=== PATIENT | male | born 1945 | race Caucasian/White ===

== ENCOUNTER 2017-08-15 12:22 | Outpatient (CLI) | payer MEDICARE ==
[2017-08-15 14:12] LABS: #Eosinphils 0.1 thou/uL (0.0-0.7); #Lymphocytes 1.6 thou/uL (1.20-3.40); #Monocytes 0.6 thou/uL (0.11-0.59); #Neutrophils 5.7 thou/uL (1.40-6.50); %Basophils 0.4 % (0.0-1.0); %Lymphocytes 20.3 % (21.0-51.0); %Monocytes 7.2 % (0.0-10.0); %Neutrophils 71.1 % (42.0-75.0); Hemoglobin 13.8 g/dL (14.0-18.0); Mean Corpuscular HGB CONC 31.8 g/dL (32.0-36.0); Mean Corpuscular Hemoglobin 32.2 pg (27.0-31.0); Mean Platelet Volume 7.4 fL (7.4-10.4); Platelet Count 266 thou/uL (130-400); RBC Distribution Width 14.3 % (11.5-14.5)
[2017-08-15 14:18] LABS: INR-International Normal Ratio 3.7; Prothrombin Time 38.3 SEC (12.0-14.7)
[2017-08-15 14:19] LABS: PTT 56.1 SEC (22.9-36.1)
[2017-08-15 14:36] LABS: Anion Gap 12 mmol/L (10-20); BUN (Urea Nitrogen) 24 mg/dL (8.4-25.7); Calc. Creatinine Clearance 0 mL/min (70-130); Calcium 9.6 mg/dL (7.8-10.44); Carbon Dioxide 29 mmol/L (23-31); Chloride 99 mmol/L (98-107); Estimated GFR-MDRD 49; Glucose 83 mg/dL (83-110); Sodium 136 mmol/L (136-145)
== END 2017-08-15 12:23 | disposition home or self-care (01) ==
LOC: LABBT 12:22
PROVIDERS: ATTEND Orthopaedic Surgery
DX: Z01.810 Encounter for preprocedural cardiovascular examination (principal); M16.11 Unilateral primary osteoarthritis, right hip
CPT/HCPCS: 80048; 85025; 85610; 85730; 86850; 86900; 86901

== ENCOUNTER 2017-08-15 14:00 | Inpatient (IN) | payer MEDICARE ==
[2017-08-15 12:57] VITALS: BMI 24.3
[2017-08-22] MEDS ORDERED: Midazolam HCl 2 mg/2 ml Vial ONE (06:30)
[2017-08-22] MEDS ORDERED: Morphine 4 MG/ML VIAL ONE ×2 (06:32→10:40)
[2017-08-22 06:34] LABS: INR-International Normal Ratio 1.1; PTT 31.3 SEC (22.9-36.1); Prothrombin Time 14.2 SEC (12.0-14.7)
[2017-08-22] MEDS ORDERED: CEFAZOLIN/Water 2 GM/20 ML SYRINGE ONE (06:37)
[2017-08-22] MEDS ORDERED: Lidocaine 1% (PF) 30 ML VIAL ONE (06:44)
[2017-08-22] MEDS ORDERED: Fentanyl 100 MCG/2 ML VIAL ONE (07:16)
[2017-08-22] MEDS ORDERED: Bupivacaine/Epinephrine 0.25% 30 ML VIAL ONE (07:29)
[2017-08-22] MEDS ORDERED: Ondansetron HCl/PF 4 MG/2 ML Vial IVP PRN ×2 (07:30→09:32)
[2017-08-22] MEDS ORDERED: diphenhydrAMINE 50 MG/ML VIAL IVP PRN (07:30)
[2017-08-22] MEDS ORDERED: Hydrocerin (Eucerin) Cream 120 gm Jar TOP PRN (07:30)
[2017-08-22] MEDS ORDERED: diphenhydrAMINE 25 MG CAP PO PRN (07:30)
[2017-08-22] MEDS ORDERED: diphenhydrAMINE 50 MG/ML VIAL IM PRN (07:30)
[2017-08-22] MEDS ORDERED: Naloxone HCl 0.4 mg/ml Vial IVP PRN (07:30)
[2017-08-22] MEDS ORDERED: Naloxone HCl 0.4 mg/ml Vial IV PRN (07:30)
[2017-08-22] MEDS ORDERED: Promethazine HCl 25 MG SUPP PR PRN (07:30)
[2017-08-22] MEDS ORDERED: Promethazine HCl 25 MG/ML VIAL IM PRN ×2 (07:30→09:32)
[2017-08-22] MEDS ORDERED: Bupivacaine 0.25% 10 ML VIAL EPIDURAL PRN (07:30)
[2017-08-22] MEDS ORDERED: fentaNYL Citrate/PF 1,250 MCG, Bupivacaine 25 ML in Sodium Chloride 0.9% 250 ML 200 ML EPIDURAL SCH (07:30)
[2017-08-22] MEDS ORDERED: HYDROcodone/Acetaminophen 5/325 mg Tablet PO PRN (07:30)
[2017-08-22] MEDS ORDERED: Ketorolac Tromethamine 30 MG/ML VIAL IVP PRN (07:30)
[2017-08-22] MEDS ORDERED: traMADol HCl 50 MG TAB PO PRN ×2 (07:30→10:37)
[2017-08-22 07:34] LABS: Bilirubin Negative (Negative); Blood, Urine Negative (Negative); Clarity CLOUDY (Clear); Glucose, Urine (Dipstick) Negative (Negative); Leukocyte Negative (Negative); Nitrite Negative (Negative); Protein, Urine (Dipstick) Negative (Neg-Trace); Specific Gravity, Urine 1.015 (1.002-1.036); Urobilinogen 0.2 mg/dL (0.2-1.0)
[2017-08-22 07:38] LABS: Bacteria/HPF None Seen HPF (None Seen); Hyaline Casts/LPF 0-3 HYALINE CAST LPF (0-3 Hyaline); RBC/HPF 0-3 HPF (0-3); Squamous Epithelial None Seen HPF (0-3); WBC/HPF None Seen HPF (0-3)
--- NOTE | 2017-08-22 07:47 | HP ---
CHIEF COMPLAINT: Right hip pain. HISTORY OF PRESENT ILLNESS: Mr. Navarrete presented with 5 years of right hip pain. The patient has a history of a TIA stroke called by Cardiology with atrial fibrillation and cardiomyopathy. PAST MEDICAL HISTORY: TIA, stroke, atrial fibrillation, hypertension, cardiomyopathy, gout, anxiety, sleep disorder, chronic kidney disease. Past radiology. Gastroesophageal reflux disease. PAST SURGICAL HISTORY: None per report. MEDICATIONS: Allopurinol, citalopram, diltiazem, methocarbamol, quetiapine, ranitidine, Robaxin. SOCIAL HISTORY: The patient is a nondrinker, nonsmoker. 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 The patient is . REVIEW OF SYSTEMS: Noncontributory. PHYSICAL EXAMINATION: VITAL SIGNS: Pulse 111, 127/80, 98% on room. GENERAL: Resting comfortably in bed. The patient is an alert and oriented male in no acute distress. HEENT: Head is normocephalic and atraumatic. Extraocular muscles intact. LUNGS: Symmetric chest rise. GENERAL: The patient is tachycardic, resting comfortably in bed. ABDOMEN: Soft, nontender, nondistended. PELVIS: AP and lateral compression of the right lower extremity shows a 1 cm leg length discrepancy. Neurovascular intact distally, 5/5. Motor, the patient 's external rotation 0, internal rotation of 10. LABORATORY AND X-RAY FINDINGS: Radiographs showed femoral head collapse with severe degenerative changes likely avascular necrosis with severe osteoarthritis. ASSESSMENT AND PLAN: 1. Right osteoarthritis. R right superior avascular necrosis, consultant rn to the OR for a right total hip arthroplasty. 2. Stroke. 3. Atrial fibrillation, cardiomyopathy. 4. Chronic kidney disease. 5. Anxiety. 6. Gout. 7. Hypertension. ASSESSMENT AND PLAN: The patient will be taken for a right total hip arthroplasty, receive pain control by Anesthesia. He understands the risks and benefits of surgery, pain, scar, bleeding, injury to vital structures, decreased range of motion or strength. He understands all of these risks and desires to proceed. SASHA
[2017-08-22] MEDS ORDERED: HYDROmorphone 2 MG/ML VIAL SLOW IVP PRN (09:32)
[2017-08-22] MEDS ORDERED: Promethazine HCl 25 MG/ML VIAL SLOW IVP PRN (09:32)
[2017-08-22] MEDS ORDERED: Fentanyl 250 MCG/5 ML VIAL ONE (09:48)
[2017-08-22] MEDS ORDERED: Acetaminophen 325 MG TAB PO PRN (10:37)
[2017-08-22] MEDS ORDERED: Fentanyl 100 MCG/2 ML VIAL SLOW IVP PRN ×2 (10:37)
[2017-08-22] MEDS ORDERED: HYDROcodone/Acetaminophen 10/325 mg Tablet PO PRN ×2 (10:37)
--- NOTE | 2017-08-22 11:51 | RAD ---
TWO VIEWS RIGHT HIP: HISTORY: Postoperative exam. COMPARISON: 06/29/2017 FINDINGS: Right hip arthroplasty with expected postoperative changes. Alignment is near anatomic. IMPRESSION: Findings compatible with right hip arthroplasty. POS: [facility]
[2017-08-22] MEDS ORDERED: Methocarbamol 500 MG TAB PO PRN (11:58)
[2017-08-22] MEDS ORDERED: Famotidine 20 MG TAB PO PRN (11:59)
[2017-08-22] MEDS: Sodium Chloride 0.9% 1,000 ML IV SCH ×2 (12:18→21:01)
--- NOTE | 2017-08-22 12:40 | OP ---
DATE OF PROCEDURE: 08/22/2017 PREOPERATIVE DIAGNOSIS: Right hip avascular necrosis/osteoarthritis. POSTOPERATIVE DIAGNOSIS: Right hip avascular necrosis/osteoarthritis. PROCEDURE PERFORMED: Right total hip arthroplasty. STAFF: Arron Ham M.D. MEDICAL INSURANCE CLAIMS SPECIALIST: BRENNA Jackson and BRENNA Lambert. ANESTHESIA: Dr. Martin. The patient received a general with epidural. ESTIMATED BLOOD LOSS: 150 mL. TOURNIQUET TIME: None. IMPLANTS: A Nevin size 3 Accolade, 39 degree neck angle stem with a 52 Tritanium hemispherical cluster shell, a Trident 0 degree poly, 36 mm liner and a 36 x -5 femoral head. ANTIBIOTICS: Two grams Ancef, vancomycin 1 gram, TXA 1 gram. COMPLICATIONS: None. HISTORY OF PRESENT ILLNESS: Mr. Navarrete is a 72-year-old male with history of multiple medical problems to include CKD, cardiomyopathy, cerebral infarction. The patient's pain is 6-7/10, has pain that can constantly give him issues. The patient had decreased function and primary pain that would keep him awake. I discussed with patient the risks and benefits of a right total hip arthroplasty to include pain, scar, bleeding, infection, damage to vital structures, decreased range of motion, strength, failure of procedure, continued pain despite surgical intervention, damage to vital structures, loss of life or limb. The patient understood the risk of blood clot, loss of life or limb. The patient understood the risks and benefits and elected to proceed. PROCEDURE IN DETAIL: Timeout was performed designating the patient's right lower extremity as the operative site based on sight, consents, markings. The patient was placed in lateral position with all bony prominences well padded. The patient was prepped and draped in sterile fashion. A lateral incision was made down through skin, down to the IT band. We then took the gluteus medius and minimus off and tenotomy to expose the capsule T'd and excised the capsule, dislocated the hip, cut short femoral neck, cut and removed the head, excised the labrum. We placed the retractors and exposed the acetabulum. We medialized our reamers starting at a 46, moving up to a 51 and put in a size 52 cup. The patient got 4 mm poly with 0 degree liner. After I placed implants, they were nice and firmly stable in the acetabulum, removed the femur. We broached up to size 3. We trialed with a size 3 -5 head, 36 mm head, I felt for stability was better given the patient's history and felt he needed one 4 mm given that likely the patient's longevity. The patient's hip was reduced. We then liked the overall alignment. We then removed, placed a final size 3 stem. I placed an 30 degree stem with a 2 degree stem with a -5 36 head, reduced into place sitting position. The patient was pointing directly at the center of his acetabulum cup, had good version internal and external rotation, did not dislocate, had minimal shuck. We then washed, closed the gluteus minimus medius with #2 Vicryl. We then closed the IT band with #2 Vicryl. We closed with #2 Quill, 0 Quill, 2-0 Quill, and glue. The patient will follow [place] protocol, admitted. He will postoperatively start on his Xarelto tomorrow. SASHA
[2017-08-22] MEDS ORDERED: PHENYLEPHRINE-NS 100 MCG/ML 10 ML SYRINGE ONE (14:51)
[2017-08-22] MEDS ORDERED: Ketorolac Tromethamine 30 MG/ML VIAL ONE (14:51)
[2017-08-22] MEDS ORDERED: ePHEDrine/0.9% NaCl/PF SYRINGE 50 mg/10 ml ONE (14:51)
[2017-08-22] MEDS ORDERED: Ondansetron HCl/PF 4 MG/2 ML Vial ONE (14:51)
[2017-08-22] MEDS ORDERED: Glycopyrrolate 0.2 MG/ML 5 ML SYRINGE ONE (14:51)
[2017-08-22] MEDS ORDERED: Lidocaine 1% PF 5 ML VIAL ONE (14:51)
[2017-08-22] MEDS ORDERED: Dexamethasone 20 MG/5 ML VIAL ONE (14:51)
[2017-08-22] MEDS ORDERED: Propofol 200 MG/20 ML VIAL ONE (14:51)
[2017-08-22] MEDS ORDERED: Sodium Chloride 0.9% 500 ML IV SCH (16:00)
[2017-08-22] MEDS: CEFAZOLIN/Water 2 GM/20 ML SYRINGE SLOW IVP SCH ×2 (16:26→23:28)
--- NOTE | 2017-08-22 16:30 | CON ---
DATE OF CONSULTATION: 08/22/2017 REASON FOR CONSULTATION: Medical management of hypertension and paroxysmal atrial fibrillation. HISTORY OF PRESENT ILLNESS: Mr. Cedric Navarrete is a 72-year-old male with a past medical history of hypertension, gout, paroxysmal atrial fibrillation, and history of CVA a year ago, who presented to the hospital for right hip arthroplasty, which was done this morning. He currently has no complaints. He denies chest pain, shortness of breath, nausea, vomiting, diarrhea. His pain is well controlled. He has no abdominal or urinary symptoms. He reports being compliant with his medications. PAST MEDICAL HISTORY: Hypertension, gout, atrial fibrillation, history of CVA. PAST SURGICAL HISTORY: No previous surgeries before his current right-sided hip arthroplasty. FAMILY HISTORY: Reviewed and noncontributory. SOCIAL HISTORY: Denies smoking cigarettes, drinking alcohol, or use of illicit drugs. ALLERGIES: None. REVIEW OF SYSTEMS: Ten-point review of systems was done, negative. PHYSICAL EXAMINATION: VITAL SIGNS: Temperature 97.4 degree Fahrenheit, pulse rate 77, respiratory rate 18, oxygen saturation 94% on room air, blood pressure 96/52. GENERAL: Not in acute distress, lying comfortably in bed. HEENT: Dry mucous membranes, not pale. Anicteric. Normocephalic, atraumatic. PERRLA. EOMI. RESPIRATORY: Vesicular breath sounds bilaterally with no wheezes, rales, or rhonchi. CARDIOVASCULAR: S1 and S2 only with regular rate and rhythm. No murmurs, rubs , or gallops. ABDOMEN: Soft, nontender, nondistended. No hepatosplenomegaly. Bowel sounds positive. MUSCULOSKELETAL: Limited movement of the right hip status post surgery. SKIN: Warm, dry, well perfused. No rashes or lesions. NEUROLOGIC: Alert and well oriented to time, place, and person. No focal deficits. PSYCHIATRIC: Normal mood and affect. IMAGING: PT 14.2, INR 1.1. Hip x-ray: Findings compatible with right hip arthroplasty. ASSESSMENT AND PLAN: 1. Hypertension. The patient is currently borderline hypotensive, but asymptomatic. He takes diltiazem on an outpatient basis. We will hold blood pressure medications for now. Give him 500 mL of normal saline bolus and monitor blood pressure closely. I agree with continuing with parenteral hydration, as the patient has dry mucous membranes on examination. We will monitor closely. 2. Paroxysmal atrial fibrillation. He is currently rate controlled. On an outpatient basis, he takes diltiazem and rivaroxaban. We will continue these medications and monitor the patient closely. 3. Gout, not an acute flare. The patient will be continued on his allopurinol once we check his serum chemistry. Thank you for the interesting consult. Do not hesitate to contact me if you have any questions. CHRISTIANOD
[2017-08-22] MEDS ORDERED: Vancomycin HCl 1 GM in Premix Bag 1 BAG IVPB SCH (19:00)
[2017-08-23 04:24] LABS: Hemoglobin 10.7 g/dL (14.0-18.0); Mean Corpuscular HGB CONC 32.9 g/dL (32.0-36.0); Mean Corpuscular Hemoglobin 32.6 pg (27.0-31.0); Mean Platelet Volume 7.4 fL (7.4-10.4); Platelet Count 175 thou/uL (130-400); RBC Distribution Width 13.9 % (11.5-14.5); Red Blood Cell (RBC) Count 3.27 mill/uL (4.70-6.10); White Blood Cell (WBC) Count 10.6 thou/uL (4.8-10.8)
[2017-08-23] MEDS: Sodium Chloride 0.9% 1,000 ML IV SCH ×2 (06:08→18:19)
[2017-08-23] MEDS: Multivitamin W/ Minerals 1 TAB PO SCH (08:22)
[2017-08-23] MEDS: Senokot S 8.6-50 MG TAB PO SCH ×2 (08:23→20:35)
[2017-08-23] MEDS: Citalopram 20 MG TAB PO SCH (08:23)
[2017-08-23] MEDS: Allopurinol 300 MG TAB PO SCH (08:23)
[2017-08-23] MEDS: Ferrous Gluconate 324 MG TAB PO SCH ×2 (08:24→20:36)
[2017-08-23] MEDS ORDERED: Famotidine 20 MG TAB PO SCH (11:15)
[2017-08-23] MEDS ORDERED: Enoxaparin Sodium 30 MG/0.3 ML SYRINGE SC SCH (18:00)
[2017-08-23] MEDS: Zolpidem Tartrate 5 MG TAB PO PRN (20:36)
[2017-08-23] MEDS: Famotidine 20 MG TAB PO SCH (20:36)
[2017-08-24] MEDS: Sodium Chloride 0.9% 1,000 ML IV SCH ×3 (03:58→22:45)
[2017-08-24 05:06] LABS: Mean Corpuscular HGB CONC 33.3 g/dL (32.0-36.0); Mean Corpuscular Hemoglobin 32.7 pg (27.0-31.0); Mean Corpuscular Volume 98.2 fl (80.0-94.0); Mean Platelet Volume 7.2 fL (7.4-10.4); Platelet Count 147 thou/uL (130-400); Red Blood Cell (RBC) Count 3.06 mill/uL (4.70-6.10); White Blood Cell (WBC) Count 7.6 thou/uL (4.8-10.8)
[2017-08-24] MEDS: Famotidine 20 MG TAB PO SCH ×2 (08:59→21:09)
[2017-08-24] MEDS: Ferrous Gluconate 324 MG TAB PO SCH ×2 (08:59→21:10)
[2017-08-24] MEDS: Senokot S 8.6-50 MG TAB PO SCH ×2 (08:59→21:10)
[2017-08-24] MEDS: Allopurinol 300 MG TAB PO SCH (08:59)
[2017-08-24] MEDS: Citalopram 20 MG TAB PO SCH (09:00)
[2017-08-24] MEDS: Multivitamin W/ Minerals 1 TAB PO SCH (09:07)
[2017-08-24] MEDS: HYDROcodone/Acetaminophen 5/325 mg Tablet PO PRN (12:44)
[2017-08-24] MEDS ORDERED: Non-Formulary Item 1 EACH (Rivaroxaban [Xarelto] 20 MG) PO SCH (14:45)
[2017-08-25] MEDS: HYDROcodone/Acetaminophen 5/325 mg Tablet PO PRN (04:19)
[2017-08-25 04:27] LABS: Hemoglobin 10.6 g/dL (14.0-18.0); Mean Corpuscular HGB CONC 33.6 g/dL (32.0-36.0); Mean Corpuscular Hemoglobin 32.7 pg (27.0-31.0); Mean Corpuscular Volume 97.3 fl (80.0-94.0); Mean Platelet Volume 7.1 fL (7.4-10.4); Platelet Count 163 thou/uL (130-400); RBC Distribution Width 13.7 % (11.5-14.5); Red Blood Cell (RBC) Count 3.24 mill/uL (4.70-6.10); White Blood Cell (WBC) Count 7.9 thou/uL (4.8-10.8)
[2017-08-25] MEDS ORDERED: Fentanyl 100 MCG/2 ML VIAL SLOW IVP PRN (07:59)
[2017-08-25] MEDS ORDERED: HYDROcodone/Acetaminophen 10/325 mg Tablet PO PRN (08:00)
[2017-08-25] MEDS ORDERED: Ketorolac Tromethamine 30 MG/ML VIAL IVP PRN (08:01)
[2017-08-25] MEDS: traMADol HCl 50 MG TAB PO PRN (08:09)
[2017-08-25] MEDS: Rivaroxaban 10 MG TAB PO SCH (08:14)
[2017-08-25] MEDS: Citalopram 20 MG TAB PO SCH (08:14)
[2017-08-25] MEDS: Famotidine 20 MG TAB PO SCH ×2 (08:15→21:33)
[2017-08-25] MEDS: Senokot S 8.6-50 MG TAB PO SCH ×2 (08:15→21:33)
[2017-08-25] MEDS: Multivitamin W/ Minerals 1 TAB PO SCH (08:15)
[2017-08-25] MEDS: Allopurinol 300 MG TAB PO SCH (08:15)
[2017-08-25] MEDS: Ferrous Gluconate 324 MG TAB PO SCH ×2 (08:15→21:33)
[2017-08-25] MEDS: HYDROcodone/Acetaminophen 10/325 mg Tablet PO PRN ×2 (10:39→18:24)
[2017-08-25] MEDS: Sodium Chloride 0.9% 1,000 ML IV SCH ×2 (11:01→19:42)
[2017-08-25] MEDS: Zolpidem Tartrate 5 MG TAB PO PRN (21:33)
[2017-08-26] MEDS: HYDROcodone/Acetaminophen 10/325 mg Tablet PO PRN ×2 (02:18→21:01)
[2017-08-26 05:01] LABS: Hemoglobin 11.5 g/dL (14.0-18.0); Mean Corpuscular HGB CONC 33.1 g/dL (32.0-36.0); Mean Corpuscular Hemoglobin 33.4 pg (27.0-31.0); Mean Platelet Volume 7.3 fL (7.4-10.4); Platelet Count 175 thou/uL (130-400); RBC Distribution Width 13.6 % (11.5-14.5); Red Blood Cell (RBC) Count 3.45 mill/uL (4.70-6.10)
[2017-08-26] MEDS: Sodium Chloride 0.9% 1,000 ML IV SCH ×2 (05:28→08:09)
[2017-08-26] MEDS: Rivaroxaban 10 MG TAB PO SCH (08:06)
[2017-08-26] MEDS: Senokot S 8.6-50 MG TAB PO SCH ×2 (08:07→20:59)
[2017-08-26] MEDS: Citalopram 20 MG TAB PO SCH (08:07)
[2017-08-26] MEDS: Ferrous Gluconate 324 MG TAB PO SCH ×2 (08:07→20:58)
[2017-08-26] MEDS: Multivitamin W/ Minerals 1 TAB PO SCH (08:07)
[2017-08-26] MEDS: Famotidine 20 MG TAB PO SCH ×2 (08:07→20:58)
[2017-08-26] MEDS: Allopurinol 300 MG TAB PO SCH (08:07)
[2017-08-26] MEDS: traMADol HCl 50 MG TAB PO PRN (12:49)
[2017-08-26] MEDS: Zolpidem Tartrate 5 MG TAB PO PRN (20:59)
[2017-08-27] MEDS: Sodium Chloride 0.9% 1,000 ML IV SCH ×2 (00:53→10:52)
[2017-08-27 05:14] LABS: Hemoglobin 10.6 g/dL (14.0-18.0); Mean Corpuscular HGB CONC 33.3 g/dL (32.0-36.0); Mean Corpuscular Hemoglobin 32.4 pg (27.0-31.0); Mean Corpuscular Volume 97.4 fl (80.0-94.0); Mean Platelet Volume 6.9 fL (7.4-10.4); Platelet Count 203 thou/uL (130-400); RBC Distribution Width 13.6 % (11.5-14.5); Red Blood Cell (RBC) Count 3.28 mill/uL (4.70-6.10); White Blood Cell (WBC) Count 5.2 thou/uL (4.8-10.8)
[2017-08-27] MEDS: HYDROcodone/Acetaminophen 10/325 mg Tablet PO PRN ×2 (08:53→13:16)
[2017-08-27] MEDS: Citalopram 20 MG TAB PO SCH (08:53)
[2017-08-27] MEDS: Rivaroxaban 10 MG TAB PO SCH (08:53)
[2017-08-27] MEDS: Famotidine 20 MG TAB PO SCH (08:53)
[2017-08-27] MEDS: Ferrous Gluconate 324 MG TAB PO SCH (08:53)
[2017-08-27] MEDS: Senokot S 8.6-50 MG TAB PO SCH (08:55)
[2017-08-27] MEDS: Allopurinol 300 MG TAB PO SCH (08:56)
[2017-08-27] MEDS: Multivitamin W/ Minerals 1 TAB PO SCH (08:56)
[2017-08-27 11:58] VITALS: BP 111/73; TEMP 98.5
--- NOTE | 2017-08-28 15:00 | DIS ---
DATE OF ADMISSION: 08/22/2017 DATE OF DISCHARGE: 08/27/2017 DISCHARGE DISPOSITION: To [facility] facility. ADMISSION DIAGNOSIS: End-stage bicompartmental osteoarthritis, right hip. DISCHARGE DIAGNOSIS: End-stage bicompartmental osteoarthritis, right hip. OPERATIVE PROCEDURE: Right total hip arthroplasty. CONSULTANTS: [facility] for acute postop pain management. BRIEF CLINICAL HISTORY: Cedric is a 72-year-old white male who was admitted to [facility]. He underwent the above elective procedure on date of admission without intra, gildrado, o r postop complication. His hospital course was unremarkable with the exception of being slow at prog ressing towards independence and regular activity of daily living milestones. Therefore, it was elec efrain to consult and send for usp placement. At the time of transfer, the patient is afebr ile. He is ambulatory with assist of one, tolerating a regular diet without difficulty. His incisio n is clean and closed. He is neurovascularly intact in the involved extremity. DISCHARGE MEDICATIONS: Please see medication reconciliation form. We will be happy to see the patient on an as needed basis between now and his next scheduled appointm ent. CONDITION ON TRANSFER: Stable. PROGNOSIS: Good.
== END 2017-08-27 15:33 | DRG 470 ==
LOC: SURG A 08-22 05:27 → SJJU 08-22 10:53 → EDSTATUS 08-22 14:00
PROVIDERS: ADMIT Orthopaedic Surgery; ATTEND Orthopaedic Surgery
PROC: 0SR90JZ Replacement of Right Hip Joint with Synthetic Substitute, Open Approach (ICD-10-PCS; principal; 2017-08-22)
DX: M16.11 Unilateral primary osteoarthritis, right hip (principal); I42.9 Cardiomyopathy, unspecified; I48.0 Paroxysmal atrial fibrillation; M87.851 Other osteonecrosis, right femur; Z86.73 Personal history of transient ischemic attack (TIA), and cerebral infarction without residual deficits; F41.9 Anxiety disorder, unspecified; M10.9 Gout, unspecified; I12.9 Hypertensive chronic kidney disease with stage 1 through stage 4 chronic kidney disease, or unspecified chronic kidney disease; N18.9 Chronic kidney disease, unspecified
CPT/HCPCS: 36415; 81001; 85027; 85610; 85730; C1776; G8978-GP-CM; G8979-GP-CI; G8987-GO-CK; G8988-GO-CI; J0131; J1100; J1650; J1885; J2001; J2250; J2270; J2405; J2704; J3010; J3370; J3490; J7050

== ENCOUNTER 2017-09-01 13:23 | Inpatient (IN) | payer MEDICARE ==
[2017-09-01] MEDS ORDERED: Pantoprazole 40 MG VIAL ONE (14:06)
[2017-09-01] MEDS ORDERED: PHENYLEPHRINE-NS 100 MCG/ML 10 ML SYRINGE ONE (14:55)
[2017-09-01] MEDS ORDERED: Metoprolol Tartrate 5 MG/5 ML VIAL ONE (14:55)
[2017-09-01] MEDS ORDERED: Esmolol 100 MG/10 ML VIAL ONE (14:55)
[2017-09-01] MEDS ORDERED: Calcium Chloride 1 GM/10 ML Abboject SYRINGE ONE (14:55)
[2017-09-01] MEDS ORDERED: Lidocaine 1% PF 5 ML VIAL ONE (14:55)
[2017-09-01] MEDS ORDERED: PROPOFOL 200 MG/20 ML VIAL ONE (14:55)
[2017-09-01] MEDS ORDERED: Succinylcholine Chloride 20 MG/ML 10 ml SYRINGE FS ONE (14:55)
[2017-09-01 15:20] LABS: #Lymphocytes 1.3 thou/uL (1.20-3.40); #Monocytes 0.4 thou/uL (0.11-0.59); #Neutrophils 9.3 thou/uL (1.40-6.50); %Basophils 0.4 % (0.0-1.0); %Eosinophils 0.4 % (0.0-10.0); %Monocytes 3.1 % (0.0-10.0); %Neutrophils 84.1 % (42.0-75.0); Hemoglobin 7.1 g/dL (14.0-18.0); Mean Corpuscular HGB CONC 34.1 g/dL (32.0-36.0); Mean Corpuscular Hemoglobin 32.8 pg (27.0-31.0); Mean Corpuscular Volume 96.3 fl (80.0-94.0); Mean Platelet Volume 6.9 fL (7.4-10.4); Platelet Count 260 thou/uL (130-400); Red Blood Cell (RBC) Count 2.15 mill/uL (4.70-6.10); White Blood Cell (WBC) Count 11.1 thou/uL (4.8-10.8)
[2017-09-01] MEDS ORDERED: Ondansetron HCl/PF 4 MG/2 ML Vial IVP PRN (15:27)
[2017-09-01] MEDS ORDERED: Zolpidem Tartrate 5 MG TAB PO PRN (15:27)
[2017-09-01] MEDS ORDERED: Sodium Chloride 0.9% 1,000 ML IV SCH (15:30)
[2017-09-01] MEDS ORDERED: Morphine 4 MG/ML VIAL SLOW IVP PRN ×2 (16:00→19:15)
[2017-09-01] MEDS ORDERED: Diltiazem HCl 125 MG, Admixture Fee 1 EACH in Sodium Chloride 0.9% 100 ML IVPB SCH (17:30)
--- NOTE | 2017-09-01 17:38 | CON ---
TIME: 30 minutes HISTORY OF PRESENT ILLNESS: The patient is a 72-year-old gentleman with a history of a cerebrovascular accident and atrial fibrillation who presented with hematemesis. The patient suffered a stroke approximately a year ago, and he was found to be apparently in atrial fibrillation. He was started on Xarelto. The patient recently had hip surgery. He was in rehab when he vomited blood and was noted to have dark stool. The patient does not have any chest pain or palpitations. PAST MEDICAL HISTORY: 1. Atrial fibrillation. 2. Hypertension. 3. Gout. 4. Anxiety. PAST SURGICAL HISTORY: Hip surgery. SOCIAL HISTORY: Nonsmoker. ALLERGIES: None. MEDICATIONS: Xarelto 20 daily, Zantac 150 daily, Seroquel 50 daily, diltiazem 480 daily, allopurinol 300 daily, and citalopram 20 daily. FAMILY HISTORY: No strong family history of heart disease. REVIEW OF SYSTEMS: The 10 point system otherwise unremarkable. PHYSICAL EXAMINATION: GENERAL: This is a thin gentleman who is pale and anxious with a blood pressure of 120/77, heart rate is 130. NECK: Showed no jugular venous distention. LUNGS: Clear to auscultation. HEART: Irregular rate and rhythm, normal S1, S2, no murmurs. ABDOMEN: Nondistended. EXTREMITIES: Showed no edema. VASCULAR: Radial pulses are 2+. LABORATORY DATA: White blood count 11.1, hemoglobin 7.1, hematocrit 20.7 and platelets 260. EKG is pending. IMPRESSION: 1. Gastrointestinal hemorrhage. 2. Atrial fibrillation. 3. History of hypertension. 4. Anxiety. 5. Gout. This gentleman has suffered a GI hemorrhage after undergoing hip surgery. The patient's Xarelto has been held. We will try to control the patient's heart rate with IV Cardizem. The patient is undergoing endoscopy. We will follow this patient with you through his hospitalization. Critical care time 30 minutes. [facility]
[2017-09-01 17:53] LABS: Hemoglobin 8.2 g/dL (14.0-18.0)
[2017-09-01 18:00] LABS: INR-International Normal Ratio 1.5; Prothrombin Time 18.9 SEC (12.0-14.7)
[2017-09-01] MEDS ORDERED: cefTRIAXone\\ROCEPHIN 2 GM in Sodium Chloride 0.9% 100 ML IVPB SCH (18:00)
[2017-09-01 18:16] LABS: Bilirubin Negative (Negative); Blood, Urine Negative (Negative); Clarity CLEAR (Clear); Glucose, Urine (Dipstick) Negative (Negative); Leukocyte Negative (Negative); Nitrite Negative (Negative); Protein, Urine (Dipstick) Negative (Neg-Trace); Specific Gravity, Urine 1.022 (1.002-1.036); Urobilinogen 0.2 mg/dL (0.2-1.0)
[2017-09-01 18:18] LABS: Bacteria/HPF None Seen HPF (None Seen); Hyaline Casts/LPF 0-3 HYALINE CAST LPF (0-3 Hyaline); RBC/HPF 0-3 HPF (0-3); Squamous Epithelial None Seen HPF (0-3); WBC/HPF None Seen HPF (0-3)
[2017-09-01 18:20] LABS: ALT (SGPT) 19 U/L (8-55); AST (SGOT) 27 U/L (5-34); Albumin 2.3 g/dL (3.4-4.8); Alkaline Phosphatase 40 U/L (40-150); Anion Gap 10 mmol/L (10-20); BUN (Urea Nitrogen) 84 mg/dL (8.4-25.7); Bilirubin, Total 0.7 mg/dL (0.2-1.2); Calc. Creatinine Clearance 0 mL/min (70-130); Calcium 6.9 mg/dL (7.8-10.44); Carbon Dioxide 22 mmol/L (23-31); Chloride 111 mmol/L (98-107); Estimated GFR-MDRD 84; Globulin 1.1 g/dL (2.4-3.5); Glucose 132 mg/dL (83-110); Potassium 3.7 mmol/L (3.5-5.1); Protein, Total 3.4 g/dL (5.8-8.1); Sodium 139 mmol/L (136-145)
[2017-09-01 18:29] LABS: Actual Bicarbonate (HCO3a) 21.1 mEq/L (22-26); Base Excess (BEa) -2.7 mEq/L (0 (+/-) 2.5); CO2 Tension 32.3 mmHg (35.0-45.0); O2 Tension (PaO2) 82.8 mmHg (80.0-100.0); pH, Arterial 7.43 (7.35-7.45)
[2017-09-01 18:30] LABS: ALV-art Gradient 26.555 (0-20); Hemoglobin (Hb) 7.7 g/dL (14.0-18.0); Puncture Site ALINE
[2017-09-01] MEDS ORDERED: PROTHROMBIN COMPLEX CONCENTRATE IV ONE ×2 (18:30)
[2017-09-01] MEDS ORDERED: Furosemide 20 MG/2 ML VIAL ONE (18:33)
[2017-09-01] MEDS ORDERED: Propofol 1,000 MG/100 ML VIAL IV ONE (18:56)
[2017-09-01] MEDS ORDERED: CCU Electrolyte Replacement 1 EACH IVPB ONE (19:07)
[2017-09-01] MEDS ORDERED: Sedation Protocol FS ONE (19:07)
[2017-09-01] MEDS ORDERED: Lacri-Lube Opth Oint 3.5 GM TUBE EA EYE PRN (19:07)
[2017-09-01 19:12] LABS: Actual Bicarbonate (HCO3a) 20.8 mEq/L (22-26); CO2 Tension 31.9 mmHg (35.0-45.0); Hematocrit-ABG 25.7 % (42.0-52.0); Hemoglobin (Hb) 8.9 g/dL (14.0-18.0); O2 Tension (PaO2) 57.2 mmHg (80.0-100.0); pH, Arterial 7.43 (7.35-7.45)
[2017-09-01] MEDS ORDERED: Propofol 1,000 MG/100 ML VIAL IV PRN (19:12)
[2017-09-01] MEDS ORDERED: Fentanyl BOLUS 250 ML IVPB PRN (19:12)
[2017-09-01] MEDS ORDERED: fentaNYL Citrate/PF 2,000 MCG in Sodium Chloride 0.9% 60 ML IV SCH (19:12)
[2017-09-01] MEDS ORDERED: Lorazepam 2 MG/ML VIAL SLOW IVP PRN (19:12)
[2017-09-01] MEDS ORDERED: Morphine 2 MG/ML SYRINGE SLOW IVP PRN (19:12)
[2017-09-01] MEDS ORDERED: DISCONTINUE PREVIOUS NARCOTIC PAIN MEDICATIONS AND BENZODIAZEPINES FS SCH (19:12)
[2017-09-01 19:13] LABS: ALV-art Gradient 52.655 (0-20); Calcium, Ionized 1.1 mmol/L (1.12-1.30); Puncture Site ALINE
[2017-09-01 19:14] LABS: Hemoglobin 9.3 g/dL (14.0-18.0)
[2017-09-01] MEDS ORDERED: Amiodarone In Dextrose 200 ML IVPB SCH (19:15)
[2017-09-01] MEDS ORDERED: Potassium Phosphate 9 MMOL in Sodium Chloride 0.9% 100 ML IVPB PRN (19:16)
[2017-09-01] MEDS ORDERED: Potassium Chloride 40 MEQ in Sodium Chloride 0.9% 250 ML 250 ML IVPB PRN (19:16)
[2017-09-01] MEDS ORDERED: CCU ELECTROLYTE REPLACEMENT PROTOCOL FS PRN (19:16)
[2017-09-01] MEDS ORDERED: Magnesium Oxide 400 MG TAB PO PRN ×2 (19:16)
[2017-09-01] MEDS ORDERED: Potassium Phosphate 15 MMOL in Sodium Chloride 0.9% 250 ML 250 ML IV PRN (19:16)
[2017-09-01] MEDS ORDERED: Magnesium 2 GM/NS 0.9% 100 ML 2 GM in Premix Bag 1 BAG IVPB PRN (19:16)
[2017-09-01] MEDS ORDERED: Potassium Phosphate 12 MMOL in Sodium Chloride 0.9% 250 ML 250 ML IV PRN (19:16)
[2017-09-01] MEDS ORDERED: Potassium Chloride 20 MEQ TAB PO PRN (19:16)
[2017-09-01] MEDS ORDERED: Potassium Chloride 40 MEQ in Premix Bag 1 BAG IVPB PRN (19:16)
[2017-09-01] MEDS: Amiodarone HCl 450 MG, Admixture Fee 1 EACH in Dextrose 5% in Water 250 ML IVPB SCH ×3 (19:30)
[2017-09-01] MEDS: Ondansetron HCl/PF 4 MG/2 ML Vial IVP PRN (19:44)
[2017-09-01] MEDS: Dextrose 5 % And 0.9 % NaCl 1,000 ML IV SCH (19:55)
[2017-09-01] MEDS: cefTRIAXone\\ROCEPHIN 2 GM in Sodium Chloride 0.9% 100 ML IVPB SCH (19:55)
--- NOTE | 2017-09-01 20:01 | RAD ---
AP VIEW OF THE CHEST: 09/01/17 INDICATION: Ventilator patient. COMPARISON: None. FINDINGS: There is moderate cardiomegaly with mild pulmonary vascular congestion. There is a linear opacity wit hin the retrocardiac left lower lobe which may reflect subsegmental volume loss. No definite pleural effusion or pneumothorax is evident. ET tube tip is seen at the expected level of the thoracic inlet. No acute osseous abnormality is evident. IMPRESSION: 1. Cardiomegaly with mild pulmonary vascular congestion. 2. Suspected subsegmental volume loss in the left lower lobe. 3. ET tube. POS: [facility]
--- NOTE | 2017-09-01 20:27 | CON ---
DATE OF SERVICE: 09/01/2017 SERVICE: Pulmonary Medicine. REASON FOR CONSULTATION: ICU patient. HISTORY OF PRESENT ILLNESS: The patient is a 72-year-old white male with past medical history significant for atrial fibrillation. He is on anticoagulation chronically. Recently, he sustained a fall and injured his right hip. He had a total hemiarthroplasty. He was subsequently in the rehab facility when he started having dark bowel movements, roughly 2 days ago. He had increasing tachycardia and shortness of breath. He got lightheaded on standing up. Ultimately, he presented to the Emergency Department and was discovered to have anemia. He was given a unit of blood at the outside facility. He is getting 2 more units of blood here in the ICU. He currently denies any shortness of breath or chest discomfort. Otherwise, he is in his usual state of health. We are making preparations to get him down for EGD. PAST MEDICAL HISTORY: 1. History of stroke. 2. Atrial fibrillation. 3. Hypertension. 4. Dyslipidemia. 5. Cardiomyopathy. 6. Gout. 7. Anxiety disorder. 8. Chronic kidney disease. 9. Gastroesophageal reflux disease. PAST SURGICAL HISTORY: Right hemiarthroplasty of the hip. SOCIAL HISTORY: Noncontributory. He is currently residing in a rehabilitation center. FAMILY HISTORY: Noncontributory. REVIEW OF SYSTEMS: General, head, ears, eyes, nose, throat, cardiovascular, respiratory, GI, , musculoskeletal, neurologic and skin is negative except as mentioned in the HPI. ALLERGIES: No known drug allergies. MEDICATIONS: List of his inpatient medications were reviewed. I have added an antibiotic. PHYSICAL EXAMINATION: VITAL SIGNS: Afebrile, pulse 119, blood pressure 120/77, respirations 16, saturation 100% on room air. GENERAL: Patient is awake, alert, no apparent distress. LUNGS: Excellent air entry. There is no prolonged expiratory phase. HEART: Tachycardic. Irregular. ABDOMEN: Soft, nontender, nondistended. Bowel sounds are positive. MUSCULOSKELETAL: No cyanosis or clubbing. There is 1+ in the left lower extremity. There is 2+ in the right lower extremity. GENITOURINARY: No Marin. NEUROLOGIC: Grossly nonfocal. LABORATORY DATA: Hemoglobin 5.7, there is an acute drop compared to 2 days ago at which point he was at 10.1. WBC 11.1, platelets 260,000. INR 1.1. Basic metabolic profile, liver function studies are unremarkable. Troponin negative. BNP is unremarkable. Urinalysis is unremarkable. Occult blood is positive. ASSESSMENT: 1. Acute blood loss anemia. 2. Hemorrhagic shock. 3. Chronic anticoagulation. 4. Atrial fibrillation with demand tachyarrhythmia. PLAN: The patient is getting 2 more units of blood right now. Once he is stabilized, he moved down for EGD. Pulmonary Critical Care will continue to follow while the patient remains in this location. Hopefully, we will be able to establish source control. At this point, we will continue to follow him very closely in the ICU setting. 70 minutes have been devoted to this patient in various activities. I personally reviewed all imaging studies and laboratory data noted within this document. For fifty percent of this time, I was interacting with the patient at the bedside or coordinating care with the care team. For the remainder of the time I was immediately available to the patient in the hospital unit. SASHA
[2017-09-01] MEDS: Pantoprazole 80 MG in Sodium Chloride 0.9% 100 ML IVP SCH (22:00)
[2017-09-01] MEDS ORDERED: Acetaminophen 1,000 MG in Premix Bag 1 BAG IVPB PRN (22:00)
[2017-09-01] MEDS ORDERED: Digoxin 0.5 MG/2 ML AMP SLOW IVP SCH (22:00)
[2017-09-01 22:51] LABS: Troponin I 0.048 ng/mL (< 0.028)
--- NOTE | 2017-09-02 00:58 | CON ---
DATE OF CONSULTATION: 09/01/2017 GI CONSULTATION REASON FOR CONSULTATION: GI bleed. HISTORY OF PRESENT ILLNESS: Mr. Navarrete is a 72-year-old gentleman who was transferred to this hospit al from [place] where he developed a GI bleed yesterday or this morning. He was here recently w ith a hip replacement on the right hip that was done for arthritis on 08/22/2017. He was discharged on 08/27/2017 to [facility] in [place], his hospital stay here was apparently uneventful. He was on Xarelto for history of atrial fibrillation and this was restarted after his surgery. He wa s on ulcer prophylaxis with an H2 maine while here. In talking with his , it seems yesterday mercedes chester was noted to have some black stools. His hemoglobin on discharge from this facility was 10.6. Pre operatively, it had been 13.8. He received no transfusions during that admission. Yesterday, the pa pallavidakota's notes that she commented on the patient's black stools and the nurses there, they felt i t was probably related to his taking iron. He had a couple of black stools last night and one this m orning and then had an episode of small amount of hematemesis. He has had no further bowel movements or bleeding since then. His hemoglobin; however, for this morning was 5.7. He was transfused a uni t of blood and transferred here. His INR on 08/22/2017 was 1.1. His BUN and creatinine were 24 and 1.42 on 08/15/2017. This morning, his BUN was 86 and his creatinine was 1.13. Liver function tests are normal. Troponins were negative. On arrival to the ICU, patient's notes he just looks very pale to her, his heart rates in the 130s and it seems that during his last admission, he was around 73-74, blood pressures in the high 80s to low 90s and with transfusions coming up to the 120s/70s. T he patient did develop the chest tightness. He has had no further bleeding here. In the ICU, brittnee chester started resuscitation and does not appear to be satting to this point with 2 units of blood. MEDICATIONS: At home tramadol; Xarelto, his last dose was 20 mg yesterday; ranitidine 150 mg daily f or reflux; Seroquel; methocarbamol; hydrocodone; diltiazem; Celexa; and allopurinol. PRESENT MEDICATIONS: In the ICU, morphine, Zofran, Protonix drip started in the ER, normal saline 10 0 an hour. He was given 1 liter bolus in the ER, Clemencia. PAST SURGICAL HISTORY: Right-sided hip replacement. PAST MEDICAL HISTORY: Gout, hypertension, atrial fibrillation, history of CVA, small in the past. No prior history of bleeding. Anxiety, chronic reflux. ALLERGIES: None. REVIEW OF SYSTEMS: Negative for shortness of breath or dyspnea. PHYSICAL EXAMINATION: VITAL SIGNS: Pulse 120s to 130s. Blood pressure high 80s to low 100s over 60s to 40s, irregular rat e and rhythm. GENERAL: The patient is pale, little bit anxious. HEENT: Conjunctivae pale. Sclerae are clear. Oropharynx is pale. CARDIOVASCULAR: He has atrial fibrillation with tachycardia. LUNGS: Clear. ABDOMEN: Soft and nontender. There is no rebound or guarding. RECTAL: Rectal exam is deferred. EXTREMITIES: No clubbing, cyanosis, or edema. His nailbeds are pale. LABORATORY DATA: On 09/01/2017 at 4 a.m. as per HPI, hemoglobin at 1500 hours was 7.1 with white cou nt of 11.1 and platelet count of 260. INR has not been done. CK-MB was 1.4 at 4 a.m. BNP was 46 at 4 a.m. ASSESSMENT: This is a 72-year-old gentleman with acute gastrointestinal bleed, likely upper with yenifer vated BUN and melena for 2 days and hematemesis this morning. He has been given 1 unit of blood at [facility] for transfer here once this was recognized. Here in the emergency room, it seemed he got a liter of fluid with a heart rate of 130 and pressures in the 80s-90s. It is not clear that he was typed and screened here at that time. He was started on a Protonix drip. At present, my assessment that he is bordering on hypovolemic shock from GI hemorrhage. Fortunately, he has not passed any bl ood or had any emesis since early this morning. He is going to need more resuscitation before we can intervene endoscopically. He is on chronic anticoagulation. His last dose was over 24 hours ago, so hopefully we are starting to see the Xarelto wear off. He has been started appropriately on a Protonix drip. Most likely, we are dealing with a duodenal or gastric ulcer. PLAN: Transfusion of 2 units with a blood warmer now. The patient has two good large-bore IV's. We will continue Protonix drip. I discussed the need for urgent endoscopy with the patient and his wif e after he was resuscitated. I have asked the nurses to inform the blood bank which they have to janki p 1 unit ahead at all times on blood. At this time, I do not think that he needs Kcentra to reverse the Xarelto as it has been over 36 hours since he has had a dose and he has adequate renal function s hould this be wearing off. I have made Anesthesia in the OR aware and we will go as soon as resuscit ation is complete.
--- NOTE | 2017-09-02 01:02 | OP ---
PROCEDURE: Emergent EGD with control of hemorrhage. PREPROCEDURE DIAGNOSES: 1. Gastrointestinal hemorrhage. 2. Resuscitation with 4 units of blood over about an hour in the ICU, prior to bringing to endoscopy . 3. Hemoglobin at the conclusion of the procedure was 8.6. POSTPROCEDURE DIAGNOSES: Large 1 x 2 cm ulcer on the lesser curve with large amount of clot and visi ble vessel. Hemoclip x2 applied, injection of 12 mL of 1:10,000 epinephrine to control bleeding. ANESTHESIA: General endotracheal anesthesia, anesthesia involved in the critical care resuscitation, placement of art lines going to endoscopy. RECOMMENDATIONS: 1. Continue Protonix drip. 2. Continue intubation, no NG tube placement. 3. Transfuse only for active hemorrhage and hypotension or hemoglobin below 7. 4. Critical Care, Cardiology and surgical staff aware of patient. 5. We will give Kcentra to reverse the Xarelto in light of the large nature of this clot and ongoing oozing at the time of endoscopy. PROCEDURE IN DETAIL: After the patient was informed of the risks, benefits, and possible complicatio ns of endoscopy including perforation, bleeding, reactions to medication and aspiration, informed con sent was obtained. The patient was brought to endoscopy suite where he was intubated for airway prot ection. The endoscope was advanced through the esophagus and the stomach with large amount of fresh red blood was encountered. This was suctioned away after about 30 minutes we got down to a basic old clot and just a little bit of oozing fresh clot, most of this was removed. The duodenum and stomach was then able to be evaluated with the remainder of the stomach appearing normal, no evidence of ayanna ices. The GE junction be evaluated, there is no evidence of [place] tear or varices and the du odenum was entered via the third portion, which was normal with only clear yellow bile. Attention wa s turned to the clot, the proximal stomach and about 2 cm above the incisura on the lesser curve. A large 1 x 2 cm ulcer with raised margins proximally was noted with a large amount of clot in this wit h what appeared to be a visible vessel at the distal aspect of it closer to the incisura. We injecte d 1:10,000 epinephrine 12 mL around the ulcer and control of bleeding. Most of the bleeding stopped at this time, there was never any pulsatile bleeding. Some of the clot was removed. We will get clara n to the two large clots at the distal aspect of the ulcer in relationship to the orientation of the stomach. There was significant clot left that it was pulsatile, and with the patient's recent use of Xarelto, was felt to be unwise to dislodge this as I cannot measures coagulation status. At this po int, has opted to place two resolution Hemoclips, at the base of the ulcer, pinching the edges togeth er and gathering of the submucosa, hopefully, pinching off any feeding vessels. There was no bleedin g with maneuver. This area was watched for 10 minutes, but the patient remains stable and got word b ack that his hemoglobin is 8.7. We decided to move him back to the ICU. He will remain intubated ov ernight. He has a Marin catheter in place. He will have 4 units packed red blood cells available at all times. Surgery is on standby, if he would have acute recurrent hemorrhage, we would attempt to get endoscopic control, but he would need then go to the operating room if that was unsuccessful. The rationale for using Kcentra based on the fact that he has had massive amount of bleeding. He has had anginal pain with a hemoglobin down to 5 for some of the day today, has atrial fibrillation with rapid ventricular response alternating bradycardia is difficult to control. He has a very high risk for mortality. He has to go to the operating room for rebleeding and therefore we are going to proc eed with the Kcentra.
[2017-09-02 02:38] LABS: Hemoglobin 8.4 g/dL (14.0-18.0)
[2017-09-02] MEDS: Amiodarone HCl 450 MG, Admixture Fee 1 EACH in Dextrose 5% in Water 250 ML IVPB SCH ×3 (03:00)
[2017-09-02 03:04] LABS: Anion Gap 8 mmol/L (10-20); BUN (Urea Nitrogen) 67 mg/dL (8.4-25.7); Calc. Creatinine Clearance 68 mL/min (70-130); Calcium 6.9 mg/dL (7.8-10.44); Carbon Dioxide 21 mmol/L (23-31); Chloride 114 mmol/L (98-107); Estimated GFR-MDRD 71; Glucose 147 mg/dL (83-110); Magnesium 1.5 mg/dL (1.6-2.6); Phosphorus 3.7 mg/dL (2.3-4.7); Potassium 3.4 mmol/L (3.5-5.1); Sodium 140 mmol/L (136-145)
[2017-09-02 03:06] LABS: ALT (SGPT) 23 U/L (8-55); AST (SGOT) 32 U/L (5-34); Albumin 2.1 g/dL (3.4-4.8); Alkaline Phosphatase 34 U/L (40-150); Bilirubin, Direct 0.5 mg/dL (0.1-0.3); Bilirubin, Total 0.9 mg/dL (0.2-1.2); Protein, Total 3.3 g/dL (5.8-8.1)
[2017-09-02 05:26] LABS: Band 7 % (5-11); Hemoglobin 8.5 g/dL (14.0-18.0); Lymphocytes 4 % (21-51); MDiff Complete? YES; Mean Corpuscular HGB CONC 34.6 g/dL (32.0-36.0); Mean Corpuscular Volume 89.5 fl (80.0-94.0); Mean Platelet Volume 6.4 fL (7.4-10.4); Monocytes 2 % (0-10); Neutrophil 87 % (42-75); Platelet Count 212 thou/uL (130-400); Polychromasia SLIGHT = 2-3 cells (100X) (0-2/hpf); RBC Distribution Width 14.7 % (11.5-14.5); Red Blood Cell (RBC) Count 2.75 mill/uL (4.70-6.10); White Blood Cell (WBC) Count 18.9 thou/uL (4.8-10.8)
[2017-09-02 05:29] LABS: Troponin I 0.051 ng/mL (< 0.028)
[2017-09-02] MEDS ORDERED: ADMIXTURE FEE IVPB SCH (09:00)
[2017-09-02] MEDS ORDERED: [UNRECOGNIZED DRUG - OTHER] IVPB SCH (09:00)
[2017-09-02] MEDS ORDERED: FLU VACC TS2017-18 (>65YR) 0.5 ML SYRINGE IM ONE (09:00)
[2017-09-02] MEDS ORDERED: Prevnar 13-Val Conj/PF 0.5 ML SYRINGE IM ONE (09:00)
[2017-09-02] MEDS ORDERED: MAGNESIUM SULFATE IVPB SCH (09:00)
[2017-09-02] MEDS ORDERED: POTASSIUM CHLORIDE IVPB SCH (09:00)
[2017-09-02] MEDS: Pantoprazole 80 MG in Sodium Chloride 0.9% 100 ML IVP SCH ×2 (09:04→19:30)
[2017-09-02] MEDS: Dextrose 5 % And 0.9 % NaCl 1,000 ML IV SCH (09:07)
--- NOTE | 2017-09-02 09:44 | PDOC.EVN ---
Event Note - Event Note Event Note: H&P DICTATED # [id number]
[2017-09-02] MEDS ORDERED: Esmolol 2,500 MG/250 ML 250 ML IVPB SCH (09:45)
--- NOTE | 2017-09-02 10:03 | HP ---
DATE OF ADMISSION: 09/01/2017 CHIEF COMPLAINT: Nausea, vomiting, hematemesis and GI bleed. HISTORY OF PRESENT ILLNESS: This is a 72-year-old male who states that for the past week or so, he has been having black tarry stools. Apparently this morning , he had a large emesis which was [place] bright blood and has happened for the first time in his life. The patient denies any diarrhea, constipation, fevers or chills, shortness of breath or chest pain, but does admit to some weakness and increase of fatigue. Patient states that otherwise he has a past medical history of atrial fibrillation, hyperlipidemia, hypertension, gout, cardiomegaly and CKD stage 3. States that he has been taking Xarelto 20 mg on a daily basis, has not been to his vp of global marketing for any dose adjustments. The patient states that he has never had any symptoms or issues before. No alleviating or aggravating factors. Denies any other associated symptoms. ALLERGIES: No known drug allergies. PAST MEDICAL HISTORY: Positive for atrial fibrillation, gout, hypertension, dyslipidemia, CKD stage 3. SOCIAL HISTORY: No smoking or drinking. FAMILY HISTORY: Diabetes, hypertension, and hyperlipidemia. REVIEW OF SYSTEMS: Twelve point review of systems performed. Pertinent positives in the HPI, otherwise negative. PHYSICAL EXAMINATION: VITAL SIGNS: Blood pressure 92/45, respiratory rate of 18, heart rate of 113, O2 saturation 100% on nasal cannula, temperature of 98. GENERAL: Patient appears in mild distress and white, not flushed. HEENT: Normocephalic, atraumatic. Pupils are equal, round, react to light and accommodation. Oral cavity moist and pink. Nontender and mobile thyroid. LUNGS: Clear to auscultation bilaterally. CARDIOVASCULAR: Tachycardic heart rate. Irregularly irregular. S1, S2. No murmurs, rubs or gallops are appreciated. ABDOMEN: Positive bowel sounds, soft, nontender, and nondistended. EXTREMITIES: 2+ peripheral pulses. No edema noted. NEUROLOGIC: Cranial nerves II-XII intact. No loss of motor or sensory function. LABORATORY DATA: Hemoglobin is 5.7. Repeat hemoglobin 7.1 after transfusion. BMP within normal limits. ABG within normal limits. Urinalysis negative. ASSESSMENT AND PLAN: 1. Hematemesis. 2. Gastrointestinal bleed. 3. History of atrial fibrillation. 4. Coagulopathy secondary to Xarelto. 5. Gout. 6. Anxiety. 7. Chronic kidney disease stage 3. 8. Gastroesophageal reflux disease. PLAN: At this point in time, we will transfuse the patient 2 units of blood. Admit the patient to ICU. Consult to Cardiology, GI and Pulmonary Critical care as well. We will provide the patient with aggressive fluid resuscitation as well. Hold Xarelto, Protonix drip, p.r.n. medications, likely will get an EGD later today. The patient is seen and examined in the ER. Contact Lens Inspector at his bedside. 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 They understand and agree with this plan. CHRISTIANOD
[2017-09-02] MEDS ORDERED: Furosemide 20 MG/2 ML VIAL SLOW IVP SCH (10:30)
[2017-09-02 10:37] LABS: Hemoglobin 8.2 g/dL (14.0-18.0)
[2017-09-02] MEDS ORDERED: Fleet Enema 133 ML BOT PR SCH ×2 (11:15)
--- NOTE | 2017-09-02 11:49 | PDOC.PN ---
- Subjective Encounter Start Date: 09/02/17 Encounter Start Time: 11:48 Patient seen and examined, s/p EGD and clipping, intubated, no new issues per nursing staff, no family at bedside. - Objective Resuscitation Status: Resuscitation Status FULL:Full Resuscitation Vital Signs & Weight: Vital Signs (12 hours) Temp Pulse Resp BP 09/02/17 11:02 98 107/91 H 09/02/17 10:00 14 09/02/17 07:39 114 H 151/72 H 09/02/17 07:00 99.3 F 09/02/17 06:00 17 09/02/17 04:00 98.9 F 14 09/02/17 02:36 112 H 09/02/17 02:00 15 09/02/17 00:00 99.5 F 16 Weight Weight 171 lb 15.369 oz Most Recent Monitor Data Heart Rate from ECG 98 NIBP 117/85 NIBP BP-Mean 97 Respiration from ECG 17 SpO2 100 I&O: 09/01/17 09/02/17 09/03/17 06:59 06:59 06:59 Intake Total 4818.5 Output Total 1380 1050 Balance 3438.5 -1050 Result Diagrams: 09/02/17 10:28 09/02/17 02:25 Additional Labs: Accuchecks 09/01/17 18:29 POC Glucose 154 H Phys Exam - Physical Examination Constitutional: NAD HEENT: PERRLA, sclera anicteric +ET tube Neck: no nodes, no JVD Respiratory: no wheezing, no rales, no rhonchi Cardiovascular: RRR, no significant murmur, no rub Gastrointestinal: soft, non-tender, no distention Musculoskeletal: pulses present, edema present (trace) sedated Dx/Plan (1) Bleeding gastric ulcer Code(s): K25.4 - CHRONIC OR UNSPECIFIED GASTRIC ULCER WITH HEMORRHAGE Status: Acute (2) Atrial fibrillation Code(s): I48.91 - UNSPECIFIED ATRIAL FIBRILLATION Status: Acute (3) Anemia Code(s): D64.9 - ANEMIA, UNSPECIFIED Status: Acute (4) Hypovolemic shock Code(s): R57.1 - HYPOVOLEMIC SHOCK Status: Acute (5) Respiratory failure Code(s): J96.90 - RESPIRATORY FAILURE, UNSP, UNSP W HYPOXIA OR HYPERCAPNIA Status: Acute - Plan * S/P EGD and clipping, hgb stable * intubated for now, SBT and extubation per pulmonary * cardio also following for anticoagulation, Xa inhibitor on hold for now given recent bleeding episode * BP stable * continue curernt plan of care * no family at bedside
[2017-09-02] MEDS ORDERED: Dextrose 5 % And 0.9 % NaCl 1,000 ML IV SCH (14:18)
--- NOTE | 2017-09-02 14:33 | PRG ---
DATE OF SERVICE: 09/02/2017 SERVICE: Pulmonary Medicine. INTERVAL HISTORY: The patient did fantastic overnight. His hemoglobins have remained stable. He denies any chest pain, nausea, vomiting or diarrhea. He is on a sedation holiday this morning. He is moving all 4 extremities comfortably. PHYSICAL EXAMINATION: VITAL SIGNS: Afebrile with a T-max of 101.5 overnight, pulse 100, blood pressure 111/71, respirations 14, saturation 100% on 27% FiO2 and a PEEP of 5. GENERAL: The patient is awake and alert, in no apparent distress. LUNGS: Decent air entry with no prolonged expiratory phase. Dependent crackles are present. HEART: Normal rate and regular. ABDOMEN: Soft, nontender and nondistended. Bowel sounds are positive. MUSCULOSKELETAL: No cyanosis or clubbing. No pitting in the bilateral lower extremities. NEUROLOGIC: Grossly nonfocal. LABORATORY DATA: Hemoglobin 8.2 and roughly stable. WBC 18.9. Basic metabolic profile is otherwise unremarkable. Band count is 7%. Potassium 3.4, which has been replaced. BUN 67 and down trending. Creatinine 1.03. Glucose 147. Magnesium 1.5 and phosphorus 3.7. Liver function studies are essentially unremarkable. Troponin is roughly stable. Sputum is growing gram negative destiny. Urine culture and blood culture are negative. IMAGING DATA: Chest x-ray demonstrates cardiomegaly with mild pulmonary vascular congestion. Likely atelectasis is present. Endotracheal tube remains in good position. ASSESSMENT: 1. Acute blood loss anemia, hemorrhagic. 3. Acute hypoxic respiratory failure, improving. 4. Hemorrhagic shock, resolved. 5. Chronic anticoagulation. 6. Atrial fibrillation with rapid ventricular response. PLAN: The patient is doing fantastic from a respiratory standpoint. His hemoglobin seems to be stable. As such, we will proceed with a spontaneous breathing trial. If he meets criteria at the end of this thing, extubation will be considered. Pulmonary Critical Care will continue to follow while the patient remains in the ICU. We will repeat a hemoglobin this afternoon and tomorrow morning. If he remains stable, he can be transitioned to the floor. CRITICAL CARE TIME: 30 minutes. SASHA
--- NOTE | 2017-09-02 15:27 | PRG ---
DATE OF SERVICE: 09/02/2017 SUBJECTIVE: Mr. Navarrete is intubated. He has had no bleeding overnight. He is awake. I talked with the nurses medical assistants phlebotomists; they want to extubate him if possible. MEDICATIONS: Rocephin, esmolol, fentanyl, Lasix, Tylenol, Ativan p.r.n., Zofran p.r.n., Protonix dri p. PHYSICAL EXAMINATION: VITAL SIGNS: T-max 101.5 on 09/01 at 2100, 99.3 at 3:33, pulse 101, blood pressure 108/64. Urine ou tput 350 last night. In's and out's were 4818 and 1380. LUNGS: Clear, slight rhonchi. HEART: Has an irregular rate and rhythm, atrial fibrillation. ABDOMEN: Soft and nontender. RECTAL: Reveals moderate sized fecal impaction disimpacted best of our ability digitally. LABORATORY STUDIES: Sodium 140, potassium 3.4, chloride 114, bicarbonate 21, anion gap 8, BUN 67, cr eatinine 1.03, glucose 147, phosphorus 3.7, and magnesium 1.5. Liver function test 20. AST and ALT are 32 and 23, alkaline phosphatase 34. Troponin 0.051, total protein 3.3, albumin 2.1. ASSESSMENT AND PLAN: 1. Gastrointestinal hemorrhage secondary to gastric ulcer just proximal to the incisura on the lesse r curve, it is a 2 x 1 cm ulcer. There was no active bleeding by the time we performed his endoscopy . There was a large clot in visible vessel and this was removed. Injected with 12 mL of 1:10,000 ep inephrine and removed and then Hemoclips were placed over the vessel. He was kept intubated overnigh t and was felt to be high risk for rebleed. He has not had any further bleeding, is alert, and Pulmo nathan wants to extubate him today which is acceptable. 2. Fever with leukocytosis. He may have aspirated when he was intubated for his endoscopy, he did h ave a lot of blood in his stomach. He has not been started on antibiotics, which I think it is appro priate. 3. Fecal impaction. We will give him an enema before any attempt to extubate to see if was can get that moving. 4. Atrial fibrillation, mild cardiomegaly. Cardiology following. They are going to hold off on Car dizem drip and decided to use esmolol for rate control. 5. Nutrition. He has been n.p.o. for 2 days now. If he gets extubated, we will start him on clear liquids later this afternoon. 6. Probably consider a followup endoscopy in few days to reevaluate the ulcer. If he has signs of r ecurrent bleeding, he will need to repeat endoscopy and possibly surgery and this have been discussed with the patient's last night after his initial endoscopy. 7. He should stay in the ICU for another 24 hours.
[2017-09-02 18:31] LABS: Hemoglobin 7.9 g/dL (14.0-18.0)
[2017-09-02 18:46] LABS: Potassium 3.6 mmol/L (3.5-5.1)
[2017-09-02] MEDS: cefTRIAXone\\ROCEPHIN 2 GM in Sodium Chloride 0.9% 100 ML IVPB SCH (20:56)
[2017-09-02] MEDS: Ondansetron HCl/PF 4 MG/2 ML Vial IVP PRN (20:56)
[2017-09-02] MEDS: Acetaminophen 325 MG TAB PO PRN (20:59)
[2017-09-02 22:21] LABS: Hemoglobin 6.8 g/dL (14.0-18.0)
[2017-09-03 02:19] LABS: #Eosinphils 0.1 thou/uL (0.0-0.7); #Lymphocytes 1.3 thou/uL (1.20-3.40); #Monocytes 0.3 thou/uL (0.11-0.59); #Neutrophils 6.6 thou/uL (1.40-6.50); %Basophils 0.3 % (0.0-1.0); %Eosinophils 1.7 % (0.0-10.0); %Lymphocytes 15.2 % (21.0-51.0); %Monocytes 3.9 % (0.0-10.0); Hemoglobin 7.8 g/dL (14.0-18.0); Mean Corpuscular HGB CONC 35.5 g/dL (32.0-36.0); Mean Corpuscular Hemoglobin 32.8 pg (27.0-31.0); Mean Corpuscular Volume 92.4 fl (80.0-94.0); Mean Platelet Volume 6.7 fL (7.4-10.4); Platelet Count 163 thou/uL (130-400); RBC Distribution Width 15.1 % (11.5-14.5); Red Blood Cell (RBC) Count 2.37 mill/uL (4.70-6.10); White Blood Cell (WBC) Count 8.4 thou/uL (4.8-10.8)
[2017-09-03 02:30] LABS: Anion Gap 6 mmol/L (10-20); BUN (Urea Nitrogen) 33 mg/dL (8.4-25.7); Calc. Creatinine Clearance 89 mL/min (70-130); Calcium 7.2 mg/dL (7.8-10.44); Carbon Dioxide 25 mmol/L (23-31); Chloride 115 mmol/L (98-107); Estimated GFR-MDRD Greater than 90; Glucose 98 mg/dL (83-110); Potassium 3.5 mmol/L (3.5-5.1); Sodium 142 mmol/L (136-145)
[2017-09-03] MEDS: Pantoprazole 80 MG in Sodium Chloride 0.9% 100 ML IVP SCH ×2 (06:01→16:00)
[2017-09-03] MEDS ORDERED: Potassium Chloride 40 MEQ in Sodium Chloride 0.9% 250 ML 250 ML IVPB PRN (07:33)
[2017-09-03] MEDS ORDERED: ADMIXTURE FEE IVPB SCH (07:45)
[2017-09-03] MEDS ORDERED: POTASSIUM CHLORIDE IVPB SCH (07:45)
[2017-09-03] MEDS ORDERED: MAGNESIUM SULFATE IVPB SCH (07:45)
[2017-09-03] MEDS ORDERED: [UNRECOGNIZED DRUG - OTHER] IVPB SCH (07:45)
[2017-09-03] MEDS: Citalopram 20 MG TAB PO SCH (08:11)
[2017-09-03] MEDS: Acetaminophen 325 MG TAB PO PRN ×2 (08:11→20:42)
--- NOTE | 2017-09-03 10:37 | PDOC.PN ---
- Subjective Encounter Start Date: 09/03/17 Encounter Start Time: 10:35 Patient seen and examined, extubated, family-friend at bedside, no new issues, all questions answered. - Objective Resuscitation Status: Resuscitation Status FULL:Full Resuscitation Vital Signs & Weight: Vital Signs (12 hours) Temp Pulse Resp Pulse Ox 09/03/17 08:00 99.3 F 77 20 100 09/03/17 07:32 94 L 09/03/17 04:00 98.0 F 09/03/17 00:00 98.6 F Weight Admit Weight 171 lb Weight 173 lb 4.533 oz Most Recent Monitor Data Heart Rate from ECG 92 NIBP 101/60 NIBP BP-Mean 69 Respiration from ECG 25 SpO2 98 I&O: 09/02/17 09/03/17 09/04/17 06:59 06:59 06:59 Intake Total 4818.5 2171.3 170 Output Total 1380 3755 300 Balance 3438.5 -1583.7 -130 Result Diagrams: 09/03/17 02:05 09/03/17 02:05 Phys Exam - Physical Examination Constitutional: NAD HEENT: PERRLA, moist MMs, sclera anicteric Respiratory: no wheezing, no rales, no rhonchi, clear to auscultation bilateral Cardiovascular: RRR, no significant murmur, no rub Gastrointestinal: soft, non-tender, no distention Musculoskeletal: no edema, pulses present Neurological: non-focal, normal sensation Psychiatric: normal affect, A&O x 3 Skin: no rash, normal turgor Dx/Plan (1) Bleeding gastric ulcer Code(s): K25.4 - CHRONIC OR UNSPECIFIED GASTRIC ULCER WITH HEMORRHAGE Status: Acute (2) Atrial fibrillation Code(s): I48.91 - UNSPECIFIED ATRIAL FIBRILLATION Status: Acute (3) Anemia Code(s): D64.9 - ANEMIA, UNSPECIFIED Status: Acute (4) Hypovolemic shock Code(s): R57.1 - HYPOVOLEMIC SHOCK Status: Acute (5) Respiratory failure Code(s): J96.90 - RESPIRATORY FAILURE, UNSP, UNSP W HYPOXIA OR HYPERCAPNIA Status: Acute - Plan * Hgb stable, BP low, possible re-scope if deemed appropriate by GI * continue in ICU for now * continue PPI drip * monitor Hgb * no other changes for now * case and plan d/w patient and family friend at length, they understand and agree with this plan
[2017-09-03] MEDS ORDERED: Furosemide 40 MG/4 ML VIAL SLOW IVP SCH (12:00)
--- NOTE | 2017-09-03 12:15 | PRG ---
DATE OF SERVICE: 09/03/2017 SERVICE: Pulmonary Medicine. INTERVAL HISTORY: He tolerated extubation quite well yesterday. Later in the afternoon, his hemoglobin trickled down a little bit. He got 1 unit of blood. Overnight, there were no events. He feels improved. He is able to get out of bed into a chair today and he did not have any lightheadedness or chest pain. PHYSICAL EXAMINATION: VITAL SIGNS: Afebrile, pulse 92, blood pressure 107/58, respiration 12, saturation 94% on 2 liters nasal cannula. GENERAL: The patient is awake and alert, in no apparent distress. LUNGS: Excellent air entry with no prolonged expiratory phase or wheezing. Crackles are present HEART: Normal rate and regular. ABDOMEN: Soft, nontender, nondistended. Bowel sounds are positive. MUSCULOSKELETAL: No cyanosis or clubbing. There is diffuse pitting throughout. GENITOURINARY: Marin catheter in place. NEUROLOGIC: Grossly nonfocal. LABORATORY DATA: WBC 8.4, hemoglobin 7.8, and platelets 163,000. INR 1.5. Chloride 115, sodium 142. BUN 33 and drastically improving, creatinine 0.83. Calcium 7.2, phosphorus 2.0. Urinalysis remains unremarkable. Sputum culture is growing E. coli which is sensitive to fluoroquinolones, but resistant to Rocephin. ASSESSMENT: 1. Acute blood loss anemia. 2. Hemorrhagic shock, resolved. 3. Acute hypoxic respiratory failure, improving. 4. Chronic anticoagulation. 5. Atrial fibrillation with rapid ventricular response. 6. Community-acquired pneumonia secondary to Escherichia coli. DISCUSSION AND PLAN: The patient really continues to do quite well. He got a lot of blood products and does not surprise me that it is trickling down a touch. His BUN is going down. My suspicion is that his upper GI bleed hopefully has resolved. We will continue to follow his hemoglobins through time. I will provide him with a couple doses of Lasix starting today. We also give him free water to prevent his sodium from going up too terribly high. He will remain in the ICU for the next 24 hours. EGD is being planned for tomorrow. We will tune him up a touch more before he goes for that procedure. [facility]
[2017-09-03] MEDS: Dextrose 5% in Water 1,000 ML IV SCH (12:44)
[2017-09-03 14:59] LABS: Hemoglobin 8.7 g/dL (14.0-18.0)
--- NOTE | 2017-09-03 15:46 | PRG ---
DATE OF SERVICE: 09/03/2017 SUBJECTIVE: Mr. Navarerte is doing well. Last night, he had some drop in blood pressure into the 60s a nd 70s around 10 or 11 last night. He had no overt bleeding. His heart rate was in the 80s-90s. Hi s esmolol drip was stopped. He did have a slight drop in hemoglobin to 6.8 from 7.9. He was given a unit of blood although he had no overt bleeding. This morning his hemoglobin was up to 7.8 and this afternoon at 14:31 it was 8.7. He feels well without pain. PHYSICAL EXAMINATION: VITAL SIGNS: Blood pressure 114/70, heart rate 89, temperature 99.5, T-max on 30 was 101.5. Ins a nd outs 2171 and 3755 yesterday, this is mostly in the form of urine. LUNGS: Clear. Slight crackles present. ABDOMEN: Soft and nontender. Bowel sounds positive. There is no rebound, no guarding. LABORATORY: Today, hemoglobin 8.7, white count 8.4, platelet count 163. INR 1.5. Sodium 152, potas sium 3.5, BUN and creatinine are 33 and 0.83. Microbiology: Sputum grew out E. coli. ASSESSMENT: 1. Hemorrhagic shock from bleeding ulcer requiring ICU stay. 2. Large ulcer in the proximal stomach, high risk for rebleeding, so far at 48 hours, there has been no rebleeding. We will plan for percutaneous endoscopic gastrostomy tomorrow to reevaluate. Hemocl ips were put in place. If we see some improvement in appearance, we will plan for moving him to the floor after that and then he will need repeat esophagogastroduodenoscopy in 8 weeks to document heali ng. We will immediately stop the Protonix drip at that time as well. 3. Transient hypotension last night. It does not really seem that was bleeding. His hemoglobin is actually higher than it was yesterday morning. After a unit of blood, it is appropriate, went from 7 .9 to 8.7. Also, the patient's BUN is dropping. His BUN was one time as high as 84, which was likel y secondary to absorption of protein from the GI tract bleeding. PLAN: 1. Reiterated and continue IV PPI. 2. Continue observation in ICU. 3. EGD second look tomorrow. Risks, benefits, and possible complications and indications discussed with the patient's family. I suspect he will not need to be intubated for that procedure. I also ex plained to family that he is still in a risky position with the risk of recurrent bleeding. At this time, we will keep in the ICU overnight one more time and on liquid diet.
[2017-09-04] MEDS: Pantoprazole 80 MG in Sodium Chloride 0.9% 100 ML IVP SCH (03:00)
[2017-09-04 05:13] LABS: #Eosinphils 0.2 thou/uL (0.0-0.7); #Lymphocytes 1.3 thou/uL (1.20-3.40); #Monocytes 0.5 thou/uL (0.11-0.59); #Neutrophils 6.2 thou/uL (1.40-6.50); %Basophils 0.3 % (0.0-1.0); %Eosinophils 2.2 % (0.0-10.0); %Lymphocytes 16.3 % (21.0-51.0); %Monocytes 5.6 % (0.0-10.0); %Neutrophils 75.6 % (42.0-75.0); Hemoglobin 8.9 g/dL (14.0-18.0); Mean Corpuscular HGB CONC 34.4 g/dL (32.0-36.0); Mean Corpuscular Hemoglobin 32.8 pg (27.0-31.0); Mean Corpuscular Volume 95.3 fl (80.0-94.0); Mean Platelet Volume 6.9 fL (7.4-10.4); Platelet Count 213 thou/uL (130-400); RBC Distribution Width 15.2 % (11.5-14.5); White Blood Cell (WBC) Count 8.1 thou/uL (4.8-10.8)
[2017-09-04 05:23] LABS: Anion Gap 8 mmol/L (10-20); BUN (Urea Nitrogen) 15 mg/dL (8.4-25.7); Calc. Creatinine Clearance 89 mL/min (70-130); Calcium 7.7 mg/dL (7.8-10.44); Carbon Dioxide 26 mmol/L (23-31); Chloride 107 mmol/L (98-107); Estimated GFR-MDRD Greater than 90; Glucose 96 mg/dL (83-110); Potassium 3.2 mmol/L (3.5-5.1); Sodium 138 mmol/L (136-145)
[2017-09-04] MEDS: Furosemide 40 MG/4 ML VIAL SLOW IVP SCH ×2 (06:38→10:21)
[2017-09-04] MEDS: Dextrose 5% in Water 1,000 ML IV SCH (06:43)
[2017-09-04] MEDS ORDERED: Potassium Chloride 40 MEQ in Premix Bag 1 BAG IVPB SCH (09:30)
[2017-09-04] MEDS ORDERED: Potassium Chloride 20 MEQ TAB PO SCH (09:30)
[2017-09-04] MEDS ORDERED: Pantoprazole 40 MG VIAL IVP SCH ×2 (09:30→21:00)
--- NOTE | 2017-09-04 09:47 | PRG ---
DATE OF SERVICE: 09/04/2017 SERVICE: Pulmonary Medicine INTERVAL HISTORY: The patient is doing fine from a respiratory standpoint. He denies any chest disc omfort, nausea, vomiting or shortness of breath. He reports no nausea or vomiting. He is going down for a repeat EGD this morning. PHYSICAL EXAMINATION: VITAL SIGNS: Afebrile, pulse 118, blood pressure 128/81, respirations 32, saturation 98% on room air . GENERAL: The patient is awake, alert, in no apparent distress. LUNGS: Excellent air entry. Minimal dependent crackles are present. HEART: Normal rate, regular. ABDOMEN: Soft, nontender, nondistended. Bowel sounds are positive. MUSCULOSKELETAL: No cyanosis or clubbing. There is trace pitting in the bilateral lower extremities . NEUROLOGIC: Grossly nonfocal. LABORATORY DATA: Hemoglobin 8.9 and rising. Platelets 213,000. WBC is 8.1. Neutrophil count is se ttling down. Potassium 3.2, calcium 7.7. Sputum is growing E. coli which is sensitive to the fluoro quinolones. Blood cultures x2 and urine culture unremarkable. ASSESSMENT: 1. Acute blood loss anemia. 2. Hemorrhagic shock, resolved. 3. Acute hypoxic respiratory failure, resolved. 4. Chronic anticoagulation. 5. Atrial fibrillation with rapid ventricular response. 6. Community-acquired pneumonia secondary to Escherichia coli. PLAN: The patient is doing excellent. We will repeat a hemoglobin and electrolytes tomorrow morning . The patient's potassium will be replaced. He is going down for an EGD once again. If the lesion looks like it is healing nicely, he can be transitioned to the telemetry unit this afternoon.
[2017-09-04] MEDS ORDERED: Potassium Chloride 40 MEQ in Sodium Chloride 0.9% 250 ML 250 ML IVPB SCH (10:15)
[2017-09-04] MEDS ORDERED: PROPOFOL 200 MG/20 ML VIAL ONE (10:53)
[2017-09-04] MEDS ORDERED: Lidocaine 1% PF 5 ML VIAL ONE (10:53)
[2017-09-04] MEDS ORDERED: Ondansetron HCl/PF 4 MG/2 ML Vial IVP PRN (11:37)
[2017-09-04] MEDS ORDERED: Promethazine HCl 25 MG/ML VIAL SLOW IVP PRN (11:37)
[2017-09-04] MEDS: Citalopram 20 MG TAB PO SCH (12:41)
[2017-09-04] MEDS: Acetaminophen 325 MG TAB PO PRN ×2 (12:41→18:04)
--- NOTE | 2017-09-04 15:32 | OP ---
PREPROCEDURE DIAGNOSIS: History of large gastric ulcer with massive gastrointestinal hemorrhage on p resentation, previous endoscopy on 09/01/2017. This is a followup endoscopy to stratify risk for fur ther intervention, advancing diet, moving out of ICU. POSTPROCEDURE DIAGNOSES: Large ulcer in the lesser curve above the proximal incisura. There is jenni kyley improved visible vessel that was ablated. The ulcer is white-based and bland and starting to he al. Recurrent bleeding risk is minimal at this time. RECOMMENDATIONS: 1. Stop Protonix drip and change to IV Protonix q.12 hours. 2. He can move out of the ICU. 3. Advance diet as tolerated. 4. I would not start his Xarelto back for at least one week. 5. He will need to follow up EGD in 8 weeks to document healing. ANESTHESIA: TIVA. PROCEDURE IN DETAIL: After the patient was informed of the risks, benefits, possible complications of endoscopy including perforation, bleeding, reactions to medication and aspiration, informed consen t was obtained. The patient was brought to the endoscopy suite where he was sedated in gradual fashi on. Once he was comfortable, a bite block was placed in incisural orifice. The endoscope was advanc ed through the esophagus, stomach and second and third portion of duodenum and slowly removed. There was good visualization of mucosa. There was no blood in the stomach. The clot at the ulcer site wa s gone. There was still about 1.5 x 1.5 cm ulcer. The Hemoclips were still in place and the visible vessels were ablated. The ulcer is white-based. Otherwise, there were no visible vessels. Risk of rebleeding is very low. Duodenum was normal. The esophagus was normal. The scope was removed.
--- NOTE | 2017-09-04 21:52 | PDOC.PN ---
- Subjective Encounter Start Date: 09/04/17 Encounter Start Time: 18:00 Subjective: f/u for GI bleed secondary to gastric ulcer s/p 4u PRBC's with repeat -: EGD showing stable gastric ulcer without recurrent bleed. Feels -: better overall. States ready to go home. - Objective Resuscitation Status: Resuscitation Status FULL:Full Resuscitation MAR Reviewed: Yes Vital Signs & Weight: Vital Signs (12 hours) Temp Pulse Resp Pulse Ox 09/04/17 20:00 99.2 F 09/04/17 16:00 98.9 F 89 24 H 95 09/04/17 15:00 98.9 F 09/04/17 12:13 98.9 F Weight Admit Weight 171 lb Weight 166 lb 10.711 oz Most Recent Monitor Data Heart Rate from ECG 107 NIBP 125/73 NIBP BP-Mean 104 Respiration from ECG 26 SpO2 94 I&O: 09/03/17 09/04/17 09/05/17 06:59 06:59 06:59 Intake Total 2171.3 1877 1295 Output Total 3755 4100 2928 Balance -1583.7 -2223 -1633 Result Diagrams: 09/04/17 04:40 09/04/17 04:40 Additional Labs: Laboratory Tests 09/02/17 09/02/17 09/02/17 02:25 18:15 18:15 Hgb 7.9 L Potassium 3.6 Chloride BUN 67 H 09/02/17 09/03/17 09/03/17 22:13 02:05 02:05 Hgb 6.8 L 7.8 L Potassium 3.5 Chloride 115 H BUN 33 H 09/03/17 14:31 Hgb 8.7 L Potassium Chloride BUN Radiology Reviewed by me: Yes (EGD - stable gastric ulcer without re-bleed) EKG Reviewed by me: Yes (Tele - A-fib) Phys Exam - Physical Examination Constitutional: NAD HEENT: PERRLA, oral pharynx no lesions Neck: no JVD, supple Respiratory: no wheezing, clear to auscultation bilateral Cardiovascular: irregular Gastrointestinal: soft, non-tender, no distention, positive bowel sounds Musculoskeletal: no edema, pulses present Neurological: normal sensation, moves all 4 limbs Psychiatric: A&O x 3 Skin: normal turgor, cap refill <2 seconds Dx/Plan (1) GI bleed Code(s): K92.2 - GASTROINTESTINAL HEMORRHAGE, UNSPECIFIED Status: Acute Qualifiers: GI bleed type/associated pathology: gastric ulcer Qualified Code(s): K25.4 - Chronic or unspecified gastric ulcer with hemorrhage Comment: Stable on repeat EGD, Protonix 40mg BID, avoid NSAIDs (2) Gastric ulcer Code(s): K25.9 - GASTRIC ULCER, UNSP ACUTE OR CHRONIC, W/O HEMOR OR PERF Status: Acute Comment: See above, PPI, repeat EGD in 8 weeks (3) Acute blood loss anemia Code(s): D62 - ACUTE POSTHEMORRHAGIC ANEMIA Status: Acute Comment: s/p 4u PRBC's, H/H stable (4) Atrial fibrillation Code(s): I48.91 - UNSPECIFIED ATRIAL FIBRILLATION Status: Chronic Comment: continue rate-control measures, anticoagulation held for 1 week (5) Hypovolemic shock Code(s): R57.1 - HYPOVOLEMIC SHOCK Status: Acute Comment: Resolved (6) Respiratory failure Code(s): J96.90 - RESPIRATORY FAILURE, UNSP, UNSP W HYPOXIA OR HYPERCAPNIA Status: Acute Qualifiers: Chronicity: acute Comment: s/p intubation and mech ventilation, stable - Plan plan discussed w/ family, PT/OT, social sciences chair, out of bed/ambulate, DVT proph w/SCDs Stable currently -: Continue Protonix 40mg IV q12h transitioning to po in am -: Saline lock IVF's -: Hold all anticoagulation x 1 week -: AM lab: BMP, CBC * .
[2017-09-05 05:53] LABS: #Eosinphils 0.1 thou/uL (0.0-0.7); #Lymphocytes 1.1 thou/uL (1.20-3.40); #Monocytes 0.6 thou/uL (0.11-0.59); #Neutrophils 7.4 thou/uL (1.40-6.50); %Basophils 0.2 % (0.0-1.0); %Eosinophils 1.1 % (0.0-10.0); %Lymphocytes 12.3 % (21.0-51.0); %Monocytes 6.3 % (0.0-10.0); %Neutrophils 80.2 % (42.0-75.0); Hemoglobin 9.3 g/dL (14.0-18.0); Mean Corpuscular HGB CONC 32.8 g/dL (32.0-36.0); Mean Corpuscular Hemoglobin 30.9 pg (27.0-31.0); Mean Corpuscular Volume 94.4 fl (80.0-94.0); Mean Platelet Volume 6.7 fL (7.4-10.4); Platelet Count 245 thou/uL (130-400); RBC Distribution Width 15.3 % (11.5-14.5); White Blood Cell (WBC) Count 9.2 thou/uL (4.8-10.8)
[2017-09-05 06:15] LABS: Anion Gap 10 mmol/L (10-20); BUN (Urea Nitrogen) 12 mg/dL (8.4-25.7); Calc. Creatinine Clearance 83 mL/min (70-130); Calcium 8.1 mg/dL (7.8-10.44); Carbon Dioxide 27 mmol/L (23-31); Chloride 103 mmol/L (98-107); Estimated GFR-MDRD Greater than 90; Glucose 85 mg/dL (83-110); Potassium 3.4 mmol/L (3.5-5.1); Sodium 137 mmol/L (136-145)
[2017-09-05] MEDS ORDERED: Digoxin 0.5 MG/2 ML AMP SLOW IVP SCH (09:00)
--- NOTE | 2017-09-05 09:08 | PRG ---
DATE OF SERVICE: 09/05/2017 SERVICE: Pulmonary Medicine INTERVAL HISTORY: The patient is doing fine from a respiratory standpoint. He had an EGD yesterday and is not actively bleeding. He is at low risk for rebleed. He denies any chest pain, nausea, vomi ting, fevers or chills. Otherwise, he is returning to usual state of health. He is extraordinarily anxious. He also in atrial fibrillation with RVR a couple of minutes ago. PHYSICAL EXAMINATION: VITAL SIGNS: Afebrile, pulse 139, blood pressure 127/91, respirations 17, saturation 94% on room air . GENERAL: The patient is awake, alert, no apparent distress. LUNGS: Decent air entry. There is no prolonged expiratory phase. Crackles are present dependently. No wheezing or rhonchi are present. HEART: Normal rate, regular. ABDOMEN: Soft, nontender, nondistended. Bowel sounds are positive. MUSCULOSKELETAL: No cyanosis or clubbing. There is no pitting in the bilateral lower extremities. NEUROLOGIC: Grossly nonfocal. LABORATORY DATA: Hemoglobin 9.3. Platelets 245,000. Basic metabolic profile is essentially unremar kable except for potassium of 3.4. Urinalysis is unremarkable. Sputum culture is growing E. coli wh ich is sensitive to fluoroquinolones. ASSESSMENT: 1. Acute blood loss anemia, resolved. 2. Peptic ulcer disease. 3. Hemorrhagic shock, resolved. 4. Acute hypoxic respiratory failure, resolved. 5. Atrial fibrillation with rapid ventricular response. 6. Community-acquired pneumonia secondary to Escherichia coli. 7. Need for restarting anticoagulation on 09/12/2017. PLAN: The patient is doing fantastic from a respiratory standpoint. Hemodynamically, he is stable. That being said, he went into atrial fibrillation with RVR. We will work on controlling his rate. Once this is under control, we can resume some of his home medications. The patient can be transitio nkechi to the telemetry unit. Pulmonary will continue to follow for the time being.
[2017-09-05] MEDS: Lorazepam 2 MG/ML VIAL SLOW IVP PRN ×2 (09:26→21:17)
[2017-09-05] MEDS: Citalopram 20 MG TAB PO SCH (09:26)
[2017-09-05] MEDS: Potassium Chloride 20 MEQ TAB PO SCH ×2 (09:29→18:05)
[2017-09-05] MEDS: Acetaminophen 325 MG TAB PO PRN ×2 (09:32→18:06)
[2017-09-05 12:38] VITALS: BMI 25.9
--- NOTE | 2017-09-05 13:33 | PDOC.PN ---
- Subjective Encounter Start Date: 09/05/17 Encounter Start Time: 13:30 Subjective: f/u for GI bleed s/p 4u PRBC's and stable gastric ulcer on repeat EGD. -: Nsg noted recurrence of A-fib RVR today requiring Cardizem IV, Digoxin -: and Cardizem po. Remains off anticoagulation likely 1 week. - Objective Resuscitation Status: Resuscitation Status FULL:Full Resuscitation MAR Reviewed: Yes Vital Signs & Weight: Vital Signs (12 hours) Temp Pulse BP 09/05/17 12:00 98.1 F 09/05/17 09:31 108 H 09/05/17 09:30 105 H 125/70 09/05/17 09:25 108 H 09/05/17 08:00 98.9 F 09/05/17 04:00 98.6 F Weight Admit Weight 171 lb Weight 160 lb 7.936 oz Most Recent Monitor Data Heart Rate from ECG 84 NIBP 101/75 NIBP BP-Mean 83 Respiration from ECG 39 SpO2 94 I&O: 09/04/17 09/05/17 09/06/17 06:59 06:59 06:59 Intake Total 1877 1535 300 Output Total 4100 2929 1 Balance -9763 -1394 299 Result Diagrams: 09/05/17 05:33 09/05/17 05:33 Additional Labs: Laboratory Tests 09/02/17 09/02/17 09/02/17 02:25 18:15 18:15 Hgb 7.9 L Potassium 3.6 Chloride BUN 67 H 09/02/17 09/03/17 09/03/17 22:13 02:05 02:05 Hgb 6.8 L 7.8 L Potassium 3.5 Chloride 115 H BUN 33 H 09/03/17 09/04/17 09/04/17 14:31 04:40 04:40 Hgb 8.7 L 8.9 L Potassium 3.2 L Chloride BUN EKG Reviewed by me: Yes (Tele - A-fib rvr, now rate controlled) Phys Exam - Physical Examination Constitutional: NAD HEENT: PERRLA, oral pharynx no lesions Neck: no JVD, supple Respiratory: no wheezing, clear to auscultation bilateral Cardiovascular: irregular Gastrointestinal: soft, non-tender, no distention, positive bowel sounds Musculoskeletal: no edema, pulses present Neurological: normal sensation, moves all 4 limbs Psychiatric: A&O x 3 Skin: normal turgor, cap refill <2 seconds Dx/Plan (1) GI bleed Code(s): K92.2 - GASTROINTESTINAL HEMORRHAGE, UNSPECIFIED Status: Acute Qualifiers: GI bleed type/associated pathology: gastric ulcer Qualified Code(s): K25.4 - Chronic or unspecified gastric ulcer with hemorrhage Comment: Stable on repeat EGD, Protonix 40mg BID, avoid NSAIDs (2) Gastric ulcer Code(s): K25.9 - GASTRIC ULCER, UNSP ACUTE OR CHRONIC, W/O HEMOR OR PERF Status: Acute Comment: See above, PPI, repeat EGD in 8 weeks (3) Acute blood loss anemia Code(s): D62 - ACUTE POSTHEMORRHAGIC ANEMIA Status: Acute Comment: s/p 4u PRBC's, H/H stable (4) Atrial fibrillation Code(s): I48.91 - UNSPECIFIED ATRIAL FIBRILLATION Status: Chronic Comment: RVR noted earlier now rate-controlled, anticoagulation held for 1 week (5) Hypovolemic shock Code(s): R57.1 - HYPOVOLEMIC SHOCK Status: Acute Comment: Resolved (6) Respiratory failure Code(s): J96.90 - RESPIRATORY FAILURE, UNSP, UNSP W HYPOXIA OR HYPERCAPNIA Status: Acute Qualifiers: Chronicity: acute Comment: s/p intubation and mech ventilation, stable - Plan plan discussed w/ family, continue antibiotics, PT/OT, manager social, out of bed/ambulate, DVT proph w/SCDs Continue rate-control measures with Digoxin, Cardizem -: Hold anticoagulation x 1 week -: Continue Protonix 40mg BID -: Continue Levaquin 750mg daily -: KCL replacement * Am lab: BMP, H/H * Likely transition to [facility] in 24h
--- NOTE | 2017-09-05 18:18 | CON ---
DATE OF CONSULTATION: 09/05/2017 REFERRING PHYSICIAN: Noel Velazquez D.O. REASON FOR CONSULTATION: Atrial fibrillation and GI bleed, on anticoagulation. HISTORY OF PRESENT ILLNESS: Mr. Navarrete is a 72-year-old male who originally presented to the emergen cy room reporting in a large black tarry stools that have been occurring for approximately 1 week as well as one large [place] bright red blood emesis. He has never had this happened before. He has been on Xarelto for over a year just a 20 mg daily. He is in [place] at a rehab center to regain so me strength and is eager to get back there. Currently, he denies any heart racing, palpitations, nancy st pain, pressure, stroke, or stroke-like symptoms. He does endorse weakness, fatigue as well as a s ignificant lower back pain. He denies any heart failure symptoms including swelling of the extremiti es, progressive shortness of breath, dyspnea on exertion or persistent cough. PAST MEDICAL HISTORY: Atrial fibrillation, hypertension, dyslipidemia, gout, and chronic kidney dise ase stage 3. CURRENT MEDICATIONS: Tylenol as needed, Celexa 20 mg daily, Cardizem-CD 240 mg daily, Levaquin 750 m g p.o. daily x4 days, Ativan 0.5 mg p.o., Zofran 4 mg IV q.6 hours p.r.n., Seroquel 50 mg p.o. at bed time. ALLERGIES: No known drug allergies. SOCIAL HISTORY: Negative for tobacco habituation or alcohol consumption. FAMILY HISTORY: Positive for diabetes, hypertension, and hyperlipidemia. Negative for sudden cardia c or arrhythmias. REVIEW OF SYSTEMS: Twelve point review of systems was conducted and is negative except that listed i n the HPI above. PHYSICAL EXAMINATION: VITAL SIGNS: Most recent vital signs: Temperature 98.1, heart rate 84, blood pressure 101/75, respi rations 24. GENERAL: This is a well-nourished, well-groomed, male in no acute distress. He is pale, a ppears to be in a small moderate amount of discomfort. It sits in a chair during examination. He ap pears somewhat chronically ill. HEENT: He is normocephalic and atraumatic. Pupils are equal, round, reactive and accommodating. Hi s sclerae are anicteric. Oral mucosa is moist and pink. He has adequate dentition. NECK: Supple without jugular venous distention. His thyroid is nonpalpable. LUNGS: Clear to auscultation bilaterally without wheezes, crackles or rhonchi. Respirations are marimar n and unlabored. CARDIAC: Heart rate is irregularly irregular without significant murmur, rub or gallop. EXTREMITIES: Warm and dry to touch without clubbing, cyanosis or edema. ABDOMEN: Soft and nontender with positive and bowel sounds noted throughout. NEUROLOGIC: Grossly intact. Exam is nonfocal. Gait was not assessed. DATABASE: Patient has received total of 4 units PRBC transfused during this hospitalization. Endosc opy on 09/01/2017 revealed a large 1 x 2 cm ulcer in the stomach which was repaired on 09/04/2017 and he is to have a followup EGD in 8 weeks. He is recommended to hold anticoagulation for at least 1 w agdaagux and the patient was given Kcentra. Laboratory data on 09/05/2017, WBC is 9.2, hemoglobin 9.3, he matocrit 28.3, platelet count 245. Chemistry: Sodium 137, potassium 3.4, chloride 103, carbon dioxi de 27, BUN is 12, creatinine is 0.83. Review of telemetry and EKGs revealed atrial fibrillation with variable response, rate currently rates ranging in the 110-120 beat per minute range. ASSESSMENT AND PLAN: 1. Recent gastrointestinal bleed requiring multiple units of blood transfused secondary to a bleedin g gastric ulcer which was repaired on 09/04/2017. The recommendation was to hold oral anticoagulatio n for at least 1 week. 2. Atrial fibrillation with rapid ventricular response. 3. CHADS-VASc score of 4, on the basis of age, hypertension, and prior transient ischemic attack. RECOMMENDATIONS: We agree with the recommendation to hold oral anticoagulation for 1-2 weeks. At th at time, we would recommend initiating patient back on Eliquis 5 mg b.i.d. He does have some chronic kidney disease; however, does not qualify for the lower dose of Eliquis given his weight over 133 po unds in each less than 80. Long-term, we will follow with the patient as an outpatient in clinic and discuss left atrial appendage closure with a Watchman in the future. This may be sometime down the road. As the patient will likely discharge to rehabilitation, but we would like to see him back in [facility] in 4-6 weeks. Right now, rate controlled for the atrial fibrillation is needed. He is current ly on diltiazem 240 mg p.o. daily and may need an alternative agent or increased dose. We will young gama to follow the patient through his hospitalization and have discussed atrial fibrillation as well as anticoagulation at length with the patient and his significant other. All questions were answered . Thank you for allowing us to participate in the care of this patient.
--- NOTE | 2017-09-05 19:13 | PRG ---
DATE OF SERVICE: 09/05/2017 SUBJECTIVE: Mr. Navarrete has had no bleeding. He is tolerating a diet. He is on IV Protonix q.12 wilma rs. OBJECTIVE: VITAL SIGNS: Blood pressure 150/78, afebrile with temperature 98.1, pulse 108. ABDOMEN: Nontender. LABORATORY STUDIES: Hemoglobin 9.3, white count 9.2, platelet count 245. BUN and creatinine have dr opped to 12 and 0.83. ASSESSMENT AND PLAN: Gastrointestinal hemorrhage from gastric ulcer. Risk of bleeding has dropped. Could resume anticoagulation in 3-5 days depending on how he does. He can advance diet to regular d iet and his EGD in 8 weeks.
[2017-09-06 05:32] LABS: Hemoglobin 9.1 g/dL (14.0-18.0)
[2017-09-06 05:41] LABS: Anion Gap 10 mmol/L (10-20); BUN (Urea Nitrogen) 16 mg/dL (8.4-25.7); Calc. Creatinine Clearance 71 mL/min (70-130); Carbon Dioxide 26 mmol/L (23-31); Chloride 104 mmol/L (98-107); Estimated GFR-MDRD 76; Glucose 101 mg/dL (83-110); Magnesium 1.8 mg/dL (1.6-2.6); Potassium 3.9 mmol/L (3.5-5.1); Sodium 136 mmol/L (136-145)
[2017-09-06] MEDS: Citalopram 20 MG TAB PO SCH (08:20)
[2017-09-06] MEDS ORDERED: Digoxin 0.25 MG TAB PO SCH ×2 (09:30→10:30)
--- NOTE | 2017-09-06 09:46 | PRG ---
DATE OF SERVICE: 09/06/2017 SERVICE: Pulmonary Medicine. INTERVAL HISTORY: The patient is doing fine from a respiratory standpoint. He is breathing comforta jason. He is on room air and has no complaints of chest discomfort, nausea, vomiting or diarrhea. PHYSICAL EXAMINATION: VITAL SIGNS: Afebrile, pulse 108, blood pressure 131/70, respirations 30, and saturation 95% on room air. GENERAL: The patient is awake, alert, no apparent distress. LUNGS: Decent air entry. There is no prolonged expiratory phase, wheezing, rhonchi, or crackles pre sent. HEART: Tachycardic. Irregular. ABDOMEN: Soft, nontender, nondistended. Bowel sounds are positive. MUSCULOSKELETAL: No cyanosis or clubbing. There is no pitting in the bilateral lower extremities. NEUROLOGIC: Grossly nonfocal. LABORATORY DATA: Hemoglobin 9.1 and stable. Basic metabolic profile and magnesium are all unremarka ble. Sputum is growing E. coli sensitive to fluoroquinolones. ASSESSMENT: 1. Acute blood loss anemia, stable. 2. Peptic ulcer disease. 3. Hemorrhagic shock, resolved. 4. Acute hypoxic respiratory failure, resolved. 5. Community-acquired pneumonia secondary to Escherichia coli. 6. Atrial fibrillation with rapid ventricular response. 7. Need for restarting anticoagulation on 09/12/2017, DISCUSSION AND PLAN: The patient is doing fantastic from a respiratory standpoint. He can be transi tioned to the telemetry unit. Cardiology is titrating some of his rate control medications. Pulmona ry or Critical Care will continue to follow.
[2017-09-06] MEDS ORDERED: Pantoprazole 40 MG VIAL IVP SCH ×2 (11:15→21:00)
[2017-09-06 11:53] VITALS: BP 111/70
[2017-09-06] MEDS: Acetaminophen 325 MG TAB PO PRN (12:46)
--- NOTE | 2017-09-06 12:59 | PRG ---
DATE OF SERVICE: 09/06/2017 SUBJECTIVE: Mr. Navarrete just complains of being cold in the room. He is eating soft diet. OBJECTIVE: VITAL SIGNS: Pulse is 101, blood pressure 131/70. ABDOMEN: Soft, nontender. LABORATORY STUDIES: Hemoglobin is 9.1. ASSESSMENT: Large gastric ulcer. For some reason, the patient's Protonix has been stopped. They go t 9 yesterday, I am going to go and give him one more day of IV today and then we can switch him to p .o. tomorrow. He can go home on p.o. Protonix or omeprazole 40 mg b.i.d. and follow up in the outpat ient in a month. We will set up for an EGD to document healing in 8 weeks.
--- NOTE | 2017-09-06 13:08 | PRG ---
DATE OF SERVICE: 09/06/2017 SUBJECTIVE: Cedric Navarrete seems to be doing fair overnight. No further bleeding issues noted. OBJECTIVE: VITAL SIGNS: Blood pressure 151/78, heart rate 108, respiration is 33, O2 sats 95% on room air, and temperature 98.2 degrees Fahrenheit. GENERAL: Alert and oriented man, in no apparent distress. NECK: Supple. Jugular veins not distended. CHEST: Coarse without crackles. CARDIOVASCULAR: Heart sounds are irregularly irregular. S1 is variable. No murmur or gallop. ABDOMEN: Benign. Bowel sounds positive. EXTREMITIES: Lower extremities without edema, clubbing or cyanosis. DATABASE: The telemetry strips reviewed and reveals atrial fibrillation with moderate ventricular ra te control, stable overnight, but this morning, heart rates increased again to the 110s. LABORATORY DATA: Hemoglobin is 9.3 yesterday, today is 9.1. Today, has been stable. ASSESSMENT AND PLAN: Mr. Navarrete is pleasant 72-year-old man with a prior history of chronic atrial f ibrillation, prior history of stroke, hypertension, who is here with gastrointestinal bleed. He has a got CHADSVASC score of 4 due to age, hypertension, and TIA. In the past, he was found to have a ga stric ulcer which was cauterized. GI is agreeable to resuming anticoagulation in 5 days. Our plan, as discussed when consulted yesterday is to plan for a Watchman procedure long-term, but re initiated the oral anticoagulation possibly Eliquis prior to discharge. Based on his renal function, he likely will need full 5 mg twice a day dose. Follow up in the office requested in 4-6 weeks.
[2017-09-06 16:27] VITALS: TEMP 98.9
--- NOTE | 2017-09-06 20:10 | DIS ---
DATE OF ADMISSION: 09/01/2017 DATE OF DISCHARGE: 09/06/2017 DISCHARGE DIAGNOSES: 1. Status post acute upper gastrointestinal bleed secondary to gastric ulcer. 2. Gastric ulcer with acute bleed. 3. Acute blood loss anemia, status post 4 units of packed red blood cells. 4. Chronic atrial fibrillation with variable rate control, anticoagulation held x1 week. 5. Hypovolemic shock secondarily to #1, resolved. 6. Acute hypoxic hypercapnic respiratory failure, requiring mechanical ventilation, resolved. CONSULTATIONS: Dr. Gordon with GI Service. Dr. Wilder with Cardiology Service. Dr. Back with Critical Care Service. Dr. Reyes with Electrophysiology Service. PERTINENT LABORATORY AND X-RAY FINDINGS: Potassium ranged between 3.2-3.9, magnesium level ranged be tween 1.5-2.0, troponin I ranged between 0.048-0.051. CBC showed hemoglobin ranging between 6.8-9.3, MCV 95. PT 18.9, INR 1.5, PTT 33. Blood culture x2 from 09/01/2017 showed no growth at 48 hours. Urine culture dated 09/01/2017 showed no growth at 36 hours. Respiratory culture dated 09/01/2017 sh owed moderate E. coli. HOSPITAL COURSE: The patient initially presented with hematemesis, nausea and upper GI bleed in the context of chronic Xarelto use with chronic atrial fibrillation. The patient was initially evaluated with hemoglobin of 5.7, receiving 1 unit of packed red blood cells, increasing to 7.1. The patient was evaluated by the GI Service, undergoing EGD on 09/01/2017 showing 1 x 2 cm ulcer of the lesser cu rvature with clot and visible vessel. Hemoclip x2 applied with injection of epinephrine for hemostas is. The patient continued on mechanical ventilation postprocedure and received a total of 4 units of packed red blood cells. Serial H&H monitoring revealed stable values and the patient was continued on octreotide and Protonix. The patient was discontinued on all aspirin and anticoagulation with rep eat EGD evaluation, 09/04/2017, showing gastric ulcer of the lesser curvature, status post ablation w ith white-based ulcer. No specific bleeding or recurrence of bleeding noted during this exam. The p atient did develop atrial fibrillation with rapid ventricular response, necessitating adjustment of h is chronic rate control measures with the addition of digoxin 0.125 mg daily. The patient continued on diltiazem 360 mg daily with overall stabilization of rate. Current recommendations are to hold an ticoagulation for approximately 1 week on discharge and to initiate Eliquis when anticoagulation resu mes. Overall, the patient remained clinically stable and deemed an appropriate candidate to return t [facility] for further evaluation, physical therapy, and H&H monitoring. I have examin ed the patient on the date of discharge, reviewing laboratory testing, followup instructions, and dis position planning. The patient verbalizes understanding and agreement and ready for discharge on 09/2017. DISCHARGE MEDICATIONS: 1. Allopurinol 300 mg one tab p.o. daily. 2. Eliquis 5 mg 1 tablet p.o. daily, start on 09/13/2017. 3. Enteric-coated aspirin 81 mg p.o. daily. 4. Celexa 20 mg p.o. daily. 5. Digoxin 0.125 mg p.o. daily. 6. Cardizem CD 360 mg p.o. daily. 7. [place] 10/325 mg 1-2 tabs p.o. q.4-6 hours p.r.n. 8. Levaquin 750 mg p.o. daily x6 days. 9. Methocarbamol 500 mg p.o. daily. 10. Protonix 40 mg p.o. b.i.d. 11. Seroquel 50 mg p.o. at bedtime. 12. Tramadol 50 mg 1-2 tabs p.o. q.6 hours p.r.n. pain. FOLLOWUP: The patient to follow up with his primary care provider, Dr. Maria R Frankel, after dischar ge from [facility]. CONDITION ON DISCHARGE: Stable. ACTIVITY: Ad-anamika, rolling walker with standby assistance. DIET: Heart healthy. CODE STATUS: FULL. DISPOSITION: Discharged to [facility], 09/06/2017. Total time preparing and coordinating discharge 39 minutes.
[2017-09-07] MEDS ORDERED: Digoxin 0.125 MG TAB PO SCH (09:00)
[2017-09-12 09:52] LABS: Actual Bicarbonate (HCO3a) 20.9 mEq/L (22-26); Analyzer IN Cardio OR; Base Excess (BEa) -3.5 mEq/L (0 (+/-) 2.5); CO2 Tension 35.1 mmHg (35.0-45.0); Calcium, Ionized 1.1 mmol/L (1.12-1.30); Hematocrit-ABG 24.3 % (42.0-52.0); Hemoglobin (Hb) 8.7 g/dL (14.0-18.0); O2 Tension (PaO2) 303.7 mmHg (80.0-100.0); Puncture Site ALINE; pH, Arterial 7.39 (7.35-7.45)
[2017-09-13] MEDS ORDERED: Apixaban 5 MG TAB PO SCH (09:00)
--- NOTE | 2017-09-13 22:59 | EKG ---
Test Reason : Blood Pressure : / mmHG Vent. Rate : 121 BPM Atrial Rate : 120 BPM P-R Int : 000 ms QRS Dur : 084 ms QT Int : 354 ms P-R-T Axes : 000 063 057 degrees QTc Int : 502 ms Atrial fibrillation with rapid ventricular response Nonspecific T wave abnormality Abnormal ECG When compared with ECG of 01-SEP-2017 17:27, (Unconfirmed) No significant change was found Confirmed by Mell BENNETT ([id number]) on 09/13/2017 10:59:08 PM Referred By: SHANTE Confirmed By:Mell BENNETT
== END 2017-09-06 16:46 | disposition swing bed (61) | DRG 377 ==
LOC: ERS 13:23 → CCU 13:59
PROVIDERS: ADMIT Internal Medicine; ATTEND Internal Medicine
PROC: 0W3P8ZZ Control Bleeding in Gastrointestinal Tract, Via Natural or Artificial Opening Endoscopic (ICD-10-PCS; 2017-09-01)
PROC: 3E0G8GC Introduction of Other Therapeutic Substance into Upper GI, Via Natural or Artificial Opening Endoscopic (ICD-10-PCS; 2017-09-01)
PROC: 30233N1 Transfusion of Nonautologous Red Blood Cells into Peripheral Vein, Percutaneous Approach (ICD-10-PCS; 2017-09-02)
PROC: 0D568ZZ Destruction of Stomach, Via Natural or Artificial Opening Endoscopic (ICD-10-PCS; principal; 2017-09-04)
DX: K25.4 Chronic or unspecified gastric ulcer with hemorrhage; I42.9 Cardiomyopathy, unspecified; D62 Acute posthemorrhagic anemia; Z86.73 Personal history of transient ischemic attack (TIA), and cerebral infarction without residual deficits; J96.01 Acute respiratory failure with hypoxia; Z96.641 Presence of right artificial hip joint; R57.8 Other shock; R00.1 Bradycardia, unspecified; I95.9 Hypotension, unspecified; Z79.01 Long term (current) use of anticoagulants; M10.9 Gout, unspecified; K56.41 Fecal impaction; I48.2 Chronic atrial fibrillation; I12.9 Hypertensive chronic kidney disease with stage 1 through stage 4 chronic kidney disease, or unspecified chronic kidney disease; K21.9 Gastro-esophageal reflux disease without esophagitis; J15.5 Pneumonia due to Escherichia coli; F41.9 Anxiety disorder, unspecified; N18.3 Chronic kidney disease, stage 3 (moderate); E78.5 Hyperlipidemia, unspecified
CPT/HCPCS: 36415; 36416; 36430; 71045; 80048; 80076; 81001; 82805; 83735; 84100; 84484; 85014; 85018; 85025; 86850; 86900; 86901; 87040; 87070; 87077; 87086; 87186; 87205; 93005; 93010; 94002; 94003; 96365; 96366; C9113; G8978-GP-CN; G8979-GP-CK; J0131; J0282; J0696; J1160; J1642; J1940; J1956; J2001; J2060; J2270; J2405; J2704; J3010; J3475; J3480; J7050; J7070; J9132; P9016

== ENCOUNTER 2019-04-26 07:13 | Outpatient (CLI) | payer MEDICARE ==
[2019-04-26 13:17] LABS: #Eosinphils 0.1 thou/uL (0.0-0.7); #Lymphocytes 1.7 thou/uL (1.20-3.40); #Monocytes 0.6 thou/uL (0.11-0.59); #Neutrophils 4.1 thou/uL (1.40-6.50); %Basophils 0.5 % (0.0-1.0); %Eosinophils 1.3 % (0.0-10.0); %Lymphocytes 26.4 % (21.0-51.0); %Monocytes 8.8 % (0.0-10.0); Hemoglobin 13.6 g/dL (14.0-18.0); Mean Corpuscular HGB CONC 32.2 g/dL (32.0-36.0); Mean Corpuscular Hemoglobin 32.1 pg (27.0-31.0); Mean Corpuscular Volume 99.8 fL (78.0-98.0); Platelet Count 192 thou/uL (130-400); Red Blood Cell (RBC) Count 4.23 mill/uL (4.70-6.10); White Blood Cell (WBC) Count 6.5 thou/uL (4.8-10.8)
--- NOTE | 2019-04-26 13:19 | RAD ---
EXAM: Chest PA and lateral: HISTORY: Preoperative exam. COMPARISON: 10/05/2017 FINDINGS: No placement of a single lead left-sided transvenous pacemaker, lead positioned in the right ventricl e. Heart: Cardiomegaly Aorta: Atherosclerosis of the aortic knob. Pulmonary vessels: Normal Costophrenic angles: Costophrenic angles are clear. Lungs: No consolidation or masses. Pneumothorax: No pneumothorax Osseous structures: No osseous abnormalities IMPRESSION: No acute cardiopulmonary process. Atherosclerosis.
[2019-04-26 13:40] LABS: Anion Gap 9 mmol/L (10-20); BUN (Urea Nitrogen) 19 mg/dL (8.4-25.7); Calc. Creatinine Clearance 0 mL/min (70-130); Calcium 9.5 mg/dL (7.8-10.44); Carbon Dioxide 32 mmol/L (23-31); Chloride 101 mmol/L (98-107); Estimated GFR-MDRD 63; Glucose 82 mg/dL (83-110); Potassium 3.7 mmol/L (3.5-5.1); Sodium 138 mmol/L (136-145)
--- NOTE | 2019-04-28 14:30 | EKG ---
Test Reason : Blood Pressure : / mmHG Vent. Rate : 065 BPM Atrial Rate : 156 BPM P-R Int : 000 ms QRS Dur : 182 ms QT Int : 486 ms P-R-T Axes : 000 -78 107 degrees QTc Int : 505 ms Electronic ventricular pacemaker When compared with ECG of 01-SEP-2017 17:30, Electronic ventricular pacemaker has replaced Atrial fibrillation Vent. rate has decreased BY 56 BPM Confirmed by DAVY EDGE (2) on 04/28/2019 2:29:46 PM Referred By: MILTON Confirmed By:DAVY EDGE
== END 2019-04-26 07:14 | disposition home or self-care (01) ==
LOC: LABBT 07:13
PROVIDERS: ATTEND Specialist
DX: Z01.818 Encounter for other preprocedural examination (principal); K40.90 Unilateral inguinal hernia, without obstruction or gangrene, not specified as recurrent; I70.90 Unspecified atherosclerosis
CPT/HCPCS: 71046; 80048; 85025; 93005; 93010

== ENCOUNTER 2019-04-30 08:11 | Day surgery (SDC) | payer MEDICARE ==
[2019-04-26 12:16] VITALS: BMI 24.8
[2019-04-30] MEDS ORDERED: Ketorolac Tromethamine 30 MG/ML VIAL ONE (09:03)
[2019-04-30] MEDS ORDERED: Lidocaine 1% w/Epinephrine 1:100K 20 ML VIAL ONE (09:04)
[2019-04-30] MEDS ORDERED: Bupivacaine 0.25% HCL 30 ML VIAL ONE (09:04)
[2019-04-30] MEDS ORDERED: Fentanyl 100 MCG/2 ML VIAL ONE ×2 (09:05→12:15)
[2019-04-30] MEDS ORDERED: Ondansetron PF 4 MG/2 ML Vial ONE (09:55)
[2019-04-30] MEDS ORDERED: Glycopyrrolate 0.2 MG/ML 5 ML SYRINGE ONE (09:55)
[2019-04-30] MEDS ORDERED: Rocuronium Bromide 10 MG/ML (10ML VIAL) ONE (09:55)
[2019-04-30] MEDS ORDERED: Lidocaine 1% PF 5 ML VIAL ONE (09:55)
[2019-04-30] MEDS ORDERED: PROPOFOL 200 MG/20 ML VIAL ONE (09:55)
[2019-04-30] MEDS ORDERED: traMADol HCl 50 MG TAB ONE (12:49)
--- NOTE | 2019-04-30 13:38 | OP ---
DATE OF PROCEDURE: 04/30/2019 PREOPERATIVE DIAGNOSIS: Right inguinal hernia with right groin pain. POSTOPERATIVE DIAGNOSIS: Indirect right inguinal hernia, right femoral hernia. OPERATION PERFORMED: Robotic right inguinal hernia repair with large 3DMax mesh patch. ANESTHESIA: General endotracheal. INDICATIONS: The patient is a 74-year-old white male. He had presented with a "burning" right groin pain. He had been unaware of a hernia. On examination, he had an easily palpable right inguinal hernia and he is taken to the operating room at this time for repair of this and hopes that it will alleviate his discomfort. DESCRIPTION OF OPERATION: Informed consent was obtained. The patient was taken to the operating room, where general endotracheal anesthesia was obtained with the patient in supine position. Abdomen was prepped with ChloraPrep. Marin catheter was placed. Drapes were placed in the usual sterile fashion. Local anesthetic was infiltrated using a mixture of lidocaine with epinephrine and Marcaine. An 11-mm supraumbilical incision was created through which a Veress needle was passed in the peritoneal cavity and pneumoperitoneum was established using carbon dioxide up to pressure of 15 mmHg. An 11-mm trocar port was passed in the abdominal cavity and robotic camera was passed this port. Under direct vision, I placed 2 additional 8 mm robotic ports on either side of midline at the supraumbilical level. Examination of the right groin revealed an easily visible right inguinal hernia. There was no evidence of left inguinal hernia. A large 3DMax mesh patch was placed within the abdomen as well as the Vicryl and Stratafix sutures. The robot was docked to the ports and instruments and operation was continued from the console. Examination of the right inguinal area revealed anatomic irregularity. There was bulging areas of weakness in the groin that were atypical. There was an easily visible inguinal hernias at the medial aspect. I made a transverse incision in the peritoneum several centimeters superior to the hernia. Preperitoneal dissection was carried inferiorly. At the medial aspect, we identified the pubic tubercle and Shivam's ligament. Laterally, there was some inflammatory tissue that made it difficult to dissect the preperitoneal fat away from the peritoneum. There was more oozing in this area than was typical. There was also muscular regularity in this area. It was uncertain whether this was to something perhaps related to his prior joint replacement surgery or if this was a chronic muscular injury. There was no acute inflammatory process at this location. In the center portion of the dissection, I dissected the peritoneum away from the obvious indirect hernia defect and off the cord structures. To the medial aspect of the epigastric vessels, there was noted to be a second somewhat smaller hernia. This was inferior to the shelving edge of the inguinal ligament and was found to be a femoral hernia. Contents were reduced from this and it was dissected as well. The peritoneum was widely mobilized posteriorly off the vas deferens medially and the cord structures somewhat laterally. A large 3DMax mesh patch was obtained and placed in the preperitoneal space. It was secured in place with 3 interrupted sutures of 2-0 Vicryl. One of these was placed to the pubic tubercle medially to give good coverage over the femoral hernia. Additional sutures were placed medial and lateral to the epigastric vessels to achieve good fixation to the anterior abdominal wall. The remainder was smooth nicely in the preperitoneal space with good posterior coverage. The peritoneum was then closed with a running suture of 3-0 Stratafix. There were couple of defects in the fairly thinned out peritoneum and these were closed with interrupted sutures of 3-0 Vicryl with complete coverage of the mesh. The area was inspected. There was no evidence of any oozing or bleeding. The left side was inspected once again and it was found to be without hernia. There was no other abnormality noted within the abdomen, except the patient had obvious sigmoid colon diverticular disease. The fascial defect at the 11-mm port site was closed with 0 Vicryl suture using a GraNee needle. All ports and instruments were removed under direct vision. Pneumoperitoneum was carefully evacuated. A 0.25% Marcaine with epinephrine was infiltrated into each port sites. Skin edges were approximated with 4-0 Monocryl subcuticular suture. Dermabond was placed externally. 200 mL of saline was instilled in the patient's bladder prior to Marin catheter removal. The patient was taken to recovery room in stable condition. Job ID: [id number]
== END 2019-04-30 13:39 | disposition home or self-care (01) ==
LOC: SDC 08:11
PROVIDERS: ATTEND Specialist
PROC: 0YU74JZ Supplement Right Femoral Region with Synthetic Substitute, Percutaneous Endoscopic Approach (ICD-10-PCS; principal; 2019-04-30)
PROC: 0YU54JZ Supplement Right Inguinal Region with Synthetic Substitute, Percutaneous Endoscopic Approach (ICD-10-PCS; 2019-04-30)
DX: K41.90 Unilateral femoral hernia, without obstruction or gangrene, not specified as recurrent (principal); K40.90 Unilateral inguinal hernia, without obstruction or gangrene, not specified as recurrent; K57.30 Diverticulosis of large intestine without perforation or abscess without bleeding; M10.9 Gout, unspecified; F41.9 Anxiety disorder, unspecified; G47.00 Insomnia, unspecified; I10 Essential (primary) hypertension; I42.9 Cardiomyopathy, unspecified; Z79.01 Long term (current) use of anticoagulants; Z79.899 Other long term (current) drug therapy; Z86.73 Personal history of transient ischemic attack (TIA), and cerebral infarction without residual deficits; Z95.0 Presence of cardiac pacemaker
CPT/HCPCS: J0131; J0690; J1885; J2001; J2405; J2704; J3010; S0020

== ENCOUNTER 2020-03-26 11:23 | Outpatient (CLI) | payer MEDICARE ==
--- NOTE | 2020-03-26 12:30 | MRI ---
LUMBAR SPINE MRI WITHOUT CONTRAST: COMPARISON: 02/16/2017. HISTORY: Spinal stenosis. Lumbar radiculopathy. FINDINGS: Stable intrinsic T1 and T2 hyperintensity at L1, L3, and L4 compatible with osseous hemangiomas. Lum bar spine vertebral body heights are maintained. There is no fracture. No significant STIR hyperint ensity to suggest ligamentous injury or vertebral body edema. Appropriate signal intensity of the visualized paraspinal muscles and solid organs. No retroperitone al mass, lymphadenopathy, or hematoma. Conus medullaris terminates at the inferior aspect of L1. T12-L1: No significant central canal stenosis or significant neural foraminal narrowing. L1-L2: No significant central canal stenosis or significant neural foraminal narrowing. L2-L3: Severe loss of disk space height. Broad-based disk-osteophyte complex. Narrowing of both botello barticular zones with partial obscuration of bilateral traversing L3 nerve roots. Moderate central c anal stenosis. Moderate bilateral neural foraminal narrowing. There is 3.2 mm of retrolisthesis of L2 upon L3. L3-L4: Disk desiccation with mild loss of disk space height. Broad-based disk bulge, ligamentum fla vum thickening, and facet hypertrophy. Moderate central canal stenosis. Obscuration of bilateral tr aversing L4 nerve roots. Moderate right and moderate to severe left neural foraminal narrowing. L4-L5: Disk desiccation without significant loss of disk space height. Broad-based disk bulge, liga mentum flavum, thickening, and facet hypertrophy. There is trace fluid in the right facet joint. Se tina central canal stenosis. Mild to moderate bilateral neural foraminal narrowing. L5-S1: Minimal disk desiccation without significant loss of disk space height. Broad-based disk bul ge abuts the thecal sac. There is narrowing of the left subarticular zone secondary to disk material as well as ligamentum flavum thickening. Partial obscuration of the traversing left S1 nerve root. No significant stenosis of the thecal sac. Right neural foramen is patent. Mild left foraminal katia rowing. Trace amount of fluid in both hypertrophic facet joints. IMPRESSION: Degenerative changes of the lumbar spine as detailed above. POS: MARGARITA
== END 2020-03-26 11:24 | disposition home or self-care (01) ==
LOC: MRI 11:23
PROVIDERS: ATTEND Specialist
DX: M48.062 Spinal stenosis, lumbar region with neurogenic claudication (principal); M47.26 Other spondylosis with radiculopathy, lumbar region
CPT/HCPCS: 72148

== ENCOUNTER 2020-04-22 06:40 | Outpatient (CLI) | payer MEDICARE ==
[2020-04-22 10:18] LABS: Hemoglobin 14.3 g/dL (14.0-18.0); Mean Corpuscular HGB CONC 32.1 G/DL (32.0-36.0); Mean Corpuscular Hemoglobin 31.4 PG (27.0-33.0); Mean Platelet Volume 9.7 fl (7.4-10.4); Platelet Count 215 10x3/uL (130-400); RBC Distribution Width 15.2 % (11.5-14.5); Red Blood Cell (RBC) Count 4.55 10x6/uL (4.40-5.80); White Blood Cell (WBC) Count 8.2 10x3/uL (4.5-11.0)
[2020-04-22 10:19] LABS: Anion Gap 15 mmol/L (10-20); BUN (Urea Nitrogen) 21 mg/dL (8.4-25.7); Calc. Creatinine Clearance 0 mL/min (70-130); Calcium 9.5 mg/dL (7.8-10.44); Carbon Dioxide 32 mmol/L (23-31); Chloride 97 mmol/L (98-107); Estimated GFR-MDRD 56; Glucose 103 mg/dL (83-110); Potassium 3.6 mmol/L (3.5-5.1); Sodium 140 mmol/L (136-145)
[2020-04-22 19:10] LABS: SARS-CoV-2 MS2 Positive; SARS-CoV-2 N Gene Negative; SARS-CoV-2 S Gene Negative; SARS-CoV-2 by NAA Not Detected (NotDetected); SARS-CoV-2 orf1ab Negative
--- NOTE | 2020-04-24 07:05 | EKG ---
Test Reason : PREOP Blood Pressure : / mmHG Vent. Rate : 067 BPM Atrial Rate : 052 BPM P-R Int : 000 ms QRS Dur : 180 ms QT Int : 496 ms P-R-T Axes : 000 -77 108 degrees QTc Int : 524 ms Ventricular-paced rhythm with occasional Premature ventricular complexes Abnormal ECG Confirmed by DONITA KIRK MD ([id number]) on 04/24/2020 7:05:02 AM Referred By: MAURISIO Confirmed By:DONITA KIRK MD
== END 2020-04-22 06:41 | disposition home or self-care (01) ==
LOC: LABBT 06:40
PROVIDERS: ATTEND Neurological Surgery
DX: Z01.818 Encounter for other preprocedural examination (principal); M48.062 Spinal stenosis, lumbar region with neurogenic claudication; Z20.828 Contact with and (suspected) exposure to other viral communicable diseases
CPT/HCPCS: 80048; 85027; 93005; U0003; 87635; 93010

== ENCOUNTER 2020-04-27 05:30 | Inpatient (IN) | payer MEDICARE ==
[2020-04-24 10:56] VITALS: BMI 25.0
[2020-04-27] MEDS ORDERED: Fentanyl 100 MCG/2 ML VIAL ONE ×3 (07:26→09:35)
--- NOTE | 2020-04-27 09:07 | OP ---
DATE OF PROCEDURE: 04/27/2020 SENIOR MARKETING ANALYST: Franklyn. PROCEDURE PERFORMED: L3 through L5 decompressive laminectomy. DESCRIPTION OF PROCEDURE: The patient was brought to the operating room and intubated. He was rolled in a prone position on gel-filled chest rolls. An incision was made exposing L3 through L5 and the level was confirmed by x-ray. We performed complete L5, complete L4, and inferior L3 laminectomy, completely decompressing the neural elements. The patient had significantly thin dura at the L4-L5 level with several sites of CSF emanation from small holes. We did attempt to suture reinforced this and then used DuraSeal fibrin sealant on top of that. The wound was extensively irrigated. MAC hemostasis was secured. Vancomycin powder was applied and the wound was closed in anatomic layers over a drain. Job ID: [id number]
[2020-04-27] MEDS ORDERED: PACU-Morphine 4MG/ML VIAL SLOW IVP PRN (09:21)
[2020-04-27] MEDS ORDERED: Promethazine HCl 25 MG/ML VIAL SLOW IVP PRN (09:21)
[2020-04-27] MEDS ORDERED: Promethazine HCl 25 MG/ML VIAL IM PRN ×2 (09:21→11:45)
[2020-04-27] MEDS ORDERED: Ondansetron HCl/PF 4 MG/2 ML Vial IVP PRN (09:21)
[2020-04-27] MEDS ORDERED: Promethazine HCl 25 MG/ML VIAL ONE (09:41)
[2020-04-27] MEDS ORDERED: Morphine 4 MG/ML VIAL ONE (10:09)
[2020-04-27] MEDS ORDERED: Morphine 2 MG/ML VIAL ONE (10:33)
[2020-04-27] MEDS ORDERED: Tamsulosin HCl 0.4 MG CAP ONE (10:33)
[2020-04-27] MEDS ORDERED: Lidocaine 1% PF 5 ML VIAL ONE (10:47)
[2020-04-27] MEDS ORDERED: Rocuronium Bromide 10 MG/ML (10ML VIAL) ONE (10:47)
[2020-04-27] MEDS ORDERED: PROPOFOL 200 MG/20 ML VIAL ONE (10:47)
[2020-04-27] MEDS ORDERED: Dexamethasone 20 MG/5 ML VIAL ONE (10:47)
[2020-04-27] MEDS ORDERED: Ondansetron PF 4 MG/2 ML Vial ONE (10:47)
[2020-04-27] MEDS ORDERED: Glycopyrrolate 0.2 MG/ML 5 ML SYRINGE ONE (10:47)
[2020-04-27] MEDS ORDERED: PHENYLEPHRINE-NS 100 MCG/ML 10 ML SYRINGE ONE (10:47)
[2020-04-27] MEDS ORDERED: diphenhydrAMINE 50 MG/ML VIAL IVP PRN (11:45)
[2020-04-27] MEDS ORDERED: Milk Of Magnesia 30 ML UDCUP PO PRN (11:45)
[2020-04-27] MEDS ORDERED: Ondansetron PF 4 MG/2 ML Vial IM PRN (11:45)
[2020-04-27] MEDS ORDERED: Morphine 2 MG/ML VIAL SLOW IVP PRN (11:45)
[2020-04-27] MEDS ORDERED: Promethazine HCl 12.5 MG SUPP PR PRN (11:45)
[2020-04-27] MEDS ORDERED: tiZANidine HCl 4 MG TAB PO PRN (11:45)
[2020-04-27] MEDS ORDERED: HYDROcodone/Acetaminophen 10/325 mg Tablet PO PRN (11:45)
[2020-04-27] MEDS ORDERED: traMADol HCl 50 MG TAB PO PRN (11:45)
[2020-04-27] MEDS ORDERED: Promethazine 25 MG TAB PO PRN (11:45)
[2020-04-27] MEDS ORDERED: diphenhydrAMINE 25 MG CAP PO PRN (11:45)
[2020-04-27] MEDS ORDERED: CEFAZOLIN 2 GM in Premix Bag 1 BAG IVPB SCH (14:00)
[2020-04-27] MEDS: HYDROcodone/Acetaminophen 10/325 mg Tablet PO PRN ×2 (14:23→22:06)
[2020-04-27] MEDS: Sodium Chloride 0.9% 1,000 ML IV SCH (14:26)
[2020-04-27] MEDS: CEFAZOLIN 2 GM in Premix Bag 1 BAG IVPB SCH ×2 (15:34→23:09)
[2020-04-27] MEDS: Mag-Al 1200 mg/1200 mg/30 ML UDCUP PO PRN (18:40)
[2020-04-27] MEDS: Cepastat Lozenges 1 LOZ PO PRN (20:21)
[2020-04-28] MEDS: Sodium Chloride 0.9% 1,000 ML IV SCH ×2 (01:02→17:48)
[2020-04-28] MEDS: Tamsulosin HCl 0.4 MG CAP PO SCH (05:40)
[2020-04-28] MEDS: traMADol HCl 50 MG TAB PO PRN ×2 (06:10→11:59)
[2020-04-28] MEDS: Cepastat Lozenges 1 LOZ PO PRN ×2 (06:11→14:15)
--- NOTE | 2020-04-28 09:48 | PRG ---
DATE OF SERVICE: 04/28/2020 SUBJECTIVE: The patient is postoperative day #1, status post L3-L5 laminectomy. Following the surgery, he was transitioned to the [facility] Surgery floor where his pain has been very minimal. He is up walking without any difficulty. He is voiding appropriately and tolerating a regular diet. He did have a ADELAIDA drain placed intraoperatively and has had significant output of 210 last night. OBJECTIVE: On exam, he is sitting up in his chair comfortably, no acute distress. He has free active range of motion of all extremities. No focal motor weakness. His incision is clean and dry. There is a moderate amount of serosanguineous fluid in the bulb. ASSESSMENT AND PLAN: We will continue to monitor his progress closely. He is not having any symptoms of CSF or hypertension. We will monitor the ADELAIDA output and remove when timing is appropriate. Job ID: [id number]
[2020-04-28] MEDS: CEFAZOLIN 2 GM in Premix Bag 1 BAG IVPB SCH ×2 (09:49→17:44)
[2020-04-28] MEDS ORDERED: Docusate 100 MG CAP PO PRN (20:06)
[2020-04-28] MEDS: Mag-Al 1200 mg/1200 mg/30 ML UDCUP PO PRN (21:04)
[2020-04-28] MEDS: HYDROcodone/Acetaminophen 10/325 mg Tablet PO PRN (21:04)
[2020-04-29] MEDS: CEFAZOLIN 2 GM in Premix Bag 1 BAG IVPB SCH ×2 (00:19→08:25)
[2020-04-29] MEDS: HYDROcodone/Acetaminophen 10/325 mg Tablet PO PRN (03:06)
[2020-04-29] MEDS: Sodium Chloride 0.9% 1,000 ML IV SCH (06:11)
[2020-04-29] MEDS: Tamsulosin HCl 0.4 MG CAP PO SCH (06:13)
--- NOTE | 2020-04-29 09:51 | DIS ---
DATE OF ADMISSION: 04/28/2020 DATE OF DISCHARGE: 04/29/2020 The patient is a 75-year-old male recently seen in our office for progressive back and neurogenic claudication. He was found to have severe stenosis from L3 through L5. He underwent L3 through L5 laminectomy on 04/27/2020. ADELAIDA drain was left intraoperatively as well as a small CSF leak was repaired. Following the surgery, he was transitioned to the Med/Surg floor, where his pain has been well controlled in quite minimal. He is tolerating a regular diet and voiding appropriately. He has been ambulating easily in the halls. He has had quite high output from the ADELAIDA, but this appears more consistent with CSF on postoperative day #2. ADELAIDA drain was removed on postoperative day #2. Incision otherwise remained dry. Mild postural headaches, but nothing severe and the patient is tolerating his diet without any difficulty. We will go ahead and dismiss to home. I have discussed home and care precautions. We will follow up with the patient in 2 weeks. Discussed reasons to reach out to us further. Job ID: [id number]
[2020-04-29 11:16] VITALS: BP 150/83; TEMP 98.3
== END 2020-04-29 13:43 | disposition home or self-care (01) | DRG 519 ==
LOC: SDC 05:30 → SURG B 09:19 → OBSVTOIN 04-28 14:18
PROVIDERS: ADMIT Neurological Surgery; ATTEND Neurological Surgery
PROC: 00UT0KZ Supplement Spinal Meninges with Nonautologous Tissue Substitute, Open Approach (ICD-10-PCS; principal; 2020-04-27)
PROC: 01NB0ZZ Release Lumbar Nerve, Open Approach (ICD-10-PCS; 2020-04-27)
DX: M48.062 Spinal stenosis, lumbar region with neurogenic claudication (principal); G96.09 Other spinal cerebrospinal fluid leak; R51.9 Headache, unspecified; Z96.641 Presence of right artificial hip joint
CPT/HCPCS: 76000; 96374; 96375; 96376; G0378; J0690; J1100; J2270; J2405; J2550; J2704; J3010; J3370; Q0163

== ENCOUNTER 2020-05-25 12:02 | Inpatient (IN) | payer MEDICARE ==
[2020-05-25 13:51] LABS: #Lymphocytes 1.5 thou/uL (1.20-3.40); #Monocytes 0.5 thou/uL (0.11-0.59); #Neutrophils 5.2 thou/uL (1.40-6.50); %Basophils 0.3 % (0.0-1.0); %Eosinophils 0.2 % (0.0-10.0); %Monocytes 6.4 % (0.0-10.0); %Neutrophils 72.1 % (42.0-75.0); Hemoglobin 13.9 g/dL (14.0-18.0); Mean Corpuscular Hemoglobin 31.6 pg (27.0-31.0); Mean Platelet Volume 7.5 fL (7.4-10.4); Platelet Count 308 thou/uL (130-400); Red Blood Cell (RBC) Count 4.39 mill/uL (4.70-6.10); White Blood Cell (WBC) Count 7.3 thou/uL (4.8-10.8)
[2020-05-25] MEDS ORDERED: Morphine 4 MG/ML VIAL ONE (13:51)
[2020-05-25] MEDS ORDERED: Ondansetron PF 4 MG/2 ML Vial ONE (13:51)
[2020-05-25 14:09] LABS: ALT (SGPT) 10 U/L (8-55); AST (SGOT) 23 U/L (5-34); Albumin 4.3 g/dL (3.4-4.8); Alkaline Phosphatase 63 U/L (40-110); Anion Gap 18 mmol/L (10-20); BUN (Urea Nitrogen) 17 mg/dL (8.4-25.7); Bilirubin, Total 2.6 mg/dL (0.2-1.2); CK (CPK) 103 U/L (30-200); Calc. Creatinine Clearance 0 mL/min (70-130); Calcium 9.2 mg/dL (7.8-10.44); Carbon Dioxide 28 mmol/L (23-31); Chloride 98 mmol/L (98-107); Glucose 97 mg/dL (83-110); Potassium 3.6 mmol/L (3.5-5.1); Protein, Total 7.3 g/dL (5.8-8.1); Sodium 140 mmol/L (136-145)
[2020-05-25] MEDS ORDERED: Milk Of Magnesia 30 ML UDCUP PO PRN (15:51)
[2020-05-25] MEDS ORDERED: traMADol HCl 50 MG TAB PO PRN (15:51)
[2020-05-25] MEDS ORDERED: Morphine 2 MG/ML VIAL SLOW IVP PRN (15:51)
[2020-05-25] MEDS ORDERED: Acetaminophen/Codeine 30-300mg Tablet PO PRN (15:51)
[2020-05-25] MEDS ORDERED: tiZANidine HCl 4 MG TAB PO PRN (15:51)
[2020-05-25] MEDS ORDERED: Bisacodyl 10 MG SUPP PR PRN (15:51)
[2020-05-25] MEDS ORDERED: HYDROcodone/Acetaminophen 7.5/325 mg Tablet PO PRN (15:51)
[2020-05-25] MEDS ORDERED: Fleet Enema 133 ML BOT PR PRN (15:51)
[2020-05-25] MEDS ORDERED: Ondansetron PF 4 MG/2 ML Vial IVP PRN (15:51)
--- NOTE | 2020-05-25 16:09 | CT ---
CT Brain WO Con History: Headache. Comparison: None. Findings: No acute hemorrhage or infarct. No midline shift or mass effect. 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 Extensive chronic microvascular ischemic changes. Small partially calcified meningioma along the righ t temporal bone axial image 17 measuring less than 6 mm. Paranasal sinuses and mastoids are relatively clear. Old left medial orbital wall injury posteriorly. Impression: No acute intracranial abnormality.
[2020-05-25 16:21] LABS: PTT 33.7 sec (22.9-36.1); Prothrombin Time 13.5 sec (12.0-14.7)
[2020-05-25] MEDS ORDERED: Diazepam 5 MG TAB PO PRN (16:30)
[2020-05-25] MEDS ORDERED: Dexamethasone 20 MG/5 ML VIAL SLOW IVP SCH (16:45)
[2020-05-25] MEDS ORDERED: Diazepam 5 MG TAB ONE (17:14)
[2020-05-25] MEDS ORDERED: Dexamethasone 4 mg/ml Vial SLOW IVP SCH (19:30)
--- NOTE | 2020-05-25 22:28 | HP ---
CHIEF COMPLAINT: Low back pain and left lower extremity pain. HISTORY OF PRESENT ILLNESS: Mr. Navarrete is a pleasant 75-year-old male with a history of hypertension and arrhythmia, who presents with increased low back pain and left lower extremity pain since last night. He recently underwent L3-L5 decompression [address] Jacobs[address] There was an intraoperative CSF leak. The patient was seen in clinic by Sameera last week, at which time his midline lumbar wound and drain exit site were healing well without any active drainage. His nondissolvable sutures were removed during this visit. Overall, he was doing well until experiencing increased pain last night. He has had difficulty walking secondary to pain. He also endorses significant amount of swelling in his lower back in the area of his wound. He denies any wound drainage since his sutures were removed last week. He reports headache upon immediate elevation of his head of bed, however he denies increased headache with sitting upright in chair or standing. He denies any vision changes. No urinary or bowel symptoms reported, aside from urinary frequency in the ED. He does note tender left inguinal masses. He reports chronic lower extremity swelling "related to the heart." He currently takes 81 mg aspirin, but is not on any other blood thinners. He has a history of pacemaker placement due to arrhythmia. REVIEW OF SYSTEMS: Positive for low back pain, left buttock pain, left anterior leg pain, headache, and chronic leg swelling. 12-point review of systems is otherwise negative. PAST MEDICAL HISTORY: Hypertension, arrhythmia, hernia, anxiety. He denies a history of diabetes. SURGICAL HISTORY: Pacemaker placement, hernia repair, lumbar decompression. SOCIAL HISTORY: Reviewed. ALLERGIES: NO KNOWN DRUG ALLERGIES. PHYSICAL EXAMINATION: GENERAL: The patient is awake, alert, and in no apparent distress. He does appear anxious. HEENT: Head is normocephalic, atraumatic. Cataracts. Pupils are equal, round, and reactive to light. Extraocular movements are intact. NECK: Bilateral paraspinous tenderness in the trapezius region. Range of motion intact. Neck is supple. No nuchal rigidity. RESPIRATORY: Lungs are clear to auscultation bilaterally. No wheezing, no rales, no rhonchi. No increased work of breathing or signs of respiratory distress. CARDIAC: Pacemaker in place. Regular rate and rhythm. ABDOMEN: Soft, nondistended. Left inguinal mass with tenderness to palpation. NEUROLOGIC: A&O x3. Cranial nerves 2 through 12 are grossly intact. The patient speaks clearly and answers all questions appropriately. Good range of motion throughout all extremities. 5/5 strength throughout the bilateral lower extremities, although patient exhibits pain upon strength testing of left iliopsoas. Sensation to light touch is intact throughout. EXTREMITIES: Left greater than right lower leg and pedal edema. No signs of cellulitis. BACK: Midline lumbar incision is healing well without any signs of infection or active drainage, however there is significant edema and fluctuance involving the lower back surrounding the surgical wound concerning for pseudomeningocele. There is mild tenderness to palpation. There is no significant erythema. PSYCHIATRIC: Patient appears anxious. Normal mood. SKIN: Warm, dry, no rashes. Lower back examination as noted above. IMPRESSION/DIAGNOSES: 1. Low back pain and left lower extremity pain. 2. Lumbar radiculopathy. 3. Headache 4. 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 PLAN: The case was discussed and imaging reviewed with Dr. Lopez. Our team recommended a stat MRI of the lumbar spine without contrast to be completed in the emergency department to assess for potential CSF leak. This was unable to be completed given the pain has a pacemaker and a fulfillment representative will need to set the pacemaker to mode compatible with MRI. A noncontrast CT of the brain was completed which demonstrated no chronic subdural hematoma or other acute intracranial abnormalities. The patient will be admitted for pain control and completion of an urgent MRI of the lumbar spine tomorrow. I have started Decadron for radicular pain. Recommend head of bed flat when headache is present. Our team will re-evaluate the patient in the morning. Please call for any neurologic changes or other concerns. This was a 50-minute initial visit, in which greater than 50% of the time was spent in review of records, review of imaging, evaluation, examination, and formulation of a plan. The remaining time was spent in counseling and coordination of care. Job ID: [id number] [facility]
[2020-05-25 23:16] VITALS: BMI 24.9
[2020-05-25] MEDS: Sodium Chloride 0.9% 1,000 ML IV SCH (23:57)
[2020-05-26 01:21] LABS: SARS-CoV-2 MS2 Positive; SARS-CoV-2 N Gene Negative; SARS-CoV-2 S Gene Negative; SARS-CoV-2 by NAA Not Detected (NotDetected); SARS-CoV-2 orf1ab Negative
[2020-05-26] MEDS: Sodium Chloride 0.9% 1,000 ML IV SCH ×2 (05:23→23:26)
[2020-05-26] MEDS: Dexamethasone 4 mg/ml Vial SLOW IVP SCH ×4 (05:23→23:27)
--- NOTE | 2020-05-26 07:52 | PRG ---
DATE OF SERVICE: 05/26/2020 Mr. Navarrete was admitted yesterday for further workup of potential lumbar CSF leak. He remains pending completion of MRI of the lumbar spine that will require setting his pacemaker to MRI compatible mode. He is resting comfortably in bed this morning. He reports overall improvement in his low back and left lower extremity pain with steroids and oral analgesics. His headache is resolved. His lumbar wound continues to remain dry without any active drainage, and there are no signs of infection. We will continue to monitor the patient and plan going forward will be determined based on MRI findings. Call for any neurologic changes or other concerns. Job ID: [id number] [facility]
[2020-05-26] MEDS ORDERED: Tamsulosin HCl 0.4 MG CAP PO SCH (09:00)
[2020-05-26] MEDS ORDERED: FLU VACC QS2020-21(65YR UP)/PF 240 MCG/0.7 ML SYRINGE IM ONE (09:00)
--- NOTE | 2020-05-26 15:06 | MRI ---
MRI LUMBAR SPINE NONCONTRAST: DATE: 05/26/2020 HISTORY: 75-year-old male with fluid drainage from lumbar spine incision site. Rule out CSF leak. COMPARISON: 03/26/2020 FINDINGS: Review of prior chest radiographs and lumbar spine radiographs demonstrate 13 paired ribs. The level bearing the most caudal ribs will be designated as L1, considered to have bilateral accesso ry ribs. The level designated as L5-S1 then has normal, typical lumbosacral morphology, non transitional. Vertebral body heights are maintained. No major bone marrow signal abnormality. Conus medullaris terminates at upper L2. There is a new very large retrospinal fluid collection originating from the laminectomy defects abutt ing the posterior surface of the thecal sac, and then extending posteriorly into the subcutaneous fat posterior to the dorsal lumbar fascia. The component of the fluid collection posterior to the bc eric lumbar fascia is approximately 13 cm craniocaudal spanning L1-2 through S1 levels, and 8 cm transverse the AP dimension of the fluid collection, from posterior edge of thecal sac to the dorsal edge close to the skin surface, is 7 cm. 12-L1:Essentially normal L1-2:Essentially normal L2-3:Severe disc space narrowing. Mild retrolisthesis of L2 on L3 plus broad-based disc-osteophyte co mplex indents the ventral aspect of thecal sac. Mild ligamentum flavum thickening. Mild bilateral degenerative facet changes. Moderate central spinal canal stenosis. Moderate to severe right neural f oraminal stenosis. Moderate left neural foraminal stenosis. L3-4:New midline laminectomy defect and resection of bilateral ligamentum flavum results in improveme nt of the previously demonstrated high-grade central spinal canal stenosis. Degree of stenosis is currently moderate. New finding of fluid collection at the laminectomy defect begins at mid L4 level, and communicates with a huge retrospinal fluid collection. Retrolisthesis of L3 on L4. Mild disc space narrowing. Diffuse disc bulge. Moderate right and moderate to severe left neural foraminal sten osis. L4-5:Disc space maintained. Severe bilateral facet DJD results in minimal grade 1 anterolisthesis of L4 on L5. New midline laminectomy defect. Fluid collection at the laminectomy defect at the L5 level also communicates with the huge retrospinal fluid collection. Interval improvement in the previ ously demonstrated very severe central spinal canal stenosis. Degree of central spinal canal stenosis is currently moderate. Moderate bilateral neural foraminal stenosis. L5-S1:Disc space maintained. Severe bilateral degenerative facet hypertrophy. Left lateral recess radha nosis. Mild central spinal canal stenosis. Mild to moderate right and moderate left neural foraminal stenosis. IMPRESSION: 1) status post midline laminectomies at L3-4 and L4-5, resulting in improvement of the previously dem onstrated high-grade central spinal canal stenoses at those levels. 2) new very large retrospinal fluid collection arising from the laminectomy defects, and spreading ou t along the posterior subcutaneous fat posterior to the dorsal lumbar fascia. This could be a very large postoperative hematoma/seroma or a very large postoperative pseudomeningocele
[2020-05-26] MEDS: Acetaminophen 325 MG TAB PO PRN (17:39)
--- NOTE | 2020-05-26 17:44 | PDOC.HHP ---
Hospitalist HPI - History of Present Illness Back pain History of Present Illness: PCP: Dr. Lundberg Patient is a 75-year-old male with a past medical history significant for lumbar stenosis, hypertension, atrial fibrillation (on aspirin), peptic ulcer disease, TIA, GERD, anxiety that presents to the hospital for the above complaint. The patient developed increasing low back pain along with difficulty ambulating the night prior to arrival in the emergency department. On 04/27/2020, the patient underwent L3-L5 decompression by Dr. Jacobs. Apparently, he had subsequent complication with CSF leakage. He was discharged home with a drain in place. Postop he was doing well. About a week ago, the lumbar drain was removed. He reports soft tissue swelling at the incision site to his low back. He also reports difficulty ambulating, stating it was very painful. He denies any decreased sensation, loss of bowel/bladder function. He denies any postop fall/trauma. Denies any fever/illness. Known sick contacts. Denies any changes to his medications. Apparently, neurosurgery was consulted in the emergency department and wanted an MRI of the lumbar spine, however, it was postponed until the patient's pacemaker could be set to the appropriate settings to tolerate the MRI. CT of the brain was negative for any acute process. Patient was placed on IV steroids and IV fluids. At the time of encounter, patient reports the swelling to his back and has symptoms have improved significantly. We are consulted for medical management of his chronic conditions. ED Course: Vital Signs (12 hours) Temp Pulse Resp BP Pulse Ox 05/26/20 15:01 98.2 F 63 14 141/67 H 92 L 05/26/20 10:45 97.6 F 59 L 16 166/70 H 96 05/26/20 08:00 95 05/26/20 07:30 97.8 F 60 18 144/67 H 95 Weight Weight 154 lb 5.177 oz Hospitalist ROS - Review of Systems Constitutional: denies: fever, chills Eyes: denies: vision change, redness Respiratory: denies: cough, shortness of breath, hemoptysis Cardiovascular: denies: chest pain, palpitations, edema, light headedness Gastrointestinal: denies: nausea, vomiting, abdominal pain, melena, hematochezia Genitourinary: denies: dysuria, incontinence, hematuria Skin: reports: other (Soft tissue swelling to the low back) All other systems reviewed; all pertinent +/- noted in HPI/Subj - Medication Medications: Active Medications Generic Name Dose Route Start Last Admin Trade Name Derickq PRN Reason Stop Dose Admin Acetaminophen/Codeine Phosphate 1 tab 05/25/20 15:51 05/25/20 22:03 Acetaminophen/Codeine 30-300mg Tablet PO 1 tab Q3H PRN Administration Mild-Moderate Pain (1-5) Dexamethasone 4 mg 05/26/20 06:00 05/26/20 12:56 Dexamethasone 4 Mg/Ml Vial SLOW IVP 4 mg Q6H CHIDI Administration Pantoprazole Sodium 40 mg 05/26/20 09:00 05/26/20 09:29 Pantoprazole 40 Mg Tab PO 40 mg DAILY CHIDI Administration Medication Instructions Recorded Confirmed Type Allopurinol 300 mg PO QAM 08/15/17 05/25/20 History Diltiazem HCl [Cartia XT] 1 tab PO QAM 04/26/19 05/25/20 History Aspirin [Aspirin EC] 81 mg PO DAILY 04/24/20 05/25/20 History Allergies No Known Allergies Allergy (Verified 05/25/20 20:53) Hospitalist History - Past Medical History Source: patient, family, RN notes reviewed, old records Cardiac: reports: AFIB (On baby aspirin), HTN Pulmonary: reports: CVA/TIA/stroke (No residual deficit) Gastrointestinal: reports: GERD, GI bleed (PUD while on anticoagulation) Psych: reports: Anxiety Rheumatologic: reports: Gout - Past Surgical History Past Surgical History: reports: Other (Pacemaker, hernia repair, lumbar decompression) - Family History Other Family History: Noncontributory to this case - Social History Smoking Status: Never smoker Alcohol: reports: None Drugs: reports: none Living Situation: With Family Occupation: Retired Activity level: uses cane/walker (Status post lumbar decompression) - Exam General Appearance: NAD, awake alert. negative: ill appearing Eye: PERRL, anicteric sclera ENT: normocephalic atraumatic Neck: supple, symmetric Heart: no gallops, no rubs, normal peripheral pulses, irregular, III/IV Respiratory: CTAB, no wheezes, no rales, no ronchi, normal chest expansion, no tachypnea Gastrointestinal: soft, non-tender, non-distended, normal bowel sounds, no guarding, no rigidity Gastrointestinal - other findings: Negative Rovsing sign, negative Loco sign, no rebound tenderness Extremities: no cyanosis, no edema Skin: negative: no rashes Skin - other findings: Lumbar region soft tissue swelling, no erythema, non TTP, incision C/D/I Neurological: cranial nerve grossly intact, no focal deficits Neurological - other findings: Ambulates with a roller walker, HSNE lumbar spine intact Psychiatric: normal affect, A&O x 3 Hospitalist Results - Labs Result Diagrams: 05/25/20 13:39 05/25/20 13:39 Lab results: WBC 7.3 thou/uL (4.8-10.8) 05/25/20 13:39 Hgb 13.9 g/dL (14.0-18.0) L 05/25/20 13:39 Hct 43.4 % (42.0-52.0) 05/25/20 13:39 MCV 99.0 fL (78.0-98.0) H 05/25/20 13:39 Plt Count 308 thou/uL (130-400) 05/25/20 13:39 Neutrophils % 72.1 % (42.0-75.0) 05/25/20 13:39 ESR Westergren 39 mm/hr (Less than 20) H 05/25/20 13:39 Sodium 140 mmol/L (136-145) 05/25/20 13:39 Potassium 3.6 mmol/L (3.5-5.1) 05/25/20 13:39 Chloride 98 mmol/L (98-107) 05/25/20 13:39 Carbon Dioxide 28 mmol/L (23-31) 05/25/20 13:39 BUN 17 mg/dL (8.4-25.7) 05/25/20 13:39 Creatinine 1.06 mg/dL (0.7-1.3) 05/25/20 13:39 Glucose 97 mg/dL (83-110) 05/25/20 13:39 Calcium 9.2 mg/dL (7.8-10.44) 05/25/20 13:39 Total Bilirubin 2.6 mg/dL (0.2-1.2) H 05/25/20 13:39 AST 23 U/L (5-34) 05/25/20 13:39 ALT 10 U/L (8-55) 05/25/20 13:39 Alkaline Phosphatase 63 U/L (40-110) 05/25/20 13:39 Creatine Kinase 103 U/L (30-200) 05/25/20 13:39 C-Reactive Protein 2.15 mg/dL (= or < 0.5) H 05/25/20 13:39 Serum Total Protein 7.3 g/dL (5.8-8.1) 05/25/20 13:39 Albumin 4.3 g/dL (3.4-4.8) 05/25/20 13:39 - Radiology Interpretation Other Status: report reviewed by me Additional Comment: MRI lumbar spine without contrast: Impression: 1. Status post midline laminectomies at L3-4 and L4-5, resulting in improvement of the previously demonstrated highgrade central spinal canal stenosis at those levels. 2. New very large retrospinal fluid collection arising from the laminectomy defects, and spreading out along the posterior subcutaneous fat posterior to the dorsal lumbar fascia. This could be a very large postoperative hematoma/seroma or a very large postoperative pseudomeningocele. Hospitalist H&P A/P - Problem (1) Atrial fibrillation with controlled ventricular rate Code(s): I48.91 - UNSPECIFIED ATRIAL FIBRILLATION Status: Chronic (2) HTN (hypertension) Code(s): I10 - ESSENTIAL (PRIMARY) HYPERTENSION Status: Chronic (3) Gout Code(s): M10.9 - GOUT, UNSPECIFIED Status: Chronic (4) Spinal stenosis, lumbar Code(s): M48.061 - SPINAL STENOSIS, LUMBAR REGION WITHOUT NEUROGENIC BLAYNE Status: Chronic - Plan Plan: 75/M with PMH A. fib, HTN that is status post lumbar decompression that presents for increasing back pain and difficulty ambulating. Admit to surgical floor, inpatient status. Expected length of stay greater than [address]. Vital signs stable CT brain no acute process. MRI lumbar spine pending d/t PM settings adjustment for compatability. CRP 2.15, ESR 39 #Atrial fibrillation with controlled ventricular rate Chronic, permanent. Takes Cardizem and baby aspirin. Restart Cardizem. We will hold aspirin and defer to neurosurgery given that the patient is postop lumbar decompression surgery. #HTN Presented normotensive. Continue to monitor BP. #Gout Takes allopurinol as needed at home. We will hold allopurinol for now. #Spinal stenosis, lumbar Underwent L3-L5 decompression on 04/27/[address] Jacobs. MRI results as above. Clinical course per neurosurgery. Patient currently on dexamethasone and IV fluids. SCDs for DVT prophylaxis. Protonix for GI prophylaxis. Full code. Discussed the case with Dr. Jaramillo.
[2020-05-26] MEDS ORDERED: traZODone HCl 50 MG TAB PO SCH (20:00)
[2020-05-26] MEDS ORDERED: Calcium Carbonate 500 MG ChewTAB PO PRN (20:19)
[2020-05-26] MEDS ORDERED: Mag-Al 1200 mg/1200 mg/30 ML UDCUP PO PRN (20:20)
[2020-05-26] MEDS ORDERED: Zolpidem Tartrate 5 MG TAB PO SCH (21:00)
[2020-05-27] MEDS: Dexamethasone 4 mg/ml Vial SLOW IVP SCH ×4 (05:12→23:13)
[2020-05-27 05:54] LABS: #Lymphocytes 0.6 thou/uL (1.20-3.40); #Monocytes 0.2 thou/uL (0.11-0.59); #Neutrophils 9.4 thou/uL (1.40-6.50); %Eosinophils 0.1 % (0.0-10.0); %Lymphocytes 5.7 % (21.0-51.0); %Monocytes 1.7 % (0.0-10.0); %Neutrophils 92.6 % (42.0-75.0); Hemoglobin 12.2 g/dL (14.0-18.0); Mean Corpuscular HGB CONC 31.2 g/dL (32.0-36.0); Mean Corpuscular Hemoglobin 30.8 pg (27.0-31.0); Mean Corpuscular Volume 98.8 fL (78.0-98.0); Mean Platelet Volume 7.5 fL (7.4-10.4); Platelet Count 282 thou/uL (130-400); RBC Distribution Width 13.7 % (11.5-14.5); Red Blood Cell (RBC) Count 3.96 mill/uL (4.70-6.10); White Blood Cell (WBC) Count 10.2 thou/uL (4.8-10.8)
[2020-05-27 06:15] LABS: ALT (SGPT) 43 U/L (8-55); AST (SGOT) 49 U/L (5-34); Albumin 3.8 g/dL (3.4-4.8); Alkaline Phosphatase 53 U/L (40-110); Anion Gap 16 mmol/L (10-20); BUN (Urea Nitrogen) 23 mg/dL (8.4-25.7); Bilirubin, Total 2.1 mg/dL (0.2-1.2); Calc. Creatinine Clearance 63 mL/min (70-130); Calcium 8.7 mg/dL (7.8-10.44); Carbon Dioxide 24 mmol/L (23-31); Chloride 100 mmol/L (98-107); Globulin 2.6 g/dL (2.4-3.5); Glucose 141 mg/dL (83-110); Potassium 4.1 mmol/L (3.5-5.1); Protein, Total 6.4 g/dL (5.8-8.1); Sodium 136 mmol/L (136-145)
[2020-05-27] MEDS: Allopurinol 300 MG TAB PO SCH (08:05)
[2020-05-27] MEDS: Tamsulosin HCl 0.4 MG CAP PO SCH (08:06)
--- NOTE | 2020-05-27 12:09 | ULT ---
ULTRASOUND DOPPLER DUPLEX VENOUS BILATERAL LOWER EXTREMITIES: DATE: 05/27/2020 HISTORY: 75-year-old male with immobility. TECHNIQUE: Grayscale, color-flow, and spectral analysis, of major veins of bilateral lower extremities. FINDINGS: There is demonstration of blood flow with normal compressibility, of the bilateral common femoral, pr ofunda femoral, greater saphenous, femoral, popliteal, and posterior tibial, veins. There is thrombus within a dilated left greater saphenous vein causing incomplete compressibility. There is bl ood flow in this vein. Minimal bilateral soft tissue edema. IMPRESSION: 1) positive for superficial venous thrombosis of left near saphenous vein. 2) No deep venous thrombosis of bilateral lower extremities. 3) minimal bilateral lower extremity soft tissue edema.
--- NOTE | 2020-05-27 12:24 | PDOC.HOSPP ---
- Subjective Encounter Date: 05/27/20 Encounter Time: 12:22 Subjective: Mr. Navarrete was seen today in follow-up of L-spine hematoma. He does not have any new complaints, and in fact says he feels fine. - Objective Vital Signs & Weight: Vital Signs (12 hours) Temp Pulse Resp BP BP Pulse Ox 05/27/20 08:05 68 156/89 H 05/27/20 07:36 97.8 F 68 16 156/89 H 92 L 05/27/20 03:38 98.0 F 68 18 165/85 H 93 L Weight Weight 154 lb 5.177 oz I&O: 05/26/20 05/27/20 05/28/20 06:59 06:59 06:59 Intake Total 525 540 Output Total 450 Balance 75 540 Result Diagrams: 05/27/20 05:37 05/27/20 05:37 Hospitalist ROS - Medication Medications: Active Medications Generic Name Dose Route Start Last Admin Trade Name Freq PRN Reason Stop Dose Admin Acetaminophen 650 mg 05/25/20 15:51 05/26/20 17:39 Acetaminophen 325 Mg Tab PO 650 mg Q4H PRN Administration Headache/Fever or Pain Acetaminophen/Codeine Phosphate 1 tab 05/25/20 15:51 05/25/20 22:03 Acetaminophen/Codeine 30-300mg Tablet PO 1 tab Q3H PRN Administration Mild-Moderate Pain (1-5) Allopurinol 300 mg 05/27/20 09:00 05/27/20 08:05 Allopurinol 300 Mg Tab PO 300 mg QAM CHIDI Administration Calcium Carbonate 1,000 mg 05/26/20 20:19 05/26/20 21:30 Calcium Carbonate 500 Mg Chewtab PO 1,000 mg Q4H PRN Administration Heartburn or Indigestion Dexamethasone 2 mg 05/26/20 23:59 05/27/20 12:20 Dexamethasone 4 Mg/Ml Vial SLOW IVP 2 mg Q6HR CHIDI Administration Diltiazem HCl 120 mg 05/27/20 09:00 05/27/20 08:05 Diltiazem Cd 120 Mg Cap PO 120 mg QAM CHIDI Administration Sodium Chloride 1,000 mls @ 50 mls/hr 05/26/20 20:30 05/26/20 23:26 Normal Saline 0.9% IV 1,000 mls .Q20H CHIDI Administration Pantoprazole Sodium 40 mg 05/26/20 09:00 05/27/20 08:06 Pantoprazole 40 Mg Tab PO 40 mg DAILY CHIDI Administration Tamsulosin HCl 0.4 mg 05/27/20 09:00 05/27/20 08:06 Tamsulosin Hcl 0.4 Mg Cap PO 0.4 mg DAILY CHIDI Administration - Exam Eye: PERRL, anicteric sclera Heart: RRR, no murmur, no gallops, no rubs, normal peripheral pulses Respiratory: CTAB, no wheezes, no rales, no ronchi, normal chest expansion, no tachypnea Gastrointestinal: soft, non-tender, non-distended, normal bowel sounds, no palpable masses Extremities: no cyanosis, no edema Hosp A/P (1) Atrial fibrillation with controlled ventricular rate Code(s): I48.91 - UNSPECIFIED ATRIAL FIBRILLATION Status: Chronic (2) HTN (hypertension) Code(s): I10 - ESSENTIAL (PRIMARY) HYPERTENSION Status: Chronic (3) Spinal subdural hematoma Code(s): NPP4365 - Status: Acute (4) Gout Code(s): M10.9 - GOUT, UNSPECIFIED Status: Chronic (5) Spinal stenosis, lumbar Code(s): M48.061 - SPINAL STENOSIS, LUMBAR REGION WITHOUT NEUROGENIC BLAYNE Status: Chronic (6) BPH (benign prostatic hyperplasia) Code(s): N40.0 - BENIGN PROSTATIC HYPERPLASIA WITHOUT LOWER URINRY TRACT SYMP Status: Chronic - Plan * AFIB- his heart rate is stable- no anticoagulation due to Spinal Hematoma * HTN- blood pressure is a bit elevated, but overall stable - continue Cardizem * Gout- stable continue Allopurinol * Spinal Hematoma- management as per Neurosurgery * BPH- continue Flomax
--- NOTE | 2020-05-27 12:52 | PRG ---
DATE OF SERVICE: 05/27/2020 SUBJECTIVE: Mr. Navarrete is a 75-year-old man approximately 1 month out from lumbar laminectomy. There was intraoperative CSF leak. Over-sewing of the wound resulted in resolution of CSF fistula. The patient was previously doing very well up until a few days ago when he had significant postural component of headache and increased low back and leg pain while at home. We asked that he come in. He was found to have a large pseudomeningocele underneath his wound with no evidence of drainage through the wound. Head CT was negative. MRI of the lumbar spine demonstrates a large subcutaneous and deep pseudomeningocele with continuation to this dural tube, but no evidence of concerning stenosis. We initiated the patient on Decadron and except for insomnia at night, he has had resolution in his low back and leg pain. We have kept him flat. I have discussed this morning his symptoms and he states frankly he has no headache laying down nor has he had any headache when he has gotten up to go to the bathroom. He is neurologically intact with no signs of meningismus. IMPRESSION AND PLAN: I will cancel today's planned trip to the operating room for CSF leak repair with fascia melinda graft and placement of lumbar drain given that the patient has had improvement with laying flat and has had no headache when he has gotten up to walk to the bathroom. Given how good he looks and the fact that his pseudomeningocele has gone down in size with recumbency, we will arrange for an abdominal binder to be worn for external pressure and allow the patient to mobilize as tolerated, then eat this evening. Should he have no recurrence of CSF hypotension and be tolerating activity as a normal activity, then we will discharge him home tomorrow with low-dose Decadron for the next few days to assist with radiculitis. DIAGNOSIS: CSF hypotension with pseudomeningocele. Job ID: [id number]
[2020-05-27] MEDS: Sodium Chloride 0.9% 1,000 ML IV SCH (18:17)
[2020-05-27] MEDS: Acetaminophen 325 MG TAB PO PRN (19:37)
[2020-05-28] MEDS: Dexamethasone 4 mg/ml Vial SLOW IVP SCH (05:26)
[2020-05-28] MEDS: Acetaminophen 325 MG TAB PO PRN (06:18)
[2020-05-28] MEDS: Tamsulosin HCl 0.4 MG CAP PO SCH (07:47)
[2020-05-28] MEDS: Allopurinol 300 MG TAB PO SCH (07:47)
--- NOTE | 2020-05-28 09:48 | PRG ---
DATE OF SERVICE: 05/28/2020 Mr. Navarrete, after mobilizing overnight, ambulating, has had minimal headache, requiring only one dose of Tylenol. He states he feels great this morning. He has his corset in place. He is neurologically intact. At this point, we will cancel any pursuance of surgery for pseudomeningocele repair, and we will discharge the patient on low-dose Decadron. He will follow up with Dr. Jacobs. Job ID: [id number]
[2020-05-28 10:53] VITALS: BP 141/85; TEMP 97.5
== END 2020-05-28 11:33 | disposition home or self-care (01) | DRG 92 ==
LOC: ERS 12:02 → SURG B 15:51
PROVIDERS: ADMIT Orthopaedic Surgery; ATTEND Orthopaedic Surgery
DX: G97.82 Other postprocedural complications and disorders of nervous system (principal); I48.21 Permanent atrial fibrillation; G96.198 Other disorders of meninges, not elsewhere classified; Y83.9 Surgical procedure, unspecified as the cause of abnormal reaction of the patient, or of later complication, without mention of misadventure at the time of the procedure; K21.9 Gastro-esophageal reflux disease without esophagitis; I10 Essential (primary) hypertension; I48.91 Unspecified atrial fibrillation; K27.9 Peptic ulcer, site unspecified, unspecified as acute or chronic, without hemorrhage or perforation; N40.0 Benign prostatic hyperplasia without lower urinary tract symptoms; M48.061 Spinal stenosis, lumbar region without neurogenic claudication; I95.89 Other hypotension; M10.9 Gout, unspecified; Z96.641 Presence of right artificial hip joint; F41.9 Anxiety disorder, unspecified; Z20.828 Contact with and (suspected) exposure to other viral communicable diseases; Z86.73 Personal history of transient ischemic attack (TIA), and cerebral infarction without residual deficits; Z98.890 Other specified postprocedural states; Z79.82 Long term (current) use of aspirin; Z79.51 Long term (current) use of inhaled steroids; Z79.899 Other long term (current) drug therapy; Z95.0 Presence of cardiac pacemaker; M54.16 Radiculopathy, lumbar region
CPT/HCPCS: 36415; 70450; 72148; 80053; 82550; 85025; 85610; 85652; 85730; 86140; 87635; 93970; 96374; 96375; J1100; J2270; J2405; U0003

== ENCOUNTER 2020-05-31 15:34 | Inpatient (IN) | payer MEDICARE ==
[~2020-05-31 15:34] MED LIST: Iopamidol-370 76% 500 ML 1 ML ONE; Lidocaine 1% PF 5 ML VIAL ONE; Ondansetron PF 4 MG/2 ML Vial ONE; PROPOFOL 200 MG/20 ML VIAL ONE; Rocuronium Bromide 10 MG/ML (10ML VIAL) ONE; Succinylcholine 200 MG/10 ml SYRINGE FS ONE; diphenhydrAMINE 50 MG/ML VIAL ONE
[2020-05-31] MEDS ORDERED: Ondansetron PF 4 MG/2 ML Vial ONE (16:26)
[2020-05-31 16:28] LABS: Hemoglobin 13.4 g/dL (14.0-18.0); Mean Corpuscular HGB CONC 32.8 g/dL (32.0-36.0); Mean Corpuscular Hemoglobin 32.6 pg (27.0-31.0); Mean Corpuscular Volume 99.1 fL (78.0-98.0); Mean Platelet Volume 7.8 fL (7.4-10.4); Platelet Count 230 thou/uL (130-400); RBC Distribution Width 13.5 % (11.5-14.5); Red Blood Cell (RBC) Count 4.11 mill/uL (4.70-6.10); White Blood Cell (WBC) Count 11.6 thou/uL (4.8-10.8)
[2020-05-31 16:43] LABS: Band 16 % (5-11); Burr Cells SLIGHT = 2-5 cells (100X) (0-1/hpf); Lymphocytes 3 % (21-51); MDiff Complete? YES; Monocytes 1 % (0-10); Neutrophil 80 % (42-75); Ovalocytes SLIGHT = 2-5 cells (100X) (0-1/hpf); Platelet Morphology Comment Appears Adequate; Polychromasia SLIGHT = 2-3 cells (100X) (0-2/hpf)
[2020-05-31 16:48] LABS: ALT (SGPT) 20 U/L (8-55); AST (SGOT) 20 U/L (5-34); Albumin 3.5 g/dL (3.4-4.8); Alkaline Phosphatase 64 U/L (40-110); Anion Gap 16 mmol/L (10-20); BUN (Urea Nitrogen) 27 mg/dL (8.4-25.7); Bilirubin, Total 3.6 mg/dL (0.2-1.2); Calc. Creatinine Clearance 0 mL/min (70-130); Calcium 8.7 mg/dL (7.8-10.44); Carbon Dioxide 24 mmol/L (23-31); Chloride 94 mmol/L (98-107); Globulin 2.8 g/dL (2.4-3.5); Glucose 102 mg/dL (83-110); Lipase 20 U/L (8-78); Potassium 4.6 mmol/L (3.5-5.1); Protein, Total 6.3 g/dL (5.8-8.1); Sodium 129 mmol/L (136-145)
--- NOTE | 2020-05-31 17:26 | CT ---
CT ABDOMEN WITH CONTRAST CT PELVIS WITH CONTRAST: DATE: 05/31/2020 HISTORY: 75-year-old male with low abdominal pain, nausea, and vomiting. At 5:20 PM, power scribe today, Dr. Seth notified nurse practitioner Fuentes Tsang, of the pneumoperit oneum, high-grade small bowel obstruction, and rectus abdominis hematoma. COMPARISON: None TECHNIQUE: IV injection of iodinated contrast media: administered. Oral contrast media:Not administered FINDINGS: High-grade dilation of stomach and jejunal loops with air-fluid levels. Collapse of ileum. Hematoma of left rectus abdominis muscle from mid abdomen to lower abdomen, measuring approximately 5 .5 cm transverse by 3 cm AP by 13 cm craniocaudal. Extensive colonic diverticulosis. Edema throughout the pelvic cavity makes it difficult to evaluate for diverticulitis. No abscess. Flattening of head of left femur. Very severe joint space narrowing of superior aspect of of left hip. Sclerosis, and severe subchondral cyst formation at femoral head side and especially severe at acetab ular side. Total joint replacement hardware in the contralateral right hip. No pleural effusion. Small mild focal infiltrate at lateral aspect of base of right middle lobe. Laminectomy defects at several levels in the lumbar spine. Large fluid collection extending from the laminectomy defects posteriorly into the subcutaneous fat, as described in detail on the recent lumbar spine MRI report. Severe atherosclerosis of iliac arteries and abdominal aorta, without aneurysm. No hydronephrosis. No major pathology of pancreas, adrenals, or spleen. Multiple pockets of free intraperitoneal air in the right upper quadrant, left upper quadrant, and sc attered elsewhere anteriorly, in the peritoneal cavity. Small amount of free fluid around the dome of the liver inferior to the right hemidiaphragm. Low hepatic attenuation may represent fatty liver. No convincing evidence of appendicitis. IMPRESSION: 1) pneumoperitoneum is evidence for perforated viscus 2) high-grade small bowel obstruction. 3) hematoma of left rectus abdominis muscle 4) very severe osteoarthrosis of the left hip. 5) status post total right hip replacement arthroplasty. 6) status post laminectomy at several levels in lumbar spine 7) very large retrospinal postoperative fluid collection extending from the laminectomy defects: Poss ibilities include postoperative hematoma, postoperative seroma, and pseudomeningocele.
[2020-05-31] MEDS ORDERED: Piperacillin/Tazobactam 4.5 GM VIAL ONE (18:10)
--- NOTE | 2020-05-31 18:50 | PDOC.H&P ---
- History & Physical Encounter Time: 05/31/20 Encounter Time: 18:46 CHIEF COMPLAINT: Abdominal pain with nausea and vomiting HISTORY OF PRESENT ILLNESS: 75-year-old male presents with a 2 to 3-day history of progressive abdominal pain associated with nausea and vomiting. The patient underwent laminectomy earlier this month. This was complicated by a pseudomeningocele requiring admission. He was just recently discharged on the . Of note, he had a hip replacement in the past that was complicated by an upper GI bleed that was managed endoscopically. He also endorses a long history of severe heartburn. Computed tomography the abdomen was reviewed and demonstrates pneumoperitoneum. REVIEW OF SYSTEMS: General: Denies recent weight changes, fever, or chills. Eyes: Denies visual changes, pain, or irritation ENT: Denies changes in hearing, nasal discharge, or sore throat Cardiovascular: Denies chest pain, palpitations, shortness of breath, or edema. Respiratory: Denies cough, shortness of breath, or wheezing Gastrointestinal: Positive per HPI Genitourinary: Denies frequent urination or dysuria Musculoskeletal: Denies pain or restricted motion Integumentary: Denies abnormal rashes, sores, or skin lesions Neurological: Denies numbness, tingling, or weakness. 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 ALLERGIES: No known drug allergies PHYSICAL EXAM: Vital Signs: HR 60 BP 137/72 RR 16 General: Alert and oriented, no acute distress ENT: Sclera anicteric, pupils equal and reactive, mucous membranes moist Neck: No jugular venous distention, trachea midline Cardiovascular: Regular rate and rhythm (paced) Pulmonary: Clear to auscultation Abdominal: Soft, mild to moderately distended. General tenderness. No gross peritonitis Genitourinary: Normal anatomy Rectal: Deferred Integument: No abnormal rashes or lesions Musculoskeletal: No gross deformities or edema, normal range of motion LABORATORY: Laboratory analysis reviewed. White blood cell count 11.6, total bilirubin 3.6, sodium 129, chloride 94 IMAGING: Computed tomography the abdomen reviewed as well as radiologist interpretation. Demonstrates a fluid collection around his laminectomy site consistent with his previous pseudomeningocele. There is pneumoperitoneum and free fluid located in the upper abdomen and right upper quadrant. No definitive source identified; however, the duodenum does appear thickened. There is also evidence of a small bowel obstruction and diverticulosis. There is also a left abdominal rectus sheath hematoma of unknown origin. ASSESSMENT: 75-year-old male with pneumoperitoneum. The differential diagnosis includes intestinal ischemia due to obstruction, perforated ulcer, or perforated diverticulitis. Working diagnosis is perforated duodenal ulcer. PLAN: We will plan for emergent diagnostic laparoscopy and all indicated procedures. The relative risks and benefits of this procedure were discussed in detail with the patient and his spouse to include the need to convert to an open procedure with or without resection, bleeding, infection, anastomotic leak in the case of resection, and cardiopulmonary complications. Informed consent was obtained. Hyponatremia: 129. Will resuscitate with normal saline Hypochloremia: 94. Will resuscitate with normal saline Hyperbilirubinemia: Unclear etiology. Baseline 2.5 prior to this admission. May be due to peritoneal absorption of intestinal/gastric contents.
[2020-05-31] MEDS ORDERED: Promethazine HCl 25 MG/ML VIAL SLOW IVP PRN (18:55)
[2020-05-31] MEDS ORDERED: Promethazine HCl 25 MG/ML VIAL IM PRN (18:55)
[2020-05-31] MEDS ORDERED: Meperidine HCl/PF 25 MG/ML VIAL SLOW IVP PRN (18:55)
[2020-05-31] MEDS ORDERED: Ondansetron HCl/PF 4 MG/2 ML Vial IVP PRN (18:55)
[2020-05-31] MEDS ORDERED: HYDROmorphone 2 MG/ML VIAL SLOW IVP PRN (18:55)
[2020-05-31] MEDS ORDERED: Ketorolac Tromethamine 30 MG/ML VIAL IVP PRN (18:55)
[2020-05-31 19:46] LABS: Bacteria/HPF None Seen HPF (None Seen); Bilirubin Negative (Negative); Blood, Urine Negative (Negative); Clarity Clear (Clear); Glucose, Urine (Dipstick) Normal (Negative); Ketone, Urine Negative (Negative); Leukocyte Negative Leu/uL (Negative); Nitrite Negative (Negative); Protein, Urine (Dipstick) 100 mg/dL (Neg-Trace); RBC/HPF 0-3 HPF (0-3); Specific Gravity, Urine 1.043 (1.002-1.036); Squamous Epithelial None Seen HPF (0-3); WBC/HPF 0-3 HPF (0-3); pH, Urine 6.5 (5.0-9.0)
[2020-05-31] MEDS ORDERED: Fentanyl 100 MCG/2 ML VIAL ONE (20:17)
[2020-05-31] MEDS ORDERED: Famotidine/PF 20 mg/2ml Vial ONE (20:17)
[2020-05-31] MEDS ORDERED: SUGAMMADEX SODIUM 200 MG/2 ML VIAL ONE (20:17)
[2020-05-31 20:25] LABS: SARS-CoV-2 NAA Rapid Test Not Detected (NotDetected)
[2020-05-31] MEDS ORDERED: Bupivacaine 0.25% HCL 30 ML VIAL ONE (21:43)
[2020-05-31] MEDS ORDERED: ePHEDrine 50 MG/ML VIAL ONE (21:43)
[2020-05-31] MEDS ORDERED: EPINEPHrine 1 MG/10 ML Abboject SYRINGE ONE (21:44)
[2020-05-31] MEDS ORDERED: EPINEPHrine 1 MG/ML AMP ONE (21:45)
[2020-06-01] MEDS ORDERED: Promethazine HCl 25 MG/ML VIAL IM PRN ×2 (02:24→02:31)
[2020-06-01] MEDS ORDERED: Naloxone HCl 0.4 mg/ml Vial IV PRN (02:24)
[2020-06-01] MEDS ORDERED: Zolpidem Tartrate 5 MG TAB PO PRN (02:24)
[2020-06-01] MEDS ORDERED: fentaNYL Citrate/PF 2,000 MCG in Sodium Chloride 0.9% 60 ML IV PRN (02:24)
[2020-06-01] MEDS ORDERED: Ondansetron PF 4 MG/2 ML Vial IVP PRN (02:24)
[2020-06-01] MEDS ORDERED: diphenhydrAMINE 25 MG CAP PO PRN (02:24)
[2020-06-01] MEDS ORDERED: diphenhydrAMINE 50 MG/ML VIAL IM PRN (02:24)
[2020-06-01] MEDS ORDERED: Communication Order-Pharmacy FS SCH (02:30)
[2020-06-01] MEDS ORDERED: hydrALAZINE 20 MG/ML VIAL SLOW IVP PRN (02:31)
[2020-06-01] MEDS ORDERED: Electrolyte Replacement Protocol 1 EACH IVPB PRN (02:37)
[2020-06-01] MEDS ORDERED: Ventilator Sedation Protocol 1 EACH FS SCH (02:45)
[2020-06-01] MEDS ORDERED: Propofol 1,000 MG/100 ML VIAL IV ONE (02:47)
[2020-06-01] MEDS: Sodium Chloride 0.9% 1,000 ML IV SCH ×3 (02:51→23:01)
[2020-06-01] MEDS ORDERED: fentaNYL Citrate/PF 2,000 MCG in Sodium Chloride 0.9% 60 ML IV SCH (03:00)
[2020-06-01] MEDS ORDERED: DISCONTINUE PREVIOUS NARCOTIC PAIN MEDICATIONS AND BENZODIAZEPINES FS SCH (03:00)
[2020-06-01] MEDS ORDERED: Lorazepam 2 MG/ML VIAL SLOW IVP PRN (03:00)
[2020-06-01] MEDS ORDERED: Fentanyl BOLUS 250 ML IVPB PRN (03:00)
[2020-06-01] MEDS ORDERED: Propofol BOLUS 1,000 MG/100 ML VIAL IV PRN (03:00)
[2020-06-01] MEDS ORDERED: Propofol 1,000 MG/100 ML VIAL IV PRN (03:00)
[2020-06-01 03:15] LABS: Actual Bicarbonate (HCO3a) 22.5 mEq/L (22-28); Base Excess (BEa) 0.7 mEq/L (-2.0 to +3.0); CO2 Tension 28.7 mmHg (35.0-45.0); Carboxyhemoglobin (COHb) 1.2 gm% (0.0-3.0); Hemoglobin (Hb) 14.4 g/dL (14.0-18.0); O2 Tension (PaO2), arterial 195.1 mmHg (> 70.0); Potassium - ABG Lab 3.81 mmol/L (3.70-5.30); pH, Arterial 7.51 (7.35-7.45)
[2020-06-01 03:16] LABS: ALV-art Gradient 125.525 mmHg (0-20); Puncture Site LBA
[2020-06-01] MEDS: Morphine 2 MG/ML VIAL SLOW IVP PRN ×6 (03:18→23:00)
[2020-06-01] MEDS: Famotidine/PF 20 mg/2ml Vial SLOW IVP SCH ×2 (08:28→20:01)
[2020-06-01 08:40] LABS: Actual Bicarbonate (HCO3a) 23.7 mEq/L (22-28); Base Excess (BEa) 0.1 mEq/L (-2.0 to +3.0); CO2 Tension 35.3 mmHg (35.0-45.0); Carboxyhemoglobin (COHb) 1.1 gm% (0.0-3.0); Hemoglobin (Hb) 14.2 g/dL (14.0-18.0); O2 Tension (PaO2), arterial 98.4 mmHg (> 70.0); Potassium - ABG Lab 4.09 mmol/L (3.70-5.30); pH, Arterial 7.44 (7.35-7.45)
[2020-06-01 08:45] LABS: ALV-art Gradient 142.675 mmHg (0-20); Puncture Site RRA
--- NOTE | 2020-06-01 08:59 | RAD ---
Portable frontal chest radiograph: 06/01/2020 COMPARISON: 04/26/2019 HISTORY: Ventilated patient FINDINGS: Endotracheal tube and nasogastric tube present, in proper position. There is nonspecific pa tchy opacity in the right lung base medially. There is prominence of the cardiac silhouette. No pneumothorax. Left lung appears clear. IMPRESSION: Lines and tubes as detailed above. Hazy increased density in the medial right lung base m ay signify volume loss or infiltrate.
--- NOTE | 2020-06-01 09:09 | CON ---
DATE OF CONSULTATION: Cedric Navarrete is a -cevz-trs gentleman status post lap for acute abdomen, apparently underwent a sigmoid colectomy. He is on the vent intubated, sedated. This morning, blood gas shows a pO2 of 98, pCO2 of 35, pH of 7.44, is in 40%, rate of 12. He opens his eyes with verbal communication. History says that he presented with an acute abdomen of several days duration. In fact, he was recently discharged no more than about 3 to 4 weeks ago with a complication following his lumbar spinal surgery with a large CSF leak. He underwent surgical correction. His CT abdomen at the time of his admission showed an acute abdomen. Please review the surgeon's report. PAST MEDICAL HISTORY: Otherwise, the patient's past medical history is pertinent for atrial fibrillation, cardiac arrhythmias, previous pacemaker, hernia surgery, previous laminectomy, previous GI bleed, peptic ulcer disease. Previous pneumonia. HOME MEDICATIONS: Included, 1. Cardizem. 2. Aspirin. 3. Allopurinol. ALLERGIES: NONE. SOCIAL HISTORY: Tobacco, none at this time. REVIEW OF SYSTEMS: Otherwise, 10-point negative. PHYSICAL EXAMINATION: VITAL SIGNS: Temperature 98, pulse 64, blood pressure 120/71, sats 98%. CHEST: No wheezing, no crackles. CARDIAC: Normal S1, S2. X-ray pending. LABORATORY DATA: White count 11,000, H and H 13 and 40, platelet count is normal. His lytes are normal. Sodium 129. IMPRESSION: 1. Status post perforated viscus, status post sigmoid colectomy. 2. Recent laminectomy complicated by CSF drain. We will try to wean and extubate today. Aggressive PT. He needs DVT prophylaxis. 45 minutes critical care time. Job ID: [id number]
--- NOTE | 2020-06-01 09:25 | PDOC.OP ---
Operative Note - Operative Note Operative Note: DATE OF SURGERY: May 31, 2020 SURGEON: Parviz Riley MD PREOPERATIVE DIAGNOSIS: Pneumoperitoneum POSTOPERATIVE DIAGNOSIS: Perforated sigmoid PROCEDURE: Diagnostic laparoscopy Open low anterior resection with primary anastomosis Mobilization of splenic flexure (separate procedure) INDICATIONS: 75-year-old male who presented to the emergency department with abdominal pain. Computed tomography the abdomen demonstrated free pneumoperitoneum. PROCEDURE IN DETAIL: The patient was brought to the operating room and positioned supine on the operating room table. After induction of general, endotracheal anesthesia, the patient was prepared and draped in the usual fashion. Prior to beginning the procedure, a complete timeout was performed with all members of the operative team being present and in agreement. Access to the abdomen was obtained in the left upper quadrant using an optical trocar under direct visualization. The abdomen was insufflated and examined. Additional trocars were placed under direct visualization. Our initial suspicion was for a perforated ulcer given the patient's previous history of GERD and upper GI bleed in the perioperative period. There was no evidence of inflammation around the antrum or the first/second part of the duodenum. There was murky fluid throughout the abdominal cavity. We then turned our attention to the left lower quadrant which had a heavy inflammatory reaction with the sigmoid colon being densely adhered to the abdominal sidewall. The colon was gently freed and examined. There was a small perforation on the anterior aspect. We then converted the case to an open procedure. A lower midline celiotomy was created in the usual fashion. A Bookwalter retractor was placed. The colon was examined and found to be inflamed from the rectosigmoid junction through the descending colon, with multiple dive rticula. The perforation was examined and found not to be in a diverticula. The peritoneal reflection was divided at the sacral promontory and the mesorectum mobilized circumferentially, until a noninflamed portion of rectum could be divided. This was divided with a contour stapler utilizing a green load. The dissection was carried through the sigmoid mesentery until it was fully mobilized. The white line of Toldt was divided and carried around the splenic flexure. Blunt dissection with minimal electrocautery was used to medialize the left colon. The sigmoid mesentery was divided using a vessel sealing device. The patient had scattered diverticula throughout the descending and transverse colon. An area that was uninvolved with the inflammation with minimal diverticular was selected and transected using a KRISTY stapler (yarelis marcelino). The specimen was removed. There was still a lack of mobility to create a end colostomy or consider primary anastomosis. A portion of the gastrocolic ligament was selected adjacent to the transverse colon and divided. This proceeded around the splenic flexure, until the previous dissection was encountered. We continue to medialize the left colon using blunt dissection with minimal electrocautery. Once fully mobilized, the descending colon lie within the pelvis and was amendable to a primary anastomosis. A 2 layer, handsewn anastomosis was performed using interrupted silk sutures in an interrupted fashion on the outer layer. The inner layer was constructed with 3-0 PDS suture in a running fashion. After completion of the anastomosis, the rectum was insufflated and an air leak test performed. This was negative. The abdomen was examined and hemostasis achieved. A 19 Samoan round drain was placed in the pelvis, and brought out the left lower quadrant. The abdomen was copiously irrigated and fluid suctioned free. The fascia was closed with 2-0 PDS in a running fashion. One suture began cranially, the other caudally, and they were tied in the middle. The skin was closed with a skin stapling device and dressed with a coverlet. At the conclusion of the case, all sponge and instrument counts were correct. ESTIMATED BLOOD LOSS: 100 cc COMPLICATIONS: None INTRAOPERATIVE BLOOD TRANSFUSIONS: None GRAFTS / IMPLANTS: 19 Samoan drainpelvis SPECIMENS: Sigmoid colon DISPOSITION: The patient was transported to the intensive care unit, intubated and in good condition.
--- NOTE | 2020-06-01 09:57 | PDOC.HHP ---
Hospitalist HPI - History of Present Illness Perforated viscus History of Present Illness: Hospitalist consultation Patient: Cedric Navarrete, 45 Consulting physician: Parviz Riley Reason for consult: atrial fibrillation, HTN CC: perforated viscus HPI: Patient is a 75 year old male with PMH HTN, atrial fibrillation w/ pacemaker who presented to hospital last night for 2-3 day history of worsening abdominal pain, nausea, vomiting. Recent GI bleeding was reported as well. He had a CT scan of abdomen concerning for pneumoperitoneum, general surgery was consulted and recommended emergent laparoscopy, patient went for procedure, colonic perforation was observed, procedure converted to open, colon resection performed and drain placed, patient admitted to surgery service and in CCU, intubated, nurse reports no atrial fibrillation episodes and is in sinus rhythm w/ PVCs rarely, perhaps will be extubated next 24 hours. 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 He has a history of chronic lower extremity edema, previously reported as being due to h eart issues. He has a history of pacemaker placement due to arrhythmia. IM consulted for assistance with medical conditions and perioperative medical management. Hospitalist ROS - Review of Systems ROS unobtainable: due to endotracheal tube - Medication Medications: Active Medications Generic Name Dose Route Start Last Admin Trade Name Freq PRN Reason Stop Dose Admin Famotidine 20 mg 06/01/20 09:00 06/01/20 08:28 Famotidine/Pf 20 Mg/2ml Vial SLOW IVP 20 mg Q12HR CHIDI Administration Sodium Chloride 1,000 mls @ 100 mls/hr 06/01/20 02:45 06/01/20 02:51 Normal Saline 0.9% IV 1,000 mls .Q10H CHIDI Administration Morphine Sulfate 2 mg 06/01/20 03:00 06/01/20 08:26 Morphine 2 Mg/Ml Vial SLOW IVP 07/01/20 03:00 2 mg Q1H PRN Administration Breakthrough Pain/Agitation Aspirin Childrens TABLET, CHEWABLE : Strength - 81 mg : ORAL Patient Dose: 1 tab(s) Oral once a day. allopurinol tablet : Strength - 100 mg : ORAL Patient Dose: 1 tab(s) Oral once a day.DOSAGE UNKNOWN. Cartia XT capsule,extended release 24hr : Strength - 120 mg : ORAL Patient Dose: Unknown.DOSAGE UNKNOWN. Hospitalist History - Past Medical History Psych: reports: Anxiety Rheumatologic: reports: Gout Other Medical History: HTN atrial fibrillation hernia anxiety - Past Surgical History Past Surgical History: reports: Other (Pacemaker, hernia repair, lumbar decompression) Other Surgical History: pacemaker placement hernia repair lumbar decompression colon resection/perforated viscus - Family History Family History: reports: no pertinent history - Social History Alcohol: reports: None Drugs: reports: none Occupation: Retired - Exam General - other findings: ET tube in place, sedated, RASS -2 Eye: PERRL, anicteric sclera ENT: normocephalic atraumatic ENT - other findings: ET tube in place Neck: supple Heart: RRR, no murmur, no gallops, no rubs Respiratory: CTAB, no wheezes, no rales, no ronchi Gastrointestinal: soft, non-tender Gastrointestinal - other findings: drain, surgical scars, dressing c/d/i Extremities: no cyanosis, no clubbing, no edema Skin: no lesions, no rashes Neurological - other findings: unable to evaluate Musculoskeletal: normal tone, no muscle wasting Psychiatric - other findings: unable to evaluate Hospitalist Results - Labs Result Diagrams: 05/31/20 16:16 05/31/20 16:16 Lab results: WBC 11.6 thou/uL (4.8-10.8) H 05/31/20 16:16 Hgb 13.4 g/dL (14.0-18.0) L 05/31/20 16:16 Hct 40.7 % (42.0-52.0) L 05/31/20 16:16 MCV 99.1 fL (78.0-98.0) H 05/31/20 16:16 Plt Count 230 thou/uL (130-400) 05/31/20 16:16 Band Neuts % (Manual) 16 % (5-11) H 05/31/20 16:16 ABG pH 7.44 (7.35-7.45) 06/01/20 08:40 ABG pCO2 35.3 mmHg (35.0-45.0) 06/01/20 08:40 ABG pO2 98.4 mmHg (> 70.0) H 06/01/20 08:40 Sodium 129 mmol/L (136-145) L 05/31/20 16:16 Potassium 4.6 mmol/L (3.5-5.1) 05/31/20 16:16 Chloride 94 mmol/L (98-107) L 05/31/20 16:16 Carbon Dioxide 24 mmol/L (23-31) 05/31/20 16:16 BUN 27 mg/dL (8.4-25.7) H 05/31/20 16:16 Creatinine 0.97 mg/dL (0.7-1.3) 05/31/20 16:16 Glucose 102 mg/dL (83-110) 05/31/20 16:16 Calcium 8.7 mg/dL (7.8-10.44) 05/31/20 16:16 Total Bilirubin 3.6 mg/dL (0.2-1.2) H 05/31/20 16:16 AST 20 U/L (5-34) 05/31/20 16:16 ALT 20 U/L (8-55) 05/31/20 16:16 Alkaline Phosphatase 64 U/L (40-110) 05/31/20 16:16 Serum Total Protein 6.3 g/dL (5.8-8.1) 05/31/20 16:16 Albumin 3.5 g/dL (3.4-4.8) 05/31/20 16:16 Lipase 20 U/L (8-78) 05/31/20 16:16 Urine Ketones Negative mg/dL (Negative) 05/31/20 19:25 Urine Blood Negative (Negative) 05/31/20 19:25 Urine Nitrite Negative (Negative) 05/31/20 19:25 Ur Leukocyte Esterase Negative Yung/uL (Negative) 05/31/20 19:25 Urine RBC 0-3 HPF (0-3) 05/31/20 19:25 Urine WBC 0-3 HPF (0-3) 05/31/20 19:25 Ur Squamous Epith Cells None Seen HPF (0-3) 05/31/20 19:25 Urine Bacteria None Seen HPF (None Seen) 05/31/20 19:25 Hospitalist H&P A/P - Plan Plan: Patient is a 75 year old male with PMH HTN, atrial fibrillation w/ pacemaker who presented to hospital for 2-3 day history of worsening abdominal pain, nausea, vomiting. # perforated colon s/p open resection Dr Riley 05/31/29 presents to hospital for abdominal pain, nausea, vomiting, GIB, CT scan of abdomen concerning for pneumoperitoneum, general surgery was consulted and recommended emergent laparoscopy, patient went for procedure, colonic perforation was observed, procedure converted to open, colon resection performed and drain placed, patient admitted to surgery service and in CCU, intubated - appreciate surgery, pulmonary expertise with ventilator management and weaning # atrial fibrillation - not currently in afib, no arrhtyhmias overnight # PVCs - rare # history of HTN nurse reports no atrial fibrillation episodes and is in sinus rhythm w/ PVCs rarely, perhaps will be extubated next 24 hours. 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 He has a history of chronic lower extremity edema, previously reported as being due to heart issues. He has a history of pacemaker placement due to arrhythmia. - resume cardizem once able to eat - hold ASA, resume once safe from surgery standpoint # history of gastric ulcer - IV pepcid ordered by surgery appropriately # leukocytosis - presume due to stress reaction # anemia - trend CBC, in setting of recent emergent surgery # hyponatremia - on IVF, trend BMP daily Thank you for the consultation, we will continue to monitor and follow with you daily, once appropriate for discharge notify sound and we will arrange this as well
[2020-06-01 10:43] LABS: Anion Gap 19 mmol/L (10-20); BUN (Urea Nitrogen) 27 mg/dL (8.4-25.7); Calc. Creatinine Clearance 71 mL/min (70-130); Carbon Dioxide 20 mmol/L (23-31); Chloride 98 mmol/L (98-107); Glucose 84 mg/dL (83-110); Potassium 4.4 mmol/L (3.5-5.1); Sodium 133 mmol/L (136-145)
[2020-06-01 10:47] LABS: #Lymphocytes 0.4 thou/uL (1.20-3.40); #Monocytes 0.4 thou/uL (0.11-0.59); #Neutrophils 7.4 thou/uL (1.40-6.50); %Eosinophils 0.3 % (0.0-10.0); %Lymphocytes 5.3 % (21.0-51.0); %Monocytes 4.9 % (0.0-10.0); %Neutrophils 89.6 % (42.0-75.0); Hemoglobin 14.9 g/dL (14.0-18.0); Mean Corpuscular HGB CONC 31.8 g/dL (32.0-36.0); Mean Corpuscular Hemoglobin 31.3 pg (27.0-31.0); Mean Corpuscular Volume 98.5 fL (78.0-98.0); Mean Platelet Volume 8.8 fL (7.4-10.4); Platelet Count 202 thou/uL (130-400); RBC Distribution Width 13.8 % (11.5-14.5); Red Blood Cell (RBC) Count 4.74 mill/uL (4.70-6.10); White Blood Cell (WBC) Count 8.3 thou/uL (4.8-10.8)
[2020-06-01] MEDS ORDERED: Piperacillin/Tazobactam 4.5 GM in Sodium Chloride 0.9% 100 ML IVPB SCH (15:00)
--- NOTE | 2020-06-01 16:11 | PDOC.BPN ---
- Brief Progress Note Encounter Date: 06/01/20 Encounter Time: 16:08 Doing well s/p low anterior resection with primary anastomosis. Postoperative pain well controlled with current regimen. Tolerating n.p.o. diet, without nausea or vomiting. Denies flatus or bowel movements. Ambulating independently. EXAM: VS: T 98.1 HR 64 BP 140/74 RR 18 General: Alert and oriented, no acute distress, resting comfortably Pulmonary: No dyspnea or difficulty breathing Abdomen: Soft, non-distended, incisions clean, appropriately tender CV: Regular rate and rhythm, palpable distal pulses Extremities: No edema I/O: N.p.o. oral intake 490 UOP ADELAIDA 100 serosanguineous LABORATORY / IMAGING: Labs reviewed. White blood cell count 8.3. Sodium 133, BUN 27, bicarb 20 PLAN: Complicated diverticulitis (perforation): Status post low anterior resection with primary anastomosis. Postoperative pain control: Continue morphine as needed DVT prophylaxis: We will resume Eliquis tomorrow Continue nasogastric tube. Plan for discontinuation tomorrow. 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 Plan for discontinuation tomorrow We will consult physical therapy Hyponatremia: Improving. 133 Hypochloremia: Improving. 98 Hyperbilirubinemia: Unclear etiology. Baseline 2.5 prior to this admission. Will defer to outpatient follow-up. Disposition: Transfer to monitored unit [ ]
[2020-06-01] MEDS: Ondansetron PF 4 MG/2 ML Vial IVP PRN (23:01)
[2020-06-02] MEDS: Morphine 2 MG/ML VIAL SLOW IVP PRN (03:49)
[2020-06-02 04:32] LABS: Anion Gap 19 mmol/L (10-20); BUN (Urea Nitrogen) 27 mg/dL (8.4-25.7); Calc. Creatinine Clearance 70 mL/min (70-130); Calcium 7.9 mg/dL (7.8-10.44); Carbon Dioxide 18 mmol/L (23-31); Chloride 101 mmol/L (98-107); Glucose 66 mg/dL (83-110); Potassium 5.4 mmol/L (3.5-5.1); Sodium 133 mmol/L (136-145)
[2020-06-02] MEDS ORDERED: Dextrose 50% Abboject 50 ML SYRINGE SLOW IVP PRN (04:50)
[2020-06-02] MEDS ORDERED: HumaLOG 300 UNITS/3 ML VIAL SC PRN ×2 (04:50)
[2020-06-02] MEDS ORDERED: Dextrose 5% in Water 1,000 ML IV PRN (04:50)
[2020-06-02 04:53] LABS: Hemoglobin 11.2 g/dL (14.0-18.0); Mean Corpuscular HGB CONC 27.3 g/dL (32.0-36.0); Mean Corpuscular Hemoglobin 27.5 pg (27.0-31.0); Mean Platelet Volume 8.3 fL (7.4-10.4); Platelet Count 201 thou/uL (130-400); RBC Distribution Width 13.8 % (11.5-14.5); Red Blood Cell (RBC) Count 4.08 mill/uL (4.70-6.10); White Blood Cell (WBC) Count 10.9 thou/uL (4.8-10.8)
[2020-06-02 04:54] LABS: Band 15 % (5-11); Hypochromia SLIGHT = 6-15 cells (100X) (0-5/hpf); Lymphocytes 6 % (21-51); MDiff Complete? YES; Monocytes 8 % (0-10); Neutrophil 71 % (42-75); Nucleated RBC 2 % (0); Platelet Morphology Comment Appears Adequate
[2020-06-02] MEDS ORDERED: Hydrocodone-Acetamin 15 ML UDCUP PO SCH (08:15)
[2020-06-02] MEDS ORDERED: Cefepime 1 GM in Sodium Chloride 0.9% 100 ML IVPB SCH (09:00)
--- NOTE | 2020-06-02 09:16 | PDOC.BPN ---
- Brief Progress Note Encounter Date: 06/02/20 Encounter Time: 09:13 Doing well s/p low anterior resection. Postoperative pain reasonably controlled with current regimen. Tolerating n.p.o. diet, without nausea or vomiting. Endorses flatus denies bowel movements. Ambulating independently. EXAM: VS: T 98.3 HR 64 BP 140/74 RR 18 General: Alert and oriented, no acute distress, resting comfortably Pulmonary: No dyspnea or difficulty breathing Abdomen: Soft, non-distended, incisions clean, appropriately tender CV: Regular rate and rhythm, palpable distal pulses Extremities: No edema I/O: N.p.o. oral intake 910 UOP NGT 170 ADELAIDA 45 LABORATORY / IMAGING: Laboratory analysis reviewed and demonstrates white blood cell count of 10.9, hemoglobin 11.2. Improving hyponatremia with sodium 133. Mild hyperkalemia at 5.4 PLAN: Complicated diverticulitis (perforation): Status post low anterior resection with primary anastomosis. Will maintain drain until discharge Postoperative pain control: We will transition to oral regimen Bowel regimen DVT prophylaxis: We will resume Eliquis today Discontinue nasogastric tube Discontinue Marin Atrial fibrillation: Paced. Will resume Eliquis today, home diltiazem resumed We will consult physical therapy Hyponatremia: Improving. 133 Hypochloremia: Improving. 98 Hyperbilirubinemia: Unclear etiology. Baseline 2.5 prior to this admission. Will defer to outpatient follow-up. Disposition: Transfer to monitored unit [ ]
[2020-06-02] MEDS: Sodium Chloride 0.9% 1,000 ML IV SCH (09:17)
[2020-06-02] MEDS: Polyethylene Glycol 3350 17 GM Packet PO SCH ×2 (09:18→21:22)
[2020-06-02] MEDS: Famotidine/PF 20 mg/2ml Vial SLOW IVP SCH ×2 (09:19→21:22)
[2020-06-02] MEDS: Dextrose 5 % And 0.9 % NaCl 1,000 ML IV SCH (09:37)
--- NOTE | 2020-06-02 09:45 | PRG ---
DATE OF SERVICE: 06/02/2020 SUBJECTIVE: He has a cough. He is coughing up some yellow sputum. OBJECTIVE: VITAL SIGNS: His temperature is 99, sats 100% on 2 L, blood pressure 140/70, respirations 18. CHEST: Anterior rhonchi. CARDIAC: Normal S1, S2. No gallop. ABDOMEN: No masses. LABORATORY DATA: White count 10,000; H and H 11 and 41; 71 segs; 15 bands. His lytes are normal. Sodium 133. IMPRESSION: Right lower pneumonia, status post lap. PLAN: He needs to be on antibiotic. I have started Maxipime. Continue neb treatments, supportive care, PT. Job ID: [id number]
--- NOTE | 2020-06-02 11:31 | RAD ---
PORTABLE CHEST: HISTORY: Pneumonia followup. COMPARISON: 06/01/2020. FINDINGS: Elevated right hemidiaphragm is stable. Right basilar atelectasis or infiltrate unchanged in appeara nce. Small effusions are not excluded. Mild cardiomegaly is stable. Vascularity is normal and stab le. Pacemaker lead and NG tube unchanged. IMPRESSION: No acute interval change. POS: AGW
--- NOTE | 2020-06-02 12:18 | PQF ---
Q47 2019 [facility] Updated: CLINICAL DOCUMENTATION CLARIFICATION FORM: Dear Dr. Cervantes Date: 06/02/20 Please exercise your independent, professional judgment in responding to the clarification form. Clinical indicators are provided on the bottom of this form for your review. Please check appropriate box(es): [ ] Aspiration Pneumonia [ ] Empirically treating Gram Negative Pneumonia [ ] Empirically treating Anaerobic Pneumonia [ ] Pneumonia secondary to (specify organism / underlying disease) [ ] Simple Pneumonia [ ] Bronchopneumonia [ ] Pneumonia of unknown etiology [ ] Other diagnosis [ ] Unable to determine In addition, please specify: Present on Admission (POA): [ ] Yes [ ] No [ ] Unable to determine For continuity of documentation, please document condition throughout progress notes and discharge summary. Thank You. To be completed by CDI/Coding staff for physician review: CLINICAL INDICATORS - SIGNS / SYMPTOMS / LABS / RESULTS AND LOCATION IN MR PN 06/01 (CERVANTES): "RIGHT LOWER PNEUMONIA" CHEST XRAY 06/01: "HAZY INCREASED DENSITY MEDIAL RIGHT LUNG BASE" CHEST XRAY 06/02: "RIGHT BASILAR ATELECTASIS OR INFILTRATE UNCHANGED IN APPEARANCE" WBC 05/31: 11.6 WBC 06/02: 10.9 BANDS 05/31: 16 RISK FACTORS / RESULTS AND LOCATION IN MR "COUGHING UP SOME YELLOW SPUTUM"COUGHING UP SOME YELLOW SPUTUM S/P LAPAROTOMY WITH LOW ANTERIOR RESECTION" (PN 29- CERVANTES) MECHANICALLY VENTILATED 06/01 TREATMENTS: DUONEBS (06/02) CEFEPIME (06/02) ABGs 06/01 SUPPLEMENTAL OXYGEN CDS Signature: Humera Galo RN Phone #: [phone] Date: 06/02/20 This is a permanent part of the Medical Record [facility]
--- NOTE | 2020-06-02 12:51 | PQF ---
CLINICAL DOCUMENTATION CLARIFICATION FORM: Dear Dr. Cervantes Date: 06/02/20 Please exercise your independent, professional judgment in responding to the clarification form. Clinical indicators are provided on the bottom of this form for your review. Please check appropriate box(es): [ ] PNEUMONIA is a complication of current/recent surgery [ ] PNEUMONIA is NOT a complication of current/recent surgery [ ] Other diagnosis [ ] Unable to determine In addition, please specify: Present on Admission (POA): [ ] Yes [ ] No [ ] Unable to determine For continuity of documentation, please document condition throughout progress notes and discharge summary. Thank You. To be completed by CDI/Coding staff for physician review: CLINICAL INDICATORS - SIGNS / SYMPTOMS / LABS / RESULTS AND LOCATION IN MR PN 06/01 (CERVANTES): "RIGHT LOWER PNEUMONIA" CHEST XRAY 06/01: "HAZY INCREASED DENSITY MEDIAL RIGHT LUNG BASE" CHEST XRAY 06/02: "RIGHT BASILAR ATELECTASIS OR INFILTRATE UNCHANGED IN APPEARANCE" WBC 05/31: 11.6 WBC 06/02: 10.9 BANDS 05/31: 16 RISK FACTORS / RESULTS AND LOCATION IN MR "COUGHING UP SOME YELLOW SPUTUM S/P LAPAROTOMY WITH LOW ANTERIOR RESECTION" (PN - CERVANTES) MECHANICALLY VENTILATED 06/01 LAMINECTOMY EARLIER IN THE MONTH (H&P-GOCHNOUR) TREATMENT / RESULTS AND LOCATION IN MR DUONEBS (06/02) CEFEPIME (06/02) ABGs 06/01 SUPPLEMENTAL OXYGEN CDS Signature: Humera Galo RN Phone #: [phone] Date: 06/02/20 This is a permanent part of the Medical Record [facility]
[2020-06-02] MEDS: Hydrocodone-Acetamin 15 ML UDCUP PO PRN (18:15)
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
[2020-06-03] MEDS: Lorazepam 2 MG/ML VIAL SLOW IVP PRN ×2 (00:52→22:03)
[2020-06-03] MEDS: Hydrocodone-Acetamin 15 ML UDCUP PO PRN ×2 (05:25→21:52)
[2020-06-03] MEDS: Dextrose 5 % And 0.9 % NaCl 1,000 ML IV SCH (08:39)
[2020-06-03] MEDS: Famotidine/PF 20 mg/2ml Vial SLOW IVP SCH (09:06)
--- NOTE | 2020-06-03 09:48 | PRG ---
DATE OF SERVICE: 06/03/2020 SUBJECTIVE: He was transferred out of the ICU to monitor bed. OBJECTIVE: VITAL SIGNS: His temperature 96, pulse 68, sats are 92% on room air, respiratory rate 20, blood pressure 159/77. LUNGS: No wheezing. No crackles. CARDIAC: Normal S1, S2. ABDOMEN: No masses. IMPRESSION: 1. Status post laparoscopic perforated viscus. 2. Postop right lower lung infiltrate, atelectasis, improved, elevated right hemidiaphragm. His antibiotic was once again discontinued. Pulmonary has . We will follow at a distance. Job ID: [id number]
[2020-06-03 14:57] LABS: #Eosinphils 0.1 thou/uL (0.0-0.7); #Lymphocytes 0.8 thou/uL (1.20-3.40); #Monocytes 0.7 thou/uL (0.11-0.59); #Neutrophils 12.6 thou/uL (1.40-6.50); %Basophils 0.1 % (0.0-1.0); %Eosinophils 0.5 % (0.0-10.0); %Lymphocytes 5.5 % (21.0-51.0); %Monocytes 5.2 % (0.0-10.0); %Neutrophils 88.8 % (42.0-75.0); Hemoglobin 12.3 g/dL (14.0-18.0); Mean Corpuscular HGB CONC 31.6 g/dL (32.0-36.0); Mean Corpuscular Hemoglobin 31.3 pg (27.0-31.0); Mean Corpuscular Volume 99.1 fL (78.0-98.0); Mean Platelet Volume 7.5 fL (7.4-10.4); Platelet Count 243 thou/uL (130-400); RBC Distribution Width 13.7 % (11.5-14.5); Red Blood Cell (RBC) Count 3.93 mill/uL (4.70-6.10); White Blood Cell (WBC) Count 14.2 thou/uL (4.8-10.8)
[2020-06-03] MEDS: Polyethylene Glycol 3350 17 GM Packet PO SCH ×2 (14:58→22:05)
[2020-06-03 15:17] LABS: Anion Gap 16 mmol/L (10-20); BUN (Urea Nitrogen) 25 mg/dL (8.4-25.7); Calc. Creatinine Clearance 75 mL/min (70-130); Calcium 8.8 mg/dL (7.8-10.44); Carbon Dioxide 23 mmol/L (23-31); Chloride 102 mmol/L (98-107); Glucose 134 mg/dL (83-110); Potassium 4.3 mmol/L (3.5-5.1); Sodium 137 mmol/L (136-145)
--- NOTE | 2020-06-03 15:18 | PDOC.BPN ---
- Brief Progress Note Encounter Date: 06/03/20 Encounter Time: 15:17 Doing better s/p low anterior resection. Postoperative pain reasonably controlled with current regimen. Tolerating CLD diet, without nausea or vomiting. Endorses flatus denies bowel movements. Ambulating independently. EXAM: VS: T 97.2 HR58 BP 150/80 RR 16 General: Alert and oriented, no acute distress, resting comfortably Pulmonary: No dyspnea or difficulty breathing Abdomen: Soft, non-distended, incisions clean, appropriately tender (improved), Minimal drain output CV: Regular rate and rhythm, palpable distal pulses Extremities: No edema I/O: 210 oral intake UOP NR LABORATORY / IMAGING: Laboratory analysis reviewed and demonstrates luekocytosis of 14 with 88% N PLAN: Complicated diverticulitis (perforation): Status post low anterior resection with primary anastomosis. Will maintain drain until discharge Luekocytosis: 14 today with 88%N. Possible etiologies include small leak vs. pneumonia given CXR findings of RLL. Will reassess CBC in am and consider empiric ABX therapy after consultation with hospitalist service. LUE swelling: concerning for DVT. Will order US Postoperative pain control: Continue [place] 5/325 Bowel regimen DVT prophylaxis: Patient's spouse verified d/c of eliquis prior to admission. Will initiate chemoprophylaxis with Lovenox Atrial fibrillation: Paced. Home diltiazem resumed PT Hyperbilirubinemia: Unclear etiology. Baseline 2.5 prior to this admission. Will defer to outpatient follow-up. Disposition: Pending resolution of leukocytosis and bowel function.
--- NOTE | 2020-06-03 16:17 | PDOC.HOSPP ---
- Subjective Encounter Date: 06/03/20 Encounter Time: 12:00 Subjective: Patient in bed, still confused and altered mental status. Had LUE swelling and line associated DVT, has been removed since. No chest pain, abdominal pain, shortness of breath. no GI bleeding. no BM. Vitals stable, some borderline hypothermia - Objective Vital Signs & Weight: Vital Signs (12 hours) Temp Pulse Pulse Pulse Resp BP BP 06/03/20 14:02 87 14 06/03/20 11:23 97.8 F 60 20 06/03/20 10:36 65 67 143/79 H 153/86 H 06/03/20 08:00 96.5 F L 68 20 BP Pulse Ox 06/03/20 14:02 97 06/03/20 11:23 141/75 H 92 L 06/03/20 10:36 06/03/20 08:00 159/77 H 92 L Weight Admit Weight 148 lb 5.938 oz Weight 156 lb 3.2 oz Most Recent Monitor Data Heart Rate from ECG 71 NIBP 136/81 NIBP BP-Mean 99 Respiration from ECG 25 SpO2 96 I&O: 06/02/20 06/03/20 06/04/20 06:59 06:59 06:59 Intake Total 1466 860 Output Total 1125 180 Balance 341 680 Result Diagrams: 06/03/20 14:40 06/03/20 14:40 Additional Labs: Accuchecks 06/03/20 06/02/20 06/02/20 10:42 20:40 16:46 POC Glucose 141 H 177 H 158 H 06/02/20 11:21 POC Glucose 143 H Radiology Reviewed by me: Yes Hospitalist ROS - Medication Medications: Active Medications Generic Name Dose Route Start Last Admin Trade Name Freq PRN Reason Stop Dose Admin Hydrocodone Bitart/Acetaminophen 15 ml 06/02/20 08:12 06/03/20 05:25 Hydrocodone-Acetamin 15 Ml Udcup PO 15 ml Q6H PRN Administration Pain 4-7 Albuterol/Ipratropium 3 ml 06/02/20 13:00 06/03/20 14:02 Ipratropium/Albuterol Sulfate 3 Ml Neb NEB 3 ml [id number] CHIDI Administration Dextrose/Water 25 gm 06/02/20 04:50 06/02/20 04:59 Dextrose 50% Abboject 50 Ml Syringe SLOW IVP 25 gm PRN PRN Administration Hypoglycemia Diltiazem HCl 120 mg 06/02/20 09:00 06/03/20 09:07 Diltiazem Cd 120 Mg Cap PO 120 mg QAM CHIDI Administration Famotidine 20 mg 06/01/20 09:00 06/03/20 09:06 Famotidine/Pf 20 Mg/2ml Vial SLOW IVP 20 mg Q12HR CHIDI Administration Dextrose/Sodium Chloride 1,000 mls @ 50 mls/hr 06/02/20 09:30 06/03/20 08:39 D5 0.9% Ns IV 1,000 mls .Q20H CHIDI Administration Lorazepam 0.5 mg 06/02/20 18:09 06/03/20 00:52 Lorazepam 2 Mg/Ml Vial SLOW IVP 0.5 mg Q4H PRN Administration Anxiety/Agitation Morphine Sulfate 2 mg 06/01/20 03:00 06/02/20 03:49 Morphine 2 Mg/Ml Vial SLOW IVP 07/01/20 03:00 2 mg Q1H PRN Administration Breakthrough Pain/Agitation Ondansetron HCl 4 mg 06/01/20 02:31 06/01/20 23:01 Ondansetron Pf 4 Mg/2 Ml Vial IVP 4 mg Q6H PRN Administration Nausea/Vomiting Polyethylene Glycol 17 gm 06/02/20 09:00 06/03/20 14:58 Polyethylene Glycol 3350 17 Gm Packet PO 17 gm BID CHIDI Administration - Exam General Appearance: NAD, awake alert Eye: PERRL, anicteric sclera ENT: normocephalic atraumatic, no oropharyngeal lesions, moist mucosa Neck: supple, symmetric, no JVD, no thyromegaly, no lymphadenopathy, no carotid bruit Heart: RRR, no murmur, no gallops, no rubs, normal peripheral pulses Respiratory: CTAB, no wheezes, no rales, no ronchi, normal chest expansion, no tachypnea, normal percussion Gastrointestinal: soft, non-tender, non-distended, normal bowel sounds, no palpable masses, no hepatomegaly, no splenomegaly, no bruit Gastrointestinal - other findings: drain w/ minimal fluid Extremities: no cyanosis, no clubbing, no edema Skin: normal turgor, no lesions, no rashes Neurological: cranial nerve grossly intact, normal sensation to touch, no weakness, no focal deficits, no new deficit Musculoskeletal: normal tone, normal strength, no muscle wasting Psychiatric: normal affect, normal behavior, A&O x 3 Hosp A/P - Plan Patient is a 75 year old male with PMH HTN, atrial fibrillation w/ pacemaker who presented to hospital for 2-3 day history of worsening abdominal pain, nausea, vomiting. # perforated colon s/p open resection Dr Riley 05/31/29 # leukocytosis # altered mental status # perforated diverticulitis - start empiric vancomycin/zosyn for now, presume some previous component of abdominal infection/colitis as cause, discussed with surgery who is in agreement - appreciate surgery, extubated - diet advancement per surgery once appropriate - no cultures collected on admission, order bcx now # hyperkalemia - perhaps residual due to ischemia previously, trend and monitor - continue IVF - resolved # line associated DVT in LUE - on lovenox, appreciate critical care assistance with this, discussed with surgery and risks/benefits weighted, monitor for signs of bleeding # atrial fibrillation - not currently in afib, no arrhtyhmias overnight # PVCs - rare # history of HTN He has a history of chronic lower extremity edema, previously reported as being due to heart issues. He has a history of pacemaker placement due to arrhythmia. - resume cardizem - hold ASA, on lovenox, not on eliquis anymore # history of gastric ulcer - switch to IV ppi # anemia - trend CBC, in setting of recent emergent surgery # hyponatremia - on IVF, trend BMP daily Thank you for the consultation, we will continue to monitor and follow with you daily, once appropriate for discharge notify sound and we will arrange this as well
--- NOTE | 2020-06-03 16:35 | ULT ---
Left upper extremity venous Doppler ultrasound: 06/03/2020 HISTORY: Left upper extremity swelling, edema, assess for DVT TECHNIQUE: Multiplanar grayscale sonographic imaging of the venous structures of the left upper extre mity obtained with Doppler interrogation including color flow and spectral analysis FINDINGS: The left internal jugular vein is expanded and contains extensive thrombus with only minima l venous blood flow. There is extensive occlusive DVT within the left subclavian vein and the left axillary vein. The left brachial vein, basilic vein, and cephalic vein appear patent. IMPRESSION: Extensive DVT involving the left upper extremity with near occlusive clot within the inte rnal jugular vein and occlusive deep venous thrombosis of the left subclavian and axillary veins. The performing hardboard panel printer notified the covering nurse, Nadiya, at the time of this study. Results relayed to Dr. Riley via [employer] connect 4:32 PM 06/03/2020
[2020-06-03] MEDS ORDERED: Enoxaparin Sodium 80 MG/0.8 ML SYRINGE SC SCH (18:30)
[2020-06-03] MEDS ORDERED: Enoxaparin Sodium 40 MG/0.4 ML SYRINGE SC SCH (21:00)
[2020-06-03] MEDS ORDERED: Vancomycin 1.5 GRAM/300 ML BAG 1.5 GM in Premix Bag 1 BAG IVPB SCH (21:15)
[2020-06-03] MEDS: Pantoprazole 40 MG VIAL IVP SCH (22:05)
[2020-06-04] MEDS: Piperacillin/Tazobactam 3.375 GM in Sodium Chloride 0.9% 100 ML IVPB SCH ×4 (01:18→17:26)
[2020-06-04 05:30] LABS: Anion Gap 17 mmol/L (10-20); BUN (Urea Nitrogen) 21 mg/dL (8.4-25.7); Calc. Creatinine Clearance 84 mL/min (70-130); Calcium 8.5 mg/dL (7.8-10.44); Carbon Dioxide 21 mmol/L (23-31); Chloride 102 mmol/L (98-107); Glucose 112 mg/dL (83-110); Potassium 4.1 mmol/L (3.5-5.1); Sodium 136 mmol/L (136-145)
[2020-06-04 05:33] LABS: Band 6 % (5-11); Hemoglobin 11.7 g/dL (14.0-18.0); Hypochromia SLIGHT = 6-15 cells (100X) (0-5/hpf); Lymphocytes 3 % (21-51); MDiff Complete? YES; Mean Corpuscular HGB CONC 32.2 g/dL (32.0-36.0); Mean Corpuscular Hemoglobin 31.8 pg (27.0-31.0); Mean Corpuscular Volume 98.8 fL (78.0-98.0); Mean Platelet Volume 7.7 fL (7.4-10.4); Monocytes 10 % (0-10); Neutrophil 81 % (42-75); Platelet Count 226 thou/uL (130-400); Platelet Morphology Comment Appears Adequate; RBC Distribution Width 13.7 % (11.5-14.5); Red Blood Cell (RBC) Count 3.68 mill/uL (4.70-6.10); White Blood Cell (WBC) Count 15.2 thou/uL (4.8-10.8)
[2020-06-04] MEDS: Acetaminophen 500 MG TAB PO PRN ×2 (05:59→20:47)
[2020-06-04] MEDS: Dextrose 5 % And 0.9 % NaCl 1,000 ML IV SCH (06:00)
[2020-06-04] MEDS: Enoxaparin Sodium 80 MG/0.8 ML SYRINGE SC SCH ×2 (08:27→20:44)
[2020-06-04] MEDS: Polyethylene Glycol 3350 17 GM Packet PO SCH ×2 (08:27→20:46)
[2020-06-04] MEDS: Vancomycin 1 GM in Premix Bag 1 BAG IVPB SCH ×2 (10:01→20:46)
--- NOTE | 2020-06-04 10:09 | PDOC.BPN ---
- Brief Progress Note Encounter Date: 06/04/20 Encounter Time: 10:06 Doing well s/p low anterior resection. Still confused at times and required application of soft restraints overnight to prevent pulling of drain. Postoperative pain well controlled with current regimen. Tolerating CLD diet, without nausea or vomiting. Endorses flatus and bowel movements. Ambulating with assistance. EXAM: VS: T 99.1 HR 60 BP 149/85 RR 20 General: Alert and oriented, no acute distress, resting comfortably Pulmonary: No dyspnea or difficulty breathing Abdomen: Soft, non-distended, incisions clean, appropriately tender (improved), Minimal drain output CV: Regular rate and rhythm, palpable distal pulses Extremities: No edema I/O: 240 oral intake UOP NR, multiple voids Large bowel movement reported this morning LABORATORY / IMAGING: Laboratory analysis reviewed and demonstrates luekocytosis of 15.2 without shift or bandemia. Ultrasound upper extremity reviewed as well as radiology interpretation. Demonstrates a near occlusive thrombus of the left internal jugular subclavian vessels through the axillary vessels. PLAN: Complicated diverticulitis (perforation): Status post low anterior resection with primary anastomosis. Will maintain drain until discharge Advance diet as tolerated Minimize use of soft restraints. Discussed with nursing staff Aggressive incentive spirometry. Discussed with nursing staff Luekocytosis: 15.2 today without shift or bandemia. Possible etiologies include small leak vs. pneumonia versus thrombophlebitis / bacteremia. Empiric antibiotics initiated (Vanco and Zosyn) by hospitalist team. Blood cultures pending. We will continue to monitor and follow results. Left upper extremity DVT: Therapeutic Lovenox initiated Postoperative pain control: Continue [place] 5/325 Bowel regimen Atrial fibrillation: Paced. Home diltiazem resumed Continue PT Hyperbilirubinemia: Unclear etiology. Baseline 2.5 prior to this admission. Will defer to outpatient follow-up. Disposition: Pending resolution of leukocytosis and bowel function.
[2020-06-04] MEDS: Ondansetron PF 4 MG/2 ML Vial IVP PRN (17:33)
--- NOTE | 2020-06-04 18:00 | PDOC.HOSPP ---
- Subjective Encounter Date: 06/04/20 Subjective: Was seen and examined in bed. He appeared comfortable, denied any chest pain cough shortness of breath or abdominal pain. He complains about mild sinus congestion. No significant events overnight. - Objective Vital Signs & Weight: Vital Signs (12 hours) Temp Pulse Resp BP Pulse Ox 06/04/20 15:41 57 L 16 06/04/20 15:08 98.4 F 57 L 18 122/77 94 L 06/04/20 11:35 99 F 57 L 18 134/76 92 L 06/04/20 08:49 69 16 06/04/20 08:20 99.1 F 60 20 149/85 H 94 L Weight Admit Weight 148 lb 5.938 oz Weight 151 lb 3.2 oz Most Recent Monitor Data Heart Rate from ECG 71 NIBP 136/81 NIBP BP-Mean 99 Respiration from ECG 25 SpO2 96 I&O: 06/03/20 06/04/20 06/05/20 06:59 06:59 06:59 Intake Total 860 1340 Output Total 180 25 Balance 680 -25 1340 Result Diagrams: 06/04/20 04:07 06/04/20 04:07 Additional Labs: Accuchecks 06/04/20 06/04/20 06/04/20 16:42 11:00 06:23 POC Glucose 101 H 110 H 85 06/03/20 21:07 POC Glucose 133 H Hospitalist ROS - Review of Systems All other systems reviewed; all pertinent +/- noted in HPI/Subj - Medication Medications: Active Medications Generic Name Dose Route Start Last Admin Trade Name Freq PRN Reason Stop Dose Admin Acetaminophen 1,000 mg 06/04/20 05:53 06/04/20 05:59 Acetaminophen 500 Mg Tab PO 1,000 mg Q6H PRN Administration Headache/Fever or Pain Hydrocodone Bitart/Acetaminophen 15 ml 06/02/20 08:12 06/03/20 21:52 Hydrocodone-Acetamin 15 Ml Udcup PO 15 ml Q6H PRN Administration Pain 4-7 Albuterol/Ipratropium 3 ml 06/02/20 13:00 06/04/20 15:41 Ipratropium/Albuterol Sulfate 3 Ml Neb NEB 3 ml [id number] CHIDI Administration Dextrose/Water 25 gm 06/02/20 04:50 06/02/20 04:59 Dextrose 50% Abboject 50 Ml Syringe SLOW IVP 25 gm PRN PRN Administration Hypoglycemia Diltiazem HCl 120 mg 06/02/20 09:00 06/04/20 08:27 Diltiazem Cd 120 Mg Cap PO 120 mg QAM CHIDI Administration Enoxaparin Sodium 70 mg 06/04/20 09:00 06/04/20 08:27 Enoxaparin Sodium 80 Mg/0.8 Ml Syringe SC 70 mg 0900,2100 CHIDI Administration Hydralazine HCl 10 mg 06/01/20 02:31 06/03/20 22:05 Hydralazine 20 Mg/Ml Vial SLOW IVP 10 mg Q4H PRN Administration SBP > 170 or DBP > 100 Dextrose/Sodium Chloride 1,000 mls @ 50 mls/hr 06/02/20 09:30 06/04/20 06:00 D5 0.9% Ns IV Not Given .Q20H CHIDI Piperacillin Sod/Tazobactam 100 mls @ 200 mls/hr 06/03/20 23:59 06/04/20 17:26 Sod 3.375 gm/ Sodium Chloride IVPB 100 mls Q6HR CHIDI Administration Vancomycin HCl 1 gm/ Device 200 mls @ 200 mls/hr 06/04/20 10:00 06/04/20 10:01 IVPB 200 mls 1000,2200 CHIDI Administration Lorazepam 0.5 mg 06/02/20 18:09 06/03/20 22:03 Lorazepam 2 Mg/Ml Vial SLOW IVP 0.5 mg Q4H PRN Administration Anxiety/Agitation Morphine Sulfate 2 mg 06/01/20 03:00 06/02/20 03:49 Morphine 2 Mg/Ml Vial SLOW IVP 07/01/20 03:00 2 mg Q1H PRN Administration Breakthrough Pain/Agitation Ondansetron HCl 4 mg 06/01/20 02:31 06/04/20 17:33 Ondansetron Pf 4 Mg/2 Ml Vial IVP 4 mg Q6H PRN Administration Nausea/Vomiting Pantoprazole Sodium 40 mg 06/03/20 21:00 06/03/20 22:05 Pantoprazole 40 Mg Vial IVP 40 mg HS CHIDI Administration Polyethylene Glycol 17 gm 06/02/20 09:00 06/04/20 08:27 Polyethylene Glycol 3350 17 Gm Packet PO 17 gm BID CHIDI Administration - Exam General Appearance: awake alert, ill appearing Eye: PERRL, anicteric sclera Neck: supple, symmetric, no JVD Heart: RRR, no murmur, no gallops Respiratory: CTAB, no wheezes, no rales, no ronchi Gastrointestinal: soft, non-distended, no palpable masses Gastrointestinal - other findings: Wound clean and dressed Extremities: no cyanosis, no clubbing, no edema Neurological: cranial nerve grossly intact, no focal deficits Psychiatric: normal affect, A&O x 3 Hosp A/P - Plan This is a 75-year-old male patient with a history of hypertension, A. fib, hernia who was admitted on account of intestinal perforation secondary due to diverticular disease. He status post anterior resection and is transferred out of ICU. He is doing generally well. Perforated colon status post resection Surgery was on 05/31/2020. Currently stable Continue antibiotics Appreciate surgery input. Diverticulitis Continue vancomycin and Zosyn No cultures reported so far Atrial fibrillation No arrhythmias overnight Continue monitoring. Hypertension Continue home medications History of gastric ulcer disease Continue PPIs Anemia Likely postop Continue monitoring. Delirium Was noted to be confused earlier needing restraints. Patient now out of restraints and quite oriented We will monitor VT prophylaxisenoxaparin CODE STATUS not yet discussed.
[2020-06-04] MEDS: Pantoprazole 40 MG VIAL IVP SCH (20:46)
[2020-06-05] MEDS: Piperacillin/Tazobactam 3.375 GM in Sodium Chloride 0.9% 100 ML IVPB SCH ×4 (01:00→18:15)
[2020-06-05] MEDS: Dextrose 5 % And 0.9 % NaCl 1,000 ML IV SCH ×2 (01:01→20:47)
[2020-06-05] MEDS: Lorazepam 2 MG/ML VIAL SLOW IVP PRN (01:01)
[2020-06-05] MEDS: Ondansetron PF 4 MG/2 ML Vial IVP PRN ×2 (01:01→20:49)
[2020-06-05] MEDS: Morphine 2 MG/ML VIAL SLOW IVP PRN ×2 (05:46→20:51)
[2020-06-05] MEDS: Enoxaparin Sodium 80 MG/0.8 ML SYRINGE SC SCH ×2 (08:39→20:48)
[2020-06-05] MEDS: Polyethylene Glycol 3350 17 GM Packet PO SCH ×2 (08:40→20:48)
[2020-06-05 09:21] LABS: Vancomycin, Trough 16.8 ug/mL
--- NOTE | 2020-06-05 10:13 | PDOC.GSPN ---
Surgery Progress Note: Subj - Subjective Narrative: c/o indigestion, no vomitting, spitting up green Surgery Progress Note: Obj - Vital signs Vital signs: Vital Signs - Most Recent Temp Pulse Resp BP Pulse Ox 98.5 F 63 18 160/95 H 95 06/05/20 08:00 06/05/20 08:00 06/05/20 08:00 06/05/20 08:00 06/05/20 08:00 - Physical Exam General: no distress Cardiovascular: regular rate and rhythm Respiratory: clear to auscultation Abdomen: soft, appropriately tender, distended Wound: healing well Surgery Progress Note: Results - Labs Result Diagrams: 06/04/20 04:07 06/04/20 04:07 Lab results: Laboratory Results - last 12 hr 06/05/20 06/05/20 06:19 09:01 POC Glucose 95 Vancomycin Trough 16.8 Surgery Progress Note: A/P - Problem (1) Perforated sigmoid colon Current Visit: Yes Code(s): K63.1 - PERFORATION OF INTESTINE (NONTRAUMATIC) Status: Acute - Plan Plan: s/p sigmoid colectomy -more nausea today -if vomits will place NG -needs to be getting OOB
[2020-06-05] MEDS: Vancomycin 1 GM in Premix Bag 1 BAG IVPB SCH ×2 (11:26→20:48)
--- NOTE | 2020-06-05 17:32 | PDOC.HOSPP ---
- Subjective Encounter Date: 06/05/20 Subjective: Patient was seen and examined in bed. Complained of occasional nausea, no vomiting Denies any chest pain cough shortness of breath. - Objective Vital Signs & Weight: Vital Signs (12 hours) Temp Pulse Pulse Resp BP BP Pulse Ox 06/05/20 16:00 97.6 F 73 21 H 121/76 92 L 06/05/20 14:27 104 H 20 06/05/20 12:00 98.4 F 60 17 156/87 H 95 06/05/20 09:12 68 162/95 H 06/05/20 08:00 98.5 F 63 18 160/95 H 95 06/05/20 07:49 62 16 Weight Admit Weight 148 lb 5.938 oz Weight 151 lb 3.2 oz Most Recent Monitor Data Heart Rate from ECG 71 NIBP 136/81 NIBP BP-Mean 99 Respiration from ECG 25 SpO2 96 I&O: 06/04/20 06/05/20 06/06/20 06:59 06:59 06:59 Intake Total 1340 Output Total 25 Balance -25 1340 Result Diagrams: 06/04/20 04:07 06/04/20 04:07 Additional Labs: Accuchecks 06/05/20 06/05/20 06/04/20 10:35 06:19 20:47 POC Glucose 87 95 84 Hospitalist ROS - Review of Systems Constitutional: reports: fever, chills, sweats, weakness Gastrointestinal: reports: nausea, vomiting, abdominal pain All other systems reviewed; all pertinent +/- noted in HPI/Subj - Medication Medications: Active Medications Generic Name Dose Route Start Last Admin Trade Name Derickq PRN Reason Stop Dose Admin Acetaminophen 1,000 mg 06/04/20 05:53 06/04/20 20:47 Acetaminophen 500 Mg Tab PO 1,000 mg Q6H PRN Administration Headache/Fever or Pain Hydrocodone Bitart/Acetaminophen 15 ml 06/02/20 08:12 06/03/20 21:52 Hydrocodone-Acetamin 15 Ml Udcup PO 15 ml Q6H PRN Administration Pain 4-7 Albuterol/Ipratropium 3 ml 06/02/20 13:00 06/05/20 14:27 Ipratropium/Albuterol Sulfate 3 Ml Neb NEB 3 ml [id number] CHIDI Administration Dextrose/Water 25 gm 06/02/20 04:50 06/02/20 04:59 Dextrose 50% Abboject 50 Ml Syringe SLOW IVP 25 gm PRN PRN Administration Hypoglycemia Diltiazem HCl 120 mg 06/02/20 09:00 06/05/20 08:39 Diltiazem Cd 120 Mg Cap PO 120 mg QAM CHIDI Administration Enoxaparin Sodium 70 mg 06/04/20 09:00 06/05/20 08:39 Enoxaparin Sodium 80 Mg/0.8 Ml Syringe SC 70 mg 0900,2100 CHIDI Administration Hydralazine HCl 10 mg 06/01/20 02:31 06/03/20 22:05 Hydralazine 20 Mg/Ml Vial SLOW IVP 10 mg Q4H PRN Administration SBP > 170 or DBP > 100 Dextrose/Sodium Chloride 1,000 mls @ 50 mls/hr 06/02/20 09:30 06/05/20 01:01 D5 0.9% Ns IV 1,000 mls .Q20H CHIDI Administration Piperacillin Sod/Tazobactam 100 mls @ 200 mls/hr 06/03/20 23:59 06/05/20 12:35 Sod 3.375 gm/ Sodium Chloride IVPB 100 mls Q6HR CHIDI Administration Vancomycin HCl 1 gm/ Device 200 mls @ 200 mls/hr 06/04/20 10:00 06/05/20 11:26 IVPB 200 mls 1000,2200 CHIDI Administration Lorazepam 0.5 mg 06/02/20 18:09 06/05/20 01:01 Lorazepam 2 Mg/Ml Vial SLOW IVP 0.5 mg Q4H PRN Administration Anxiety/Agitation Morphine Sulfate 2 mg 06/01/20 03:00 06/05/20 05:46 Morphine 2 Mg/Ml Vial SLOW IVP 07/01/20 03:00 2 mg Q1H PRN Administration Breakthrough Pain/Agitation Ondansetron HCl 4 mg 06/01/20 02:31 06/05/20 01:01 Ondansetron Pf 4 Mg/2 Ml Vial IVP 4 mg Q6H PRN Administration Nausea/Vomiting Pantoprazole Sodium 40 mg 06/03/20 21:00 06/04/20 20:46 Pantoprazole 40 Mg Vial IVP 40 mg HS CHIDI Administration Polyethylene Glycol 17 gm 06/02/20 09:00 06/05/20 08:40 Polyethylene Glycol 3350 17 Gm Packet PO 17 gm BID CHIDI Administration - Exam General Appearance: awake alert General - other findings: Patient looks depressed otherwise alert and oriented. Eye: PERRL, anicteric sclera ENT: normocephalic atraumatic, dry oral mucosa Heart: RRR, no murmur, no gallops Respiratory: CTAB, no wheezes, no rales Gastrointestinal: soft, non-distended, tender to palpation (Mild) Gastrointestinal - other findings: Bowel sounds occasional Extremities: no cyanosis, no clubbing, no edema Neurological: cranial nerve grossly intact, no focal deficits Psychiatric: normal affect, A&O x 3 Hosp A/P - Plan This is a 75-year-old male patient with a history of hypertension, A. fib, hernia who was admitted on account of intestinal perforation secondary due to diverticular disease. He status post anterior resection and is transferred out of ICU. He is doing generally well. Perforated colon status post resection Surgery was on 05/31/2020. Currently stable Continue antibiotics Appreciate surgery input. Diverticulitis Continue vancomycin and Zosyn No cultures reported so far Atrial fibrillation No arrhythmias overnight Continue monitoring. Hypertension Continue home medications History of gastric ulcer disease Continue PPIs Anemia Likely postop Continue monitoring. Delirium Was noted to be confused earlier needing restraints. Patient now out of restraints and quite oriented We will monitor DVT Near occlusive clot of the left internal jugular vein and occlusive deep venous thrombosis of the left subclavian and axillary veins. This was in the setting of central line placement Continue Lovenox VT prophylaxisenoxaparin CODE STATUS not yet discussed.
[2020-06-05] MEDS: Acetaminophen 500 MG TAB PO PRN (19:37)
[2020-06-05] MEDS: Pantoprazole 40 MG VIAL IVP SCH (20:48)
[2020-06-05] MEDS: diphenhydrAMINE 50 MG/ML VIAL IVP PRN (20:49)
[2020-06-06] MEDS: Dextrose 5 % And 0.9 % NaCl 1,000 ML IV SCH ×2 (00:34→19:57)
[2020-06-06] MEDS: Piperacillin/Tazobactam 3.375 GM in Sodium Chloride 0.9% 100 ML IVPB SCH ×4 (00:34→17:03)
[2020-06-06 08:42] LABS: Hemoglobin 11.1 g/dL (14.0-18.0); Mean Corpuscular HGB CONC 32.6 g/dL (32.0-36.0); Mean Corpuscular Hemoglobin 32.1 pg (27.0-31.0); Mean Corpuscular Volume 98.5 fL (78.0-98.0); Mean Platelet Volume 7.7 fL (7.4-10.4); Platelet Count 228 thou/uL (130-400); RBC Distribution Width 13.9 % (11.5-14.5); Red Blood Cell (RBC) Count 3.44 mill/uL (4.70-6.10)
[2020-06-06 08:43] LABS: Band 13 % (5-11); Lymphocytes 5 % (21-51); MDiff Complete? YES; Neutrophil 82 % (42-75); Toxic Granulation SLIGHT; Vacuoles SLIGHT
[2020-06-06] MEDS: Acetaminophen 500 MG TAB PO PRN ×3 (08:53→21:27)
[2020-06-06] MEDS: Enoxaparin Sodium 80 MG/0.8 ML SYRINGE SC SCH ×2 (08:54→21:26)
[2020-06-06] MEDS: Polyethylene Glycol 3350 17 GM Packet PO SCH (08:54)
[2020-06-06 10:00] LABS: Calcium 7.6 mg/dL (7.8-10.44); Chloride 106 mmol/L (98-107); Potassium 3.5 mmol/L (3.5-5.1); Sodium 136 mmol/L (136-145)
[2020-06-06] MEDS: Vancomycin 1 GM in Premix Bag 1 BAG IVPB SCH (10:00)
[2020-06-06 10:01] LABS: Glucose 82 mg/dL (83-110)
[2020-06-06 10:02] LABS: Anion Gap 14 mmol/L (10-20); Carbon Dioxide 20 mmol/L (23-31)
[2020-06-06 10:04] LABS: Calc. Creatinine Clearance 85 mL/min (70-130)
[2020-06-06 10:05] LABS: BUN (Urea Nitrogen) 15 mg/dL (8.4-25.7)
[2020-06-06] MEDS: Morphine 2 MG/ML VIAL SLOW IVP PRN (10:20)
--- NOTE | 2020-06-06 12:27 | PRG ---
DATE OF SERVICE: 06/06/2020 SUBJECTIVE: Mr. Navarrete is feeling better today. No nausea. OBJECTIVE: VITAL SIGNS: He is afebrile. Vital signs are stable. ABDOMEN: Softer. He does have active bowel sounds. ASSESSMENT: Bowel function returning after sigmoid colectomy and anastomosis. PLAN: Try regular diet. If he tolerates that, could start to discontinue antibiotics, discontinue drain tomorrow. Job ID: [id number]
--- NOTE | 2020-06-06 19:21 | PDOC.HOSPP ---
- Subjective Encounter Date: 06/06/20 Encounter Time: 09:00 Subjective: F/u: s/p cholecystectomy THe patient had five episodes of semiliquid stool today. He has mild abdominal pain, no nausea or vomiting. He is requesting to eat a chopped diet - Objective Vital Signs & Weight: Vital Signs (12 hours) Temp Pulse Resp BP Pulse Ox 06/06/20 15:54 98.1 F 60 17 127/73 94 L 06/06/20 11:28 98.7 F 64 17 137/78 98 06/06/20 08:04 60 12 06/06/20 08:00 98.8 F 61 17 129/82 97 Weight Admit Weight 148 lb 5.938 oz Weight 159 lb Most Recent Monitor Data Heart Rate from ECG 71 NIBP 136/81 NIBP BP-Mean 99 Respiration from ECG 25 SpO2 96 I&O: 06/05/20 06/06/20 06/07/20 06:59 06:59 06:59 Intake Total 1340 1160 480 Output Total 30 50 Balance 1340 1130 430 Result Diagrams: 06/06/20 08:17 06/06/20 09:37 Additional Labs: Accuchecks 06/06/20 06/06/20 06/06/20 16:58 10:42 05:00 POC Glucose 85 83 83 06/05/20 20:16 POC Glucose 82 Hospitalist ROS - Review of Systems Constitutional: denies: fever, chills - Medication Medications: Active Medications Generic Name Dose Route Start Last Admin Trade Name Freq PRN Reason Stop Dose Admin Acetaminophen 1,000 mg 06/04/20 05:53 06/06/20 15:46 Acetaminophen 500 Mg Tab PO 1,000 mg Q6H PRN Administration Headache/Fever or Pain Hydrocodone Bitart/Acetaminophen 15 ml 06/02/20 08:12 06/03/20 21:52 Hydrocodone-Acetamin 15 Ml Udcup PO 15 ml Q6H PRN Administration Pain 4-7 Albuterol/Ipratropium 3 ml 06/02/20 13:00 06/06/20 15:50 Ipratropium/Albuterol Sulfate 3 Ml Neb NEB 3 ml [id number] CHIDI Administration Dextrose/Water 25 gm 06/02/20 04:50 06/02/20 04:59 Dextrose 50% Abboject 50 Ml Syringe SLOW IVP 25 gm PRN PRN Administration Hypoglycemia Diltiazem HCl 120 mg 06/02/20 09:00 06/06/20 08:53 Diltiazem Cd 120 Mg Cap PO 120 mg QAM CHIDI Administration Diphenhydramine HCl 25 mg 06/01/20 02:24 06/05/20 20:49 Diphenhydramine 50 Mg/Ml Vial IVP 25 mg Q3H PRN Administration Itching Enoxaparin Sodium 70 mg 06/04/20 09:00 06/06/20 08:54 Enoxaparin Sodium 80 Mg/0.8 Ml Syringe SC 70 mg 0900,2100 CHIDI Administration Hydralazine HCl 10 mg 06/01/20 02:31 06/03/20 22:05 Hydralazine 20 Mg/Ml Vial SLOW IVP 10 mg Q4H PRN Administration SBP > 170 or DBP > 100 Dextrose/Sodium Chloride 1,000 mls @ 50 mls/hr 06/02/20 09:30 06/06/20 00:34 D5 0.9% Ns IV 1,000 mls .Q20H CHIDI Administration Piperacillin Sod/Tazobactam 100 mls @ 200 mls/hr 06/03/20 23:59 06/06/20 17:03 Sod 3.375 gm/ Sodium Chloride IVPB 100 mls Q6HR CHIDI Administration Lorazepam 0.5 mg 06/02/20 18:09 06/05/20 01:01 Lorazepam 2 Mg/Ml Vial SLOW IVP 0.5 mg Q4H PRN Administration Anxiety/Agitation Morphine Sulfate 2 mg 06/01/20 03:00 06/06/20 10:20 Morphine 2 Mg/Ml Vial SLOW IVP 07/01/20 03:00 2 mg Q1H PRN Administration Breakthrough Pain/Agitation Ondansetron HCl 4 mg 06/01/20 02:31 06/05/20 20:49 Ondansetron Pf 4 Mg/2 Ml Vial IVP 4 mg Q6H PRN Administration Nausea/Vomiting Pantoprazole Sodium 40 mg 06/03/20 21:00 06/05/20 20:48 Pantoprazole 40 Mg Vial IVP 40 mg HS CHIDI Administration - Exam General Appearance: NAD, awake alert Eye: PERRL, anicteric sclera ENT: normocephalic atraumatic, no oropharyngeal lesions Neck: no JVD Heart: RRR, no murmur, no gallops, no rubs Respiratory: CTAB, no wheezes, no rales, no ronchi Gastrointestinal - other findings: surgical incision intact Extremities: no cyanosis, no clubbing, no edema Skin: normal turgor, no lesions, no rashes Neurological: cranial nerve grossly intact, normal sensation to touch, no weakness Hosp A/P - Plan Vascular US left: extensive DVT left upper extremity with near occlusive clot within IJV and occlusive DVT in left subclavian and left axillary vein Chest X ray 06/02: right basilar atelectasis vs infiltrate This is a 75 year old male who presented with abdominal pain, nausea and vomiting, was found to have a perforated diverticulitis. He underwent diagnostic laparoscopy with low anterior resection with primary anastamosis and mobilization of splenic flexure Perforated diverticulitis s/p low anterior resection - has mild abdominal pain. Had five bowel movements, advanced to low fat diet - will discontinue vancomycin - continue zosyn #Diarrhea #Leukocytosis -WBC increasing to 16. Stool cultures ordered and negative. If persistent diarrhea, then will check C diff tomorrow. Chest X ray 06/02 showed possible right basilar infiltrate, but no pulmonary symptoms so hold off on rechecking - Will check UA. Blood cultures negative. Will discontinue IV vancomycin to avoid worsening diarrhea. Discontinue laxatives Gout - continue allopurinol AFib - continue diltiazem
[2020-06-06] MEDS: diphenhydrAMINE 50 MG/ML VIAL IVP PRN (21:25)
[2020-06-06] MEDS: Ondansetron PF 4 MG/2 ML Vial IVP PRN (21:25)
[2020-06-06] MEDS: Pantoprazole 40 MG VIAL IVP SCH (21:26)
[2020-06-06 23:20] LABS: Bacteria/HPF Rare-Few HPF (None Seen); Bilirubin Negative (Negative); Blood, Urine Negative (Negative); Clarity Clear (Clear); Glucose, Urine (Dipstick) Normal (Negative); Ketone, Urine Negative (Negative); Leukocyte Negative Leu/uL (Negative); Nitrite Negative (Negative); Protein, Urine (Dipstick) 50 mg/dL (Neg-Trace); RBC/HPF 0-3 HPF (0-3); Specific Gravity, Urine 1.034 (1.002-1.036); Squamous Epithelial 0-3 HPF (0-3); Urobilinogen Normal mg/dL (Less than 2)
[2020-06-06 23:21] LABS: Urine Culture Reflex Yes Yes
[2020-06-07] MEDS: Lorazepam 2 MG/ML VIAL SLOW IVP PRN (00:23)
[2020-06-07] MEDS: Piperacillin/Tazobactam 3.375 GM in Sodium Chloride 0.9% 100 ML IVPB SCH ×5 (00:23→23:14)
[2020-06-07 04:23] LABS: Hemoglobin 11.3 g/dL (14.0-18.0); Mean Corpuscular HGB CONC 34.9 g/dL (32.0-36.0); Mean Corpuscular Hemoglobin 34.6 pg (27.0-31.0); Mean Corpuscular Volume 99.1 fL (78.0-98.0); Mean Platelet Volume 4.8 fL (7.4-10.4); Platelet Count 194 thou/uL (130-400); RBC Distribution Width 14.1 % (11.5-14.5); Red Blood Cell (RBC) Count 3.26 mill/uL (4.70-6.10); White Blood Cell (WBC) Count 16.8 thou/uL (4.8-10.8)
[2020-06-07 04:25] LABS: Anion Gap 13 mmol/L (10-20); BUN (Urea Nitrogen) 11 mg/dL (8.4-25.7); Calc. Creatinine Clearance 88 mL/min (70-130); Calcium 7.2 mg/dL (7.8-10.44); Carbon Dioxide 18 mmol/L (23-31); Chloride 106 mmol/L (98-107); Glucose 87 mg/dL (83-110); Potassium 3.2 mmol/L (3.5-5.1); Sodium 134 mmol/L (136-145)
[2020-06-07] MEDS: Acetaminophen 500 MG TAB PO PRN ×3 (07:27→23:15)
[2020-06-07] MEDS: Enoxaparin Sodium 80 MG/0.8 ML SYRINGE SC SCH ×2 (08:42→21:14)
[2020-06-07] MEDS ORDERED: Potassium Chloride 40 MEQ in Sodium Chloride 0.9% 250 ML 250 ML IVPB SCH (10:15)
--- NOTE | 2020-06-07 10:25 | PRG ---
DATE OF SERVICE: 06/07/2020 SUBJECTIVE: Mr. Navarrete has no complaints. He denies nausea. He has been eating small amounts of the regular type food. No vomiting. Urinating regularly. Continues to pass gas and have bowel movements. PHYSICAL EXAMINATION: VITAL SIGNS: Pulse 65, respirations 17, temperature is 97.9. He is 150/77. ABDOMEN: Soft. It is minimally distended, but there are active bowel sounds. His wounds are healing well. No evidence of infection. ADELAIDA drain has some old serosanguineous looking fluid in it. LABORATORY DATA: White blood cell count is 16, hemoglobin 11. Creatinine is 0.74. ASSESSMENT: Resolving expected postoperative ileus, tolerating a more regular diet. PLAN: Discontinue the ADELAIDA drain. Job ID: [id number]
--- NOTE | 2020-06-07 11:53 | PDOC.HOSPP ---
- Subjective Encounter Date: 06/07/20 Encounter Time: 11:50 Subjective: F/u: s/p perforated diverticulitis The patient has semi liquid stools. He is requesting to eat some fruit, advised can eat some peaches. He denies abdominal pain He has no cough or SOB He ambulated with physical therapy a few steps with a walker yesterday - Objective Vital Signs & Weight: Vital Signs (12 hours) Temp Pulse Resp BP Pulse Ox 06/07/20 07:30 97.9 F 65 17 150/77 H 99 06/07/20 07:21 76 20 06/07/20 04:00 98.5 F 67 20 138/80 96 06/07/20 00:04 63 16 95 Weight Admit Weight 148 lb 5.938 oz Weight 161 lb Most Recent Monitor Data Heart Rate from ECG 71 NIBP 136/81 NIBP BP-Mean 99 Respiration from ECG 25 SpO2 96 I&O: 06/06/20 06/07/20 06/08/20 06:59 06:59 06:59 Intake Total 1160 1370 Output Total 30 100 Balance 1130 1270 Result Diagrams: 06/07/20 03:56 06/07/20 03:56 Additional Labs: Accuchecks 06/07/20 06/07/20 06/06/20 11:09 05:49 20:25 POC Glucose 103 H 69 L 87 06/06/20 16:58 POC Glucose 85 Hospitalist ROS - Review of Systems Constitutional: denies: fever, chills - Medication Medications: Active Medications Generic Name Dose Route Start Last Admin Trade Name Freq PRN Reason Stop Dose Admin Acetaminophen 1,000 mg 06/04/20 05:53 06/07/20 07:27 Acetaminophen 500 Mg Tab PO 1,000 mg Q6H PRN Administration Headache/Fever or Pain Hydrocodone Bitart/Acetaminophen 15 ml 06/02/20 08:12 06/03/20 21:52 Hydrocodone-Acetamin 15 Ml Udcup PO 15 ml Q6H PRN Administration Pain 4-7 Albuterol/Ipratropium 3 ml 06/02/20 13:00 06/07/20 07:21 Ipratropium/Albuterol Sulfate 3 Ml Neb NEB 3 ml [id number] CHIDI Administration Dextrose/Water 25 gm 06/02/20 04:50 06/02/20 04:59 Dextrose 50% Abboject 50 Ml Syringe SLOW IVP 25 gm PRN PRN Administration Hypoglycemia Diltiazem HCl 120 mg 06/02/20 09:00 06/07/20 08:42 Diltiazem Cd 120 Mg Cap PO 120 mg QAM CHIDI Administration Diphenhydramine HCl 25 mg 06/01/20 02:24 06/06/20 21:25 Diphenhydramine 50 Mg/Ml Vial IVP 25 mg Q3H PRN Administration Itching Enoxaparin Sodium 70 mg 06/04/20 09:00 06/07/20 08:42 Enoxaparin Sodium 80 Mg/0.8 Ml Syringe SC 70 mg 0900,2100 CHIDI Administration Hydralazine HCl 10 mg 06/01/20 02:31 06/03/20 22:05 Hydralazine 20 Mg/Ml Vial SLOW IVP 10 mg Q4H PRN Administration SBP > 170 or DBP > 100 Dextrose/Sodium Chloride 1,000 mls @ 50 mls/hr 06/02/20 09:30 06/06/20 19:57 D5 0.9% Ns IV Not Given .Q20H CHIDI Piperacillin Sod/Tazobactam 100 mls @ 200 mls/hr 06/03/20 23:59 06/07/20 11:06 Sod 3.375 gm/ Sodium Chloride IVPB 100 mls Q6HR CHIDI Administration Potassium Chloride 40 meq/ 270 mls @ 67.5 mls/hr 06/07/20 10:15 06/07/20 11:02 Sodium Chloride IVPB 06/07/20 16:00 270 mls NOW CHIDI Administration Lorazepam 0.5 mg 06/02/20 18:09 06/07/20 00:23 Lorazepam 2 Mg/Ml Vial SLOW IVP 0.5 mg Q4H PRN Administration Anxiety/Agitation Morphine Sulfate 2 mg 06/01/20 03:00 06/06/20 10:20 Morphine 2 Mg/Ml Vial SLOW IVP 07/01/20 03:00 2 mg Q1H PRN Administration Breakthrough Pain/Agitation Ondansetron HCl 4 mg 06/01/20 02:31 06/06/20 21:25 Ondansetron Pf 4 Mg/2 Ml Vial IVP 4 mg Q6H PRN Administration Nausea/Vomiting Pantoprazole Sodium 40 mg 06/03/20 21:00 06/06/20 21:26 Pantoprazole 40 Mg Vial IVP 40 mg HS CHIDI Administration - Exam General Appearance: NAD, awake alert Eye: PERRL, anicteric sclera ENT: normocephalic atraumatic, no oropharyngeal lesions Neck: no JVD Heart: RRR, no murmur, no gallops, no rubs Respiratory: CTAB, no wheezes, no rales, no ronchi Gastrointestinal - other findings: surgical seun intact, mildline. ADELAIDA drain pulled . Firm, mildly tender Extremities: no cyanosis, no clubbing, no edema Skin: normal turgor, no lesions, no rashes Neurological: cranial nerve grossly intact, normal sensation to touch, no weakness Musculoskeletal: normal tone, normal strength, no muscle wasting Hosp A/P - Plan Vascular US left: extensive DVT left upper extremity with near occlusive clot within IJV and occlusive DVT in left subclavian and left axillary vein Chest X ray 06/02: right basilar atelectasis vs infiltrate This is a 75 year old male who presented with abdominal pain, nausea and vomiting, was found to have a perforated diverticulitis. He underwent diagnostic laparoscopy with low anterior resection with primary anastamosis and mobilization of splenic flexure Perforated diverticulitis s/p low anterior resection - ADELAIDA drain removed. He is tolerating soft diet. He has semi liquid stool which could be low fiber, advised can eat some peaches but nothing two fibrous #Leukocytosis -WBC increasing to 16.8, but no fevers. Stool cultures negative. No pulmonary symptoms - continue IV zosyn. Urine culture pending Hypokalemia - potassium 3.2, replaced, recheck tomorrow Gout - continue allopurinol AFib - continue diltiazem
[2020-06-07] MEDS: Pantoprazole 40 MG VIAL IVP SCH (21:14)
[2020-06-07] MEDS: diphenhydrAMINE 50 MG/ML VIAL IVP PRN (21:15)
[2020-06-07] MEDS: Dextrose 5 % And 0.9 % NaCl 1,000 ML IV SCH ×2 (21:20→23:14)
[2020-06-08 04:38] LABS: Mean Corpuscular Volume 98.9 fL (78.0-98.0)
[2020-06-08 04:53] LABS: Anion Gap 12 mmol/L (10-20); BUN (Urea Nitrogen) 9 mg/dL (8.4-25.7); Calc. Creatinine Clearance 94 mL/min (70-130); Calcium 7.5 mg/dL (7.8-10.44); Carbon Dioxide 20 mmol/L (23-31); Chloride 106 mmol/L (98-107); Glucose 91 mg/dL (83-110); Potassium 3.3 mmol/L (3.5-5.1); Sodium 135 mmol/L (136-145)
[2020-06-08 04:56] LABS: Hemoglobin 10.7 g/dL (14.0-18.0); Mean Corpuscular HGB CONC 30.3 g/dL (32.0-36.0); Mean Platelet Volume 7.3 fL (7.4-10.4); Platelet Count 286 thou/uL (130-400); RBC Distribution Width 13.6 % (11.5-14.5); Red Blood Cell (RBC) Count 3.58 mill/uL (4.70-6.10); White Blood Cell (WBC) Count 17.7 thou/uL (4.8-10.8)
[2020-06-08] MEDS: Piperacillin/Tazobactam 3.375 GM in Sodium Chloride 0.9% 100 ML IVPB SCH (05:12)
[2020-06-08] MEDS ORDERED: Meropenem 2 GM in Admixture Fee 1 EACH IVPB SCH (09:08)
[2020-06-08] MEDS ORDERED: Potassium Chloride 20 MEQ TAB PO SCH (09:15)
[2020-06-08] MEDS: Enoxaparin Sodium 80 MG/0.8 ML SYRINGE SC SCH ×2 (09:34→21:18)
--- NOTE | 2020-06-08 10:38 | RAD ---
EXAM: XR Chest 1 View Portable PROVIDED CLINICAL HISTORY: Leukocytosis COMPARISON: 06/02/2020 FINDINGS: The cardiac silhouette remains enlarged. There is obscuration of the left hemidiaphragm and blunting the left costophrenic angle, compatible with left basilar pleural and/or parenchymal opacity. Vascular calcification and left subclavian cardiac pacing device are redemonstrated. The right lung a ppears grossly clear. There is no evidence for pneumothorax. IMPRESSION: Left basilar pleural and/or parenchymal opacity.
[2020-06-08] MEDS: Meropenem 2 GM in Sodium Chloride 0.9% 100 ML IVPB SCH ×2 (10:44→19:29)
--- NOTE | 2020-06-08 11:37 | CT ---
EXAM: CT Abdomen Pelvis W Con PROVIDED CLINICAL HISTORY: Leukocytosis COMPARISON: 05/31/2020 FINDINGS: There are bilateral pleural fluid collections with bibasilar subsegmental atelectasis. In addition, t here is hypodense consolidation at the posterior right lung base compatible with pneumonia. There is persistent small volume pneumoperitoneum. Interval postoperative changes are seen involving the sigmoid colon. There is conspicuous distention of the stomach. Administered oral contrast material is present within the stomach and to a minimal degree within some of the proximal small angelica l and duodenum. Small bowel and colon are nondilated. There is no localized intra-abdominal inflammatory fat stranding. There is no evidence for a focal fl uid collection to suggest abscess. Evaluation of the pelvis is limited due to beam hardening artifact from right hip arthroplasty with trace fluid in the pelvic cul-de-sac suspected. The appendi x appears normal. The solid abdominal organs demonstrate a stable CT appearance. There is prominent gallbladder distent ion without overt pericholecystic inflammatory change. Fluid collection at the dorsal aspect of the lumbar spine as previously described is stable. Extensive atherosclerotic vascular calcifications are seen. The osseous structures demonstrate no concerning lytic or blastic lesions. Advanced degenerative nye ges are again seen involving the left hip. IMPRESSION: 1. Bilateral pleural fluid and right basilar pneumonia. 2. Small volume persistent pneumoperitoneum, presumably postoperative. 3. Conspicuous gastric distention with minimal passage of contrast material into the duodenum and pro ximal small bowel. Consider gastroparesis or partial outlet obstruction. 4. Prominent nonspecific gallbladder distention.
[2020-06-08] MEDS ORDERED: Iopamidol 370 76% 100 ML VIAL ONE (12:11)
--- NOTE | 2020-06-08 14:12 | RAD ---
SUPINE ABDOMEN: INDICATION: Small bowel obstruction. FINDINGS/IMPRESSION: Anterior skin seun indicate recent surgery. There is gaseous distention in the stomach. Scattere d small and large bowel gas appears nonspecific. POS: AGW
--- NOTE | 2020-06-08 17:48 | PDOC.HOSPP ---
- Subjective Encounter Date: 06/08/20 Encounter Time: 09:00 Subjective: F/u: leukocytosis The patient has mild cough. No significant shortness of breath The patient has no complaints. He has no significant abdominal pain, nausea or vomiting. REpeat CT abdomen shows no abscess or anything surgical, but did show a pneumonia Surgery has requested transfer of service to hospitalist service - Objective Vital Signs & Weight: Vital Signs (12 hours) Temp Pulse Resp BP Pulse Ox 06/08/20 16:00 99.1 F 18 141/77 H 96 06/08/20 14:03 66 20 96 06/08/20 11:38 99 F 65 20 155/76 H 97 06/08/20 09:33 69 06/08/20 07:33 69 18 95 06/08/20 07:23 98.2 F 66 16 142/77 H 97 Weight Admit Weight 148 lb 5.938 oz Weight 161 lb Most Recent Monitor Data Heart Rate from ECG 71 NIBP 136/81 NIBP BP-Mean 99 Respiration from ECG 25 SpO2 96 I&O: 06/07/20 06/08/20 06/09/20 06:59 06:59 06:59 Intake Total 1370 600 Output Total 100 100 Balance 1270 500 Result Diagrams: 06/08/20 03:49 06/08/20 03:49 Additional Labs: Accuchecks 06/08/20 06/08/20 06/08/20 16:41 10:40 05:34 POC Glucose 90 75 84 06/08/20 06/07/20 06/05/20 04:21 20:17 16:26 POC Glucose 84 102 H 80 06/05/20 16:23 POC Glucose 50 L* Hospitalist ROS - Review of Systems Constitutional: denies: fever, chills - Medication Medications: Active Medications Generic Name Dose Route Start Last Admin Trade Name Freq PRN Reason Stop Dose Admin Acetaminophen 1,000 mg 06/04/20 05:53 06/07/20 23:15 Acetaminophen 500 Mg Tab PO 1,000 mg Q6H PRN Administration Headache/Fever or Pain Hydrocodone Bitart/Acetaminophen 15 ml 06/02/20 08:12 06/03/20 21:52 Hydrocodone-Acetamin 15 Ml Udcup PO 15 ml Q6H PRN Administration Pain 4-7 Albuterol/Ipratropium 3 ml 06/02/20 13:00 06/08/20 14:03 Ipratropium/Albuterol Sulfate 3 Ml Neb NEB 3 ml [id number] CHIDI Administration Dextrose/Water 25 gm 06/02/20 04:50 06/02/20 04:59 Dextrose 50% Abboject 50 Ml Syringe SLOW IVP 25 gm PRN PRN Administration Hypoglycemia Diltiazem HCl 120 mg 06/02/20 09:00 06/08/20 09:33 Diltiazem Cd 120 Mg Cap PO 120 mg QAM CHIDI Administration Diphenhydramine HCl 25 mg 06/01/20 02:24 06/07/20 21:15 Diphenhydramine 50 Mg/Ml Vial IVP 25 mg Q3H PRN Administration Itching Enoxaparin Sodium 70 mg 06/04/20 09:00 06/08/20 09:34 Enoxaparin Sodium 80 Mg/0.8 Ml Syringe SC 70 mg 0900,2100 CHIDI Administration Hydralazine HCl 10 mg 06/01/20 02:31 06/03/20 22:05 Hydralazine 20 Mg/Ml Vial SLOW IVP 10 mg Q4H PRN Administration SBP > 170 or DBP > 100 Meropenem 2 gm/ Sodium 100 mls @ 100 mls/hr 06/08/20 10:00 06/08/20 10:44 Chloride IVPB 100 mls Q8H CHIDI Administration Lorazepam 0.5 mg 06/02/20 18:09 06/07/20 00:23 Lorazepam 2 Mg/Ml Vial SLOW IVP 0.5 mg Q4H PRN Administration Anxiety/Agitation Morphine Sulfate 2 mg 06/01/20 03:00 06/06/20 10:20 Morphine 2 Mg/Ml Vial SLOW IVP 07/01/20 03:00 2 mg Q1H PRN Administration Breakthrough Pain/Agitation Ondansetron HCl 4 mg 06/01/20 02:31 06/06/20 21:25 Ondansetron Pf 4 Mg/2 Ml Vial IVP 4 mg Q6H PRN Administration Nausea/Vomiting Pantoprazole Sodium 40 mg 06/03/20 21:00 06/07/20 21:14 Pantoprazole 40 Mg Vial IVP 40 mg HS CHIDI Administration - Exam General Appearance: NAD, awake alert Eye: PERRL, anicteric sclera ENT: normocephalic atraumatic, no oropharyngeal lesions Neck: no JVD Heart: RRR, no murmur, no gallops, no rubs Respiratory: CTAB, no wheezes, no rales, no ronchi Gastrointestinal - other findings: soft, mildly distended, surgical seun look clean Extremities: no edema Skin: normal turgor, no lesions, no rashes Hosp A/P - Plan Vascular US left: extensive DVT left upper extremity with near occlusive clot within IJV and occlusive DVT in left subclavian and left axillary vein Chest X ray 06/02: right basilar atelectasis vs infiltrate This is a 75 year old male who presented with abdominal pain, nausea and vomiting, was found to have a perforated diverticulitis. He underwent diagnostic laparoscopy with low anterior resection with primary anastamosis and mobilization of splenic flexure Perforated diverticulitis s/p low anterior resection - ADELAIDA drain removed. He is tolerating soft diet. Repeat CT scan showed no acute surgical abdomen - continue antibiotics, likely needs rehab #Leukocytosis -WBC increasing to 17, but no fevers. Stool cultures negative, repeat UA negative. CT abdomen showed bilateral pneumonia and pleural effusions. Switched antibiotics to IV meropenem. Will trial lasix X1 Hypokalemia - potassium 3.3, replaced with potassium. Recheck tomorrow. He denies diarrhea Anemia - Hb 10, B12/folate/ TSH normal Gout - continue allopurinol AFib - continue diltiazem
[2020-06-08] MEDS: Pantoprazole 40 MG VIAL IVP SCH (21:19)
[2020-06-08] MEDS: Acetaminophen 500 MG TAB PO PRN (21:19)
[2020-06-08] MEDS: Lorazepam 2 MG/ML VIAL SLOW IVP PRN (21:20)
[2020-06-08] MEDS: diphenhydrAMINE 50 MG/ML VIAL IVP PRN (22:21)
[2020-06-09] MEDS: Meropenem 2 GM in Sodium Chloride 0.9% 100 ML IVPB SCH ×3 (02:46→19:25)
[2020-06-09 09:39] LABS: Hemoglobin 11.4 g/dL (14.0-18.0); Mean Corpuscular HGB CONC 31.9 g/dL (32.0-36.0); Mean Corpuscular Hemoglobin 31.5 pg (27.0-31.0); Mean Corpuscular Volume 98.9 fL (78.0-98.0); Mean Platelet Volume 6.7 fL (7.4-10.4); Platelet Count 323 thou/uL (130-400); RBC Distribution Width 13.8 % (11.5-14.5); Red Blood Cell (RBC) Count 3.63 mill/uL (4.70-6.10); White Blood Cell (WBC) Count 14.2 thou/uL (4.8-10.8)
[2020-06-09] MEDS: Acetaminophen 500 MG TAB PO PRN ×2 (10:00→15:51)
[2020-06-09] MEDS: Enoxaparin Sodium 80 MG/0.8 ML SYRINGE SC SCH ×2 (10:00→20:40)
[2020-06-09 10:01] LABS: Anion Gap 15 mmol/L (10-20); BUN (Urea Nitrogen) 7 mg/dL (8.4-25.7); Calc. Creatinine Clearance 96 mL/min (70-130); Calcium 7.6 mg/dL (7.8-10.44); Carbon Dioxide 19 mmol/L (23-31); Chloride 105 mmol/L (98-107); Glucose 96 mg/dL (83-110); Potassium 3.7 mmol/L (3.5-5.1); Sodium 135 mmol/L (136-145)
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
--- NOTE | 2020-06-09 19:21 | PDOC.HOSPP ---
- Subjective Encounter Date: 06/09/20 Encounter Time: 08:00 Subjective: F/u: leukocytosis Patient is doing better today. Denies significant cough or shortness of breath. He states his diarrhea has resolved. He has no significant abdominal pain, nausea or vomiting. He seemed very weak while working with physical therapy and required 2 person assist to stand up. Patient's [facility] - Objective Vital Signs & Weight: Vital Signs (12 hours) Temp Pulse Pulse Pulse Resp BP BP 06/09/20 18:40 16 06/09/20 15:36 97.7 F 67 18 06/09/20 13:45 63 16 06/09/20 11:02 97.8 F 75 19 06/09/20 09:14 68 82 134/68 137/75 06/09/20 07:53 98.2 F 70 19 06/09/20 07:40 86 18 BP Pulse Ox Pulse Ox Pulse Ox 06/09/20 18:40 06/09/20 15:36 130/71 94 L 06/09/20 13:45 94 L 06/09/20 11:02 133/69 95 06/09/20 09:14 93 L 97 06/09/20 07:53 158/77 H 95 06/09/20 07:40 94 L Weight Admit Weight 148 lb 5.938 oz Weight 161 lb 14.4 oz Most Recent Monitor Data Heart Rate from ECG 71 NIBP 136/81 NIBP BP-Mean 99 Respiration from ECG 25 SpO2 96 I&O: 06/08/20 06/09/20 06/10/20 06:59 06:59 06:59 Intake Total 600 390 Output Total 100 Balance 500 390 Result Diagrams: 06/09/20 09:29 06/09/20 09:29 Additional Labs: Accuchecks 06/09/20 06/09/20 06/09/20 16:30 10:15 05:52 POC Glucose 96 101 H 85 06/08/20 20:25 POC Glucose 74 Hospitalist ROS - Review of Systems Constitutional: denies: fever, chills - Medication Medications: Active Medications Generic Name Dose Route Start Last Admin Trade Name Freq PRN Reason Stop Dose Admin Acetaminophen 1,000 mg 06/04/20 05:53 06/09/20 15:51 Acetaminophen 500 Mg Tab PO 1,000 mg Q6H PRN Administration Headache/Fever or Pain Hydrocodone Bitart/Acetaminophen 15 ml 06/02/20 08:12 06/03/20 21:52 Hydrocodone-Acetamin 15 Ml Udcup PO 15 ml Q6H PRN Administration Pain 4-7 Albuterol/Ipratropium 3 ml 06/02/20 13:00 06/09/20 18:40 Ipratropium/Albuterol Sulfate 3 Ml Neb NEB 3 ml [id number] CHIDI Administration Dextrose/Water 25 gm 06/02/20 04:50 06/02/20 04:59 Dextrose 50% Abboject 50 Ml Syringe SLOW IVP 25 gm PRN PRN Administration Hypoglycemia Diltiazem HCl 120 mg 06/02/20 09:00 06/09/20 10:00 Diltiazem Cd 120 Mg Cap PO 120 mg QAM CHIDI Administration Diphenhydramine HCl 25 mg 06/01/20 02:24 06/08/20 22:21 Diphenhydramine 50 Mg/Ml Vial IVP 25 mg Q3H PRN Administration Itching Enoxaparin Sodium 70 mg 06/04/20 09:00 06/09/20 10:00 Enoxaparin Sodium 80 Mg/0.8 Ml Syringe SC 70 mg 0900,2100 CHIDI Administration Hydralazine HCl 10 mg 06/01/20 02:31 06/03/20 22:05 Hydralazine 20 Mg/Ml Vial SLOW IVP 10 mg Q4H PRN Administration SBP > 170 or DBP > 100 Meropenem 2 gm/ Sodium 100 mls @ 100 mls/hr 06/08/20 10:00 06/09/20 10:00 Chloride IVPB 100 mls Q8H CHIDI Administration Lorazepam 0.5 mg 06/02/20 18:09 06/08/20 21:20 Lorazepam 2 Mg/Ml Vial SLOW IVP 0.5 mg Q4H PRN Administration Anxiety/Agitation Morphine Sulfate 2 mg 06/01/20 03:00 06/06/20 10:20 Morphine 2 Mg/Ml Vial SLOW IVP 07/01/20 03:00 2 mg Q1H PRN Administration Breakthrough Pain/Agitation Ondansetron HCl 4 mg 06/01/20 02:31 06/06/20 21:25 Ondansetron Pf 4 Mg/2 Ml Vial IVP 4 mg Q6H PRN Administration Nausea/Vomiting Pantoprazole Sodium 40 mg 06/03/20 21:00 06/08/20 21:19 Pantoprazole 40 Mg Vial IVP 40 mg HS CHIDI Administration - Exam General Appearance: NAD, awake alert Eye: PERRL, anicteric sclera ENT: normocephalic atraumatic, no oropharyngeal lesions Neck: no JVD Heart: RRR, no murmur, no gallops Respiratory: CTAB, no wheezes, no rales, no ronchi Gastrointestinal: soft, non-tender, non-distended, normal bowel sounds Extremities: no cyanosis, no clubbing, no edema Skin: normal turgor, no lesions, no rashes Neurological: cranial nerve grossly intact, normal sensation to touch, no weakness Hosp A/P - Plan Vascular US left: extensive DVT left upper extremity with near occlusive clot within IJV and occlusive DVT in left subclavian and left axillary vein Chest X ray 06/02: right basilar atelectasis vs infiltrate This is a 75 year old male who presented with abdominal pain, nausea and vomiting, was found to have a perforated diverticulitis. He underwent diagnostic laparoscopy with low anterior resection with primary anastamosis and mobilization of splenic flexure Perforated diverticulitis s/p low anterior resection - ADELAIDA drain removed. He is tolerating soft diet. Repeat CT scan showed no acute surgical abdomen. -Antibiotics switched to meropenem on 06/08. White blood cell count is down to 14. We will continue meropenem for total 1 week - continue antibiotics, likely needs rehab #Leukocytosis possibly secondary to pneumonia -Started on meropenem on 06/08. Will continue until 06/15 -Stool cultures, UA, CT scan of the abdomen showed no signs of infection. Hypokalemia -Resolved Anemia - Hb 11, B12/folate/ TSH normal Gout - continue allopurinol AFib - continue diltiazem
[2020-06-09] MEDS: Pantoprazole 40 MG VIAL IVP SCH (20:41)
[2020-06-09] MEDS: diphenhydrAMINE 50 MG/ML VIAL IVP PRN (21:57)
[2020-06-10] MEDS: Acetaminophen 500 MG TAB PO PRN ×2 (00:23→08:32)
[2020-06-10] MEDS: Meropenem 2 GM in Sodium Chloride 0.9% 100 ML IVPB SCH ×3 (03:09→17:28)
[2020-06-10] MEDS: Morphine 2 MG/ML VIAL SLOW IVP PRN ×2 (05:29→10:39)
[2020-06-10] MEDS: Enoxaparin Sodium 80 MG/0.8 ML SYRINGE SC SCH ×2 (08:34→22:03)
[2020-06-10] MEDS ORDERED: Zolpidem Tartrate 5 MG TAB PO PRN (09:45)
[2020-06-10] MEDS: Loratadine 10 MG TAB PO SCH (10:39)
[2020-06-10 11:45] LABS: Hemoglobin 10.4 g/dL (14.0-18.0); Mean Corpuscular HGB CONC 32.1 g/dL (32.0-36.0); Mean Corpuscular Hemoglobin 31.4 pg (27.0-31.0); Mean Corpuscular Volume 97.8 fL (78.0-98.0); Mean Platelet Volume 6.7 fL (7.4-10.4); Platelet Count 393 thou/uL (130-400); RBC Distribution Width 13.7 % (11.5-14.5); White Blood Cell (WBC) Count 19.3 thou/uL (4.8-10.8)
[2020-06-10 12:06] LABS: Anion Gap 14 mmol/L (10-20); BUN (Urea Nitrogen) 10 mg/dL (8.4-25.7); Calc. Creatinine Clearance 96 mL/min (70-130); Calcium 7.7 mg/dL (7.8-10.44); Carbon Dioxide 21 mmol/L (23-31); Chloride 103 mmol/L (98-107); Glucose 97 mg/dL (83-110); Potassium 3.4 mmol/L (3.5-5.1); Sodium 135 mmol/L (136-145)
[2020-06-10] MEDS ORDERED: Calcium Carbonate 500 MG ChewTAB PO PRN (17:14)
--- NOTE | 2020-06-10 17:16 | PDOC.HOSPP ---
- Subjective Encounter Date: 06/10/20 Subjective: F/u : abdominal pain/leukocytosis The patient reports severe groin pain. He states that the diapers they put on him were way too tight. He wants a bigger size diaper. He also reported severe abdominal pain last night, but then later stated it was just groin and not abdominal pain. He denies nausea or vomiting and is tolerating a diet. He had two bowel movements today He is requesting something to help him sleep tonight. Does not want melatonin, trazodone because he has tried those before He is very anxious to be discharged to rehab - Objective Vital Signs & Weight: Vital Signs (12 hours) Temp Pulse Resp BP Pulse Ox 06/10/20 13:55 54 L 16 96 06/10/20 11:20 97.8 F 64 20 161/81 H 97 06/10/20 07:50 98 F 90 18 147/80 H 95 Weight Admit Weight 148 lb 5.938 oz Weight 161 lb 1.6 oz Most Recent Monitor Data Heart Rate from ECG 71 NIBP 136/81 NIBP BP-Mean 99 Respiration from ECG 25 SpO2 96 I&O: 06/09/20 06/10/20 06/11/20 06:59 06:59 06:59 Intake Total 390 1180 Balance 390 1180 Result Diagrams: 06/10/20 11:24 06/10/20 11:24 Additional Labs: Accuchecks 06/10/20 06/10/20 06/10/20 16:29 10:40 05:31 POC Glucose 93 99 92 06/09/20 20:14 POC Glucose 99 Hospitalist ROS - Review of Systems Constitutional: denies: fever, chills - Medication Medications: Active Medications Generic Name Dose Route Start Last Admin Trade Name Freq PRN Reason Stop Dose Admin Acetaminophen 1,000 mg 06/04/20 05:53 06/10/20 08:32 Acetaminophen 500 Mg Tab PO 1,000 mg Q6H PRN Administration Headache/Fever or Pain Hydrocodone Bitart/Acetaminophen 15 ml 06/02/20 08:12 06/03/20 21:52 Hydrocodone-Acetamin 15 Ml Udcup PO 15 ml Q6H PRN Administration Pain 4-7 Albuterol/Ipratropium 3 ml 06/02/20 13:00 06/10/20 13:55 Ipratropium/Albuterol Sulfate 3 Ml Neb NEB 3 ml [id number] CHIDI Administration Dextrose/Water 25 gm 06/02/20 04:50 06/02/20 04:59 Dextrose 50% Abboject 50 Ml Syringe SLOW IVP 25 gm PRN PRN Administration Hypoglycemia Diltiazem HCl 120 mg 06/02/20 09:00 06/10/20 08:35 Diltiazem Cd 120 Mg Cap PO 120 mg QAM CHIDI Administration Diphenhydramine HCl 25 mg 06/01/20 02:24 06/09/20 21:57 Diphenhydramine 50 Mg/Ml Vial IVP 25 mg Q3H PRN Administration Itching Enoxaparin Sodium 70 mg 06/04/20 09:00 06/10/20 08:34 Enoxaparin Sodium 80 Mg/0.8 Ml Syringe SC 70 mg 0900,2100 CHIDI Administration Hydralazine HCl 10 mg 06/01/20 02:31 06/03/20 22:05 Hydralazine 20 Mg/Ml Vial SLOW IVP 10 mg Q4H PRN Administration SBP > 170 or DBP > 100 Meropenem 2 gm/ Sodium 100 mls @ 100 mls/hr 06/08/20 10:00 06/10/20 10:39 Chloride IVPB 100 mls Q8H CHIDI Administration Loratadine 10 mg 06/10/20 09:00 06/10/20 10:39 Loratadine 10 Mg Tab PO 10 mg DAILY CHIDI Administration Lorazepam 0.5 mg 06/02/20 18:09 06/08/20 21:20 Lorazepam 2 Mg/Ml Vial SLOW IVP 0.5 mg Q4H PRN Administration Anxiety/Agitation Morphine Sulfate 2 mg 06/01/20 03:00 06/06/20 10:20 Morphine 2 Mg/Ml Vial SLOW IVP 07/01/20 03:00 2 mg Q1H PRN Administration Breakthrough Pain/Agitation Morphine Sulfate 2 mg 06/10/20 05:21 06/10/20 10:39 Morphine 2 Mg/Ml Vial SLOW IVP 2 mg Q4H PRN Administration Pain Ondansetron HCl 4 mg 06/01/20 02:31 06/06/20 21:25 Ondansetron Pf 4 Mg/2 Ml Vial IVP 4 mg Q6H PRN Administration Nausea/Vomiting Pantoprazole Sodium 40 mg 06/03/20 21:00 06/09/20 20:41 Pantoprazole 40 Mg Vial IVP 40 mg HS CHDII Administration - Exam General Appearance: NAD, awake alert Eye: PERRL, anicteric sclera ENT: normocephalic atraumatic, no oropharyngeal lesions Neck: no JVD Heart: RRR, no murmur, no gallops, no rubs Respiratory: CTAB, no wheezes, no rales, no ronchi Gastrointestinal: soft, non-tender, non-distended, no splenomegaly Gastrointestinal - other findings: slightly diminished bowel sounds Extremities: no cyanosis, no clubbing, no edema Skin: normal turgor, no lesions, no rashes Hosp A/P - Plan Vascular US left: extensive DVT left upper extremity with near occlusive clot within IJV and occlusive DVT in left subclavian and left axillary vein Chest X ray 06/02: right basilar atelectasis vs infiltrate This is a 75 year old male who presented with abdominal pain, nausea and vomiting, was found to have a perforated diverticulitis. He underwent diagnostic laparoscopy with low anterior resection with primary anastamosis and mobilization of splenic flexure Perforated diverticulitis s/p low anterior resection - ADELAIDA drain removed. He is tolerating soft diet. Repeat CT scan showed no acute surgical abdomen. -Antibiotics switched to meropenem on 06/08. White blood cell count improved to 14 but no increased to 19. No new infectious symptoms. Will repeat CBC tomorrow - midline placed for anticipation of meropenem until 06/15 #Leukocytosis possibly secondary to pneumonia -Started on meropenem on 06/08. Will continue until 06/15 -Stool cultures, UA, CT scan of the abdomen showed no signs of infection. Consi lakhwinder C diff testing if diarrhea Hypokalemia -Resolved Anemia - Hb 11, B12/folate/ TSH normal Gout - continue allopurinol AFib - continue diltiazem
[2020-06-10] MEDS: Pantoprazole 40 MG VIAL IVP SCH (22:02)
[2020-06-11] MEDS: Meropenem 2 GM in Sodium Chloride 0.9% 100 ML IVPB SCH ×4 (02:30→22:16)
[2020-06-11 04:40] LABS: Anion Gap 18 mmol/L (10-20); BUN (Urea Nitrogen) 15 mg/dL (8.4-25.7); Calc. Creatinine Clearance 68 mL/min (70-130); Calcium 7.9 mg/dL (7.8-10.44); Carbon Dioxide 18 mmol/L (23-31); Chloride 101 mmol/L (98-107); Glucose 70 mg/dL (83-110); Potassium 3.7 mmol/L (3.5-5.1); Sodium 133 mmol/L (136-145)
[2020-06-11 04:45] LABS: Hemoglobin 10.8 g/dL (14.0-18.0); Mean Corpuscular HGB CONC 31.7 g/dL (32.0-36.0); Mean Corpuscular Hemoglobin 31.3 pg (27.0-31.0); Mean Corpuscular Volume 98.8 fL (78.0-98.0); Platelet Count 411 thou/uL (130-400); RBC Distribution Width 13.8 % (11.5-14.5); Red Blood Cell (RBC) Count 3.45 mill/uL (4.70-6.10); White Blood Cell (WBC) Count 39.6 thou/uL (4.8-10.8)
--- NOTE | 2020-06-11 09:17 | PDOC.HOSPP ---
- Subjective Encounter Date: 06/11/20 Encounter Time: 09:15 Subjective: F/u: leukocytosis The patient had a CODE green called overnight where because he slumped over and wasn't responsive. This morning, the same thing occurred. THe patient was sitting up and went unresponsive for a few seconds during Xray EKG showed electronic ventricular pacemaker. Repeat chest Xray doesn't show anything too concerning except some opacities on right. The patient denies cough, shortness of breath or abdominal pain. He had a bowel movement with mucus per nurse. No diarrhea The patient appears to repeatedly doze off to sleep while sitting up in bed. - Objective Vital Signs & Weight: Vital Signs (12 hours) Temp Pulse Resp BP Pulse Ox 06/11/20 08:25 98.6 F 70 20 104/60 99 06/11/20 05:50 108/61 06/11/20 03:51 98.3 F 65 20 96/59 L 99 06/11/20 00:25 20 Weight Admit Weight 148 lb 5.938 oz Weight 162 lb Most Recent Monitor Data Heart Rate from ECG 71 NIBP 136/81 NIBP BP-Mean 99 Respiration from ECG 25 SpO2 96 I&O: 06/10/20 06/11/20 06/12/20 06:59 06:59 06:59 Intake Total 1180 1190 Balance 1180 1190 Result Diagrams: 06/11/20 03:54 06/11/20 03:54 Additional Labs: Accuchecks 06/11/20 06/11/20 06/10/20 08:54 05:40 20:01 POC Glucose 86 68 L 88 06/10/20 06/10/20 16:29 10:40 POC Glucose 93 99 Hospitalist ROS - Review of Systems Constitutional: denies: fever, chills - Medication Medications: Active Medications Generic Name Dose Route Start Last Admin Trade Name Freq PRN Reason Stop Dose Admin Acetaminophen 1,000 mg 06/04/20 05:53 06/10/20 08:32 Acetaminophen 500 Mg Tab PO 1,000 mg Q6H PRN Administration Headache/Fever or Pain Hydrocodone Bitart/Acetaminophen 15 ml 06/02/20 08:12 06/03/20 21:52 Hydrocodone-Acetamin 15 Ml Udcup PO 15 ml Q6H PRN Administration Pain 4-7 Albuterol/Ipratropium 3 ml 06/02/20 13:00 06/11/20 00:25 Ipratropium/Albuterol Sulfate 3 Ml Neb NEB 3 ml [id number] CHIDI Administration Calcium Carbonate 1,000 mg 06/10/20 17:14 06/10/20 17:36 Calcium Carbonate 500 Mg Chewtab PO 1,000 mg Q4H PRN Administration Heartburn or Indigestion Dextrose/Water 25 gm 06/02/20 04:50 06/02/20 04:59 Dextrose 50% Abboject 50 Ml Syringe SLOW IVP 25 gm PRN PRN Administration Hypoglycemia Diltiazem HCl 120 mg 06/02/20 09:00 06/10/20 08:35 Diltiazem Cd 120 Mg Cap PO 120 mg QAM CHIDI Administration Diphenhydramine HCl 25 mg 06/01/20 02:24 06/09/20 21:57 Diphenhydramine 50 Mg/Ml Vial IVP 25 mg Q3H PRN Administration Itching Enoxaparin Sodium 70 mg 06/04/20 09:00 06/10/20 22:03 Enoxaparin Sodium 80 Mg/0.8 Ml Syringe SC 70 mg 0900,2100 CHIDI Administration Hydralazine HCl 10 mg 06/01/20 02:31 06/03/20 22:05 Hydralazine 20 Mg/Ml Vial SLOW IVP 10 mg Q4H PRN Administration SBP > 170 or DBP > 100 Meropenem 2 gm/ Sodium 100 mls @ 100 mls/hr 06/08/20 10:00 06/11/20 02:30 Chloride IVPB 100 mls Q8H CHIDI Administration Loratadine 10 mg 06/10/20 09:00 06/10/20 10:39 Loratadine 10 Mg Tab PO 10 mg DAILY CHIDI Administration Lorazepam 0.5 mg 06/02/20 18:09 06/08/20 21:20 Lorazepam 2 Mg/Ml Vial SLOW IVP 0.5 mg Q4H PRN Administration Anxiety/Agitation Morphine Sulfate 2 mg 06/10/20 05:21 06/10/20 10:39 Morphine 2 Mg/Ml Vial SLOW IVP 2 mg Q4H PRN Administration Pain Ondansetron HCl 4 mg 06/01/20 02:31 06/06/20 21:25 Ondansetron Pf 4 Mg/2 Ml Vial IVP 4 mg Q6H PRN Administration Nausea/Vomiting Pantoprazole Sodium 40 mg 06/03/20 21:00 06/10/20 22:02 Pantoprazole 40 Mg Vial IVP 40 mg HS CHIDI Administration - Exam General Appearance: NAD, awake alert General - other findings: dozes off frequently Eye: PERRL, anicteric sclera ENT: normocephalic atraumatic, no oropharyngeal lesions Neck: no JVD Heart: RRR, no murmur, no gallops, no rubs Respiratory: CTAB, no wheezes, no rales, no ronchi Gastrointestinal: diminished bowl sounds Gastrointestinal - other findings: belly distended Extremities: no cyanosis, no clubbing, no edema Skin: normal turgor, no lesions, no rashes Neurological - other findings: chronic facial tic Psychiatric: A&O x 3 Hosp A/P - Plan Vascular US left: extensive DVT left upper extremity with near occlusive clot within IJV and occlusive DVT in left subclavian and left axillary vein Chest X ray 06/02: right basilar atelectasis vs infiltrate This is a 75 year old male who presented with abdominal pain, nausea and vomiting, was found to have a perforated diverticulitis. He underwent diagnostic laparoscopy with low anterior resection with primary anastamosis and mobilization of splenic flexure #Perforated diverticulitis s/p low anterior resection #Leukocytosis #Right lower lobe pneumonia - ADELAIDA drain removed. He is tolerating soft diet. Repeat CT scan showed no acute surgical abdomen. -Antibiotics switched to meropenem on 06/08. White blood cell count improved to 14 but has now increased to 39. No fevers - will repeat CT chest and CT abdomen. Abd X ray shows distended bowels (on appearance) chest Xray possible right sided infiltrate. - will place hematology consult for persistent leukocytosis Syncope - possibly vasovagal? - EKG shows paced rhythm. Will check ABG. Check CT head Left leg weakness - patient states this is chronic. Will check CT head Hypokalemia -Resolved Anemia - Hb 11, B12/folate/ TSH normal Gout - continue allopurinol AFib - continue diltiazem
--- NOTE | 2020-06-11 09:20 | RAD ---
EXAM: XR Abdomen 2 View/1 View Cxr PROVIDED CLINICAL HISTORY: Ileus COMPARISON: CT and chest radiograph 06/08/2020 FINDINGS: The cardiac silhouette remains enlarged. Left subclavian cardiac pacing device is redemonstrated. No focal consolidation, pleural fluid or pneumothorax apparent. There is no evidence for pneumoperitoneum on the upright or left lateral decubitus radiographs. There are numerous dilated loo ps of small bowel, measuring up to 4.6 cm in diameter. This represents a change with respect to the prior CT. IMPRESSION: Multiple dilated gas-filled loops of small bowel suggest ileus or obstruction, and are interval with respect to the prior study.
[2020-06-11] MEDS: Enoxaparin Sodium 80 MG/0.8 ML SYRINGE SC SCH ×2 (09:36→22:16)
[2020-06-11] MEDS: Loratadine 10 MG TAB PO SCH (09:36)
[2020-06-11 09:39] LABS: Actual Bicarbonate (HCO3a) 18.7 mEq/L (22-28); Base Excess (BEa) -3.8 mEq/L (-2.0 to +3.0); CO2 Tension 26.4 mmHg (35.0-45.0); Carboxyhemoglobin (COHb) 0.3 gm% (0.0-3.0); Hemoglobin (Hb) 10.9 g/dL (14.0-18.0); O2 Tension (PaO2), arterial 60.2 mmHg (> 70.0); Potassium - ABG Lab 3.68 mmol/L (3.70-5.30); pH, Arterial 7.47 (7.35-7.45)
[2020-06-11 09:46] LABS: Puncture Site RRA
[2020-06-11] MEDS ORDERED: Glycopyrrolate 0.2 MG/ML 5 ML SYRINGE ONE (10:07)
[2020-06-11] MEDS ORDERED: Ondansetron PF 4 MG/2 ML Vial ONE ×2 (10:07→19:48)
[2020-06-11] MEDS ORDERED: PHENYLEPHRINE-NS 100 MCG/ML 10 ML SYRINGE ONE (10:07)
[2020-06-11] MEDS ORDERED: PROPOFOL 200 MG/20 ML VIAL ONE (10:07)
[2020-06-11] MEDS ORDERED: Rocuronium Bromide 10 MG/ML (10ML VIAL) ONE (10:07)
[2020-06-11] MEDS ORDERED: Lidocaine 1% PF 5 ML VIAL ONE (10:07)
--- NOTE | 2020-06-11 11:25 | CT ---
Exam: CT brain PROVIDED CLINICAL HISTORY: Altered mental status COMPARISON: 05/25/2020 FINDINGS: The ventricular system is normal in size and morphology. No evidence for intracranial hemorrhage or mass effect. Prominent chronic microvascular ischemic change and right frontal encephalomalacia, stable from prior. The extracranial soft tissues and osseous structures demonstrate no evidence for a n acute abnormality. IMPRESSION: No evidence for intracranial hemorrhage or mass effect.
--- NOTE | 2020-06-11 11:34 | CT ---
EXAM: CT pulmonary angiogram with IV contrast and 3-D MIP reconstructions PROVIDED CLINICAL HISTORY: Syncope COMPARISON: None FINDINGS: There is no evidence for central or segmental pulmonary embolus. The heart is enlarged. Vascular calc ification including coronary calcium is demonstrated. There is patchy consolidation present involving the right upper and both lower lobes. Small bilateral pleural effusions. No evidence for thoracic lymph node enlargement. The airway appears patent and of normal caliber. Small volume pneumoperitoneum is demonstrated. Please see concurrently dictated CT abdomen and pelvis for details regarding the abdomen. The osseous structures demonstrate no concerning lytic or blastic lesions. IMPRESSION: 1. No evidence for central or segmental pulmonary embolus. 2. Patchy bilateral consolidation, right greater than left, compatible with pneumonia. 3. Small bilateral pleural fluid. 4. Small volume pneumoperitoneum. Please correlate with concurrently performed CT abdomen and pelvis.
--- NOTE | 2020-06-11 11:52 | CT ---
EXAM: CT Abdomen Pelvis W Con PROVIDED CLINICAL HISTORY: Leukocytosis, dilated bowel loops COMPARISON: 06/08/2020 FINDINGS: Bilateral pleural fluid and bibasilar consolidation are demonstrated. Liver, spleen, pancreas, kidneys and adrenal glands demonstrate a stable CT appearance. There is persistent moderate nonspecific gallbladder distention. There is minimal residual pneumoperi toneum, appearing less conspicuous than on prior. There is no evidence for bowel obstruction. There is no definite evidence for an extraluminal fluid collection to suggest abscess, with limitations due to lack of oral contrast material within loops of distal small bowel. The pelvis is partially obscured by beam hardening artifact. There is moderate urinary bladder distention. There is interval development of a mixed density collection within the pelvis immediately posterior t o the sigmoid suture line and displacing the rectum anteriorly. This measures at least 4.6 x 8.7 cm in greatest transverse dimensions and approximately 10.8 cm in craniocaudal dimension. This demonstra nelly a fluid fluid level at its inferior aspects. Atherosclerotic vascular calcifications are demonstrated. Fluid density posterior to the lower lumbar spine is again seen. The osseous structures demonstrate no apparent change. IMPRESSION: 1. Bibasilar consolidation compatible with pneumonia with associated pleural fluid. 2. Interval development of mixed density mass within the pelvis adjacent to the sigmoid colon suture line, measuring up to 10.8 cm. This is compatible with hematoma. 3. No CT evidence for bowel obstruction. 4. Decreased pneumoperitoneum, presumably postoperative.
[2020-06-11] MEDS ORDERED: Iopamidol 370 76% 100 ML VIAL ONE (13:49)
[2020-06-11] MEDS ORDERED: EPINEPHrine 1 MG/ML AMP ONE (15:07)
[2020-06-11] MEDS ORDERED: Bupivacaine 0.25% HCL 30 ML VIAL ONE (15:07)
[2020-06-11] MEDS ORDERED: Lidocaine 2% w/Epinephrine 1:200K 20 ML VIAL ONE (15:08)
--- NOTE | 2020-06-11 15:12 | PDOC.GSPN ---
Surgery Progress Note: Subj - Subjective Narrative: No acute complaints. Groin pain described yesterday resolved today. Surgery Progress Note: Obj - Vital signs Vital signs: Vital Signs - Most Recent Temp Pulse Resp BP Pulse Ox 98.1 F 71 20 94/56 L 100 06/11/20 09:09 06/11/20 10:10 06/11/20 10:10 06/11/20 09:09 06/11/20 10:10 - Physical Exam General: no distress Cardiovascular: regular rate and rhythm Respiratory: other (Mildly tachypneic) Abdomen: soft, non tender Surgery Progress Note: Results - Labs Result Diagrams: 06/11/20 03:54 06/11/20 03:54 Lab results: Laboratory Results - last 12 hr 06/11/20 06/11/20 06/11/20 03:54 03:54 05:40 WBC 39.6 H RBC 3.45 L Hgb 10.8 L Hct 34.1 L MCV 98.8 H MCH 31.3 H MCHC 31.7 L RDW 13.8 Plt Count 411 H MPV 7.0 L Specimen Type Puncture Site Bicarbonate Actual ABG pH ABG pCO2 ABG pO2 ABG O2 Sat (Measured) ABG O2 Content ABG Base Excess ABG Hematocrit ABG Hemoglobin ABG Oxyhemoglobin ABG Carboxyhemoglobin ABG Methemoglobin ABG Deoxyhemoglobin Umesh Test Ionized Calcium Mode of Support Spontaneous Rate Sodium 133 L Potassium 3.7 Chloride 101 Carbon Dioxide 18 L Anion Gap 18 BUN 15 Creatinine 0.97 Estimated GFR (MDRD) 75 Glucose 70 L POC Glucose 68 L Calcium 7.9 06/11/20 06/11/20 06/11/20 08:54 09:35 10:42 WBC RBC Hgb Hct MCV MCH MCHC RDW Plt Count MPV Specimen Type ARTERIAL Puncture Site RRA Bicarbonate Actual 18.7 L ABG pH 7.47 H ABG pCO2 26.4 L ABG pO2 60.2 ABG O2 Sat (Measured) 92.4 L ABG O2 Content 14.1 L ABG Base Excess -3.8 L ABG Hematocrit 32.0 L ABG Hemoglobin 10.9 L ABG Oxyhemoglobin 91.8 L ABG Carboxyhemoglobin 0.3 ABG Methemoglobin 0.30 ABG Deoxyhemoglobin 7.6 H Umesh Test POSITIVE Ionized Calcium 1.10 L Mode of Support NC 3L/M Spontaneous Rate 28 Sodium 127 L Potassium 3.68 L Chloride 102 Carbon Dioxide Anion Gap BUN Creatinine Estimated GFR (MDRD) Glucose POC Glucose 86 83 Calcium 06/11/20 11:04 WBC RBC Hgb Hct MCV MCH MCHC RDW Plt Count MPV Specimen Type Puncture Site Bicarbonate Actual ABG pH ABG pCO2 ABG pO2 ABG O2 Sat (Measured) ABG O2 Content ABG Base Excess ABG Hematocrit ABG Hemoglobin ABG Oxyhemoglobin ABG Carboxyhemoglobin ABG Methemoglobin ABG Deoxyhemoglobin Umesh Test Ionized Calcium Mode of Support Spontaneous Rate Sodium Potassium Chloride Carbon Dioxide Anion Gap BUN Creatinine Estimated GFR (MDRD) Glucose POC Glucose 73 Calcium - Radiology Interpretation CT scan - abdomen Additional comments: Large fluid collection behind the rectum adjacent to anastomosis. Read as hematoma; however, given the patient's leukocytosis and recent low anterior resection with primary anastomosis, this likely represents an anastomotic disruption. Surgery Progress Note: A/P - Problem (1) Intestinal anastomotic disruption Current Visit: Yes Code(s): K92.9 - DISEASE OF DIGESTIVE SYSTEM, UNSPECIFIED Status: Acute - Plan Plan: We will plan for diagnostic laparoscopy with drain placement and creation of loop ileostomy. The relative risks and benefits of this procedure were discussed in detail with the patient and his spouse, specifically addressing the risk of needing to convert to an open procedure, the likelihood of a left-sided colostomy, and cardiopulmonary complications to include . Informed consent was obtained.
--- NOTE | 2020-06-11 15:15 | PDOC.OP ---
Operative Note - Operative Note Operative Note: DATE OF SURGERY: June 11, 2020 SURGEON: Praviz Riley MD PREOPERATIVE DIAGNOSIS: Sigmoid perforation status post low anterior resection Anastomotic disruption POSTOPERATIVE DIAGNOSIS: Sigmoid perforation status post low anterior resection Anastomotic disruption PROCEDURE: Diagnostic laparoscopy Drainage of intraperitoneal abscess with drain placement End colostomy INDICATIONS: 75-year-old male who is postop day 12 from an open low anterior resection with primary anastomosis for perforation of the sigmoid colon. He developed a significant leukocytosis and computed tomography the abdomen demonstrated a fluid collection adjacent to the anastomosis consistent with anastomotic disruption. PROCEDURE IN DETAIL: The patient was brought to the operating room and positioned supine on the operating room table. After induction of general, endotracheal anesthesia, the patient was prepared and draped in the usual fashion. Prior to beginning the procedure, a complete timeout was performed with all members of the operative team being present and in agreement. Access to the abdomen was obtained in the left upper quadrant using an optical trocar under direct visualization. The abdomen was insufflated and examined. Additional trocars were placed under direct visualization. The fluid collection was localized and entered. Its contents were suctioned free and irrigated. There was a large hematoma in the retrorectal space. Continued dissection revealed a defect in the anastomosis on the right lateral aspect. A 12 mm port was placed in the right lower quadrant and an endoscopic stapler reduced. The anastomosis was divided distal towards the rectum. A 15 Hungarian round drain was placed. The left colon was mobilized to allow for an end colostomy. An elliptical incision was made midway between the anterior superior iliac spine and the umbilicus. This was incised sharply and dilated to accommodate passage of the colon. The abdomen was reexamined and desufflated. The rest of the anastomosis was resected, and an end colostomy created with interrupted 3-0 Vicryl sutures. The drain was secured with a nylon suture. The 12 mm trocar site was closed using a 0 Vicryl tie and a suture passer. The skin was closed with 4-0 Monocryl and dressed with skin adhesive dressing. At the conclusion of the case, all sponge instrument counts were correct. ESTIMATED BLOOD LOSS: 100 cc COMPLICATIONS: None INTRAOPERATIVE BLOOD TRANSFUSIONS: None GRAFTS / IMPLANTS: None SPECIMENS: None DISPOSITION: The patient was transported to the postoperative recovery unit in good conditions to be returned to the floor when criteria met.
[2020-06-11] MEDS ORDERED: Fentanyl 100 MCG/2 ML VIAL ONE ×2 (15:54→20:14)
--- NOTE | 2020-06-11 15:55 | CON ---
NEUROLOGY CONSULTATION DATE OF CONSULTATION: 06/11/2020 REASON FOR CONSULTATION: Episodes of altered mental status/blank stare, rule out seizures. HISTORY OF PRESENT ILLNESS: Mr. Navarrete is a 75-year-old male with medical history significant for hypertension and atrial fibrillation status post pacemaker placement, presented to the hospital on 05/31/2020 with perforated viscus. He had a CT scan of the abdomen done, which showed pneumoperitoneum, and General Surgery was consulted, who recommended emergent laparoscopy, the patient went to the procedure. Colonic perforation was observed and drained and the patient was admitted to Surgery Service. The patient has also been followed by Medicine Service for medical management because of multiple comorbidities, including electrolyte imbalance, atrial fibrillation, gastric ulcer, and anemia. Neurology was consulted because he had a few episodes of blank stare, not associated with any jerking, tongue bite, or urinary or fecal incontinence to rule out seizures. The history is taken from the , and she denies any previous episodes of seizures or blank stare and no family history of epilepsy. REVIEW OF SYSTEMS: The denies any focal weakness, focal paresthesias, or abnormal jerking movements. He does have facial twitching, which is a chronic problem according to the for the last 3 to 4 years. HOME MEDICATIONS: 1. Dexamethasone. 2. Pantoprazole. 3. Aspirin. 4. Allopurinol. 5. Diltiazem. ALLERGIES: NO KNOWN DRUG ALLERGIES. PAST MEDICAL HISTORY: 1. Perforated diverticulitis status post low-anterior resection. 2. Leukocytosis. 3. Right lower lobe pneumonia. 4. Syncope. 5. Left leg weakness. 6. Anemia. 7. Gout. 8. Atrial fibrillation. Vital Signs & Weight: Vital Signs (12 hours) Temp Pulse Resp BP Pulse Ox 06/11/20 08:25 98.6 F 70 20 104/60 99 06/11/20 05:50 108/61 06/11/20 03:51 98.3 F 65 20 96/59 L 99 06/11/20 00:25 20 Weight Admit Weight 148 lb 5.938 oz Weight 162 lb Most Recent Monitor Data Heart Rate from ECG 71 NIBP 136/81 NIBP BP-Mean 99 Respiration from ECG 25 SpO2 96 I&O: 06/10/20 06/11/20 06/12/20 06:59 06:59 06:59 Intake Total 1180 1190 Balance 1180 1190 Additional Labs: Accuchecks 06/11/20 06/11/20 06/10/20 08:54 05:40 20:01 POC Glucose 86 68 L 88 06/10/20 06/10/20 16:29 10:40 POC Glucose 93 99 Active Medications Generic Name Dose Route Start Last Admin Trade Name Freq PRN Reason Stop Dose Admin Acetaminophen 1,000 mg 06/04/20 05:53 06/10/20 08:32 Acetaminophen 500 Mg Tab PO 1,000 mg Q6H PRN Administration Headache/Fever or Pain Hydrocodone Bitart/Acetaminophen 15 ml 06/02/20 08:12 06/03/20 21:52 Hydrocodone-Acetamin 15 Ml Udcup PO 15 ml Q6H PRN Administration Pain 4-7 Albuterol/Ipratropium 3 ml 06/02/20 13:00 06/11/20 00:25 Ipratropium/Albuterol Sulfate 3 Ml Neb NEB 3 ml [id number] CHIDI Administration Calcium Carbonate 1,000 mg 06/10/20 17:14 06/10/20 17:36 Calcium Carbonate 500 Mg Chewtab PO 1,000 mg Q4H PRN Administration Heartburn or Indigestion Dextrose/Water 25 gm 06/02/20 04:50 06/02/20 04:59 Dextrose 50% Abboject 50 Ml Syringe SLOW IVP 25 gm PRN PRN Administration Hypoglycemia Diltiazem HCl 120 mg 06/02/20 09:00 06/10/20 08:35 Diltiazem Cd 120 Mg Cap PO 120 mg QAM CHIDI Administration Diphenhydramine HCl 25 mg 06/01/20 02:24 06/09/20 21:57 Diphenhydramine 50 Mg/Ml Vial IVP 25 mg Q3H PRN Administration Itching Enoxaparin Sodium 70 mg 06/04/20 09:00 06/10/20 22:03 Enoxaparin Sodium 80 Mg/0.8 Ml Syringe SC 70 mg 0900,2100 CHIDI Administration Hydralazine HCl 10 mg 06/01/20 02:31 06/03/20 22:05 Hydralazine 20 Mg/Ml Vial SLOW IVP 10 mg Q4H PRN Administration SBP > 170 or DBP > 100 Meropenem 2 gm/ Sodium 100 mls @ 100 mls/hr 06/08/20 10:00 06/11/20 02:30 Chloride IVPB 100 mls Q8H CHIDI Administration Loratadine 10 mg 06/10/20 09:00 06/10/20 10:39 Loratadine 10 Mg Tab PO 10 mg DAILY CHIDI Administration Lorazepam 0.5 mg 06/02/20 18:09 06/08/20 21:20 Lorazepam 2 Mg/Ml Vial SLOW IVP 0.5 mg Q4H PRN Administration Anxiety/Agitation Morphine Sulfate 2 mg 06/10/20 05:21 06/10/20 10:39 Morphine 2 Mg/Ml Vial SLOW IVP 2 mg Q4H PRN Administration Pain Ondansetron HCl 4 mg 06/01/20 02:31 06/06/20 21:25 Ondansetron Pf 4 Mg/2 Ml Vial IVP 4 mg Q6H PRN Administration Nausea/Vomiting Pantoprazole Sodium 40 mg 06/03/20 21:00 06/10/20 22:02 Pantoprazole 40 Mg Vial IVP 40 mg HS CHIDI Administration PHYSICAL EXAMINATION: General Appearance: NAD, awake alert General - other findings: dozes off frequently Eye: PERRL, anicteric sclera ENT: normocephalic atraumatic, no oropharyngeal lesions Neck: no JVD Heart: no murmur, no gallops, no rubs Respiratory: CTAB, no wheezes, no rales, no ronchi Gastrointestinal: diminished bowl sounds Gastrointestinal - other findings: belly distended Extremities: no cyanosis, no clubbing, no edema Skin: normal turgor, no lesions, no rashes Neurological - Mental status; the patient is alert and oriented to person, place, and time. Speech is clear. Motor; muscle tone and bulk are normal, moving all 4 extremities equally and symmetrically. Sensory, withdraws to nailbed pressure bilaterally. Cerebellar, finger-nose testing intact. Gait deferred due to the patient's safety reason. DATA REVIEWED: I reviewed the head CT, which was negative for acute intracranial pathology. EKG showed paced rhythm. EEG pending. ASSESSMENT AND PLAN: Mr. Cedric Navarrete was consulted for episodes of staring off in space to rule out seizures. ProvokeD seizures secondary to metabolic or infectious etiology are in the differential. He has no prior history of seizures per . Head CT reviewed, which was negative for acute intracranial pathology, hemorrhage, or mass. EEG ongoing. We will follow up on the results. Consider MRI brain to evaluate for seizure focus. Neuro checks every 4 hours. Observe seizure precautions. Further recommendations will depend on the results of the testing. Continue medical management per primary team and by Medicine and Surgery teams. PT/OT/speech. We will continue to follow. Thank you for the consult. Job ID: [id number] MTDD
[2020-06-11] MEDS ORDERED: Phenylephrine 10 MG/ML VIAL ONE (16:29)
[2020-06-11] MEDS ORDERED: Norepinephrine 4 MG/4 ML VIAL ONE (16:29)
--- NOTE | 2020-06-11 17:11 | PDOC.EEG ---
Neurology EEG Report - Report Report: This EEG was performed using 24 channel [employer] video EEG machine with 24 disc yenifer ctrodes. This was an extended 2 hours 10 minutes of inpatient video EEG recording. Digital analysis of the EEG was done for spike and seizure detection which revealed no abnormalities. Background: There is a nonsustained posterior background rhythm of 6-7 Hz. Hyperventilation: Not performed. Photic Stimulation: No significant response. Sleep: No stage change is observed. EEG Diagnosis: Generalized irregular theta activity seen during the reording. Slow nonsustained Posterior background rhythm. Clinical Interpretation: This EEG is consistent with mild to moderate generalized nonspecific cerebral dysfunction.
--- NOTE | 2020-06-11 18:08 | CON ---
DATE OF CONSULTATION: REASON FOR CONSULT: Leukocytosis. HISTORY OF PRESENT ILLNESS: Mr. Navarrete is a pleasant 75-year-old gentleman, who had a recent laminectomy and then had pseudomeningeal complication. He was admitted and discharged on May 28. Three days later, he became ill with severe abdominal pain. CT scan showed a perforated colon. He underwent resection by Dr. Riley on June 02. Over the course of his hospital stay, he has developed pneumonia. He has also had increasing leukocytosis. Yesterday, he had a white count of 19. Overnight, it went up to 39.6. The patient is also having episodes of unresponsiveness with glazed eyes and passing out. It is unclear if this is actually a seizure. He is currently being worked up for this. The patient was seen at bedside with his present. He is sleepy, but denies any complaints at this time. PAST MEDICAL HISTORY: 1. Atrial fibrillation. 2. Hypertension. 3. Hernia. 4. Anxiety. 5. Back pain. PAST SURGICAL HISTORY: 1. Laminectomy. 2. Hernia repair. 3. Pacemaker placement. ALLERGIES: NO KNOWN DRUG ALLERGIES. CURRENT MEDICATIONS: 1. Tylenol. 2. [place]. 3. Cardizem. 4. Benadryl. 5. Lovenox. 6. Humalog. 7. Meropenem. 8. Morphine. 9. Zofran. 10. Protonix. 11. Phenergan. 12. Ambien. FAMILY HISTORY: Noncontributory. SOCIAL HISTORY: , lives with his spouse. No alcohol, tobacco, or illicit drug use. REVIEW OF SYSTEMS: Negative. PHYSICAL EXAMINATION: VITAL SIGNS: Temperature 98.1, pulse is 71, respiratory rate 20, blood pressure is 94/56. He is 100% on 3 L. GENERAL: A well-developed, well-nourished male, in no acute distress. HEENT: He is normocephalic, atraumatic. NECK: Supple. CV: Regular rate and rhythm. He has a 3/6 murmur. LUNGS: Clear anterior. ABDOMEN: Soft. He has midline incision. No drainage. EXTREMITIES: No clubbing or cyanosis. NEUROLOGICAL: Nonfocal. PERTINENT LABORATORY DATA AND X-RAYS: WBCs 39.6, hemoglobin 10.8, hematocrit 34.1, platelet count is 411, 82% neutrophils, 13% bands, 5% lymphocytes. Sodium 133, potassium 3.7, chloride 101, CO2 is 18, BUN is 15, creatinine is 0.97, calcium is 7.9. Radiology: Abdomen and pelvis CT scan this morning shows a large mixed density fluid collection consistent with a hematoma. ASSESSMENT: 1. Recent laminectomy with a pseudomeningocele. 2. Perforated bowel, status post repair. 3. Leukocytosis. 4. Abdominal hematoma postoperatively. DISCUSSION: The patient's labs were reviewed. His peripheral smear is normal. His leukocytosis is likely reactive. Progressing in light of new finding of abdominal fluid collection. Recommend following his CBC and continuing antibiotics. He does not require any further workup for his elevated white count at this time. Case has been discussed with Dr. Daugherty. Thank you for the consult. Job ID: [id number]
[2020-06-11] MEDS ORDERED: Albumin 5% 500 ML ONE (18:52)
[2020-06-11] MEDS ORDERED: Promethazine HCl 25 MG/ML VIAL IM PRN (19:45)
[2020-06-11] MEDS ORDERED: Promethazine HCl 25 MG/ML VIAL SLOW IVP PRN (19:45)
[2020-06-11] MEDS ORDERED: Ondansetron HCl/PF 4 MG/2 ML Vial IVP PRN (19:45)
[2020-06-11] MEDS: Pantoprazole 40 MG VIAL IVP SCH (22:16)
[2020-06-12] MEDS: D5 1/2 NS w/20 mEq KCL 1,000 ML IV SCH ×2 (00:51→09:43)
[2020-06-12] MEDS: Meropenem 2 GM in Sodium Chloride 0.9% 100 ML IVPB SCH ×3 (05:02→21:10)
[2020-06-12] MEDS: Loratadine 10 MG TAB PO SCH (09:04)
[2020-06-12] MEDS: Enoxaparin Sodium 80 MG/0.8 ML SYRINGE SC SCH ×2 (09:04→21:10)
[2020-06-12] MEDS: Acetaminophen 500 MG TAB PO PRN ×2 (09:36→21:10)
[2020-06-12 11:01] LABS: Hemoglobin 8.3 g/dL (14.0-18.0); Mean Corpuscular HGB CONC 32.4 g/dL (32.0-36.0); Mean Corpuscular Hemoglobin 31.7 pg (27.0-31.0); Mean Corpuscular Volume 97.9 fL (78.0-98.0); Mean Platelet Volume 6.7 fL (7.4-10.4); Platelet Count 371 thou/uL (130-400); RBC Distribution Width 13.8 % (11.5-14.5); Red Blood Cell (RBC) Count 2.62 mill/uL (4.70-6.10); White Blood Cell (WBC) Count 21.4 thou/uL (4.8-10.8)
[2020-06-12 11:14] LABS: Hemoglobin 8.1 g/dL (14.0-18.0); Mean Corpuscular Hemoglobin 31.4 pg (27.0-31.0); Mean Corpuscular Volume 98.3 fL (78.0-98.0); Mean Platelet Volume 6.8 fL (7.4-10.4); Platelet Count 371 thou/uL (130-400); RBC Distribution Width 13.8 % (11.5-14.5); Red Blood Cell (RBC) Count 2.59 mill/uL (4.70-6.10); White Blood Cell (WBC) Count 20.9 thou/uL (4.8-10.8)
[2020-06-12 11:48] LABS: Band 8 % (5-11); Elliptocytes SLIGHT = 2-5 cells (100X) (0-1/hpf); MDiff Complete? YES; Monocytes 1 % (0-10); Neutrophil 91 % (42-75); Ovalocytes SLIGHT = 2-5 cells (100X) (0-1/hpf); Platelet Morphology Comment Appears Adequate; Polychromasia SLIGHT = 2-3 cells (100X) (0-2/hpf)
[2020-06-12 12:03] LABS: Anion Gap 13 mmol/L (10-20); BUN (Urea Nitrogen) 19 mg/dL (8.4-25.7); Calc. Creatinine Clearance 45 mL/min (70-130); Calcium 7.1 mg/dL (7.8-10.44); Carbon Dioxide 22 mmol/L (23-31); Chloride 101 mmol/L (98-107); Glucose 103 mg/dL (83-110); Potassium 3.8 mmol/L (3.5-5.1); Sodium 132 mmol/L (136-145)
--- NOTE | 2020-06-12 12:15 | PDOC.GSPN ---
Surgery Progress Note: Subj - Subjective Narrative: Doing reasonably well. Pain at drain and trocar site. Drain output thin sanguinous. Denies nausea or vomiting. Gas in ostomy bag. Febrile to 100.3. Surgery Progress Note: Obj - Vital signs Vital signs: Vital Signs - Most Recent Temp Pulse Resp BP Pulse Ox 103.4 F H 67 20 105/58 L 96 06/12/20 11:42 06/12/20 11:42 06/12/20 11:42 06/12/20 11:42 06/12/20 11:42 - Physical Exam General: no distress Cardiovascular: regular rate and rhythm Respiratory: normal expansion Abdomen: soft, other (Moderately tender at incision sites. Ostomy patent with flatus.) Surgery Progress Note: Results - Labs Result Diagrams: 06/12/20 11:04 06/12/20 10:38 Lab results: Laboratory Results - last 12 hr 06/12/20 06/12/20 06/12/20 05:53 10:38 10:38 WBC 21.4 H RBC 2.62 L Hgb 8.3 L Hct 25.6 L MCV 97.9 MCH 31.7 H MCHC 32.4 RDW 13.8 Plt Count 371 MPV 6.7 L Neutrophils % (Manual) 91 H Band Neuts % (Manual) 8 Monocytes % (Manual) 1 Lymphocytes # Not Reportable Plt Morphology Comment Appears Adequate Polychromasia SLIGHT = 2-3 cells Ovalocytes SLIGHT = 2-5 cells Elliptocytes SLIGHT = 2-5 cells Acanthocytes (Spur) SLIGHT = 1-5 cells Sodium 132 L Potassium 3.8 Chloride 101 Carbon Dioxide 22 L Anion Gap 13 BUN 19 Creatinine 1.49 H Estimated GFR (MDRD) 46 Glucose 103 POC Glucose 66 L Calcium 7.1 L 06/12/20 06/12/20 11:04 11:11 WBC 20.9 H RBC 2.59 L Hgb 8.1 L Hct 25.4 L MCV 98.3 H MCH 31.4 H MCHC 32.0 RDW 13.8 Plt Count 371 MPV 6.8 L Neutrophils % (Manual) Band Neuts % (Manual) Monocytes % (Manual) Lymphocytes # Plt Morphology Comment Polychromasia Ovalocytes Elliptocytes Acanthocytes (Spur) Sodium Potassium Chloride Carbon Dioxide Anion Gap BUN Creatinine Estimated GFR (MDRD) Glucose POC Glucose 82 Calcium - Radiology Interpretation CT scan - abdomen Additional comments: Large fluid collection behind the rectum adjacent to anastomosis. Read as hematoma; however, given the patient's leukocytosis and recent low anterior resection with primary anastomosis, this likely represents an anastomotic disruption. Surgery Progress Note: A/P - Problem (1) Intestinal anastomotic disruption Current Visit: Yes Code(s): K92.9 - DISEASE OF DIGESTIVE SYSTEM, UNSPECIFIED Status: Acute - Plan Plan: Continue current management. Continue CLD. Plan to transition to regular diet in the next 48hrs. 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
--- NOTE | 2020-06-12 17:16 | PDOC.HOSPP ---
- Subjective Encounter Date: 06/12/20 Encounter Time: 08:00 Subjective: F/u: abdominal pain Yesterday the patient underwent drainage of intraperitoneal abscess and had placement of a drain and end colostomy The patient has mild abdominal soreness near the surgical site. No nausea or vomiting. He did not eat his breakfast this morning and was sleeping. is hoping that he will eat lunch . is requesting the patient receive no narcotics for pain unless severe because she feels it is affecting his mentation EEG showed no seizures but mild to moderate generalized cerebral dysfunction - Objective Vital Signs & Weight: Vital Signs (12 hours) Temp Pulse Pulse Resp BP BP BP 06/12/20 15:15 98.2 F 64 22 H 105/55 L 06/12/20 13:35 65 18 06/12/20 13:08 101.5 F H 06/12/20 11:42 103.4 F H 67 20 105/58 L 06/12/20 11:19 65 105/58 L 06/12/20 09:36 100.3 F H 06/12/20 09:18 06/12/20 09:04 65 114/59 L 06/12/20 09:00 100.3 F H 65 22 H 114/59 L 06/12/20 08:09 66 16 Pulse Ox Pulse Ox 06/12/20 15:15 98 06/12/20 13:35 92 L 06/12/20 13:08 06/12/20 11:42 96 06/12/20 11:19 98 06/12/20 09:36 06/12/20 09:18 95 06/12/20 09:04 06/12/20 09:00 95 06/12/20 08:09 Weight Admit Weight 148 lb 5.938 oz Weight 162 lb Most Recent Monitor Data Heart Rate from ECG 71 NIBP 136/81 NIBP BP-Mean 99 Respiration from ECG 25 SpO2 96 I&O: 06/11/20 06/12/20 06/13/20 06:59 06:59 06:59 Intake Total 1190 150 760 Output Total 425 270 Balance 1190 -275 490 Result Diagrams: 06/12/20 11:04 06/12/20 10:38 Additional Labs: Accuchecks 06/12/20 06/12/20 06/11/20 11:11 05:53 22:29 POC Glucose 82 66 L 78 Hospitalist ROS - Review of Systems Constitutional: denies: fever, chills - Medication Medications: Active Medications Generic Name Dose Route Start Last Admin Trade Name Rafael PRN Reason Stop Dose Admin Acetaminophen 1,000 mg 06/04/20 05:53 06/12/20 09:36 Acetaminophen 500 Mg Tab PO 1,000 mg Q6H PRN Administration Headache/Fever or Pain Albuterol/Ipratropium 3 ml 06/02/20 13:00 06/12/20 13:35 Ipratropium/Albuterol Sulfate 3 Ml Neb NEB 3 ml [id number] CHIDI Administration Calcium Carbonate 1,000 mg 06/10/20 17:14 06/10/20 17:36 Calcium Carbonate 500 Mg Chewtab PO 1,000 mg Q4H PRN Administration Heartburn or Indigestion Dextrose/Water 25 gm 06/02/20 04:50 06/02/20 04:59 Dextrose 50% Abboject 50 Ml Syringe SLOW IVP 25 gm PRN PRN Administration Hypoglycemia Diltiazem HCl 120 mg 06/02/20 09:00 06/12/20 09:04 Diltiazem Cd 120 Mg Cap PO 120 mg QAM CHIDI Administration Diphenhydramine HCl 25 mg 06/01/20 02:24 06/09/20 21:57 Diphenhydramine 50 Mg/Ml Vial IVP 25 mg Q3H PRN Administration Itching Enoxaparin Sodium 70 mg 06/04/20 09:00 06/12/20 09:04 Enoxaparin Sodium 80 Mg/0.8 Ml Syringe SC 70 mg 0900,2100 CHIDI Administration Hydralazine HCl 10 mg 06/01/20 02:31 06/03/20 22:05 Hydralazine 20 Mg/Ml Vial SLOW IVP 10 mg Q4H PRN Administration SBP > 170 or DBP > 100 Meropenem 2 gm/ Sodium 100 mls @ 100 mls/hr 06/11/20 13:00 06/12/20 13:01 Chloride IVPB 100 mls 0500,1300,2100 CHIDI Administration Potassium Chloride/Dextrose/Sod Cl 1,000 mls @ 75 mls/hr 06/11/20 19:45 06/12/20 09:43 D5 1/2 Ns W/20 Meq Kcl IV Not Given .[id number] CHIDI Loratadine 10 mg 06/10/20 09:00 06/12/20 09:04 Loratadine 10 Mg Tab PO 10 mg DAILY CHIDI Administration Ondansetron HCl 4 mg 06/01/20 02:31 06/06/20 21:25 Ondansetron Pf 4 Mg/2 Ml Vial IVP 4 mg Q6H PRN Administration Nausea/Vomiting Pantoprazole Sodium 40 mg 06/03/20 21:00 06/11/20 22:16 Pantoprazole 40 Mg Vial IVP 40 mg HS CHIDI Administration Sodium Chloride 10 ml 06/01/20 02:31 06/11/20 09:38 Flush - Normal Saline 10 Ml Syringe IVF 10 ml PRN PRN Administration Saline Flush - Exam General Appearance: NAD, awake alert Eye: PERRL, anicteric sclera ENT: no oropharyngeal lesions Neck: supple, no JVD Heart: RRR, no murmur, no gallops, no rubs Respiratory: CTAB, no wheezes, no rales Gastrointestinal: soft, non-distended, normal bowel sounds Gastrointestinal - other findings: RLQ tenderness. ADELAIDA drain in place . Colostomy in place Extremities: no cyanosis, no clubbing, no edema Skin: normal turgor, no lesions Neurological: normal sensation to touch Hosp A/P - Plan Vascular US left: extensive DVT left upper extremity with near occlusive clot within IJV and occlusive DVT in left subclavian and left axillary vein Chest X ray 06/02: right basilar atelectasis vs infiltrate This is a 75 year old male who presented with abdominal pain, nausea and vomiting, was found to have a perforated diverticulitis. He underwent diagnostic laparoscopy with low anterior resection with primary anastamosis and mobilization of splenic flexure He had increasing leukocytosis. Repeat CT scan of the abdomen/pelvis showed possible 10 cm hematoma. Patient was taken back to the OR on 06/12 and was found to have mild intraperitoneal abscess and an end colostomy was placed #Perforated diverticulitis s/p low anterior resection complicated by intraperitoneal abscess s/p drain placement and end colostomy - patient is postop day 1 for abscess drainage. Continue IV meropenem, WBC is coming down to 21 - continue with physical therapy #Acute metabolic encephalopathy - patient had multiple episodes of blank staring spells. Neurology consulted. EEG performed showed generalized cerebral dysfunction - narcotics discontinued per request. Will order tylenol prn instead #Leukocytosis - improving #Right lower lobe pneumonia - continue meropenem for now. Hematology was consulted, will monitor. Likely secondary to infection Syncope - likely vasovagal vs med related - EKG shows paced rhythm. ABG unremarkable. CT head normal . Narcotics discontinued Left leg weakness - patient states this is chronic. CT head normal Hypokalemia -Resolved Anemia - Hb 11, B12/folate/ TSH normal Gout - continue allopurinol AFib - continue diltiazem
[2020-06-12] MEDS: Dextrose 5 % And 0.9 % NaCl 1,000 ML IV SCH (21:10)
[2020-06-12] MEDS: Pantoprazole 40 MG VIAL IVP SCH (21:10)
[2020-06-13] MEDS ORDERED: VANC/ABX IVPB PRN (02:05)
[2020-06-13 02:06] LABS: #Lymphocytes 0.6 thou/uL (1.20-3.40); #Monocytes 0.2 thou/uL (0.11-0.59); #Neutrophils 12.6 thou/uL (1.40-6.50); %Eosinophils 0.1 % (0.0-10.0); %Lymphocytes 4.6 % (21.0-51.0); %Monocytes 1.6 % (0.0-10.0); %Neutrophils 93.7 % (42.0-75.0); Hemoglobin 7.2 g/dL (14.0-18.0); Mean Corpuscular HGB CONC 33.1 g/dL (32.0-36.0); Mean Corpuscular Hemoglobin 31.8 pg (27.0-31.0); Mean Corpuscular Volume 96.1 fL (78.0-98.0); Mean Platelet Volume 6.6 fL (7.4-10.4); Platelet Count 335 thou/uL (130-400); RBC Distribution Width 13.8 % (11.5-14.5); Red Blood Cell (RBC) Count 2.25 mill/uL (4.70-6.10); White Blood Cell (WBC) Count 13.4 thou/uL (4.8-10.8)
[2020-06-13 02:26] LABS: Anion Gap 12 mmol/L (10-20); BUN (Urea Nitrogen) 26 mg/dL (8.4-25.7); Calc. Creatinine Clearance 36 mL/min (70-130); Calcium 6.6 mg/dL (7.8-10.44); Carbon Dioxide 20 mmol/L (23-31); Chloride 99 mmol/L (98-107); Glucose 96 mg/dL (83-110); Potassium 3.9 mmol/L (3.5-5.1); Sodium 127 mmol/L (136-145)
[2020-06-13 02:32] LABS: Anion Gap 12 mmol/L (10-20); BUN (Urea Nitrogen) 26 mg/dL (8.4-25.7); Calc. Creatinine Clearance 35 mL/min (70-130); Calcium 6.6 mg/dL (7.8-10.44); Carbon Dioxide 19 mmol/L (23-31); Chloride 100 mmol/L (98-107); Glucose 94 mg/dL (83-110); Sodium 127 mmol/L (136-145)
[2020-06-13 02:52] LABS: CKMB 0.4 ng/mL (0-6.6)
[2020-06-13] MEDS ORDERED: Sodium Chloride 0.9% 500 ML IV SCH (03:00)
[2020-06-13] MEDS ORDERED: Vancomycin 1 GM in Premix Bag 1 BAG IVPB SCH (03:00)
[2020-06-13] MEDS: Vancomycin HCl 1.25 GM in Sodium Chloride 0.9% 250 ML 250 ML IVPB SCH (03:06)
[2020-06-13 03:13] LABS: Actual Bicarbonate (HCO3a) 20.4 mEq/L (22-28); Base Excess (BEa) -2.8 mEq/L (-2.0 to +3.0); Calcium, Ionized (arterial) 0.97 mmol/L (1.12-1.30); Carboxyhemoglobin (COHb) 0.5 gm% (0.0-3.0); Hemoglobin (Hb) 7.5 g/dL (14.0-18.0); O2 Tension (PaO2), arterial 66.4 mmHg (> 70.0); Potassium - ABG Lab 3.91 mmol/L (3.70-5.30); pH, Arterial 7.47 (7.35-7.45)
[2020-06-13 03:15] LABS: Puncture Site RRA
[2020-06-13] MEDS: Dextrose 5 % And 0.9 % NaCl 1,000 ML IV SCH ×2 (03:18→20:50)
--- NOTE | 2020-06-13 03:31 | PDOC.EVN ---
Event Note - Event Note Event Note: Pt with increasing SOB overnight requiring venti mask at 50 %. Patient denies chest pain, palpitations, abdominal pain. CXR showed interval worsening of pneumonia. Pt currently on meropenem, added vancomycin for MRSA coverage. Troponin mildly elevated at 0.3. Patient already on therapeutic lovenox for LE DVT. No chest pain or EKG changes. Will continue to trend troponins and monitor respiratory status closely. Case discussed with Dr. Molina.
[2020-06-13 07:35] LABS: CKMB 0.5 ng/mL (0-6.6)
--- NOTE | 2020-06-13 09:09 | RAD ---
Exam: Chest one view HISTORY:Shortness of breath. Leukocytosis. Comparison: 06/08/2020, 06/11/2020 FINDINGS: Cardiac silhouette:Persistent cardiomegaly. Stable left-sided single lead pacing device. Aorta: Atherosclerosis Pulmonary vessels: Normal Costophrenic angles: Clear LUNGS: Worsening interstitial and alveolar opacities. Pneumothorax: None Osseous abnormalities: None IMPRESSION: Worsening multi lobar COVID pneumonia.
--- NOTE | 2020-06-13 09:19 | RAD ---
Abdomen 1 view: 06/13/2020 2:02 AM HISTORY: 75-year-old male with abdominal pain COMPARISON: 2020 FINDINGS: New finding of gaseous distention of the stomach. The amount of bowel gas in small intestine and large intestine has significantly decreased. There is gas in the transverse colon. There is new enteric contrast material in the right colon. Air-filled small bowel loops are also present, but they do not appear to be dilated now. Midline skin seun overlying pelvis. Catheter across pelvis. Total right hip replacement arthroplasty hardware. Severe osteoarthrosis of left hip. IMPRESSION: 1.) New gaseous distention of the stomach. 2) interval resolution of the previously demonstrated gaseous distention of colon and small intestine . 3) severe osteoarthrosis of the left hip 4) interval laparotomy
[2020-06-13] MEDS: Meropenem 2 GM in Sodium Chloride 0.9% 100 ML IVPB SCH ×2 (10:22→20:49)
[2020-06-13] MEDS: Enoxaparin Sodium 80 MG/0.8 ML SYRINGE SC SCH ×2 (10:22→20:48)
[2020-06-13] MEDS: Loratadine 10 MG TAB PO SCH (11:33)
--- NOTE | 2020-06-13 13:10 | PDOC.HOSPP ---
- Subjective Encounter Date: 06/13/20 Encounter Time: 10:00 Subjective: F/u: hypoxia Overnight, the patient became hypoxic and desaturated. He was placed on a non- rebreather. Per nurse, he desaturates with mild movements to the 80's on the non-rebreather. Currently he is 100% Nurse has also told me patient seemed to aspirate on water overnight and on ice chips so they made him NPO. Patient is demanding to drink water. tells me she gave him a few sips of water and he seemed to do fine Speech has seen him and recommended ground thin diet with aspiration precautions - Objective Vital Signs & Weight: Vital Signs (12 hours) Temp Pulse Resp BP Pulse Ox 06/13/20 11:30 98.1 F 65 22 H 108/58 L 97 06/13/20 10:30 20 96 06/13/20 07:58 80 18 95 06/13/20 07:55 98.2 F 65 24 H 112/60 98 06/13/20 04:00 100 06/13/20 03:27 99.5 F 66 29 H 108/57 L 100 Weight Admit Weight 148 lb 5.938 oz Weight 178 lb Most Recent Monitor Data Heart Rate from ECG 71 NIBP 136/81 NIBP BP-Mean 99 Respiration from ECG 25 SpO2 96 I&O: 06/12/20 06/13/20 06/14/20 06:59 06:59 06:59 Intake Total 150 1750 Output Total 425 690 Balance -275 1060 Result Diagrams: 06/13/20 01:52 06/13/20 01:52 Additional Labs: Accuchecks 06/13/20 06/13/20 06/12/20 10:58 04:49 20:42 POC Glucose 94 92 93 06/12/20 17:13 POC Glucose 87 Hospitalist ROS - Review of Systems Constitutional: denies: fever, chills - Medication Medications: Active Medications Generic Name Dose Route Start Last Admin Trade Name Freq PRN Reason Stop Dose Admin Acetaminophen 1,000 mg 06/04/20 05:53 06/12/20 21:10 Acetaminophen 500 Mg Tab PO 1,000 mg Q6H PRN Administration Headache/Fever or Pain Albuterol/Ipratropium 3 ml 06/02/20 13:00 06/13/20 07:58 Ipratropium/Albuterol Sulfate 3 Ml Neb NEB 3 ml [id number] CHIDI Administration Calcium Carbonate 1,000 mg 06/10/20 17:14 06/10/20 17:36 Calcium Carbonate 500 Mg Chewtab PO 1,000 mg Q4H PRN Administration Heartburn or Indigestion Dextrose/Water 25 gm 06/02/20 04:50 06/02/20 04:59 Dextrose 50% Abboject 50 Ml Syringe SLOW IVP 25 gm PRN PRN Administration Hypoglycemia Diltiazem HCl 120 mg 06/02/20 09:00 06/13/20 11:32 Diltiazem Cd 120 Mg Cap PO 120 mg QAM CHIDI Administration Diphenhydramine HCl 25 mg 06/01/20 02:24 06/09/20 21:57 Diphenhydramine 50 Mg/Ml Vial IVP 25 mg Q3H PRN Administration Itching Enoxaparin Sodium 70 mg 06/04/20 09:00 06/13/20 10:22 Enoxaparin Sodium 80 Mg/0.8 Ml Syringe SC 70 mg 0900,2100 CHIDI Administration Hydralazine HCl 10 mg 06/01/20 02:31 06/03/20 22:05 Hydralazine 20 Mg/Ml Vial SLOW IVP 10 mg Q4H PRN Administration SBP > 170 or DBP > 100 Dextrose/Sodium Chloride 1,000 mls @ 75 mls/hr 06/12/20 17:30 06/13/20 03:18 D5 0.9% Ns IV 1,000 mls .[id number] CHIDI Administration Vancomycin HCl 1.25 gm/ Sodium 250 mls @ 166.667 mls/hr 06/13/20 03:00 06/13/20 03:06 Chloride IVPB 250 mls 0300 CHIDI Administration Meropenem 2 gm/ Sodium 100 mls @ 100 mls/hr 06/13/20 09:00 06/13/20 10:22 Chloride IVPB 100 mls Q12HR CHIDI Administration Loratadine 10 mg 06/10/20 09:00 06/13/20 11:33 Loratadine 10 Mg Tab PO 10 mg DAILY CHIDI Administration Ondansetron HCl 4 mg 06/01/20 02:31 06/06/20 21:25 Ondansetron Pf 4 Mg/2 Ml Vial IVP 4 mg Q6H PRN Administration Nausea/Vomiting Pantoprazole Sodium 40 mg 06/03/20 21:00 06/12/20 21:10 Pantoprazole 40 Mg Vial IVP 40 mg HS CHIDI Administration Sodium Chloride 10 ml 06/01/20 02:31 06/11/20 09:38 Flush - Normal Saline 10 Ml Syringe IVF 10 ml PRN PRN Administration Saline Flush - Exam General Appearance: NAD, awake alert General - other findings: on venti-mask Eye: PERRL, anicteric sclera ENT: normocephalic atraumatic, no oropharyngeal lesions Neck: no JVD Heart: RRR, no murmur, no gallops, no rubs Respiratory: CTAB, no wheezes, no rales, no ronchi Gastrointestinal: soft, non-tender, normal bowel sounds Extremities: no cyanosis, no clubbing, no edema Hosp A/P - Plan Vascular US left: extensive DVT left upper extremity with near occlusive clot within IJV and occlusive DVT in left subclavian and left axillary vein Chest X ray 06/02: right basilar atelectasis vs infiltrate Chest X ray 06/13: worsening bilateral pneumonia This is a 75 year old male who presented with abdominal pain, nausea and vomiting, was found to have a perforated diverticulitis. He underwent diagnostic laparoscopy with low anterior resection with primary anastamosis and mobilization of splenic flexure He had increasing leukocytosis. Repeat CT scan of the abdomen/pelvis showed possible 10 cm hematoma. Patient was taken back to the OR on 06/12 and was found to have mild intraperitoneal abscess and an end colostomy was placed. He seems to have aspirated and developed worsening bilateral pneumonia. #Perforated diverticulitis s/p low anterior resection complicated by intraperitoneal abscess s/p drain placement and end colostomy - patient is postop day 2 for abscess drainage. Continue IV meropenem, WBC is coming down to 13. Could probably discontinue on 06/18 - continue with physical therapy Acute hypoxic respiratory failure secondary to bilateral pneumonia - patient likely aspirated. He is on venti-mask, plan to wean back to nasal cannula - continue meropenem day 2. Vancomycin was added - troponins are elevated at 0.3. Will obtain an ECHO. Patient denies chest pain #Acute metabolic encephalopathy - resolving - patient had multiple episodes of blank staring spells. Neurology consulted. EEG performed showed generalized cerebral dysfunction - narcotics discontinued per request. #Leukocytosis - improving - WBC down to 13. Likely was from abscess that was drained. Oncology consulted ,no further intervention #Dysphagia - speech saw him and is recommending a ground/thin diet Physical deconditioning - advised PT to try to get to edge of bed. He has bed at [facility] when stable Syncope - likely vasovagal vs med related - EKG shows paced rhythm. ABG unremarkable. CT head normal . Narcotics discontinued Left leg weakness - patient states this is chronic. CT head normal Hypokalemia -Resolved History of iron deficiency Anemia - Hb 7 B12/folate/ TSH normal Gout - continue allopurinol AFib - continue diltiazem Dispo: d/c to [facility] if bed still available in 24-48 hours if oxygen requirement improving
--- NOTE | 2020-06-13 16:45 | PDOC.GSPN ---
Surgery Progress Note: Subj - Subjective Narrative: Doing better. Denies pain, nausea or vomiting. Primary complaints around shaking and chills. Surgery Progress Note: Obj - Vital signs Vital signs: Vital Signs - Most Recent Temp Pulse Resp BP Pulse Ox 99.2 F 65 24 H 107/58 L 96 06/13/20 15:30 06/13/20 15:30 06/13/20 15:30 06/13/20 15:30 06/13/20 15:30 - Physical Exam General: no distress ENT: other (productive cough c/w pneumonia.) Cardiovascular: regular rate and rhythm (paced) Respiratory: other (mildly tachypneic with productive cough. Requring 6L NC) Abdomen: soft, non tender, nondistended (ostomy patent and viable) Surgery Progress Note: Results - Labs Result Diagrams: 06/13/20 01:52 06/13/20 01:52 Lab results: Laboratory Results - last 12 hr 06/13/20 06/13/20 06/13/20 04:30 04:49 06:17 POC Glucose 92 CK-MB (CK-2) 0.5 Troponin I 0.359 H* 0.389 H* 06/13/20 10:58 POC Glucose 94 CK-MB (CK-2) Troponin I - Radiology Interpretation CT scan - abdomen Additional comments: Large fluid collection behind the rectum adjacent to anastomosis. Read as hematoma; however, given the patient's leukocytosis and recent low anterior resection with primary anastomosis, this likely represents an anastomotic disruption. Surgery Progress Note: A/P - Problem (1) Intestinal anastomotic disruption Current Visit: Yes Code(s): K92.9 - DISEASE OF DIGESTIVE SYSTEM, UNSPECIFIED Status: Acute - Plan Plan: Complicated diverticulitis (perforation): Status post low anterior resection with primary anastomosis c/b leak and subsequent laparoscopic Escobar's procedure and drain placement. Luekocytosis improving. Ostomy functioning. Okay to advance diet per speech recommendations. Pnuemonia: Likely due to aspiration. CXR worsening infiltrates. Recommend aggressive RT and continued ABX per hospitalist team. Hyponatremia: will change to NS Luekocytosis: Significantly improved after laparoscopic Escobar's procedure. Continue to trend. Confounded by worsening pneumonia. Left upper extremity DVT: Therapeutic Lovenox Postoperative pain control: stable. Narcotics discontinued. Bowel regimen Atrial fibrillation: Paced. Home diltiazem resumed Continue PT Hyperbilirubinemia: Unclear etiology. Baseline 2.5 prior to this admission. Will defer to outpatient follow-up. Disposition:Placement pending improvement of hypoxia.
[2020-06-13 17:00] LABS: Iron 10 ug/dL (65-175); Iron Binding Capacity, Total 116 mcg/dL (261-462)
[2020-06-13] MEDS ORDERED: Dextrose 50% Abboject 50 ML SYRINGE SLOW IVP SCH (17:00)
[2020-06-13] MEDS ORDERED: Calcium Gluconate 4.6 MEQ in Sodium Chloride 0.9% 100 ML IVPB SCH (17:30)
[2020-06-13 18:23] LABS: Anion Gap 14 mmol/L (10-20); BUN (Urea Nitrogen) 31 mg/dL (8.4-25.7); Calc. Creatinine Clearance 32 mL/min (70-130); Calcium 6.7 mg/dL (7.8-10.44); Carbon Dioxide 19 mmol/L (23-31); Chloride 99 mmol/L (98-107); Glucose 130 mg/dL (83-110); Potassium 4.3 mmol/L (3.5-5.1); Sodium 128 mmol/L (136-145)
[2020-06-13] MEDS: Pantoprazole 40 MG VIAL IVP SCH (20:49)
[2020-06-13] MEDS ORDERED: Acetaminophen 500 MG TAB PO PRN (21:49)
[2020-06-13] MEDS ORDERED: diphenhydrAMINE 25 MG CAP PO PRN (21:50)
[2020-06-14] MEDS: Vancomycin HCl 1.25 GM in Sodium Chloride 0.9% 250 ML 250 ML IVPB SCH (03:09)
[2020-06-14] MEDS: Acetaminophen 500 MG TAB PO PRN (08:52)
[2020-06-14] MEDS: Loratadine 10 MG TAB PO SCH (08:52)
[2020-06-14] MEDS: Enoxaparin Sodium 80 MG/0.8 ML SYRINGE SC SCH ×2 (08:53→20:00)
[2020-06-14] MEDS: Meropenem 2 GM in Sodium Chloride 0.9% 100 ML IVPB SCH ×2 (10:10→21:46)
[2020-06-14 10:16] LABS: #Eosinphils 0.1 thou/uL (0.0-0.7); #Lymphocytes 0.8 thou/uL (1.20-3.40); #Monocytes 0.2 thou/uL (0.11-0.59); %Eosinophils 0.8 % (0.0-10.0); %Lymphocytes 8.8 % (21.0-51.0); %Monocytes 1.9 % (0.0-10.0); %Neutrophils 88.5 % (42.0-75.0); Hemoglobin 7.2 g/dL (14.0-18.0); Mean Corpuscular HGB CONC 32.4 g/dL (32.0-36.0); Mean Corpuscular Hemoglobin 31.5 pg (27.0-31.0); Mean Corpuscular Volume 97.3 fL (78.0-98.0); Mean Platelet Volume 6.5 fL (7.4-10.4); Platelet Count 345 thou/uL (130-400); RBC Distribution Width 13.8 % (11.5-14.5); White Blood Cell (WBC) Count 9.1 thou/uL (4.8-10.8)
[2020-06-14] MEDS ORDERED: Furosemide 40 MG/4 ML VIAL SLOW IVP SCH (11:30)
[2020-06-14] MEDS: Dextrose 5 % And 0.9 % NaCl 1,000 ML IV SCH (11:52)
--- NOTE | 2020-06-14 12:01 | PDOC.HOSPP ---
- Subjective Encounter Date: 06/14/20 Subjective: First it was this patient. Reviewed his record. 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 Subsequently he had nausea vomiting and abdominal pain and was found to have diverticulitis. There is evidence of perforation and he underwent surgery with primary anastomoses. He subsequently had some leakage and abscess formation requiring a second surgery for her at Devyn pouch and ostomy placement. Patient was in the ICU on ventilator on for period of time. He has had some general debility but was able to transition out to telemetry. He subsequently has had some worsening respiratory issues and was felt to possibly have aspirated on some water. His chest x-ray from yesterday shows diffuse bilateral infiltrates concerning for Covid pneumonia based on radiology interpretation. Of note the patient has had a negative Covid test and has not really been out of the hospital since that time. It is noted that the patient went from nasal cannula oxygen up to 60 L of high flow at 93% with marginal saturations overnight. Today the patient reports he feels somewhat anxious. He feels like he needs to move his legs and get out of the bed. Requesting something for sleep. His is in the room with him today and appears equally anxious. She would like to get him out of the bed and moving. - Objective Vital Signs & Weight: Vital Signs (12 hours) Temp Pulse Resp BP BP Pulse Ox 06/14/20 07:38 98.5 F 65 21 H 118/63 92 L 06/14/20 03:36 92 L 06/14/20 03:20 36 H 93 L 06/14/20 03:00 99 F 62 44 H 134/77 86 L 06/14/20 01:18 68 42 H 90 L 06/14/20 01:16 90 L Weight Admit Weight 148 lb 5.938 oz Weight 178 lb Most Recent Monitor Data Heart Rate from ECG 71 NIBP 136/81 NIBP BP-Mean 99 Respiration from ECG 25 SpO2 96 I&O: 06/13/20 06/14/20 06/15/20 06:59 06:59 06:59 Intake Total 1750 3195 Output Total 690 305 650 Balance 1060 2890 -650 Result Diagrams: 06/14/20 10:02 06/13/20 17:53 Additional Labs: Accuchecks 06/14/20 06/14/20 06/13/20 10:57 05:48 19:59 POC Glucose 84 74 75 06/13/20 17:50 POC Glucose 122 H Hospitalist ROS - Medication Medications: Active Medications Generic Name Dose Route Start Last Admin Trade Name Freq PRN Reason Stop Dose Admin Acetaminophen 1,000 mg 06/04/20 05:53 06/14/20 08:52 Acetaminophen 500 Mg Tab PO 1,000 mg Q6H PRN Administration Headache/Fever or Pain Acetaminophen 1,000 mg 06/13/20 21:49 06/13/20 22:05 Acetaminophen 500 Mg Tab PO 1,000 mg HS PRN Administration Insomnia Albuterol/Ipratropium 3 ml 06/01/20 02:31 06/13/20 22:35 Ipratropium/Albuterol Sulfate 3 Ml Neb NEB 3 ml Q4H PRN Administration Wheezing Albuterol/Ipratropium 3 ml 06/02/20 13:00 06/14/20 09:06 Ipratropium/Albuterol Sulfate 3 Ml Neb NEB Not Given [id number] CHIDI Calcium Carbonate 1,000 mg 06/10/20 17:14 06/10/20 17:36 Calcium Carbonate 500 Mg Chewtab PO 1,000 mg Q4H PRN Administration Heartburn or Indigestion Dextrose/Water 25 gm 06/02/20 04:50 06/02/20 04:59 Dextrose 50% Abboject 50 Ml Syringe SLOW IVP 25 gm PRN PRN Administration Hypoglycemia Diltiazem HCl 120 mg 06/02/20 09:00 06/14/20 08:52 Diltiazem Cd 120 Mg Cap PO 120 mg QAM CHIDI Administration Diphenhydramine HCl 25 mg 06/01/20 02:24 06/09/20 21:57 Diphenhydramine 50 Mg/Ml Vial IVP 25 mg Q3H PRN Administration Itching Diphenhydramine HCl 50 mg 06/13/20 21:50 06/13/20 22:05 Diphenhydramine 25 Mg Cap PO 50 mg HS PRN Administration Insomnia Enoxaparin Sodium 70 mg 06/04/20 09:00 06/14/20 08:53 Enoxaparin Sodium 80 Mg/0.8 Ml Syringe SC 70 mg 0900,2100 CHIDI Administration Furosemide 40 mg 06/14/20 11:30 06/14/20 11:46 Furosemide 40 Mg/4 Ml Vial SLOW IVP 06/14/20 13:30 40 mg NOW CHIDI Administration Hydralazine HCl 10 mg 06/01/20 02:31 06/03/20 22:05 Hydralazine 20 Mg/Ml Vial SLOW IVP 10 mg Q4H PRN Administration SBP > 170 or DBP > 100 Vancomycin HCl 1.25 gm/ Sodium 250 mls @ 166.667 mls/hr 06/13/20 03:00 06/14/20 03:09 Chloride IVPB 250 mls 0300 CHIDI Administration Meropenem 2 gm/ Sodium 100 mls @ 100 mls/hr 06/13/20 09:00 06/14/20 10:10 Chloride IVPB 100 mls Q12HR CHIDI Administration Loratadine 10 mg 06/10/20 09:00 06/14/20 08:52 Loratadine 10 Mg Tab PO 10 mg DAILY CHIDI Administration Ondansetron HCl 4 mg 06/01/20 02:31 06/06/20 21:25 Ondansetron Pf 4 Mg/2 Ml Vial IVP 4 mg Q6H PRN Administration Nausea/Vomiting Pantoprazole Sodium 40 mg 06/03/20 21:00 06/13/20 20:49 Pantoprazole 40 Mg Vial IVP 40 mg HS CHIDI Administration Sodium Chloride 10 ml 06/01/20 02:31 06/11/20 09:38 Flush - Normal Saline 10 Ml Syringe IVF 10 ml PRN PRN Administration Saline Flush - Exam General Appearance: ill appearing General - other findings: High flow nasal cannula in place. Patient has audible rales and rhonchi. Heart: RRR, no murmur, no gallops Respiratory: no wheezes (Audible without a stethoscope), no ronchi (Audible without a stethoscope), rales (Diffuse bilateral), tachypneic (Increased work of breathing. Able to only speak few words at a time.) Gastrointestinal: soft, non-tender, non-distended, diminished bowl sounds Extremities: 1+ LE edema Neurological: no focal deficits Musculoskeletal: generalized weakness Psychiatric: normal affect, normal behavior, A&O x 3 Hosp A/P (1) Acute respiratory failure with hypoxia Code(s): J96.01 - ACUTE RESPIRATORY FAILURE WITH HYPOXIA Status: Acute (2) ARDS (adult respiratory distress syndrome) Code(s): J80 - ACUTE RESPIRATORY DISTRESS SYNDROME Status: Acute (3) Intestinal anastomotic disruption Code(s): K92.9 - DISEASE OF DIGESTIVE SYSTEM, UNSPECIFIED Status: Acute (4) Perforated sigmoid colon Code(s): K63.1 - PERFORATION OF INTESTINE (NONTRAUMATIC) Status: Acute (5) Acute blood loss anemia Code(s): D62 - ACUTE POSTHEMORRHAGIC ANEMIA Status: Acute (6) Atrial fibrillation with controlled ventricular rate Code(s): I48.91 - UNSPECIFIED ATRIAL FIBRILLATION Status: Chronic (7) BPH (benign prostatic hyperplasia) Code(s): N40.0 - BENIGN PROSTATIC HYPERPLASIA WITHOUT LOWER URINRY TRACT SYMP Status: Chronic (8) HTN (hypertension) Code(s): I10 - ESSENTIAL (PRIMARY) HYPERTENSION Status: Chronic (9) DVT (deep venous thrombosis) Code(s): I82.409 - ACUTE EMBOLISM AND THOMBOS UNSP DEEP VN UNSP LOWER EXTREMITY Status: Acute (10) Acute metabolic encephalopathy Code(s): G93.41 - METABOLIC ENCEPHALOPATHY Status: Acute (11) Acute kidney injury Code(s): N17.9 - ACUTE KIDNEY FAILURE, UNSPECIFIED Status: Acute (12) Dysphagia Code(s): R13.10 - DYSPHAGIA, UNSPECIFIED Status: Acute (13) Hyponatremia Code(s): E87.1 - HYPO-OSMOLALITY AND HYPONATREMIA Status: Acute (14) Hypocalcemia Code(s): E83.51 - HYPOCALCEMIA Status: Acute (15) Anorexia Code(s): R63.0 - ANOREXIA Status: Acute (16) Physical debility Code(s): R53.81 - OTHER MALAISE Status: Acute (17) Urinary retention Code(s): R33.9 - RETENTION OF URINE, UNSPECIFIED Status: Acute - Plan Acute respiratory failure with hypoxia: Patient appears to have diffuse bilateral infiltrates on chest x-ray. Concerning for ARDS in the wake of recent surgery and possible aspiration. He is also at risk for pulmonary embolus given the left upper extremity DVT. Patient has progressed substantially from 6 L of nasal cannula to 60 L of high flow on 93% FiO2. In spite of that the patient continues to have fairly labored breathing and worsening exam. Discussed with Dr. Stinson. We will move the patient to the ICU in anticipation of possible intubation. In the meantime we will work on underlying potential causes including anemia, volume overload, pneumonia. ARDS: Chest x-ray consistent with ARDS. Radiology interpretation suggest the possibility of Covid. Patient has had negative testing previously but will repeat to ensure the safety of the staff. As above. Acute kidney injury: Few days ago the patient was at a GFR of greater than 90. Today he is at 28. He has had steady progression of his renal decline. Consult nephrology. IV albumin. Postoperative anemia: Given his respiratory failure we will go ahead and transfuse although he is not below 7. Hoping this will increase his oxygen carrying capacity and provide some oncotic forces well. Urinary retention: Patient had a [place] which has now been removed. Subsequently the patient did not void. Bladder scan today revealed significant retention. In and out catheter revealed over 400 cc in the bladder. We will continue to monitor and replace the catheter as needed. Possible aspiration pneumonitis: Patient apparently had some aspiration on water. Could be contributing to the respiratory failure and chest x-ray findings although less likely given the diffuse nature. Patient remains on broad-spectrum antibiotics with vancomycin and meropenem. Dysphagia: Evaluated by speech. Continue to follow the recommendations for diet. Anorexia: Patient has not been eating much of late. Likely has worsening albumin levels. We will investigate that with labs. Hypocalcemia: Unclear if this would be normal with correction for low albumin. Checking albumin. If it remains low would consider some IV repletion. Hyponatremia: Patient has had worsening hyponatremia. Today his sodium is down to 128. May be some postoperative issues there but could be accounted for simply by fluid retention. We will continue to monitor following some Lasix. Lasix was administered prior to obtaining urine electrolytes and osmolality. Atrial fibrillation: Well-controlled continue with diltiazem and anticoagulation. DVT: Patient has extensive DVT of the left upper extremity. He remains on therapeutic level Lovenox. Perforated sigmoid diverticulitis: Status post initial surgery with subsequent surgery for Devyn pouch and ostomy placement. Patient appears to be doing reasonably well from a postoperative perspective itself other than the potential respiratory complications he is experiencing now. Continue with antibiotics. His white blood cell count has completely normalized and he is not tender in his abdomen at all. Disposition: Given his worsening respiratory symptoms and what appears to be an increased work of breathing which I am afraid cannot hold out I did discuss the case with Dr. Stinson. He agrees this is likely ARDS. Given his debility concern that he would not tolerate the BiPAP well either. Working on transferring him to the ICU. A long conversation with the patient and his regarding this move. They discussed at length whether they wanted to pursue possible reintubation. They are reluctant because his throat is sore from the original intubation. Ultimately they decided to move forward with what ever we felt would be necessary. There is definitely a shortage of ICU beds presently. In the interim working on giving him some blood, albumin and diuresis. Continue aggressive oxygen support.
[2020-06-14] MEDS ORDERED: Albumin 25% 25 GM/100 ML BOT IVPB SCH (12:15)
[2020-06-14 13:09] LABS: ALT (SGPT) 13 U/L (8-55); AST (SGOT) 55 U/L (5-34); Alkaline Phosphatase 56 U/L (40-110); Anion Gap 13 mmol/L (10-20); BUN (Urea Nitrogen) 35 mg/dL (8.4-25.7); Bilirubin, Total 0.9 mg/dL (0.2-1.2); Calc. Creatinine Clearance 28 mL/min (70-130); Calcium 6.4 mg/dL (7.8-10.44); Carbon Dioxide 17 mmol/L (23-31); Chloride 99 mmol/L (98-107); Globulin 2.2 g/dL (2.4-3.5); Glucose 81 mg/dL (83-110); Potassium 4.1 mmol/L (3.5-5.1); Protein, Total 4.2 g/dL (5.8-8.1); Sodium 125 mmol/L (136-145)
--- NOTE | 2020-06-14 15:12 | CON ---
DATE OF CONSULTATION: 06/14/2020 HISTORY OF PRESENT ILLNESS: Mr. Navarrete is a 75-year-old white male who has been referred for an acute kidney injury. This patient was recently admitted for an acute abdomen. He has undergone an exploratory laparotomy and underwent low-anterior resection due to findings of a perforated viscus. He underwent an end colostomy. Prior Devyn pouch has also been placed. He was at one time in the ICU on ventilator support due to respiratory issues. He has also been diagnosed with a right lower lobe pneumonia. His hospital course has been marred by episodes of ? seizure activity. Neurology has evaluated this patient. An EEG was done, which showed nonspecific cerebral dysfunction. REVIEW OF SYSTEM: Positive for generalized malaise. Positive for shortness of breath. No nausea. No vomiting. Decreased appetite. Decreased energy level. Denies any fever or chills. No gross hematuria. No dysuria. No urinary frequency. No abdominal pain. MEDICATIONS: Currently on: 1. Calcium carbonate 1000 mg q.4 p.r.n. 2. Acetaminophen 1000 mg nightly p.r.n. 3. Diltiazem CD 120 mg q.a.m. 4. Lovenox 70 mg q.12. 5. Furosemide, on hold. 6. Humalog sliding scale. 7. DuoNeb q.4 p.r.n. 8. Meropenem 2 g IV q.12 h. 9. Protonix 40 mg IV nightly. 10. Vancomycin 1.25 g IV daily. 11. Zolpidem 5 mg nightly p.r.n. PAST MEDICAL HISTORY: 1. Recently, a right lower lobe pneumonia with diffuse infiltrates. 2. ? of seizure disorder. 3. Status post GI bleed with ulcer ablation. 4. Status post CVA. 5. Chronic AFib. 6. Status post nephrolithiasis. 7. Hypertension. 8. BPH. 9. Gastric ulcer. PAST SURGICAL HISTORY: 1. Status post upper GI endoscopy. 2. Status post right inguinal hernia repair. 3. Status post exploratory laparotomy for perforated viscus and end colostomy placement, status post low-anterior resection. 4. Status post CSF leak repair. 5. Status post back surgery, laminectomy of L3 through L5. 6. Status post pacemaker placement. SOCIAL HISTORY: The patient is . 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 Lives in [place]. He lives with significant other. Currently, no smoking or alcohol intake. ALLERGIES: NO KNOWN DRUG ALLERGIES. TRAUMA: None. IMMUNIZATION: Up-to-date. HOSPITALIZATIONS: Please see past medical history. FAMILY HISTORY: No family history of ESRD. PHYSICAL EXAMINATION: VITAL SIGNS: Blood pressure is 118/60, heart rate 65, respiratory rate 21, O2 saturation 92% on high-flow O2, and temperature 98.5. GENERAL: The patient is awake, lethargic, not in overt distress. SKIN: Adequate turgor. HEENT: He has a slightly pale conjunctivae. Anicteric sclerae. NECK: No neck masses. No carotid bruits. No JVD. CHEST: No deformities. LUNGS: Decreased breath sounds. HEART: Normal sinus rhythm. No murmur. No gallops. No rubs. ABDOMEN: Globular, soft, and nontender. No masses. Diminished bowel sounds. EXTREMITIES: Positive for edema. NEUROLOGIC: No tremors. No asterixis. LABORATORY DATA: On 06/14/2020: White count 9.1, hemoglobin 7.2, and hematocrit 22.3. Sodium 125, potassium 4.1, chloride 99, carbon dioxide 17, BUN 35, creatinine 2.6, GFR 24 mL/minute, and calcium 6.4. AST 55 and ALT 13. Further review of the creatinine shows the following; on 06/13/2020, creatinine 2.31; on 06/12/2020, creatinine 1.49; 06/11/2020, creatinine 0.97. Chest x-ray; multifocal infiltrates, pulmonary vessels are within normal. Cardiac echo of 06/13/2020, EF is said to be within normal. Urinalysis of 06/06/2020, specific gravity 1.034, no casts noted. ASSESSMENT AND PLAN: 1. Acute kidney injury, consider hemodynamically-mediated renal dysfunction. However, I will repeat urinalysis to rule out any superimposed acute tubular necrosis. For the moment, agree with empiric volume repletion with this patient. Albumin infusion will be extended for a total of 4 more doses. No indication for any dialytic intervention. 2. Status post acute abdomen, the patient has undergone a low-anterior resection for perforated viscus and has an end colostomy. 3. Pneumonia/respiratory distress, chest x-ray showed multifocal infiltrates. Please note, he has been tested for COVID-19 and remains negative. Overall prognosis remains guarded with this patient. Recheck basic metabolic and CBC. We will check urinalysis and urine chemistries. Job ID: [id number]
[2020-06-14 16:07] LABS: SARS-CoV-2 MS2 Positive; SARS-CoV-2 N Gene Positive; SARS-CoV-2 S Gene Positive; SARS-CoV-2 by NAA DETECTED (NotDetected); SARS-CoV-2 orf1ab Positive
--- NOTE | 2020-06-14 17:18 | CON ---
DATE OF CONSULTATION: SUBJECTIVE: Mr. Navarrete is a 75-year-old male who was admitted on 05/31. At that time, he had a negative COVID screen. He has been to the operating room. Apparently, he has had a decline in respiratory status. CT of his chest on the was suggestive of a right lower lobe alveolar infiltrate, consistent with pneumonia. No pulmonary embolism. He was transferred to critical care unit for BiPAP support. He was not doing well on high-flow oxygen. Apparently, his COVID screen was repeated today and he now has a positive COVID test. He has a normal ejection fraction. I met with the and answered all of her questions. PAST MEDICAL HISTORY: Remarkable for: 1. ? Seizures. 2. History of GI bleed. 3. History of CVA. 4. History of atrial fibrillation. 5. History of nephrolithiasis. 6. Hypertension. 7. BPH. 8. History of ulcer disease. 9. History of inguinal herniorrhaphy. 10. History of perforated viscus, leading to surgery this admission. 11. History of back surgery and a CSF leak recently. 12. History of pacemaker. FAMILY HISTORY: Negative for lung disease in early age. REVIEW OF SYSTEMS: Otherwise negative. PHYSICAL EXAMINATION: VITAL SIGNS: He is afebrile, heart rate is in the 60s, blood pressure 129/68, his high-flow saturations were in mid 90s. HEAD AND NECK: Unremarkable. LUNGS: Distant and clear. HEART: Regular rhythm. ABDOMEN: Soft with no abdominal tenderness. EXTREMITIES: Without asymmetry. DIAGNOSTIC STUDIES: I reviewed his radiographs. His chest radiograph yesterday shows diffuse infiltrates. IMPRESSION: Diffuse infiltrates, consistent with COVID pneumonia. He is moving to critical care unit for BiPAP. Job ID: [id number]
--- NOTE | 2020-06-14 17:18 | PDOC.EVN ---
Event Note - Event Note Event Note: Patient was Covid positive. He is currently on BiPAP in the ICU. He cannot get remdesivir because of his worsening renal function. Steroids are probably not a great idea given that he is fairly immediately postop at this point. May be able to start steroids as early as tomorrow if okay with surgery. Discussed the results with the patient. He was equivocating on whether he will need intubation based on ARDS. The fact that it is Covid might make the prognosis for coming off the ventilator slightly worse. His has left temporarily to go to a hotel to get a shower and some rest. When she comes back they will need to discuss this further.
[2020-06-14 17:42] LABS: Bacteria/HPF None Seen HPF (None Seen); Bilirubin Negative (Negative); Blood, Urine 2+ (Negative); Clarity Clear (Clear); Glucose, Urine (Dipstick) Normal (Negative); Ketone, Urine Negative (Negative); Leukocyte 75 Leu/uL (Negative); Nitrite Negative (Negative); Protein, Urine (Dipstick) 20 mg/dL (Neg-Trace); Specific Gravity, Urine 1.007 (1.002-1.036); Squamous Epithelial 0-3 HPF (0-3); Urobilinogen Normal mg/dL (Less than 2); pH, Urine 6.5 (5.0-9.0)
[2020-06-14 17:44] LABS: Urine Culture Reflex Yes Yes
[2020-06-14 17:57] LABS: Creatinine, Urine Less than 20.00 mg/dL (63-166); Sodium, Urine 75 mmol/L (Not Available)
[2020-06-14] MEDS ORDERED: Lorazepam 2 MG/ML VIAL SLOW IVP PRN (18:50)
[2020-06-14 18:52] LABS: Hemoglobin 8.5 g/dL (14.0-18.0); Platelet Count 362 thou/uL (130-400)
[2020-06-14] MEDS: Pantoprazole 40 MG VIAL IVP SCH (20:00)
[2020-06-15 02:30] LABS: Vancomycin, Trough 22.2 ug/mL
[2020-06-15] MEDS: Vancomycin HCl 1.25 GM in Sodium Chloride 0.9% 250 ML 250 ML IVPB SCH (04:05)
[2020-06-15] MEDS: Vancomycin 1 GM in Premix Bag 1 BAG IVPB SCH (04:09)
[2020-06-15] MEDS: Loratadine 10 MG TAB PO SCH (08:05)
[2020-06-15] MEDS: Enoxaparin Sodium 80 MG/0.8 ML SYRINGE SC SCH (08:05)
[2020-06-15 08:06] VITALS: BP 124/56
[2020-06-15] MEDS: Meropenem 2 GM in Sodium Chloride 0.9% 100 ML IVPB SCH ×2 (08:11→20:40)
--- NOTE | 2020-06-15 10:17 | PDOC.HOSPP ---
- Subjective Encounter Date: 06/15/20 Subjective: Patient reports he is feeling much better today. Feels like he is breathing better with the BiPAP. - Objective Vital Signs & Weight: Vital Signs (12 hours) Temp Pulse Resp BP Pulse Ox 06/15/20 08:05 65 124/56 L 06/15/20 08:00 99.2 F 06/15/20 07:15 35 L 36 H 97 06/15/20 07:13 65 36 H 97 06/15/20 04:00 98.5 F 06/15/20 00:17 65 97 06/15/20 00:00 99.6 F Weight Admit Weight 148 lb 5.938 oz Weight 176 lb 9.444 oz Most Recent Monitor Data Heart Rate from ECG 65 NIBP 120/70 NIBP BP-Mean 86 Respiration from ECG 22 SpO2 98 I&O: 06/14/20 06/15/20 06/16/20 06:59 06:59 06:59 Intake Total 3195 450 125 Output Total 305 2635 200 Balance 2890 -2185 -75 Result Diagrams: 06/14/20 18:44 06/14/20 10:02 Additional Labs: Accuchecks 06/15/20 06/14/20 06/14/20 06:10 21:50 17:03 POC Glucose 63 L 64 L 70 06/14/20 06/13/20 10:57 16:39 POC Glucose 84 43 L* Hospitalist ROS - Medication Medications: Active Medications Generic Name Dose Route Start Last Admin Trade Name Freq PRN Reason Stop Dose Admin Acetaminophen 1,000 mg 06/04/20 05:53 06/14/20 08:52 Acetaminophen 500 Mg Tab PO 1,000 mg Q6H PRN Administration Headache/Fever or Pain Acetaminophen 1,000 mg 06/13/20 21:49 06/13/20 22:05 Acetaminophen 500 Mg Tab PO 1,000 mg HS PRN Administration Insomnia Albuterol/Ipratropium 3 ml 06/01/20 02:31 06/13/20 22:35 Ipratropium/Albuterol Sulfate 3 Ml Neb NEB 3 ml Q4H PRN Administration Wheezing Albuterol/Ipratropium 3 ml 06/02/20 13:00 06/15/20 07:15 Ipratropium/Albuterol Sulfate 3 Ml Neb NEB 3 ml [id number] CHIDI Administration Calcium Carbonate 1,000 mg 06/10/20 17:14 06/10/20 17:36 Calcium Carbonate 500 Mg Chewtab PO 1,000 mg Q4H PRN Administration Heartburn or Indigestion Dextrose/Water 25 gm 06/02/20 04:50 06/02/20 04:59 Dextrose 50% Abboject 50 Ml Syringe SLOW IVP 25 gm PRN PRN Administration Hypoglycemia Diltiazem HCl 120 mg 06/02/20 09:00 06/15/20 08:05 Diltiazem Cd 120 Mg Cap PO 120 mg QAM CHIDI Administration Diphenhydramine HCl 25 mg 06/01/20 02:24 06/09/20 21:57 Diphenhydramine 50 Mg/Ml Vial IVP 25 mg Q3H PRN Administration Itching Diphenhydramine HCl 50 mg 06/13/20 21:50 06/13/20 22:05 Diphenhydramine 25 Mg Cap PO 50 mg HS PRN Administration Insomnia Enoxaparin Sodium 70 mg 06/04/20 09:00 06/15/20 08:05 Enoxaparin Sodium 80 Mg/0.8 Ml Syringe SC 70 mg 0900,2100 CHIDI Administration Hydralazine HCl 10 mg 06/01/20 02:31 06/03/20 22:05 Hydralazine 20 Mg/Ml Vial SLOW IVP 10 mg Q4H PRN Administration SBP > 170 or DBP > 100 Meropenem 2 gm/ Sodium 100 mls @ 100 mls/hr 06/13/20 09:00 06/15/20 08:11 Chloride IVPB 100 mls Q12HR CHIDI Administration Vancomycin HCl 1 gm/ Device 200 mls @ 200 mls/hr 06/15/20 04:00 06/15/20 04:09 IVPB 200 mls 0400 CHIDI Administration Loratadine 10 mg 06/10/20 09:00 06/15/20 08:05 Loratadine 10 Mg Tab PO 10 mg DAILY CHIDI Administration Lorazepam 1 mg 06/14/20 18:50 06/14/20 20:00 Lorazepam 2 Mg/Ml Vial SLOW IVP 1 mg Q4H PRN Administration Anxiety/Agitation Ondansetron HCl 4 mg 06/01/20 02:31 06/06/20 21:25 Ondansetron Pf 4 Mg/2 Ml Vial IVP 4 mg Q6H PRN Administration Nausea/Vomiting Pantoprazole Sodium 40 mg 06/03/20 21:00 06/14/20 20:00 Pantoprazole 40 Mg Vial IVP 40 mg HS CHIDI Administration Sodium Chloride 10 ml 06/01/20 02:31 06/11/20 09:38 Flush - Normal Saline 10 Ml Syringe IVF 10 ml PRN PRN Administration Saline Flush - Exam General Appearance: NAD, awake alert Heart: RRR, no murmur, no gallops, no rubs, normal peripheral pulses Respiratory: rales (Bilateral), rhonchi (Mild, improved from yesterday.) Gastrointestinal: soft, non-tender, non-distended, normal bowel sounds, no palpable masses, no hepatomegaly, no splenomegaly, no bruit Extremities: 1+ LE edema Skin: normal turgor Neurological: no focal deficits Musculoskeletal: generalized weakness Psychiatric: normal affect, normal behavior, lethargic (Mildly) Hosp A/P (1) Acute respiratory failure with hypoxia Code(s): J96.01 - ACUTE RESPIRATORY FAILURE WITH HYPOXIA Status: Acute (2) ARDS (adult respiratory distress syndrome) Code(s): J80 - ACUTE RESPIRATORY DISTRESS SYNDROME Status: Acute (3) Intestinal anastomotic disruption Code(s): K92.9 - DISEASE OF DIGESTIVE SYSTEM, UNSPECIFIED Status: Acute (4) Perforated sigmoid colon Code(s): K63.1 - PERFORATION OF INTESTINE (NONTRAUMATIC) Status: Acute (5) Acute blood loss anemia Code(s): D62 - ACUTE POSTHEMORRHAGIC ANEMIA Status: Acute (6) Atrial fibrillation with controlled ventricular rate Code(s): I48.91 - UNSPECIFIED ATRIAL FIBRILLATION Status: Chronic (7) BPH (benign prostatic hyperplasia) Code(s): N40.0 - BENIGN PROSTATIC HYPERPLASIA WITHOUT LOWER URINRY TRACT SYMP Status: Chronic (8) HTN (hypertension) Code(s): I10 - ESSENTIAL (PRIMARY) HYPERTENSION Status: Chronic (9) DVT (deep venous thrombosis) Code(s): I82.409 - ACUTE EMBOLISM AND THOMBOS UNSP DEEP VN UNSP LOWER EXTREMITY Status: Acute (10) Acute metabolic encephalopathy Code(s): G93.41 - METABOLIC ENCEPHALOPATHY Status: Acute (11) Acute kidney injury Code(s): N17.9 - ACUTE KIDNEY FAILURE, UNSPECIFIED Status: Acute (12) Dysphagia Code(s): R13.10 - DYSPHAGIA, UNSPECIFIED Status: Acute (13) Hyponatremia Code(s): E87.1 - HYPO-OSMOLALITY AND HYPONATREMIA Status: Acute (14) Hypocalcemia Code(s): E83.51 - HYPOCALCEMIA Status: Acute (15) Anorexia Code(s): R63.0 - ANOREXIA Status: Acute (16) Physical debility Code(s): R53.81 - OTHER MALAISE Status: Acute (17) Urinary retention Code(s): R33.9 - RETENTION OF URINE, UNSPECIFIED Status: Acute - Plan Acute respiratory failure with hypoxia: Patient progressed substantially from 6 L of nasal cannula to 60 L of high flow on 93% FiO2 on 06/13/2020. In spite of that the patient continued to have fairly labored breathing and worsening exam. Discussed with Dr. Stinson. Patient was moved to the ICU and started on BiPAP. He is possibly somewhat better after receiving the Lasix and albumin and blood. High risk for intubation. COVID-19 pneumonia: Patient tested negative on May 31 at the time of his admission to the hospital. He had respiratory decompensation on 06/13/2020. At that time the patient had repeat testing which was positive for Covid. Unfortunately, the patient is postop, therefore limiting her ability to be very aggressive with steroids. We will discuss with surgery. He is also not a candidate for remdesivir because of his worsening renal function. Acute kidney injury: At baseline he had a GFR of greater than 90. Subsequently has come down to 28. Repeat testing pending. He has had steady progression of his renal decline. Appreciate nephrology consult. Albumin infusions continuing. Postoperative anemia: Transfused on 06/14/2020 due to his worsening respiratory status. Hoping this will increase his oxygen carrying capacity and provide some oncotic forces well. Urinary retention: Patient had a [place] which has now been removed. Subsequently the patient did not void. Bladder scan today revealed significant retention. In and out catheter revealed over 400 cc in the bladder. We will continue to monitor and replace the catheter as needed. Possible aspiration pneumonitis: Patient apparently had some aspiration on water. Could be contributing to the respiratory failure and chest x-ray findings although less likely given the diffuse nature and the Covid diagnosis. Patient remains on broad-spectrum antibiotics with vancomycin and meropenem. Dysphagia: Evaluated by speech. Continue to follow the recommendations for diet. Anorexia: Patient has not been eating much of late. Albumin level at 2. With his current hypoxia the patient desaturates quickly when trying to even briefly remove the BiPAP. Therefore, p.o. intake is going to be very limited. They cannot come off the BiPAP soon will need to consider parenteral nutrition. Hypocalcemia: Corrected calcium normal. Hyponatremia: Patient has had worsening hyponatremia. 06/14/2020 his sodium is down to 128. May be some postoperative issues there but could be accounted for simply by fluid retention. He was given Lasix on 06/14/2020. Repeat testing pending Atrial fibrillation: Well-controlled continue with diltiazem and anticoagulation with therapeutic level Lovenox. DVT: Patient has extensive DVT of the left upper extremity. He remains on therapeutic level Lovenox. Perforated sigmoid diverticulitis: Status post initial surgery with subsequent surgery for Devyn pouch and ostomy placement. Patient appears to be doing reasonably well from a postoperative perspective itself other than the potential respiratory complications he is experiencing now. Continue with antibiotics. His white blood cell count has completely normalized and he is not tender in his abdomen at all. Disposition: The patient had his initial respiratory decompensation I had a long conversation with the patient and his on 06/14/2020. At that time they were debating whether to consider intubation or not. Given that at that time we thought it was ARDS they opted to consider intubation with the likelihood that it would eventually improve. The Covid diagnosis may significantly change that. The success rate for intubation with Covid is far worse. The patient has indicated he might like to consider going home, possibly with hospice. We will ask palliative care to work with the patient and his for goals of care and decision making. Currently he is relatively stable on the BiPAP although his prognosis is still poor.
[2020-06-15 10:57] LABS: Hemoglobin 8.9 g/dL (14.0-18.0); Mean Corpuscular HGB CONC 32.8 g/dL (32.0-36.0); Mean Corpuscular Hemoglobin 31.1 pg (27.0-31.0); Mean Corpuscular Volume 94.8 fL (78.0-98.0); Mean Platelet Volume 6.7 fL (7.4-10.4); Platelet Count 379 thou/uL (130-400); RBC Distribution Width 14.1 % (11.5-14.5); Red Blood Cell (RBC) Count 2.86 mill/uL (4.70-6.10); White Blood Cell (WBC) Count 11.7 thou/uL (4.8-10.8)
[2020-06-15] MEDS: Albumin 25% 25 GM/100 ML BOT IVPB SCH ×3 (11:00→22:33)
[2020-06-15 11:17] LABS: ALT (SGPT) 9 U/L (8-55); AST (SGOT) 53 U/L (5-34); Albumin 2.3 g/dL (3.4-4.8); Alkaline Phosphatase 61 U/L (40-110); Anion Gap 16 mmol/L (10-20); BUN (Urea Nitrogen) 39 mg/dL (8.4-25.7); Bilirubin, Total 1.1 mg/dL (0.2-1.2); Calc. Creatinine Clearance 23 mL/min (70-130); Calcium 6.7 mg/dL (7.8-10.44); Carbon Dioxide 18 mmol/L (23-31); Chloride 100 mmol/L (98-107); Globulin 2.2 g/dL (2.4-3.5); Glucose 60 mg/dL (83-110); Protein, Total 4.5 g/dL (5.8-8.1); Sodium 130 mmol/L (136-145)
[2020-06-15 11:23] LABS: Band 15 % (5-11); Burr Cells MODERATE= 6-15 cells (100X) (0-1/hpf); Lymphocytes 2 % (21-51); MDiff Complete? YES; Monocytes 1 % (0-10); Neutrophil 82 % (42-75); Platelet Morphology Comment Appears Adequate; Polychromasia SLIGHT = 2-3 cells (100X) (0-2/hpf); Schistocytes SLIGHT = 2-5 cells (100X) (0-1/hpf)
--- NOTE | 2020-06-15 11:23 | PDOC.GSPN ---
Surgery Progress Note: Subj - Subjective Narrative: Denies abdominal pain, nausea, and vomiting. Transferred to the intensive care unit for BiPAP therapy due to Covid pneumonia Surgery Progress Note: Obj - Vital signs Vital signs: Vital Signs - Most Recent Temp Pulse Resp BP Pulse Ox 99.2 F 64 38 H 124/56 L 97 06/15/20 08:00 06/15/20 10:55 06/15/20 10:55 06/15/20 08:05 06/15/20 10:55 - Physical Exam General: moderate distress Cardiovascular: regular rate and rhythm Respiratory: other (Dyspneic with tachypnea. On BiPAP) Abdomen: soft, non tender (Incisions healing well. Ostomy patent with gas and stool output.) Surgery Progress Note: Results - Labs Result Diagrams: 06/15/20 10:37 06/15/20 10:37 Lab results: Laboratory Results - last 12 hr 06/13/20 06/15/20 06/15/20 16:39 01:58 06:10 WBC RBC Hgb Hct MCV MCH MCHC RDW Plt Count MPV Sodium Potassium Chloride Carbon Dioxide Anion Gap BUN Creatinine Estimated GFR (MDRD) Glucose POC Glucose 43 L* 63 L Calcium Total Bilirubin AST ALT Alkaline Phosphatase Serum Total Protein Albumin Globulin Albumin/Globulin Ratio Vancomycin Trough 22.2 06/15/20 06/15/20 06/15/20 10:37 10:37 11:07 WBC 11.7 H RBC 2.86 L Hgb 8.9 L Hct 27.2 L MCV 94.8 MCH 31.1 H MCHC 32.8 RDW 14.1 Plt Count 379 MPV 6.7 L Sodium 130 L Potassium 4.0 Chloride 100 Carbon Dioxide 18 L Anion Gap 16 BUN 39 H Creatinine 3.08 H Estimated GFR (MDRD) 20 Glucose 60 L POC Glucose 63 L Calcium 6.7 L Total Bilirubin 1.1 AST 53 H ALT 9 Alkaline Phosphatase 61 Serum Total Protein 4.5 L Albumin 2.3 L Globulin 2.2 L Albumin/Globulin Ratio 1.0 L Vancomycin Trough - Radiology Interpretation CT scan - abdomen Additional comments: Large fluid collection behind the rectum adjacent to anastomosis. Read as hematoma; however, given the patient's leukocytosis and recent low anterior resection with primary anastomosis, this likely represents an anastomotic disruption. Surgery Progress Note: A/P - Problem (1) Intestinal anastomotic disruption Current Visit: Yes Code(s): K92.9 - DISEASE OF DIGESTIVE SYSTEM, UNSPECIFIED Status: Acute - Plan Plan: Doing well from a surgical standpoint. Diet per speech recommendations. The patient has had a long hospital course with minimal oral intake. Recommend early initiation of parenteral therapy through PICC line. Upper extremity DVT: Continue therapeutic Lovenox Acute kidney injury: Labs pending today. Nephrology consulted. Continue with volume repletion Covid pneumonia: Wean BiPAP as tolerated. Steroid therapy okay from surgical standpoint. We will continue to follow.
--- NOTE | 2020-06-15 12:01 | PDOC.PALCO ---
Palliative Care Consult - Consult Details Requesting Physician: Dr Luong Reason for Consult: goals of care, family support, complex decision-making - Pertinent HPI 75 year old male who presented to the hospital 05/31 with a three day history of increasing abdominal pain, nausea, vomiting. He was also noted to have a recent GI bleed. CT revealed an abdomen with suspected pneumoperitoneum where general surgery was consulted and performed an emergent laparoscopy where a colonic perforation was noted and converted to an open colon resection. Intubated post surgery and admitted to CCU. Improved during course of stay, and extubated. During course of stay was found to be COVID +. Experienced decline eventually requiring BiPAP at 100% with pressure support. - Pertinent PMH Atrial fib, HTN, Hernia, anxiety - Social History Smoking Status: Never smoker Smoking: no tobacco exposure Alcohol Use: none Drug Use History: none Living Situation: independent, - Allergies Allergies/Adverse Reactions: Allergies Allergy/AdvReac Type Severity Reaction Status Date / Time No Known Allergies Allergy Verified 05/25/20 20:53 - Subjective On Bipap, accessory muscle use, desats with removal of Bipap. Able to communicate intermittently with allowance of time for recovery from respiratory distress. Difficult to fully appreciate ROS secondary to respiratory distress - ROS Constitutional: distress, weakness ENT: dry mouth Respiratory: shortness of breath, shortness of breath with extertion Cardiology: light headedness Gastrointestinal: other (Denies nausea or vomiting) Genitourinary: other (No urinary complaints as lee in place, denies burning sensation) Musculoskeletal: other (Denies muscleskeletal pain) Skin: other Psychological: anxiety - Objective Vital Signs: Vital Signs - Most Recent Temp Pulse Resp BP Pulse Ox 99.2 F 64 38 H 124/56 L 97 06/15/20 08:00 06/15/20 10:55 06/15/20 10:55 06/15/20 08:05 06/15/20 10:55 Palliative Performance Scale: 30 - Physical Exam Constitutional: ill appearing, mild distress HEENT: EOMI, moist MMs, PERRLA Respiratory: no wheezing, unlabored breathing, accessory muscle use, diminished lung sound Deviation from normal: mild adventicious bilaterally Cardiovascular: RRR Gastrointestinal: soft, non-tender, positive bowel sounds Genitourinary: lee catheter Musculoskeletal: no cyanosis, no clubbing, edema present Neurology: moves all 4 limbs, no focal deficits Skin: cap refill <2 seconds, no lesions, no rash Psychiatric: A&O x 3 - Problem List (1) Palliative care encounter Code(s): Z51.5 - ENCOUNTER FOR PALLIATIVE CARE Status: Acute (2) ARDS (adult respiratory distress syndrome) Code(s): J80 - ACUTE RESPIRATORY DISTRESS SYNDROME Status: Acute (3) Acute blood loss anemia Code(s): D62 - ACUTE POSTHEMORRHAGIC ANEMIA Status: Acute (4) Acute respiratory failure with hypoxia Code(s): J96.01 - ACUTE RESPIRATORY FAILURE WITH HYPOXIA Status: Acute (5) Perforated sigmoid colon Code(s): K63.1 - PERFORATION OF INTESTINE (NONTRAUMATIC) Status: Acute (6) Physical debility Code(s): R53.81 - OTHER MALAISE Status: Acute (7) Pneumonia due to COVID-19 virus Code(s): U07.1 - COVID-19; J12.82 - PNEUMONIA DUE TO CORONAVIRUS 2018 Status: Acute (8) Respiratory failure Code(s): J96.90 - RESPIRATORY FAILURE, UNSP, UNSP W HYPOXIA OR HYPERCAPNIA Status: Acute Qualifiers: Chronicity: acute - Plan/Recommendations Plan: Discussed resuscitation status with patient. States he does not desire to be intubated or have CPR Poor toleration of conversation, increased fatigue. Communicated he "wants to go home". Case Management communicated with patient . Communicated with Dr Luong. Will provide teaching in relation to disease processes, and secondary to patient not desiring to be intubated revisit Goal of care as comfort measures would be appropriate if patient does not tolerate Bipap. Palliative care communicated with patient and son, provided opportunity Son to talk to patient allowing for him to hear their voice. Emotional support and therapeutic listening offered to family. [55] minutes spent on this encounter with >50% of the time in counseling and coordination of care. Thank you for this very appropriate consult.
[2020-06-15] MEDS: Dextrose 5 %-0.45 % NaCl 1,000 ML IV SCH (13:38)
[2020-06-15 14:00] VITALS: BMI 28.5
--- NOTE | 2020-06-15 14:18 | PRG ---
DATE OF SERVICE: 06/15/2020 SERVICE: Renal Medicine. SUBJECTIVE: Mr. Navarrete is a 75-year-old white male with known multiple medical problems, recently status post acute abdomen and underwent a low anterior resection and a colostomy placement. We are following up this patient due to his acute kidney injury. Initially, we felt that the renal dysfunction may be a hemodynamically-mediated renal dysfunction. We have discussed the case with the hospitalist. Empiric volume repletion has been given with this patient. The plan is to continue albumin infusion at 25 g IV q.4. Please note, the patient has also been considering hospice care. PHYSICAL EXAMINATION: VITAL SIGNS: Blood pressure is 131/62, heart rate 67, respiratory rate 36, O2 saturation 97%, currently on BiPAP. GENERAL: The patient is arousable, in mild respiratory distress. SKIN: Adequate turgor. HEENT: He has slightly pale conjunctivae. Anicteric sclerae. NECK: No neck mass. No carotid bruits. No JVD. CHEST: No deformities. LUNGS: Decreased breath sounds. HEART: Normal sinus rhythm. No murmurs, no gallops, or no rubs. ABDOMEN: Globular, soft, nontender. No masses. EXTREMITIES: No edema. MEDICATIONS: Of June 15, 2020, were reviewed. LABORATORY DATA: Laboratories of June 15, 2020, white count 11.6, hemoglobin 8.9. Urinalysis of June 14, 2020, specific gravity was 1.007. No pigmented granular casts were seen. He has rbc of 11 to 20, wbc of 11 to 20, protein is 20. Sodium 130, potassium 4, chloride 100, carbon dioxide 18, BUN 39, creatinine 3.08, glucose 60, calcium 6.7, and albumin is 2.3. On June 14, 2020, creatinine was 2.6. On June 13, 2020, creatinine 1.86. ASSESSMENT AND PLAN: 1. Acute kidney injury, consider hemodynamically-mediated dysfunction. Continue current IV albumin infusion. Urinalysis reviewed, did not show pigmented granular cast. However, if he does not improve with volume repletion with albumin, there could be a superimposed acute tubular necrosis. No indication for any dialytic intervention at the present time. 2. COVID-19 pneumonia - the patient has serology done which is positive yesterday. He is currently in isolation. The patient is doing poorly overall. His prognosis remains guarded. Continue supportive care. Job ID: [id number] MTDD
[2020-06-15] MEDS: Morphine 4 MG/ML VIAL SLOW IVP PRN (20:42)
[2020-06-15] MEDS: Pantoprazole 40 MG VIAL IVP SCH (20:42)
[2020-06-16] MEDS: Vancomycin 1 GM in Premix Bag 1 BAG IVPB SCH (04:29)
[2020-06-16] MEDS: Albumin 25% 25 GM/100 ML BOT IVPB SCH (04:29)
[2020-06-16] MEDS: Morphine 4 MG/ML VIAL SLOW IVP PRN ×4 (06:00→17:40)
[2020-06-16 07:28] LABS: Anion Gap 17 mmol/L (10-20); BUN (Urea Nitrogen) 34 mg/dL (8.4-25.7); Calc. Creatinine Clearance 22 mL/min (70-130); Calcium 6.9 mg/dL (7.8-10.44); Carbon Dioxide 16 mmol/L (23-31); Chloride 101 mmol/L (98-107); Glucose 89 mg/dL (83-110); Potassium 3.6 mmol/L (3.5-5.1); Sodium 130 mmol/L (136-145)
[2020-06-16] MEDS: Dextrose 5 %-0.45 % NaCl 1,000 ML IV SCH (07:50)
[2020-06-16] MEDS: Loratadine 10 MG TAB PO SCH (07:59)
[2020-06-16 08:32] VITALS: TEMP 97.1
[2020-06-16] MEDS ORDERED: Enoxaparin Sodium 80 MG/0.8 ML SYRINGE SC SCH (09:00)
--- NOTE | 2020-06-16 09:17 | PDOC.PALPN ---
Palliative Progress Note - Objective Vital Signs: Vital Signs - Most Recent Temp Pulse Resp BP Pulse Ox 97.1 F L 65 32 H 124/56 L 93 L 06/16/20 07:00 06/16/20 07:59 06/16/20 06:57 06/15/20 08:05 06/16/20 06:57 - Plan Plan: Facilitated phone call between patient and his son. Continues with tachypnea, Bipap. Confirms DNAR and desire to return to home setting under Hospice care. Dr Luong has communicated with patient spouse, she is agreeable for evaluation for patient to return to home setting with Hospice. Rita ARMAS is coordinating hospice evaluation with [facility]. Will request evaluation for feasibility to have patient return to home setting or GIP [35] minutes spent on this encounter with >50% of the time in counseling and coordination of care.
[2020-06-16] MEDS ORDERED: Albumin 25% 25 GM/100 ML BOT IVPB ONE (09:19)
--- NOTE | 2020-06-16 09:39 | PRG ---
DATE OF SERVICE: 06/16/2020 SUBJECTIVE: Day 16 in the hospital. He now is in the ICU with ahuja positive status. He had a serology done on the , is positive in the past, has been negative. His x-ray shows right-sided infiltrate. OBJECTIVE: VITAL SIGNS: Pulse 65, his sats on 80% are 95%, blood pressure 130/70. GENERAL: He is awake, responsive. LUNGS: He says he is not having much difficulty breathing. CHEST: Rhonchi and crackles. CARDIAC: Sinus tach. ABDOMEN: No masses. LABORATORY AND DIAGNOSTIC DATA: Creatinine is 3.3, slowly rising. His x-rays were noted. Additional lab shows his white count was 11,000, H and H , platelet count 371. IMPRESSION: Multiorgan failure, abdominal sepsis, renal failure, ahuja positive status, respiratory failure. PLAN: His Lovenox has been adjusted for his renal failure 70 once a day. He is on neb treatments, broad-spectrum antibiotics, supportive care. I expect his prognosis is grave. Family decided comfort care with transfer to home on hospice. One-half hour of critical time. Job ID: [id number]
[2020-06-16] MEDS: Meropenem 2 GM in Sodium Chloride 0.9% 100 ML IVPB SCH (09:45)
[2020-06-16] MEDS ORDERED: Vancomycin 1 GM in Premix Bag 1 BAG IVPB SCH (09:45)
--- NOTE | 2020-06-16 10:25 | PDOC.HOSPP ---
- Subjective Encounter Date: 06/16/20 Subjective: Patient indicated that he was feeling okay today. Denied any pain or di scomfort. Does not even feel significantly short of breath. - Objective Vital Signs & Weight: Vital Signs (12 hours) Temp Pulse Resp Pulse Ox 06/16/20 07:59 65 06/16/20 07:00 97.1 F L 06/16/20 06:57 65 32 H 93 L 06/16/20 06:56 67 40 H 96 06/16/20 04:00 99.1 F 06/16/20 02:15 69 40 H 95 06/16/20 00:03 65 27 H 95 06/15/20 23:00 99.0 F Weight Admit Weight 148 lb 5.938 oz Weight 178 lb 9.191 oz Most Recent Monitor Data Heart Rate from ECG 71 NIBP 118/73 NIBP BP-Mean 88 Respiration from ECG 28 SpO2 95 I&O: 06/15/20 06/16/20 06/17/20 06:59 06:59 06:59 Intake Total 450 1991 Output Total 2635 1413 80 Balance -2185 578 -80 Result Diagrams: 06/15/20 10:37 06/16/20 06:56 Additional Labs: Accuchecks 06/16/20 06/15/20 06/15/20 04:34 20:57 17:16 POC Glucose 73 69 L 68 L 06/15/20 11:07 POC Glucose 63 L Hospitalist ROS - Medication Medications: Active Medications Generic Name Dose Route Start Last Admin Trade Name Freq PRN Reason Stop Dose Admin Acetaminophen 1,000 mg 06/04/20 05:53 06/14/20 08:52 Acetaminophen 500 Mg Tab PO 1,000 mg Q6H PRN Administration Headache/Fever or Pain Acetaminophen 1,000 mg 06/13/20 21:49 06/13/20 22:05 Acetaminophen 500 Mg Tab PO 1,000 mg HS PRN Administration Insomnia Albuterol/Ipratropium 3 ml 06/01/20 02:31 06/13/20 22:35 Ipratropium/Albuterol Sulfate 3 Ml Neb NEB 3 ml Q4H PRN Administration Wheezing Albuterol/Ipratropium 3 ml 06/02/20 13:00 06/16/20 06:57 Ipratropium/Albuterol Sulfate 3 Ml Neb NEB 3 ml [id number] CHIDI Administration Calcium Carbonate 1,000 mg 06/10/20 17:14 06/10/20 17:36 Calcium Carbonate 500 Mg Chewtab PO 1,000 mg Q4H PRN Administration Heartburn or Indigestion Dextrose/Water 25 gm 06/02/20 04:50 06/02/20 04:59 Dextrose 50% Abboject 50 Ml Syringe SLOW IVP 25 gm PRN PRN Administration Hypoglycemia Diltiazem HCl 120 mg 06/02/20 09:00 06/16/20 07:59 Diltiazem Cd 120 Mg Cap PO 120 mg QAM CHIDI Administration Diphenhydramine HCl 25 mg 06/01/20 02:24 06/09/20 21:57 Diphenhydramine 50 Mg/Ml Vial IVP 25 mg Q3H PRN Administration Itching Diphenhydramine HCl 50 mg 06/13/20 21:50 06/13/20 22:05 Diphenhydramine 25 Mg Cap PO 50 mg HS PRN Administration Insomnia Enoxaparin Sodium 70 mg 06/16/20 09:00 06/16/20 08:00 Enoxaparin Sodium 80 Mg/0.8 Ml Syringe SC 70 mg 0900 CHIDI Administration Hydralazine HCl 10 mg 06/01/20 02:31 06/03/20 22:05 Hydralazine 20 Mg/Ml Vial SLOW IVP 10 mg Q4H PRN Administration SBP > 170 or DBP > 100 Dextrose/Sodium Chloride 1,000 mls @ 50 mls/hr 06/15/20 12:15 06/16/20 07:50 D5 1/2 Ns IV 1,000 mls .Q20H CHIDI Administration Loratadine 10 mg 06/10/20 09:00 06/16/20 07:59 Loratadine 10 Mg Tab PO 10 mg DAILY CHIDI Administration Lorazepam 1 mg 06/14/20 18:50 06/14/20 20:00 Lorazepam 2 Mg/Ml Vial SLOW IVP 1 mg Q4H PRN Administration Anxiety/Agitation Morphine Sulfate 4 mg 06/14/20 13:49 06/16/20 06:00 Morphine 4 Mg/Ml Vial SLOW IVP 4 mg Q4H PRN Administration Congestion Ondansetron HCl 4 mg 06/01/20 02:31 06/06/20 21:25 Ondansetron Pf 4 Mg/2 Ml Vial IVP 4 mg Q6H PRN Administration Nausea/Vomiting Pantoprazole Sodium 40 mg 06/03/20 21:00 06/15/20 20:42 Pantoprazole 40 Mg Vial IVP 40 mg HS CHIDI Administration Sodium Chloride 10 ml 06/01/20 02:31 06/11/20 09:38 Flush - Normal Saline 10 Ml Syringe IVF 10 ml PRN PRN Administration Saline Flush - Exam General Appearance: ill appearing General - other findings: BiPAP, tachypneic Heart: RRR, no murmur, no gallops, no rubs, normal peripheral pulses Respiratory: rales, rhonchi, tachypneic Gastrointestinal: soft, non-tender, non-distended, normal bowel sounds Gastrointestinal - other findings: ADELAIDA drain in place with minimal output, healthy stoma Extremities: 2+ LE edema Extremities - other findings: 2+ left upper extremity edema Neurological: no focal deficits Musculoskeletal: generalized weakness (Profound) Psychiatric: normal affect, normal behavior, lethargic Hosp A/P (1) Acute respiratory failure with hypoxia Code(s): J96.01 - ACUTE RESPIRATORY FAILURE WITH HYPOXIA Status: Acute (2) Pneumonia due to COVID-19 virus Code(s): U07.1 - COVID-19; J12.82 - PNEUMONIA DUE TO CORONAVIRUS DISEASE 2019 Status: Acute (3) Intestinal anastomotic disruption Code(s): K92.9 - DISEASE OF DIGESTIVE SYSTEM, UNSPECIFIED Status: Acute (4) Perforated sigmoid colon Code(s): K63.1 - PERFORATION OF INTESTINE (NONTRAUMATIC) Status: Acute (5) Acute blood loss anemia Code(s): D62 - ACUTE POSTHEMORRHAGIC ANEMIA Status: Acute (6) Atrial fibrillation with controlled ventricular rate Code(s): I48.91 - UNSPECIFIED ATRIAL FIBRILLATION Status: Chronic (7) BPH (benign prostatic hyperplasia) Code(s): N40.0 - BENIGN PROSTATIC HYPERPLASIA WITHOUT LOWER URINRY TRACT SYMP Status: Chronic (8) HTN (hypertension) Code(s): I10 - ESSENTIAL (PRIMARY) HYPERTENSION Status: Chronic (9) DVT (deep venous thrombosis) Code(s): I82.409 - ACUTE EMBOLISM AND THOMBOS UNSP DEEP VN UNSP LOWER EXTREMITY Status: Acute (10) Acute metabolic encephalopathy Code(s): G93.41 - METABOLIC ENCEPHALOPATHY Status: Acute (11) Acute kidney injury Code(s): N17.9 - ACUTE KIDNEY FAILURE, UNSPECIFIED Status: Acute (12) Dysphagia Code(s): R13.10 - DYSPHAGIA, UNSPECIFIED Status: Acute (13) Hyponatremia Code(s): E87.1 - HYPO-OSMOLALITY AND HYPONATREMIA Status: Acute (14) Hypocalcemia Code(s): E83.51 - HYPOCALCEMIA Status: Acute (15) Anorexia Code(s): R63.0 - ANOREXIA Status: Acute (16) Physical debility Code(s): R53.81 - OTHER MALAISE Status: Acute (17) Urinary retention Code(s): R33.9 - RETENTION OF URINE, UNSPECIFIED Status: Acute - Plan Acute respiratory failure with hypoxia: Patient progressed substantially from 6 L of nasal cannula to 60 L of high flow on 93% FiO2 on 06/13/2020. In spite of that the patient continued to have fairly labored breathing and worsening exam. Discussed with Dr. Stinson. Patient was moved to the ICU and started on BiPAP. He was initially slightly better after receiving albumin, Lasix, blood products. Patient has subsequently required maximum support on BiPAP and remains labored in his breathing. Concerned that the patient is experiencing increasing fatigue. Patient has been firm that he does not want intubation. COVID-19 pneumonia: Patient tested negative on May 31 at the time of his admission to the hospital. He had respiratory decompensation on 06/13/2020. At that time the patient had repeat testing which was positive for Covid. Discussed with surgery. Will give steroids. He is also not a candidate for remdesivir because of his worsening renal function. Acute kidney injury: At baseline he had a GFR of greater than 90. Subsequently has come down to 28. Repeat testing pending. He has had steady progression of his renal decline. On 06/10/2020 his GFR was greater than 90, on 06/16/2020 it is down the 18. Appreciate nephrology consult. Albumin infusions continuing. Postoperative anemia: Transfused on 06/14/2020 due to his worsening respiratory status. Urinary retention: Patient had a [place] which has now been removed. Subsequently the patient did not void. Bladder scan today revealed significant retention. In and out catheter revealed over 400 cc in the bladder. We will continue to monitor and replace the catheter as needed. Possible aspiration pneumonitis: Patient apparently had some aspiration on water. Could be contributing to the respiratory failure and chest x-ray findings although less likely given the diffuse nature and the Covid diagnosis. Patient remains on broad-spectrum antibiotics with vancomycin and meropenem. Dysphagia: Evaluated by speech. Continue to follow the recommendations for diet. Anorexia: Patient has not been eating much of late. Albumin level at 2. With his current hypoxia the patient desaturates quickly when trying to even briefly remove the BiPAP. Therefore, p.o. intake is going to be very limited. They cannot come off the BiPAP soon will need to consider parenteral nutrition. Hypocalcemia: Corrected calcium normal. Hyponatremia: Patient has had worsening hyponatremia. 06/14/2020 his sodium is down to 128. May be some postoperative issues there but could be accounted for simply by flu id retention. He was given Lasix on 06/14/2020. Persistent on 06/16/2020 Atrial fibrillation: Well-controlled continue with diltiazem and anticoagulation with therapeutic level Lovenox. DVT: Patient has extensive DVT of the left upper extremity. He remains on therapeutic level Lovenox. Perforated sigmoid diverticulitis: Status post initial surgery with subsequent surgery for Devyn pouch and ostomy placement. Patient appears to be doing reasonably well from a postoperative perspective itself other than the potential respiratory complications he is experiencing now. Continue with antibiotics. His white blood cell count has completely normalized and he is not tender. Disposition: The patient had his initial respiratory decompensation I had a long conversation with the patient and his on 06/14/2020. At that time they were debating whether to consider intubation or not. Given that at that time we thought it was ARDS they opted to consider intubation with the likelihood that it would eventually improve. The Covid diagnosis has significantly changed. The success rate for intubation with Covid is far worse. He has progressed to requiring maximal support from BiPAP and continues to have labored breathing and signs of fatigue. Long conversation with the patient today along with his nurse. Patient is very focused on getting home and very focused on making decisions that will be the least problematic for his . We reviewed the prognosis and potential treatment options. Overall his prognosis remains poor. If he were to somehow survive this he would be looking at a long and difficult claros with a prolonged recovery. Ultimately he would like to speak to a hospice claim representative so that he can get a better understanding of what his situation would look like at home if he chose the hospice route. I spoke with his at length as well. She is supportive of his decision. Palliative care was made aware. Hospice claim representative will be available at 1:30 today. If it can be arranged for the patient to be discharged home with some reasonable amount of oxygen support he can be discharged at any time.
[2020-06-16] MEDS ORDERED: MEROPENEM 1 GM/50 ML 1 GM in Premix Bag 1 BAG IVPB SCH (21:00)
[2020-06-17] MEDS ORDERED: Dexamethasone 4 mg/ml Vial SLOW IVP SCH (10:30)
== END 2020-06-16 17:26 | disposition hospice, inpatient (51) | DRG 329 ==
LOC: ERS 15:34 → SDC/OP 22:15 → CCU 23:00 → 2NO 06-02 11:46 → CCU 06-14 15:17
PROVIDERS: ADMIT Surgery; ATTEND Internal Medicine
PROC: 0DTN0ZZ Resection of Sigmoid Colon, Open Approach (ICD-10-PCS; principal; 2020-05-31)
PROC: 0DJD4ZZ Inspection of Lower Intestinal Tract, Percutaneous Endoscopic Approach (ICD-10-PCS; 2020-05-31)
PROC: 3E033XZ Introduction of Vasopressor into Peripheral Vein, Percutaneous Approach (ICD-10-PCS; 2020-05-31)
PROC: 0W9G40Z Drainage of Peritoneal Cavity with Drainage Device, Percutaneous Endoscopic Approach (ICD-10-PCS; 2020-06-11)
PROC: 0D1E4Z4 Bypass Large Intestine to Cutaneous, Percutaneous Endoscopic Approach (ICD-10-PCS; 2020-06-11)
PROC: 30233N1 Transfusion of Nonautologous Red Blood Cells into Peripheral Vein, Percutaneous Approach (ICD-10-PCS; 2020-06-14)
PROC: 5A09457 Assistance with Respiratory Ventilation, 24-96 Consecutive Hours, Continuous Positive Airway Pressure (ICD-10-PCS; 2020-06-14)
DX: K57.80 Diverticulitis of intestine, part unspecified, with perforation and abscess without bleeding (principal); K65.1 Peritoneal abscess; G93.41 Metabolic encephalopathy; J80 Acute respiratory distress syndrome; Z51.5 Encounter for palliative care; Z66 Do not resuscitate; U07.1 COVID-19; J12.82 Pneumonia due to coronavirus disease 2019; E87.1 Hypo-osmolality and hyponatremia; J98.11 Atelectasis; I82.B12 Acute embolism and thrombosis of left subclavian vein; I82.622 Acute embolism and thrombosis of deep veins of left upper extremity; I82.C12 Acute embolism and thrombosis of left internal jugular vein; K56.7 Ileus, unspecified; K91.871 Postprocedural hematoma of a digestive system organ or structure following other procedure; N17.9 Acute kidney failure, unspecified; D62 Acute posthemorrhagic anemia; I48.20 Chronic atrial fibrillation, unspecified; M10.9 Gout, unspecified; Z96.641 Presence of right artificial hip joint; E87.8 Other disorders of electrolyte and fluid balance, not elsewhere classified; E80.6 Other disorders of bilirubin metabolism; K21.9 Gastro-esophageal reflux disease without esophagitis; I10 Essential (primary) hypertension; F41.9 Anxiety disorder, unspecified; I49.3 Ventricular premature depolarization; E87.5 Hyperkalemia; R19.7 Diarrhea, unspecified; D72.829 Elevated white blood cell count, unspecified; E87.6 Hypokalemia; R55 Syncope and collapse; Y83.8 Other surgical procedures as the cause of abnormal reaction of the patient, or of later complication, without mention of misadventure at the time of the procedure; E16.2 Hypoglycemia, unspecified; E83.51 Hypocalcemia; R33.9 Retention of urine, unspecified; R13.10 Dysphagia, unspecified; N40.0 Benign prostatic hyperplasia without lower urinary tract symptoms; K92.89 Other specified diseases of the digestive system; Z95.0 Presence of cardiac pacemaker; Z86.73 Personal history of transient ischemic attack (TIA), and cerebral infarction without residual deficits; Z79.82 Long term (current) use of aspirin; Z79.899 Other long term (current) drug therapy; Z78.1 Physical restraint status; Z53.31 Laparoscopic surgical procedure converted to open procedure
CPT/HCPCS: 0240U; 36415; 36416; 36430; 36600; 51702; 70450; 71045; 71275; 74018; 74022; 74177; 80048; 80053; 80202; 81001; 81003; 81015; 82553; 82570; 82607; 82728; 82746; 82805; 83540; 83550; 83605; 83690; 83735; 83880; 84300; 84443; 84484; 85025; 85027; 86850; 86900; 86901; 87040; 87045; 87046; 87077; 87086; 87328; 87329; 87427; 87449; 87635; 88307; 93005; 93010; 93306; 94002; 94640; 94660; 95712; 95819; 95957; 96365; 96375; C9113; J0171; J0360; J0692; J1200; J1650; J1940; J2001; J2060; J2185; J2270; J2370; J2405; J2543; J2704; J3010; J3370; J3480; J3490; J7050; J7620; P9016; P9045; P9047; Q0163; Q9967; S0020; S0028; U0003

== ENCOUNTER 2020-06-16 17:34 | Inpatient (IN) | payer OTHER ==
[2020-06-16] MEDS ORDERED: Lorazepam 2 MG/ML VIAL ONE (17:39)
[2020-06-16] MEDS: Morphine 4 MG/ML VIAL ONE ×2 (17:42→17:44)
[2020-06-16] MEDS ORDERED: Lorazepam 2 MG/ML VIAL SLOW IVP SCH (17:45)
[2020-06-16] MEDS ORDERED: Morphine 2 MG/ML VIAL SLOW IVP SCH (17:45)
--- NOTE | 2020-06-17 12:59 | DIS ---
DATE OF ADMISSION: 06/16/2020 DATE OF DISCHARGE: 06/16/2020 DATE OF : 06/16/2020. PRINCIPAL DIAGNOSIS: Cardiorespiratory failure. SECONDARY DIAGNOSES: 1. Acute respiratory failure with hypoxemia. 2. COVID-19 pneumonia. 3. Sigmoid colon perforation. 4. Atrial fibrillation. 5. Benign prostatic hypertrophy. 6. Hypertension. COMPLICATIONS: None. ADVERSE REACTIONS: None. PROCEDURES: None. CONSULTATIONS: None. HOSPITAL COURSE: The patient was admitted to the hospital on with abdominal pain, nausea, and vomiting. He was diagnosed with sigmoid colon perforation. He underwent diagnostic laparoscopy with low anterior resection and primary anastomosis. Unfortunately, he developed respiratory decompensation and repeat testing was positive for COVID-19. He slowly declined and he refused any mechanical ventilation. Family agreed for hospice and he was admitted to hospice. The patient was not stable enough to transfer to home, so he was managed as inpatient. He peacefully and declined rapidly. For full details, please see chart. Job ID: [id number]
== END 2020-06-16 18:17 | disposition expired | DRG 951 ==
LOC: CCU 17:34
PROVIDERS: ADMIT Internal Medicine; ATTEND Internal Medicine
DX: Z51.5 Encounter for palliative care (principal); Z66 Do not resuscitate; U07.1 COVID-19; J96.01 Acute respiratory failure with hypoxia; J12.82 Pneumonia due to coronavirus disease 2019; K63.1 Perforation of intestine (nontraumatic); E87.1 Hypo-osmolality and hyponatremia; I48.91 Unspecified atrial fibrillation; M10.9 Gout, unspecified; E87.8 Other disorders of electrolyte and fluid balance, not elsewhere classified; E80.6 Other disorders of bilirubin metabolism; N40.0 Benign prostatic hyperplasia without lower urinary tract symptoms; I10 Essential (primary) hypertension; Z95.0 Presence of cardiac pacemaker; Z79.899 Other long term (current) drug therapy
CPT/HCPCS: J2060; J2270